=== PATIENT | male | born 1955 | race Caucasian/White ===

== ENCOUNTER 2018-03-02 03:41 | Outpatient (RCR) | payer SELFPAY | END 2018-04-01 03:41 | LOC: CR 03:41 | PROVIDERS: PCP Family Medicine; Visit Provider Family Medicine | DX: Z51.89 Encounter for other specified aftercare (principal) ==

== ENCOUNTER → 2018-03-29 11:00 | Outpatient (CLI) | payer MEDICARE, SELFPAY ==
--- NOTE | 2018-03-29 11:15 | DI.REPORT_ITS ---
SYMPTOMS/DIAGNOSIS: F/U SURGERY LEFT FOOT: Three views. Comparison 02/10/18. There are again seen post surgical changes of arthrodesis of the talonavicular joint, the calcaneocuboid joint and the talocalcaneal joint. The orthopedic hardware appears stable. No acute fracture or dislocation is seen. There is fusion of the PIP joint of the second toe again noted. Hammer toe deformities are present. Mild degenerative changes are seen in the foot. There is generalized soft tissue swelling of the foot. IMPRESSION: Chronic and post surgical changes of the left foot which appear stable.
== END ==
PROVIDERS: PCP Family Medicine; Visit Provider Orthopaedic Surgery
DX: M19.072 Primary osteoarthritis, left ankle and foot (principal); M21.6X2 Other acquired deformities of left foot; M21.072 Valgus deformity, not elsewhere classified, left ankle; M21.42 Flat foot [pes planus] (acquired), left foot; Z98.890 Other specified postprocedural states
CPT/HCPCS: 73630

== ENCOUNTER 2018-04-04 14:42 | Outpatient (RCR) | payer SELFPAY | END 2018-05-01 23:59 | disposition home or self-care (01) | LOC: CR 14:42 | PROVIDERS: PCP Family Medicine; Visit Provider Family Medicine | DX: Z51.89 Encounter for other specified aftercare (principal) ==

== ENCOUNTER 2018-04-07 15:30 | Outpatient (RCR) | payer SELFPAY | END 2018-05-01 23:59 | disposition home or self-care (01) | LOC: CR 15:30 | PROVIDERS: PCP Family Medicine; Visit Provider Family Medicine | DX: Z51.89 Encounter for other specified aftercare (principal) ==

== ENCOUNTER → 2018-05-03 10:45 | Outpatient (BNVA) | payer MEDICARE, SELFPAY | PROVIDERS: Visit Provider Orthopaedic Surgery | DX: Z47.89 Encounter for other orthopedic aftercare (principal); M19.072 Primary osteoarthritis, left ankle and foot; M21.072 Valgus deformity, not elsewhere classified, left ankle; M21.42 Flat foot [pes planus] (acquired), left foot | CPT/HCPCS: 99213 ==

== ENCOUNTER 2018-05-03 11:01 | Outpatient (CLI) | payer MEDICARE, SELFPAY ==
--- NOTE | 2018-05-03 11:12 | DI.RAD_ITS ---
SYMPTOMS/DIAGNOSIS: F/U SURGERY LT FOOT LEFT FOOT: Three views were obtained and show previously noted hindfoot fusion with no gross interval change in alignment of fixation screws in comparison with examination of 03/29/18.
== END 2018-05-03 11:21 ==
PROVIDERS: Visit Provider Orthopaedic Surgery
DX: M21.072 Valgus deformity, not elsewhere classified, left ankle (principal); M19.072 Primary osteoarthritis, left ankle and foot; Z47.89 Encounter for other orthopedic aftercare; Z98.890 Other specified postprocedural states
CPT/HCPCS: 99213; 73630

== ENCOUNTER 2018-05-17 10:39 | Outpatient (CLI) | payer MEDICARE, SELFPAY ==
[2018-05-18 10:30] LABS: PSA, Diagnostic 0.4 ng/ml (0-4.5)
== END 2018-05-17 10:59 ==
PROVIDERS: Nurse Practitioner Gerontology; PCP Family Medicine; Visit Provider Urology
DX: C61 Malignant neoplasm of prostate (principal)
CPT/HCPCS: 36415; 84153

== ENCOUNTER → 2018-05-24 08:51 | Outpatient (BNVA) | payer MEDICARE, SELFPAY | PROVIDERS: PCP Family Medicine; Visit Provider Nurse Practitioner Gerontology | DX: C61 Malignant neoplasm of prostate (principal); N40.1 Benign prostatic hyperplasia with lower urinary tract symptoms; N13.8 Other obstructive and reflux uropathy | CPT/HCPCS: 99213 ==

== ENCOUNTER 2018-05-24 09:00 | Outpatient (RCR) | payer MEDICARE, SELFPAY | END 2018-06-01 23:59 | disposition home or self-care (01) | LOC: CR 09:00 | PROVIDERS: PCP Family Medicine; Visit Provider Family Medicine | DX: Z51.89 Encounter for other specified aftercare (principal) ==

== ENCOUNTER 2018-06-02 10:40 | Outpatient (CLI) | payer MEDICARE, SELFPAY ==
--- NOTE | 2018-06-02 10:37 | DI.RAD_ITS ---
SYMPTOM/DIAGNOSIS: F/U SURGERY LEFT FOOT: Three projections are provided. The images are compared with the prior study of 05/03/18. Again noted is a hind foot fusion with no apparent interval change when compared with the prior images. There is a flat foot deformity. There is no evidence of a fracture or dislocation.
== END 2018-06-02 11:00 ==
PROVIDERS: PCP Family Medicine; Visit Provider Orthopaedic Surgery
DX: M21.42 Flat foot [pes planus] (acquired), left foot (principal); M19.072 Primary osteoarthritis, left ankle and foot; Z47.89 Encounter for other orthopedic aftercare; M21.072 Valgus deformity, not elsewhere classified, left ankle
CPT/HCPCS: 99213; 73630

== ENCOUNTER 2018-06-28 09:00 | Outpatient (RCR) | payer SELFPAY | END 2018-07-01 23:59 | disposition home or self-care (01) | LOC: CR 09:00 | PROVIDERS: PCP Family Medicine; Visit Provider Family Medicine | DX: Z51.89 Encounter for other specified aftercare (principal) ==

== ENCOUNTER 2018-07-12 13:14 | Outpatient (CLI) | payer MEDICARE, SELFPAY ==
--- NOTE | 2018-07-12 11:19 | DI.RAD_ITS ---
SYMPTOM/DIAGNOSIS: F/U SURGERY LEFT FOOT: Comparison is made with 02 Jun 2018. Hardware is again noted related to talonavicular, calcaneal cuboid and talocalcaneal fusions. Previous surgery is noted at the first metatarsal as well as second toe. 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
== END 2018-07-12 13:34 ==
PROVIDERS: PCP Family Medicine; Visit Provider Orthopaedic Surgery
DX: M19.072 Primary osteoarthritis, left ankle and foot (principal); M21.072 Valgus deformity, not elsewhere classified, left ankle; M21.6X2 Other acquired deformities of left foot; Z47.89 Encounter for other orthopedic aftercare
CPT/HCPCS: 99211; 99213; 73630

== ENCOUNTER 2018-07-28 15:04 | Outpatient (RCR) | payer SELFPAY | END 2018-08-01 23:59 | disposition home or self-care (01) | LOC: CR 15:04 | PROVIDERS: PCP Family Medicine; Visit Provider Family Medicine | DX: Z51.89 Encounter for other specified aftercare (principal) ==

== ENCOUNTER 2018-09-01 09:00 | Outpatient (RCR) | payer SELFPAY | END 2018-09-01 23:59 | disposition home or self-care (01) | LOC: CR 09:00 | PROVIDERS: PCP Family Medicine; Visit Provider Family Medicine | DX: Z51.89 Encounter for other specified aftercare (principal) ==

== ENCOUNTER 2018-09-12 07:52 | Outpatient (CLI) | payer MEDICARE, SELFPAY ==
[2018-09-12 11:16] LABS: Abs Immature Grans 0.04 k/cumm (0.0-0.09); Absolute Basophil Count 0.04 k/cumm (0.0-0.2); Absolute Eosinophil Count 0.49 k/cumm (0.0-0.7); Absolute Lymphocyte Count 2.01 k/cumm (1.2-3.4); Absolute Monocyte Count 1.14 k/cumm (0.11-0.7); Absolute Neutrophil Count 5.87 k/cumm (1.2-6.7); Basophils % 0.4; Eosinophils % 5.1; HCT 43.9 % (40.0-50.0); Immature Grans % 0.4; Mean Corp. HGB Concentration 34.2 g/dL (32.0-36.0); Mean Corpuscular Hemoglobin 31.4 pg (27.0-33.0); Mean Corpuscular Volume 91.8 fL (80-95); Mean Platelet Volume 9.3 fL (8.0-11.0); Monocytes % 11.9; Neutrophils % 61.2; Platelet Count 252 x1000/uL (130-400); RBC 4.78 m/cumm (4.50-6.00); RBC Distribution Width 13.1 % (11.8-14.1); White Blood Cell Count 9.59 k/cumm (4.4-10.8)
[2018-09-12 12:19] LABS: ALT 18 U/L (12-78); AST 17 U/L (15-37); Albumin 3.5 g/dL (3.4-5.0); Alkaline Phosphatase 102 U/L (46-116); Anion Gap 8.7 mmol/L (3-11); BUN 29 mg/dL (7-18); CO2 27.3 mmol/L (21.0-32.0); CREATININE 1.16 mg/dL (0.70-1.30); Calcium 9.8 mg/dL (8.5-10.1); Chloride 103 mmol/L (98-107); Cholesterol 125 mg/dL (50-200); Glucose 129 mg/dL (70-100); HDL Cholesterol 46 mg/dL (40-60); LDL CHOLESTEROL 67 mg/dL (<100); Potassium 3.9 mmol/L (3.5-5.1); Sodium 139 mmol/L (136-145); Total Protein 7.3 g/dL (6.4-8.2); Triglyceride 96 mg/dL (30-150)
== END 2018-09-12 08:12 ==
PROVIDERS: PCP Family Medicine; Visit Provider Family Medicine
DX: E78.5 Hyperlipidemia, unspecified (principal); I10 Essential (primary) hypertension; R73.9 Hyperglycemia, unspecified; J44.9 Chronic obstructive pulmonary disease, unspecified
CPT/HCPCS: 36415; 80053; 80061; 83721; 83036; 85025

== ENCOUNTER 2018-09-20 11:21 | Outpatient (CLI) | payer MEDICARE, SELFPAY ==
--- NOTE | 2018-09-20 11:30 | DI.RAD_ITS ---
SYMPTOMS/DIAGNOSIS: RIGHT KNEE PAIN S/P FALL RIGHT KNEE: Two views. Comparison is 10/19/17. There are again seen postsurgical changes of a right total knee replacement. No evidence of hardware failure is seen. There are dystrophic calcifications seen superior and inferior to the patella, which have progressed since the prior examination. The bones do appear to be intact. Soft tissues are unremarkable. IMPRESSION: Right TKR.
== END 2018-09-20 11:41 ==
PROVIDERS: PCP Family Medicine; Referring Provider Family Medicine; Visit Provider Orthopaedic Surgery
DX: M25.561 Pain in right knee (principal); Z96.651 Presence of right artificial knee joint; M21.072 Valgus deformity, not elsewhere classified, left ankle
CPT/HCPCS: 99211; 99213; 73560

== ENCOUNTER 2018-09-22 00:15 | Outpatient (CLI) | payer MEDICARE, SELFPAY ==
--- NOTE | 2018-09-22 11:00 | DI.CTLCSR_ITS ---
SYMPTOMS/DIAGNOSIS: SCREENING, FORMER SMOKER, Z87.891, COPD, PULMONARY NODULE CT SCAN OF THE CHEST: CT scan of the chest was performed according to the lung cancer screening protocol. Comparison examination is 08/19/17. The thoracic aorta is of normal caliber. Heart size is within normal limits. No significant pericardial effusion is seen. No significant thoracic adenopathy is identified on this noncontrast examination. No pleural effusion or pneumothorax is identified. Postsurgical changes of a right shoulder prosthesis are again noted. Moderately severe emphysematous changes are seen in the lungs. The 6 mm nodule in the right lower lobe appears stable. There is scarring in the left lower lobe. No new pulmonary nodules are seen. No consolidating infiltrates are present. The tracheobronchial tree is unremarkable. Upper abdominal images show postsurgical changes of a prior cholecystectomy. Degenerative changes are seen in the spine. IMPRESSION: 1. Stable right lower lobe pulmonary nodule. 2. Moderately severe bullous emphysema. Lung-RAD Category: 2- Benign Appearance/Behavior Lung- RAD Management of Findings: Continue annual LDCT screening in 12 months
== END 2018-09-22 00:35 ==
PROVIDERS: PCP Family Medicine; Visit Provider Family Medicine
DX: Z12.2 Encounter for screening for malignant neoplasm of respiratory organs (principal); J44.9 Chronic obstructive pulmonary disease, unspecified; R91.1 Solitary pulmonary nodule; J43.9 Emphysema, unspecified
CPT/HCPCS: G0297

== ENCOUNTER 2018-09-27 12:58 | Outpatient (RCR) | payer SELFPAY | END 2018-09-29 23:59 | disposition home or self-care (01) | LOC: CR 12:58 | PROVIDERS: PCP Family Medicine; Visit Provider Family Medicine | DX: Z51.89 Encounter for other specified aftercare (principal) ==

== ENCOUNTER 2018-10-11 11:25 | Outpatient (RCR) | payer SELFPAY | END 2018-10-30 23:59 | disposition home or self-care (01) | LOC: CR 11:25 | PROVIDERS: PCP Family Medicine; Visit Provider Family Medicine | DX: Z51.89 Encounter for other specified aftercare (principal) ==

== ENCOUNTER 2018-10-28 10:35 | Outpatient (CLI) | payer MEDICARE, SELFPAY | END 2018-10-28 10:55 | PROVIDERS: PCP Family Medicine; Visit Provider Orthopaedic Surgery | DX: I10 Essential (primary) hypertension (principal); J44.9 Chronic obstructive pulmonary disease, unspecified; Z01.818 Encounter for other preprocedural examination; Z87.891 Personal history of nicotine dependence | CPT/HCPCS: 93005; 93010 ==

== ENCOUNTER 2018-11-01 03:25 | Outpatient (RCR) | payer SELFPAY | END 2018-11-29 23:59 | disposition home or self-care (01) | LOC: CR 03:25 | PROVIDERS: PCP Family Medicine; Visit Provider Family Medicine | DX: Z51.89 Encounter for other specified aftercare (principal) ==

== ENCOUNTER 2018-11-04 10:55 | Observation (INO) | payer MEDICARE, SELFPAY ==
[2018-11-04] VITALS (12 sets, daily range): BP systolic 120–161; BP diastolic 52–98; PULSE 56–72; RESP 14–21; TEMP 36.1–36.8; O2SAT 93–99
[2018-11-04] MEDS: Lactated Ringers 1,000 ML 80 ML IV (07:07)
[2018-11-04] MEDS: ceFAZolin 2 GM/50 ML BAG IVPB (08:00)
--- NOTE | 2018-11-04 10:10 | DI.RAD_ITS ---
SYMPTOMS/DIAGNOSIS: LT ANKLE PAIN C-ARM FLUOROSCOPY: Fluoroscopy Time: 60.2 sec 1.16 mGy C-arm fluoroscopy was utilized by Dr. Mobley. Please see Dr. Mobley's procedure note. Hardcopies show fixation screw placement in the medial and lateral midfoot and hindfoot on AP images.
[2018-11-04] MEDS: POTASSIUM CHLORIDE/0.9% NACL 1,000 ML 100 MEQ IV ×2 (12:15→21:21)
--- NOTE | 2018-11-04 12:38 | ROE_ITS ---
DATE OF PROCEDURE: November 04, 2018 PREOPERATIVE DIAGNOSIS: Status post triple arthrodesis, left foot, with development of malposition o f mid-foot. POSTOPERATIVE DIAGNOSIS: Same. PROCEDURE: Revision triple arthrodesis, left foot. SURGEON: Michael Mobley M.D. QA SOFTWARE TESTER: Caitlin Palacio ANESTHETIC: Popliteal nerve blockade, followed by spinal by Ramirez Lei CRNA PREP: ChloraPrep. 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 This was consistent with end-stage posterior tibial tendon disruption. In December of 2017 he underw ent triple arthrodesis of his left foot. He initially had good correction, but over time developed s ome loss of correction. Although his pain had been significantly improved, he still had a deformity. Radiographs did not show any evidence of a failure of fusion, but I suspect that from the time the fusion was performed initially and the time that it healed, there was some settling at the fusion sit e. It appeared that the talocalcaneal fusion was solid; therefore I only felt that I had to revise t he calcaneal cuboid fusion and the talonavicular fusion. I discussed this in detail with the patient and his and he understood and wished to proceed. The patient was seen in the Day Surgery holding area. He consented to have a popliteal nerve blockad e followed by a spinal. He was taken to the operating suite after the block was done and he had a sp inal anesthetic performed without difficulty. Two grams of Ancef were given as a prophylactic antibi otic. A time-out was instituted, verifying the planned procedure. DESCRIPTION OF PROCEDURE: The entire left lower extremity from the knee joint distalward was preppe d with ChloraPrep. Sterile drapes were applied. The limb was elevated to exsanguinate it. There wa s no evidence of any vascular embarrassment from the nerve block. The tourniquet was inflated to 360 mmHg after waiting approximately three minutes. Previous incisions over the talonavicular joint and the calcaneal cuboid joint were easily identified and utilized. Starting with the talonavicular joint, the skin was incised and deep flaps were creat ed so as to prevent any devascularized soft tissue. There was a solid fusion of the talonavicular celso int. It appeared that the navicular was laterally displaced on the talar head and not in ideal posit ion. The fixation screws, however, were solid and they were identified and removed. I then worked o n mobilizing the talonavicular joint. This was done by using the C-arm image intensifier, verifying the joint location, and then using the original talonavicular joint as a takedown area for the repeat fusion. I used a finely-toothed oscillating saw to remove a portion of the talar head. This allowe d medial displacement of the navicular on the talus after soft tissue mobilization. Following this, I then proceeded to identify the calcaneal cuboid joint. Fixation screws also showed good purchase; one screw had solid purchase, the other was slightly loose, but had not backed out. With the C-arm I was able to identify the calcaneal cuboid joint and I entered that joint. I felt th at the patient needed a lengthening of the lateral column of the foot, and I had obtained a femoral h ead allograft to accomplish this. After mobilizing the soft tissue over the calcaneal cuboid joint a nd allowing for an opening wedge osteotomy, I then fabricated the bone wedge from the femoral head, k eeping the subchondral bone intact so as to prevent collapse. The wedge was shaped using templates a nd the wedge was then tapped into position, correcting the positioning of the valgus forefoot. This also helped maintain the talonavicular joint reduce with the navicular now being medial to the talar head. After confirming satisfactory positioning of the wedge and the bony anatomy, I then fixed the talonavicular joint with two screws that were 4.5 mm. Because they were placed through a different p ortion of the talus, they had good purchase. These were approximately 50 mm in length. They were co nfirmed to be in satisfactory position on the C-arm. The lateral opening wedge fragment along with t he calcaneal cuboid joint, were fixed with two screws, which were 4.5 mm in diameter. These were can nulated screws; the superior screw was 44 mm and the inferior screw was 36 mm. Final image intensifi er radiographs showed correction of the pre-existent deformity. The gaps between any of the bony fra gments were filled with allograft along with demineralized bone matrix. The soft tissues that were e levated off the bone were approximated with sutures of #2-0 Vicryl. The tourniquet was then deflated ; hemostasis was under control; there was excellent return of capillary refill and no evidence of anibal gical vascular embarrassment. The subcutaneous tissues were closed with #3-0 Vicryl and the skin was closed with #4-0 Ethilon in a [id number] retention suture technique. Sterile bandages were applied consisting of Xeroform, gauze 4x4's, a 4-inch conforming gauze bandage, followed by a short-leg cast, which was univalved. Estimated blood loss was minimal because the procedure was done under tourniquet. The patient tolerated the procedure well and will be admitted overnight for observation to make sure that the popliteal blockade provides adequate pain control.
[2018-11-04] MEDS: oxyCODONE 5 MG TAB PO ×2 (14:15→18:02)
[2018-11-04] MEDS: Acetaminophen 325 MG TAB 650 MG PO ×2 (14:16→18:02)
--- NOTE | 2018-11-04 15:12 | NUR.NOTE ---
Nursing Note: Admited from PACU to room 230 via stretcher. Hover mat used for transfer from stretcher to stretcher bed. Oriented to room and call smallwood system. rails up. See VS intervention. HNV post yet. Sips of clear given. LS clear. Enc to take deep breaths. BS +. Denies nausea. Turns well in bed. LE elevated on pillows. LLE split cast w estephania CDI. Ice pack in use to ankle area. SCD and in use. Had a nerve block and has no feeling in foot but is able to lift the LE.
[2018-11-04] MEDS: Bupivacaine 0.25% Pres-Free 10 ML VIAL (17:54)
[2018-11-04] MEDS: Bupivacaine 0.5% Pres-Free 30 ML VIAL (17:55)
[2018-11-04] MEDS: Pravastatin 40 MG TAB PO (19:21)
[2018-11-04] MEDS: Pramipexole 0.5 MG TAB PO (21:21)
[2018-11-04] MEDS: Zolpidem 5 MG TAB PO (21:21)
[2018-11-05] MEDS: oxyCODONE 5 MG TAB PO ×3 (00:01→12:02)
[2018-11-05] MEDS: Acetaminophen 325 MG TAB 650 MG PO ×3 (00:01→12:02)
[2018-11-05 00:13] VITALS: BP 130/69; PULSE 54; RESP 18; TEMP 36.7; O2SAT 94
[2018-11-05 03:26] VITALS: BP 109/57; PULSE 66; RESP 20; TEMP 36.4; O2SAT 93
[2018-11-05 07:05] VITALS: BP 121/59; PULSE 55; RESP 18; TEMP 36.5; O2SAT 94
[2018-11-05] MEDS: Ipratropium/Albuterol 4 GM 120 PUFF INH IH (07:35)
[2018-11-05] MEDS: Venlafaxine 50 MG TAB 100 MG PO (07:37)
[2018-11-05] MEDS: Budesonide/Formoterol 160/4.5 6 GM 60 PUFF INH IH (07:38)
[2018-11-05] MEDS: Pantoprazole 40 MG TABCR PO (07:38)
[2018-11-05] MEDS: Lisinopril 5 MG TAB PO (07:38)
[2018-11-05] MEDS: buPROPion-CR 150 MG TABCR PO (07:38)
[2018-11-05] MEDS: Multivitamin w/Minerals TAB 1 TAB PO (07:38)
[2018-11-05] MEDS: hydroCHLOROthiazide 25 MG TAB PO (07:39)
[2018-11-05] MEDS: Metoprolol CR 100 MG TABCR PO (07:39)
[2018-11-05] MEDS: Aspirin E.C. 81 MG TABEC PO (07:39)
[2018-11-05] MEDS: lamoTRIgine 100 MG TAB 200 MG PO (07:39)
[2018-11-05 07:40] VITALS: O2SAT 96
--- NOTE | 2018-11-05 08:41 | W.PM.PROGNOT ---
Date of Service Date of service: 11/05/18 Time of Service: 08:42 Assessment and Plan (1) Arthritis of left foot: Current visit: Yes Status: Acute Patient doing welll. Wheelchair won't be available until 11/07/18 via [facility] in [place]. Patient thinks he will be able to get into hjis home using his walker and dwith the assistance of his son who is here from [place]. Subjective Interval history since last seen: Patient doing well. Some pain but tolerable with nsaids and tylenol. Toes are still numb. Exam Extrem Other: Patient lying in be with foot elevated. Toes are pink and warm and subjectively numb. No evidence of compartment syndrome. Objective Objective Clinical Data: Vital Signs Temperature 97.7 F 11/05/18 07:05 Temperature Source Tympanic 11/05/18 07:05 Pulse 55 L 11/05/18 07:05 Pulse Rhythm Regular 11/05/18 00:00 Respiratory Rate 18 11/05/18 07:05 Respiratory Effort 11/05/18 00:00 Respiratory Depth Normal 11/05/18 00:00 Respiratory Pattern Normal 11/05/18 00:00 Blood Pressure 121/59 L 11/05/18 07:05 Pulse Oximetry 94 L 11/05/18 07:05 Respiratory End-tidal CO2 33 11/04/18 11:19 Oxygen Delivery Method Room Air 11/05/18 07:05 Oxygen Flow Rate 0 11/05/18 07:05 Pain Level 0 11/05/18 07:40 Comment 11/04/18 12:00 Intake & Output 11/04/18 11/04/18 11/05/18 11:59 23:59 11:59 Intake Total 630 / 2576 1946 / 2576 713.667 / 713.667 Output Total 1050 / 1050 850 / 850 Balance 630 / 1526 896 / 1526 -136.333 / -136.333 Weight 241 lb 10.026 oz Intake: IV / 2015 1465 / 2016 413.667 / 413.667 Oral 80 / 560 480 / 560 300 / 300 Output: Urine 1050 / 1050 850 / 850 Other: Urine Color Yellow Yellow Urine Appearance Clear Clear Urine Odor None Normal Emesis Description None Voiding Methods Urinal Toilet
--- NOTE | 2018-11-05 08:46 | PGE_ITS ---
Date of Service Date of service: 11/05/18 Time of Service: 08:42 Assessment and Plan (1) Arthritis of left foot: Current visit: Yes Status: Acute Patient doing welll. Wheelchair won't be available until 11/07/18 via [facility] in [place]. Patient thinks he will be able to get into hjis home using his walker and dwith the assistance of his son who is here from [place]. Subjective Interval history since last seen: Patient doing well. Some pain but tolerable with nsaids and tylenol. Toes are still numb. Exam Extrem Other: Patient lying in be with foot elevated. Toes are pink and warm and subje ctively numb. No evidence of compartment syndrome. Objective Objective Clinical Data: Vital Signs Temperature 97.7 F 11/05/18 07:05 Temperature Source Tympanic 11/05/18 07:05 Pulse 55 L 11/05/18 07:05 Pulse Rhythm Regular 11/05/18 00:00 Respiratory Rate 18 11/05/18 07:05 Respiratory Effort 11/05/18 00:00 Respiratory Depth Normal 11/05/18 00:00 Respiratory Pattern Normal 11/05/18 00:00 Blood Pressure 121/59 L 11/05/18 07:05 Pulse Oximetry 94 L 11/05/18 07:05 Respiratory End-tidal CO2 33 11/04/18 11:19 Oxygen Delivery Method Room Air 11/05/18 07:05 Oxygen Flow Rate 0 11/05/18 07:05 Pain Level 0 11/05/18 07:40 Comment 11/04/18 12:00 Intake & Output 11/04/18 11/04/18 11/05/18 11:59 23:59 11:59 Intake Total 630 / 2576 1946 / 2576 713.667 / 713.667 Output Total 1050 / 1050 850 / 850 Balance 630 / 1526 896 / 1526 -136.333 / -136.333 Weight 241 lb 10.026 oz Intake: IV / 2015 413.667 / 413.667 Oral 80 / 560 480 / 560 300 / 300 Output: Urine 1050 / 1050 850 / 850 Other: Urine Color Yellow Yellow Urine Appearance Clear Clear Urine Odor None Normal Emesis Description None Voiding Methods Urinal Toilet
--- NOTE | 2018-11-05 08:46 | W.PM.DS.N ---
Discharge Plan Disposition Patient Disposition: HOME Condition: Improving Discharge Details Reason For Visit: TRIPLE ARTHRODESIS LEFT FOOT WITH BONE GRAFTING Admit Date/Time: 11/04/18 10:55 Admit Provider: Michael Mobley Attending Provider: Michael Mobley Primary Care Provider: Fareed Petty [facility] Course Hospital Course: Patient was maintained on prophylactic antibiotcs for 24 hours. Popliteal block has provided excellent pain relief with only nsaids needed along with tylenol. No copd complications or exacerbations. Home Meds and New Rx's Prescriptions: No Action Advair HFA 8 GM HFA aerosol inhaler 2 puff Inhalation BID Qty: 1 RF: 1 Bevespi Aerosphere 10.7 GM HFA aerosol inhaler 2 puff Inhalation BID Qty: 3 RF: 4 venlafaxine 100 MG tablet 100 mg PO BID Qty: 180 RF: 3 pravastatin [Pravachol] 40 MG tablet 40 mg PO DAILY Qty: 90 RF: 4 metoprolol succinate 100 MG tablet extended release 24 hr 100 mg PO DAILY Qty: 90 RF: 3 pramipexole 0.5 MG tablet 0.5 mg PO HS Qty: 90 RF: 3 lamotrigine 100 MG tablet 200 mg PO DAILY Qty: 180 RF: 3 lisinopril 5 mg tablet 5 mg PO DAILY Qty: 90 RF: 4 hydrochlorothiazide 25 mg tablet 25 mg PO DAILY Qty: 100 RF: 4 naproxen 500 mg tablet 500 mg PO DAILY Qty: 90 RF: 3 albuterol sulfate [Ventolin HFA] 90 mcg/actuation HFA aerosol inhaler 2 puff Inhalation Q4H PRN (Reason: shortness of breath or wheezing) Qty: 18 RF: 11 ipratropium-albuterol 0.5 mg-3 mg(2.5 mg base)/3 mL solution for nebulization 3 ml Inhalation Q4H PRN PRN (Reason: shortness of breath or wheezing) Qty: 180 RF: 2 zolpidem 5 mg tablet 5 mg PO QHS PRN (Reason: sleep) Qty: 30 RF: 3 omeprazole 20 mg capsule,delayed release(DR/EC) 20 mg PO DAILY Qty: 90 RF: 3 bupropion HCl (smoking deter) 150 mg tablet extended release 12 hr 150 mg PO BID Qty: 180 RF: 3 aspirin 81 MG tablet,chewable 81 mg PO DAILY RF: 0 acetaminophen [Pain and Fever] 500 MG tablet 500 - 1,000 mg PO PRN PRNRF: 0 calcium polycarbophil [Fiber Laxative (ca polycarbo)] 625 MG tablet 1,250 mg PO DAILY RF: 0 ascorbic acid (vitamin C) 1,000 MG tablet,chewable 1,000 mg PO DAILY RF: 0 calcium carbonate [Calcium 500] 500 MG tablet 500 mg PO DAILY RF: 0 Discharge Instructions Additional Instructions: Keep your left foot elevated above heart level as much as possible for the next several days. Do not step thru on your cast, but you may gently let it rest on the floor while standing still. Use your walker at all times to protect your repair and to prevent falling. Your cast has been split, you may loosen the estephania bandage and spread or wedge your cast open if it feel too tight. Continue to use an ice pack to the top of your left foot to help control pain and swelling. Use a plastic bag with a rubber band about the knee to keep the cast dry during showering. Take your usual medications as before. Take tylenol along with naproxen for pain control. They can be taken together as they are metabolized differently and are not cross toxic. Take oxycodone 5mg 1 every 4 hours for more serious pain; [facility] [place] the amount that can be prescribed to 5 tablets. [facility] should [facility] on Wednesday11/07/18. Follow-up with in 2 weeks for cast change and stitch removal;. Care Plan Goals: Return to independent ambulation Activity:: Elevate foot Equipment/Supplies:: Walker Diet:: As Tolerated Discharge Orders Discharge Orders: Discharge Order (Routine); Ordered 11/05/18 Ordered By: Michael Mobley DS: Data Vitals/I&O Vitals and I&O: Vital Signs Temperature 97.7 F 11/05/18 07:05 Temperature Source Tympanic 11/05/18 07:05 Pulse 55 L 11/05/18 07:05 Pulse Rhythm Regular 11/05/18 00:00 Respiratory Rate 18 11/05/18 07:05 Respiratory Effort 11/05/18 00:00 Respiratory Depth Normal 11/05/18 00:00 Respiratory Pattern Normal 11/05/18 00:00 Blood Pressure 121/59 L 11/05/18 07:05 Pulse Oximetry 94 L 11/05/18 07:05 Respiratory End-tidal CO2 33 11/04/18 11:19 Oxygen Delivery Method Room Air 11/05/18 07:05 Oxygen Flow Rate 0 11/05/18 07:05 Pain Level 0 11/05/18 07:40 Comment 11/04/18 12:00 Intake & Output 11/04/18 11/04/18 11/05/18 11:59 23:59 11:59 Intake Total 630 / 2576 1946 / 2576 713.667 / 713.667 Output Total 1050 / 1050 850 / 850 Balance 630 / 1526 896 / 1526 -136.333 / -136.333 Weight 241 lb 10.026 oz Intake: IV / 2015 1466 / 2016 413.667 / 413.667 Oral 80 / 560 480 / 560 300 / 300 Output: Urine 1050 / 1050 850 / 850 Other: Urine Color Yellow Yellow Urine Appearance Clear Clear Urine Odor None Normal Emesis Description None Voiding Methods Urinal Toilet [facility] Social History Smoking/Tobacco Use Status: Former Tobacco Use Alcohol Intake: never Drug use: Never Do you feel safe at home: Yes Do you feel safe in your relationship?: Yes
--- NOTE | 2018-11-05 08:57 | W.PM.DS.N ---
DS: Diagnosis Discharge Diagnosis (1) Arthritis of left foot: Status: Acute Discharge Plan Disposition Patient Disposition: HOME Condition: Improving Discharge Details Reason For Visit: TRIPLE ARTHRODESIS LEFT FOOT WITH BONE GRAFTING Admit Date/Time: 11/04/18 10:55 Admit Provider: Michael Mobley Attending Provider: Michael Mobley Primary Care Provider: Fareed Petty [facility] Course Hospital Course: Patient was maintained on prophylactic antibiotcs for 24 hours. Popliteal block has provided excellent pain relief with only nsaids needed along with tylenol. No copd complications or exacerbations. Home Meds and New Rx's Prescriptions: No Action Advair HFA 8 GM HFA aerosol inhaler 2 puff Inhalation BID Qty: 1 RF: 1 Bevespi Aerosphere 10.7 GM HFA aerosol inhaler 2 puff Inhalation BID Qty: 3 RF: 4 venlafaxine 100 MG tablet 100 mg PO BID Qty: 180 RF: 3 pravastatin [Pravachol] 40 MG tablet 40 mg PO DAILY Qty: 90 RF: 4 metoprolol succinate 100 MG tablet extended release 24 hr 100 mg PO DAILY Qty: 90 RF: 3 pramipexole 0.5 MG tablet 0.5 mg PO HS Qty: 90 RF: 3 lamotrigine 100 MG tablet 200 mg PO DAILY Qty: 180 RF: 3 lisinopril 5 mg tablet 5 mg PO DAILY Qty: 90 RF: 4 hydrochlorothiazide 25 mg tablet 25 mg PO DAILY Qty: 100 RF: 4 naproxen 500 mg tablet 500 mg PO DAILY Qty: 90 RF: 3 albuterol sulfate [Ventolin HFA] 90 mcg/actuation HFA aerosol inhaler 2 puff Inhalation Q4H PRN (Reason: shortness of breath or wheezing) Qty: 18 RF: 11 ipratropium-albuterol 0.5 mg-3 mg(2.5 mg base)/3 mL solution for nebulization 3 ml Inhalation Q4H PRN PRN (Reason: shortness of breath or wheezing) Qty: 180 RF: 2 zolpidem 5 mg tablet 5 mg PO QHS PRN (Reason: sleep) Qty: 30 RF: 3 omeprazole 20 mg capsule,delayed release(DR/EC) 20 mg PO DAILY Qty: 90 RF: 3 bupropion HCl (smoking deter) 150 mg tablet extended release 12 hr 150 mg PO BID Qty: 180 RF: 3 aspirin 81 MG tablet,chewable 81 mg PO DAILY RF: 0 acetaminophen [Pain and Fever] 500 MG tablet 500 - 1,000 mg PO PRN PRNRF: 0 calcium polycarbophil [Fiber Laxative (ca polycarbo)] 625 MG tablet 1,250 mg PO DAILY RF: 0 ascorbic acid (vitamin C) 1,000 MG tablet,chewable 1,000 mg PO DAILY RF: 0 calcium carbonate [Calcium 500] 500 MG tablet 500 mg PO DAILY RF: 0 Discharge Instructions Instructions: Cast Care (DC), Arthrodesis (DC) Additional Instructions: Keep your left foot elevated above heart level as much as possible for the next several days. Do not step thru on your cast, but you may gently let it rest on the floor while standing still. Use your walker at all times to protect your repair and to prevent falling. Your cast has been split, you may loosen the estephania bandage and spread or wedge your cast open if it feel too tight. Continue to use an ice pack to the top of your left foot to help control pain and swelling. Use a plastic bag with a rubber band about the knee to keep the cast dry during showering. Take your usual medications as before. Take tylenol along with naproxen for pain control. They can be taken together as they are metabolized differently and are not cross toxic. Take oxycodone 5mg 1 every 4 hours for more serious pain; [facility] [place] regulations limit the amount that can be prescribed to 5 tablets. [facility] on Wednesday11/07/18. Follow-up with in 2 weeks for cast change and stitch removal;. Care Plan Goals: Return to independent ambulation Stand Alone Forms: Nursing Discharge Form Referrals: Michael Mobley MD [ [facility] STAFF PHYSICIAN] - (The office will call you to schedule a follow up appointment with Dr. Mobley. If you don't receive a call by wednesday please call the office at [phone].) Activity:: Elevate foot Equipment/Supplies:: Walker Diet:: As Tolerated Discharge Orders Discharge Orders: Discharge Order (Routine); Ordered 11/05/18 Ordered By: Michael Mobley Discharge Data Discharge Date/Time-TO BE ENTERED AT DEPARTURE: 11/05/18 12:20 DS: Data Vitals/I&O Vitals and I&O: Vital Signs Temperature 97.7 F 11/05/18 07:05 Temperature Source Tympanic 11/05/18 07:05 Pulse 55 L 11/05/18 07:05 Pulse Rhythm Regular 11/05/18 00:00 Respiratory Rate 18 11/05/18 07:05 Respiratory Effort 11/05/18 00:00 Respiratory Depth Normal 11/05/18 00:00 Respiratory Pattern Normal 11/05/18 00:00 Blood Pressure 121/59 L 11/05/18 07:05 Pulse Oximetry 94 L 11/05/18 07:05 Respiratory End-tidal CO2 33 11/04/18 11:19 Oxygen Delivery Method Room Air 11/05/18 07:05 Oxygen Flow Rate 0 11/05/18 07:05 Pain Level 0 11/05/18 07:40 Comment 11/04/18 12:00 Intake & Output 11/04/18 11/04/18 11/05/18 11:59 23:59 11:59 Intake Total 630 / 2576 1946 / 2576 713.667 / 713.667 Output Total 1050 / 1050 850 / 850 Balance 630 / 1526 896 / 1526 -136.333 / -136.333 Weight 241 lb 10.026 oz Intake: IV / 2015 1465 / 2016 413.667 / 413.667 Oral 80 / 560 480 / 560 300 / 300 Output: Urine 1050 / 1050 850 / 850 Other: Urine Color Yellow Yellow Urine Appearance Clear Clear Urine Odor None Normal Emesis Description None Voiding Methods Urinal Toilet [facility] Social History Smoking/Tobacco Use Status: Former Tobacco Use Alcohol Intake: never Drug use: Never Do you feel safe at home: Yes Do you feel safe in your relationship?: Yes
--- NOTE | 2018-11-05 19:21 | PDOC.CMPRO ---
Care Management Progress Note PRIYANKA Avilez faxed needed documentation for W/C to [facility] on 11/05/18. PRIYANKA spoke with Dr. Mobley today who reported Javon's family was confident with bringing him home and awaiting completion of W/C coordination with [facility] on Wednesday.
--- NOTE | 2018-11-06 06:48 | DSE_ITS ---
DS: Diagnosis Discharge Diagnosis (1) Arthritis of left foot: Status: Acute Discharge Plan Disposition Patient Disposition: HOME Condition: Improving Discharge Details Reason For Visit: TRIPLE ARTHRODESIS LEFT FOOT WITH BONE GRAFTING Admit Date/Time: 11/04/18 10:55 Admit Provider: Michael Mobley Attending Provider: Michael Mobley Primary Care Provider: Fareed Petty [facility] Course Hospital Course: Patient was maintained on prophylactic antibiotcs for 24 hours. Popliteal block has provided excellent pain relief with only nsaids needed along with tylenol. No copd complications or exacerbations. Home Meds and New Rx's Prescriptions: No Action Advair HFA 8 GM HFA aerosol inhaler 2 puff Inhalation BID Qty: 1 RF: 1 Bevespi Aerosphere 10.7 GM HFA aerosol inhaler 2 puff Inhalation BID Qty: 3 RF: 4 venlafaxine 100 MG tablet 100 mg PO BID Qty: 180 RF: 3 pravastatin [Pravachol] 40 MG tablet 40 mg PO DAILY Qty: 90 RF: 4 metoprolol succinate 100 MG tablet extended release 24 hr 100 mg PO DAILY Qty: 90 RF: 3 pramipexole 0.5 MG tablet 0.5 mg PO HS Qty: 90 RF: 3 lamotrigine 100 MG tablet 200 mg PO DAILY Qty: 180 RF: 3 lisinopril 5 mg tablet 5 mg PO DAILY Qty: 90 RF: 4 hydrochlorothiazide 25 mg tablet 25 mg PO DAILY Qty: 100 RF: 4 naproxen 500 mg tablet 500 mg PO DAILY Qty: 90 RF: 3 albuterol sulfate [Ventolin HFA] 90 mcg/actuation HFA aerosol inhaler 2 puff Inhalation Q4H PRN (Reason: shortness of breath or wheezing) Qty: 18 RF: 11 ipratropium-albuterol 0.5 mg-3 mg(2.5 mg base)/3 mL solution for nebulization 3 ml Inhalation Q4H PRN PRN (Reason: shortness of breath or wheezing) Qty: 180 RF: 2 zolpidem 5 mg tablet 5 mg PO QHS PRN (Reason: sleep) Qty: 30 RF: 3 omeprazole 20 mg capsule,delayed release(DR/EC) 20 mg PO DAILY Qty: 90 RF: 3 bupropion HCl (smoking deter) 150 mg tablet extended release 12 hr 150 mg PO BID Qty: 180 RF: 3 aspirin 81 MG tablet,chewable 81 mg PO DAILY RF: 0 acetaminophen [Pain and Fever] 500 MG tablet 500 - 1,000 mg PO PRN PRNRF: 0 calcium polycarbophil [Fiber Laxative (ca polycarbo)] 625 MG tablet 1,250 mg PO DAILY RF: 0 ascorbic acid (vitamin C) 1,000 MG tablet,chewable 1,000 mg PO DAILY RF: 0 calcium carbonate [Calcium 500] 500 MG tablet 500 mg PO DAILY RF: 0 Discharge Instructions Instructions: Cast Care (DC), Arthrodesis (DC) Additional Instructions: Keep your left foot elevated above heart level as much as possible for the next several days. Do not step thru on your cast, but you may gently let it rest on the floor while standing still. Use your walker at all times to protect your repair and to prevent falling. Your cast has been split, you may loosen the estephania bandage and spread or wedge your cast open if it feel too tight. Continue to use an ice pack to the top of your left foot to help control pain and swelling. Use a plastic bag with a rubber band about the knee to keep the cast dry during sh owering. Take your usual medications as before. Take tylenol along with naproxen for pain control. They can be taken together as they are metabolized differently and are not cross toxic. Take oxycodone 5mg 1 every 4 hours for more serious pain; [facility] regulations limit the amount that can be prescribed to 5 tablets. [facility] should be delivering your wheelchair on Wednesday11/07/18. Follow-up with in 2 weeks for cast change and stitch removal;. Care Plan Goals: Return to independent ambulation Stand Alone Forms: Nursing Discharge Form Referrals: Michael Mobley MD [ [facility] STAFF PHYSICIAN] - (The office will call you to schedule a follow up appointment with Dr. Mobley. If you don't receive a call by wednesday please call the office at [phone].) Activity:: Elevate foot Equipment/Supplies:: Walker Diet:: As Tolerated Discharge Orders Discharge Orders: Discharge Order (Routine); Ordered 11/05/18 Ordered By: Michael Mobley Discharge Data Discharge Date/Time-TO BE ENTERED AT DEPARTURE: 11/05/18 12:20 DS: Data Vitals/I&O Vitals and I&O: Vital Signs Temperature 97.7 F 11/05/18 07:05 Temperature Source Tympanic 11/05/18 07:05 Pulse 55 L 11/05/18 07:05 Pulse Rhythm Regular 11/05/18 00:00 Respiratory Rate 18 11/05/18 07:05 Respiratory Effort 11/05/18 00:00 Respiratory Depth Normal 11/05/18 00:00 Respiratory Pattern Normal 11/05/18 00:00 Blood Pressure 121/59 L 11/05/18 07:05 Pulse Oximetry 94 L 11/05/18 07:05 Respiratory End-tidal CO2 33 11/04/18 11:19 Oxygen Delivery Method Room Air 11/05/18 07:05 Oxygen Flow Rate 0 11/05/18 07:05 Pain Level 0 11/05/18 07:40 Comment 11/04/18 12:00 Intake & Output 11/04/18 11/04/18 11/05/18 11:59 23:59 11:59 Intake Total 630 / 2576 1946 / 2576 713.667 / 713.667 Output Total 1050 / 1050 850 / 850 Balance 630 / 1526 896 / 1526 -136.333 / -136.333 Weight 241 lb 10.026 oz Intake: IV / 2015 1465 / 2016 413.667 / 413.667 Oral 80 / 560 480 / 560 300 / 300 Output: Urine 1050 / 1050 850 / 850 Other: Urine Color Yellow Yellow Urine Appearance Clear Clear Urine Odor None Normal Emesis Description None Voiding Methods Urinal Toilet [facility] Social History Smoking/Tobacco Use Status: Former Tobacco Use Alcohol Intake: never Drug use: Never Do you feel safe at home: Yes Do you feel safe in your relationship?: Yes
== END 2018-11-05 12:20 | disposition home or self-care (01) ==
LOC: MS 15:27
PROVIDERS: Admitting Provider Orthopaedic Surgery; PCP Family Medicine; Visit Provider Orthopaedic Surgery
PROC: 0SGJ04Z Fusion of Left Tarsal Joint with Internal Fixation Device, Open Approach (ICD-10-PCS; CPT 28740; principal; 2018-11-04 07:30)
DX: M96.0 Pseudarthrosis after fusion or arthrodesis (principal); G89.18 Other acute postprocedural pain; M19.072 Primary osteoarthritis, left ankle and foot; J44.9 Chronic obstructive pulmonary disease, unspecified; I10 Essential (primary) hypertension; G47.33 Obstructive sleep apnea (adult) (pediatric)
CPT/HCPCS: 28730; 64450; C1713; 76000; 76942; 94640; NC; 73600; G0378; J0690; J1100; J2250; J2405; J3490

== ENCOUNTER → 2018-11-17 13:52 | Outpatient (BNVA) | payer MEDICARE, SELFPAY | PROVIDERS: PCP Family Medicine; Referring Provider Family Medicine; Visit Provider Orthopaedic Surgery | DX: Z47.89 Encounter for other orthopedic aftercare (principal); M19.072 Primary osteoarthritis, left ankle and foot | CPT/HCPCS: 29405 ==

== ENCOUNTER 2018-11-30 05:28 | Outpatient (RCR) | payer SELFPAY | END 2018-12-30 23:59 | disposition home or self-care (01) | LOC: CR 05:28 | PROVIDERS: PCP Family Medicine; Visit Provider Family Medicine | DX: Z51.89 Encounter for other specified aftercare (principal) ==

== ENCOUNTER 2018-12-15 13:00 | Outpatient (CLI) | payer MEDICARE, SELFPAY ==
--- NOTE | 2018-12-15 12:59 | DI.RAD_ITS ---
SYMPTOMS/DIAGNOSIS: S/P SURGERY LEFT FOOT: Three views were obtained and show hindfoot arthrodesis with multiple fixation screws in place. Alignment appears unchanged in comparison with intraoperative films of 11/04/18.
== END 2018-12-15 13:20 ==
PROVIDERS: PCP Family Medicine; Referring Provider Family Medicine; Visit Provider Orthopaedic Surgery
DX: M19.072 Primary osteoarthritis, left ankle and foot (principal); Z98.890 Other specified postprocedural states; M96.0 Pseudarthrosis after fusion or arthrodesis
CPT/HCPCS: 73630

== ENCOUNTER 2018-12-15 13:43 | Outpatient (CLI) | payer MEDICARE, SELFPAY ==
[2018-12-16 10:59] LABS: PSA, Diagnostic 0.4 ng/ml (0-4.5)
== END 2018-12-15 14:03 ==
PROVIDERS: PCP Family Medicine; Visit Provider Nurse Practitioner Gerontology
DX: N13.8 Other obstructive and reflux uropathy (principal); N40.1 Benign prostatic hyperplasia with lower urinary tract symptoms; R91.1 Solitary pulmonary nodule; Z47.89 Encounter for other orthopedic aftercare; M19.072 Primary osteoarthritis, left ankle and foot
CPT/HCPCS: 29405; 36415; 73630; 84153

== ENCOUNTER → 2018-12-27 14:20 | Outpatient (BNVA) | payer MEDICARE, SELFPAY | PROVIDERS: PCP Family Medicine; Visit Provider Nurse Practitioner Gerontology | DX: N40.1 Benign prostatic hyperplasia with lower urinary tract symptoms (principal); N13.8 Other obstructive and reflux uropathy; Z85.46 Personal history of malignant neoplasm of prostate | CPT/HCPCS: 99213 ==

== ENCOUNTER 2019-01-01 04:44 | Outpatient (RCR) | payer SELFPAY | END 2019-01-29 23:59 | disposition home or self-care (01) | LOC: CR 04:44 | PROVIDERS: PCP Family Medicine; Visit Provider Family Medicine | DX: Z51.89 Encounter for other specified aftercare (principal) ==

== ENCOUNTER 2019-01-17 11:28 | Outpatient (CLI) | payer MEDICARE, SELFPAY ==
--- NOTE | 2019-01-17 11:41 | DI.RAD_ITS ---
SYMPTOMS/DIAGNOSIS: F/U POST OP FOOT SURGERY LEFT FOOT: Comparison is made with [id number]. A screw is again noted through the calcaneus into the talus. Screws are also seen at the medial aspect of the talus and at the calcaneal cuboid joint. Bony densities are again noted lateral to the calcaneal cuboid region. Deformity of the first metatarsal appears stable. The bones appear osteoporotic. IMPRESSION: Stable appearance of post surgery and degenerative changes.
== END 2019-01-17 11:48 ==
PROVIDERS: PCP Family Medicine; Referring Provider Family Medicine; Visit Provider Orthopaedic Surgery
DX: M19.072 Primary osteoarthritis, left ankle and foot (principal); Z47.89 Encounter for other orthopedic aftercare
CPT/HCPCS: 73630; L1902

== ENCOUNTER 2019-01-30 14:13 | Outpatient (RCR) | payer SELFPAY | END 2019-03-01 23:59 | disposition home or self-care (01) | LOC: CR 14:13 | PROVIDERS: PCP Family Medicine; Visit Provider Family Medicine | DX: Z51.89 Encounter for other specified aftercare (principal) ==

== ENCOUNTER → 2019-02-16 10:36 | Outpatient (BNVA) | payer MEDICARE, SELFPAY | PROVIDERS: PCP Family Medicine; Referring Provider Family Medicine; Visit Provider Orthopaedic Surgery | DX: M19.072 Primary osteoarthritis, left ankle and foot (principal); Z98.1 Arthrodesis status | CPT/HCPCS: 99213 ==

== ENCOUNTER 2019-03-08 11:32 | Outpatient (CLI) | payer MEDICARE, SELFPAY ==
[2019-03-08 13:10] LABS: Abs Immature Grans 0.02 k/cumm (0.0-0.09); Absolute Basophil Count 0.04 k/cumm (0.0-0.2); Absolute Eosinophil Count 0.45 k/cumm (0.0-0.7); Absolute Lymphocyte Count 1.72 k/cumm (1.2-3.4); Absolute Neutrophil Count 5.86 k/cumm (1.2-6.7); Basophils % 0.4; HCT 44.8 % (40.0-50.0); HGB 15.2 g/dL (13.5-17.5); Immature Grans % 0.2; Lymphocytes % 19.1; Mean Corp. HGB Concentration 33.9 g/dL (32.0-36.0); Mean Corpuscular Hemoglobin 30.8 pg (27.0-33.0); Mean Corpuscular Volume 90.7 fL (80-95); Mean Platelet Volume 9.2 fL (8.0-11.0); Neutrophils % 65.3; Platelet Count 217 x1000/uL (130-400); RBC 4.94 m/cumm (4.50-6.00); RBC Distribution Width 13.7 % (11.8-14.1); White Blood Cell Count 8.99 k/cumm (4.4-10.8)
[2019-03-08 13:46] LABS: Creatine Kinase 121 U/L (39-308); Glucose 149 mg/dL (70-100)
[2019-03-08 14:48] LABS: ESR 14 mm/hr (1-20)
== END 2019-03-08 11:52 ==
PROVIDERS: PCP Family Medicine; Visit Provider Family Medicine
DX: R73.9 Hyperglycemia, unspecified (principal); R29.898 Other symptoms and signs involving the musculoskeletal system
CPT/HCPCS: 36415; 82550; 82947; 85652; 83036; 85025

== ENCOUNTER 2019-03-30 09:00 | Outpatient (RCR) | payer SELFPAY | END 2019-04-01 23:59 | disposition home or self-care (01) | LOC: CR 09:00 | PROVIDERS: PCP Family Medicine; Visit Provider Family Medicine | DX: Z51.89 Encounter for other specified aftercare (principal) ==

== ENCOUNTER 2019-04-11 09:00 | Outpatient (RCR) | payer SELFPAY | END 2019-05-01 23:59 | disposition home or self-care (01) | LOC: CR 09:00 | PROVIDERS: PCP Family Medicine; Visit Provider Family Medicine | DX: Z51.89 Encounter for other specified aftercare (principal) ==

== ENCOUNTER 2019-05-16 09:00 | Outpatient (RCR) | payer SELFPAY | END 2019-06-01 23:59 | disposition home or self-care (01) | LOC: CR 09:00 | PROVIDERS: PCP Family Medicine; Visit Provider Family Medicine | DX: Z51.89 Encounter for other specified aftercare (principal) ==

== ENCOUNTER 2019-06-08 09:00 | Outpatient (RCR) | payer SELFPAY | END 2019-07-01 23:59 | disposition home or self-care (01) | LOC: CR 09:00 | PROVIDERS: PCP Family Medicine; Visit Provider Family Medicine | DX: Z51.89 Encounter for other specified aftercare (principal) ==

== ENCOUNTER 2019-06-27 10:40 | Outpatient (CLI) | payer MEDICARE, SELFPAY ==
[2019-06-28 10:16] LABS: PSA, Diagnostic 0.4 ng/mL (0.0-4.5)
== END 2019-06-27 11:00 ==
PROVIDERS: PCP Family Medicine; Visit Provider Nurse Practitioner Gerontology
DX: C61 Malignant neoplasm of prostate (principal)
CPT/HCPCS: 36415; 84153

== ENCOUNTER → 2019-07-04 13:24 | Outpatient (BNVA) | payer MEDICARE, SELFPAY | PROVIDERS: PCP Family Medicine; Referring Provider Family Medicine; Visit Provider Nurse Practitioner Gerontology | DX: N40.1 Benign prostatic hyperplasia with lower urinary tract symptoms (principal); N13.8 Other obstructive and reflux uropathy; Z85.46 Personal history of malignant neoplasm of prostate; R06.02 Shortness of breath | CPT/HCPCS: 99213 ==

== ENCOUNTER 2019-07-04 13:50 | Emergency (ER) | payer MEDICARE, SELFPAY ==
[2019-07-04] VITALS (62 sets, daily range): BP systolic 134–177; BP diastolic 67–90; PULSE 86–114; RESP 11–32; TEMP 36.6; O2SAT 90–95
--- NOTE | 2019-07-04 14:28 | ED.GENADUL_ITS ---
Discharge Plan Disposition Patient Disposition: HOME Condition: Fair Discharge Details Chief Complaint: SOB Clinical Impression: COPD exacerbation Primary Care Provider: Fareed Petty ED Provider: Mercedes Gonsalez Home Meds and New Rx's Prescriptions: Continued Advair HFA 8 GM HFA aerosol inhaler 2 puff Inhalation BID Qty: 1 RF: 1 lisinopril 5 mg tablet 5 mg PO DAILY Qty: 90 RF: 4 albuterol sulfate [Ventolin HFA] 90 mcg/actuation HFA aerosol inhaler 2 puff Inhalation Q4H PRN (Reason: shortness of breath or wheezing) Qty: 18 RF: 11 ipratropium-albuterol 0.5 mg-3 mg(2.5 mg base)/3 mL solution for nebulization 3 ml Inhalation Q4H PRN PRN (Reason: shortness of breath or wheezing) Qty: 180 RF: 2 omeprazole 20 mg capsule,delayed release(DR/EC) 20 mg PO DAILY Qty: 90 RF: 3 bupropion HCl (smoking deter) 150 mg tablet extended release 12 hr 150 mg PO BID Qty: 180 RF: 3 venlafaxine 100 mg tablet 100 mg PO BID Qty: 180 RF: 3 metoprolol succinate 100 mg tablet extended release 24 hr 100 mg PO DAILY Qty: 90 RF: 3 pravastatin [Pravachol] 40 mg tablet 40 mg PO DAILY Qty: 90 RF: 4 Bevespi Aerosphere 9-4.8 mcg HFA aerosol inhaler 2 puff Inhalation BID Qty: 3 RF: 4 zolpidem 5 mg tablet 5 mg PO QHS PRN (Reason: sleep) Qty: 30 RF: 5 zolpidem 5 mg tablet 5 mg PO QHS PRN (Reason: sleep) Qty: 30 RF: 5 pramipexole 0.5 mg tablet 0.5 mg PO HS Qty: 90 RF: 3 lamotrigine 100 mg tablet 200 mg PO DAILY Qty: 180 RF: 3 hydrochlorothiazide 25 mg tablet 25 mg PO DAILY Qty: 100 RF: 4 naproxen 500 mg tablet 500 mg PO DAILY Qty: 90 RF: 3 aspirin 81 MG tablet,chewable 81 mg PO DAILY RF: 0 acetaminophen [Pain and Fever] 500 MG tablet 500 - 1,000 mg PO PRN PRNRF: 0 calcium polycarbophil [Fiber Laxative (ca polycarbo)] 625 MG tablet 1,250 mg PO DAILY RF: 0 ascorbic acid (vitamin C) 1,000 MG tablet,chewable 1,000 mg PO DAILY RF: 0 calcium carbonate [Calcium 500] 500 MG tablet 500 mg PO DAILY RF: 0 No Action prednisone 20 mg tablet 40 mg PO DAILY Qty: 10 RF: 0 Discharge Instructions Instructions: COPD (Chronic Obstructive Pulmonary Disease) (ED) Additional Instructions: Your imaging remained stable and shows evidence of your chronic disease as well as the new nodule that is 67 mm. No blood clot is noted seen. Laboratory evaluation is reassuring with no evidence of heart issues. Encourage hydration. Your history and exam is most concerning for COPD exacerbation with infectious source. Please take the prednisone and doxycycline as prescribed. Do not take the calcium while you are taking the doxycycline. If you develop new or worsening symptoms please seek care urgently once again. I was complete follow-up with primary care at the end of the week for reevaluation Referrals: Fareed Petty [Primary Care Provider] - Discharge Data Discharge Date/Time-TO BE ENTERED AT DEPARTURE: 07/04/19 23:30 Medical Decision Making <Wander Akins MD - Last Filed: 07/17/19 13:10> 14:40 --63-year-old male with multiple medical problems including history of hyperlipidemia, hypertension, COPD, here with dyspnea on exertion. Patient is saturating in low 90s which is his baseline. He is hypertensive. ECG reviewed and interpreted by me: Sinus rhythm 98 bpm, right bundle branch block with left axis deviation, QRS duration 157, QTc 483. Concern for CHF. Plan to check BNP and will check troponin. Patient does have tenderness in his left calf. Consider DVT. Will check ul trasound of the left lower extremity. This raises the question of pulmonary embolism. Unfortunately patient has a contrast dye allergy. I will give Solu- Medrol as prep now in case he will require CT of his chest. --Left lower extremity ultrasound interpreted by radiology: Negative. <KEVIN Cheng - Last Filed: 07/04/19 23:37> Care transition to myself from Dr. Akins with repeat troponin and imaging pending. Please see his note for initial presentation and exam. Patient has received Solu-Medrol in preparation for contrast dyes patient has had allergic reaction historically. Orders already placed for patient to receive Pepcid and Benadryl prior to imaging. Patient presented today with chief complaint of shortness of breath that began this afternoon. Shortness of breath is worse with exertion. Patient reports that he often has shortness of breath and never breathes normally. States is particularly worse when he is laying supine. Reports that for the past few years he has been sleeping on the couch in a more upright position and has found that this is been beneficial. Patient was noted to have an elevated d-dimer and there was concern for possible pulmonary embolism. Repeat troponin remains less than 0.05. Patient con EKG was reviewed by tray to feel well although does report shortness of breath when he sits up or moves about. He does report increased from his baseline exertionally but normal amount of shortness of breath when lying supine. Dr. Lyons. Patient is in normal sinus rhythm rate of 90, right bundle branch block is still noted remains unchanged from his initial ECG. Patient requesting pramipexole for restless legs Patient back from CT, no allergy noted. Patient feeling well at this time. CT reviewed by radiologist: Pulmonary arteries: No pulmonary emboli. Aorta: No aortic aneurysm. No aortic dissection. Lungs: Moderate emphysema. Right lower lobe nodule measuring 6-7mm No consolidation. No masses. Mild subsegmental atelectasis versus scarring Pleural space: No pneumothorax. No pleural effusion. Heart: Mild cardiomegaly. No pericardial effusion. Lymph nodes: No enlarged lymph nodes. Bones/joints: Right humeral prosthesis. Dextroscoliosis of the thoracic spine and degenerative changes noted No acute fracture. Soft tissues: Unremarkable. Prior cholecystectomy IMPRESSION: No pulmonary emboli Grossly stable 6-7 mm nodule in the right lower lobe in this patient with emphysema Discussed these findings with the patient. Patient remained stable. No respiratory distress. There is I had discussed disposition options patient feels safe being discharged home at this time. Plan to continue on steroids for COPD exacerbation. Discussed pluses and minuses of antibiotics with the patient. He is now developing slight sore throat and increased sputum production. I feel that following the gold guidelines, patient should be treated with antibiotics only for this and doxycy reed. Patient was given strict return precautions. Has any follow-up with primary care at the end of the week for reevaluation. All his questions concerns were addressed and is agreement this plan. HPI <Wander Akins MD - Last Filed: 07/17/19 13:10> General Mode of arrival: ambulatory . Date/Time Provider Initiated Documentation: 07/04/19 13:51 . Limitations to Documentation: no limitations . Information obtained by: patient . HPI Narrative: 63-year-old male with multiple medical problems including history of COPD, presents with chief complaint of shortness of breath. Patient notes shortness of breath that is worse with exertion today. Symptoms are moderate. He has no associated chest pain. He does note some increased swelling of his legs. He has had some tremors. Denies fever. Related Data Home Medications Medication Instructions Recorded Confirmed acetaminophen [Pain and Fever] 500 - 1,000 mg PO PRN PRN 09/30/12 07/12/19 ascorbic acid (vitamin C) 1,000 mg PO DAILY 09/30/12 07/12/19 aspirin 81 mg PO DAILY 09/30/12 07/12/19 calcium polycarbophil [Fiber 1,250 mg PO DAILY 09/30/12 07/12/19 Laxative (ca polycarbo)] Advair HFA 2 puff INHALATION BID #1 inhaler 12/22/12 07/12/19 calcium carbonate [Calcium 500] 500 mg PO DAILY 01/24/18 07/12/19 lisinopril 5 mg tablet 5 mg PO DAILY #90 tab-cap 06/03/18 07/12/19 albuterol sulfate 90 mcg/actuation 2 puff INHALATION Q4H PRN #18 gm 08/03/18 07/12/19 aerosol inhaler ipratropium-albuterol 0.5 mg-3 3 ml INHALATION Q4H PRN PRN #180 ml 09/13/18 07/12/19 mg(2.5 mg base)/3 mL nebulization soln omeprazole 20 mg capsule,delayed 20 mg PO DAILY #90 tab-cap 10/10/18 07/12/19 release bupropion HCl (smoking deter) 150 150 mg PO BID #180 tab-cap 10/31/18 07/12/19 mg tablet,12 hr sustained-release(smoking deterrent) venlafaxine 100 mg tablet 100 mg PO BID #180 tab-cap 11/07/18 07/12/19 metoprolol succinate 100 mg 100 mg PO DAILY #90 tab-cap 11/30/18 07/12/19 tablet,extended release 24 hr pravastatin 40 mg tablet 40 mg PO DAILY #90 tab-cap 12/12/18 07/12/19 glycopyrrolate 9 mcg-formoterol 2 puff INHALATION BID #3 ea 12/22/18 07/12/19 4.8 mcg HFA aerosol inhaler zolpidem 5 mg tablet 5 mg PO QHS PRN #30 tab 01/30/19 07/12/19 zolpidem 5 mg tablet 5 mg PO QHS PRN #30 tab 01/30/19 07/12/19 pramipexole 0.5 mg tablet 0.5 mg PO HS #90 tab-cap 03/13/19 07/12/19 lamotrigine 100 mg tablet 200 mg PO DAILY #180 tab-cap 05/04/19 07/12/19 hydrochlorothiazide 25 mg tablet 25 mg PO DAILY #100 tab 07/03/19 07/12/19 naproxen 500 mg tablet 500 mg PO DAILY #90 tab 07/03/19 07/12/19 prednisone 20 mg tablet 40 mg PO DAILY #10 tab 07/12/19 07/12/19 Previous Rx's Medication Instructions Recorded lisinopril 5 mg tablet 5 mg PO DAILY #90 tab-cap 06/03/18 albuterol sulfate 90 mcg/actuation 2 puff INHALATION Q4H PRN #18 gm 08/03/18 aerosol inhaler ipratropium-albuterol 0.5 mg-3 3 ml INHALATION Q4H PRN PRN #180 ml 09/13/18 mg(2.5 mg base)/3 mL nebulization soln omeprazole 20 mg capsule,delayed 20 mg PO DAILY #90 tab-cap 10/10/18 release bupropion HCl (smoking deter) 150 150 mg PO BID #180 tab-cap 10/31/18 mg tablet,12 hr sustained-release(smoking deterrent) venlafaxine 100 mg tablet 100 mg PO BID #180 tab-cap 11/07/18 metoprolol succinate 100 mg 100 mg PO DAILY #90 tab-cap 11/30/18 tablet,extended release 24 hr pravastatin 40 mg tablet 40 mg PO DAILY #90 tab-cap 12/12/18 glycopyrrolate 9 mcg-formoterol 2 puff INHALATION BID #3 ea 12/22/18 4.8 mcg HFA aerosol inhaler zolpidem 5 mg tablet 5 mg PO QHS PRN #30 tab 01/30/19 zolpidem 5 mg tablet 5 mg PO QHS PRN #30 tab 01/30/19 pramipexole 0.5 mg tablet 0.5 mg PO HS #90 tab-cap 03/13/19 lamotrigine 100 mg tablet 200 mg PO DAILY #180 tab-cap 05/04/19 hydrochlorothiazide 25 mg tablet 25 mg PO DAILY #100 tab 07/03/19 naproxen 500 mg tablet 500 mg PO DAILY #90 tab 07/03/19 prednisone 20 mg tablet 40 mg PO DAILY #10 tab 07/12/19 Allergies Allergy/AdvReac Type Severity Reaction Status Date / Time house dust [House Dust] Allergy Unknown Verified 07/12/19 10:51 hydrocodone bitartrate AdvReac Intermediate hallucinati Verified 07/12/19 10:51 [From Vicodin] ons zolpidem AdvReac Intermediate Agitation Verified 07/12/19 10:51 Iodinated Contrast Media AdvReac Mild Nausea Verified 07/12/19 10:51 [Iodinated Contrast Media - Oral and] fentanyl AdvReac Unknown Hallucinati Verified 07/12/19 10:51 ons morphine AdvReac Unknown NAUSEA, Verified 07/12/19 10:51 VOMITING General Stated Complaint: SOB BETH: 2 Review of Systems <Wander Akins MD - Last Filed: 07/17/19 13:10> All systems reviewed & are unremarkable except as noted in HPI and below Constitutional Constitutional: Denies fever(s) Cardiovascular Cardiovascular: Denies chest pain, Reports diaphoresis, Reports leg edema and R eports dyspnea Respiratory Respiratory: Reports dyspnea PFSH <Wander Akins MD - Last Filed: 07/17/19 13:10> Medical History (Updated 07/04/19 @ 14:39 by Wander Akins MD) Arthritis of left foot (Chronic) Asthma (Chronic) Bunion of great toe of right foot (Acute) Emphysema of lung (Acute) Surgical History (Updated 07/04/19 @ 14:39 by Wander Akins MD) Arthroplasty of knee 10/28/18 BILAT CARDIAC CATH R/L Cholecystectomy Extraction of cataract 10/31/15; DR. MEDEIROS; LEFT EYE 11/14/15; DR. MEDEIROS; RIGHT EYE H/O ankle fusion (Acute) hernia repair, ventral (01/12/17) Repair of inguinal hernia B/L Replacement of total knee joint (~11/2011) Dr. Zhang RIGHT SHOULDER SURGERY SLEEP APNEA SURGERY TOTAL SHOULDER REPLACEMENT (RIGHT) (~1992) Transurethral prostatectomy (11/29/12) DR. OSWALD UVULECTOMY (10/03/12) DR. SANTO Family History Mother Diabetes Essential hypertension Depression Hyperlipidemia Father COPD (chronic obstructive pulmonary disease) Heart disease Hyperlipidemia Asthma Brother Essential hypertension Hyperlipidemia Grandfather Diabetes Heart disease Neoplasm KIDNEYS Stroke Grandfather Heart disease Neoplasm STOMACH Asthma Grandmother Diabetes Heart disease Stroke Grandmother Diabetes Heart disease Stroke Daughter Depression Asthma Daughter Depression Asthma Social History Smoking/Tobacco Use Status: Former Tobacco Use Alcohol Intake: never Drug use: Never Substance use type: does not use Do you feel safe at home: Yes Do you feel safe in your relationship?: Yes Exam <Wander Akins MD - Last Filed: 07/17/19 13:10> Const General: cooperative and no acute distress HENMT Mouth: moist mucous membranes Eyes Conjunctivae: normal conjunctivae Sclera: normal sclerae Neck Neck: trachea midline and supple Resp Auscultation: clear to auscultation bilaterally Cardio Jugular venous pressure: no JVD Rate: regular rate and not tachycardic Rhythm: regular rhythm GI Palpation: soft, not firm, no guarding, no masses, not rigid and nontender Skin General skin exam: no rashes or lesions noted Neuro General: alert, awake, oriented x3 and tone normal Extrem General: calf tenderness on the left and edema Laterality: bilateral (trace) Psych Appearance: grossly normal Mental Status: mental status grossly normal Speech and Movement: speech and movement normal Course <Wander Akins MD - Last Filed: 07/17/19 13:10> Vital Signs Vital signs: Vital Signs Temperature 36.6 C 07/04/19 13:55 Pulse 99 H 07/04/19 13:55 Respiratory Rate 22 07/04/19 13:55 Blood Pressure 160/85 H 07/04/19 13:55 Pulse Oximetry 93 L 07/04/19 13:55 Temperature 36.6 C 07/04/19 13:55 Temperature Source Skin 07/04/19 13:55 Pulse 95 H 07/04/19 14:01 Pulse 94 H 07/04/19 14:01 Respiratory Rate 16 07/04/19 14:01 Respiratory Effort Non-Labored 07/04/19 14:06 Blood Pressure 177/80 H 07/04/19 14:01 Blood Pressure Mean 99 07/04/19 14:01 Blood Pressure Position Sitting 07/04/19 13:55 Pulse Oximetry 93 L 07/04/19 14:01 Oxygen Delivery Method Room Air 07/04/19 13:55 Oxygen Flow Rate 0 07/04/19 13:55 Pain Level 0 07/04/19 13:55 Sign Out <Wander Akins MD - Last Filed: 07/17/19 13:10> Sign Out Data: Sign Out Comment: Care signed out to KEVIN Gonsalez with plan to follow-up on delta trop, CT of the chest and reassess the patient for disposition. Last updated by Wander Akins MD at 07/04/19 16:11
--- NOTE | 2019-07-04 14:35 | DI.US_ITS ---
EXAM: US LOWER EXTREMITY VENOUS LT CLINICAL HISTORY: tender, swelling TECHNIQUE: Left lower extremity venous ultrasound performed using grayscale, color-flow, and spectra l Doppler analysis. COMPARISON: No exams were available for comparison FINDINGS: The left common femoral, femoral and popliteal veins demonstrate normal compressibility, augmentation , and color Doppler. The posterior tibial veins are patent. The saphenofemoral junction is unremarkab le. IMPRESSION: No DVT.
[2019-07-04 14:42] LABS: Abs Immature Grans 0.03 k/cumm (0.0-0.09); Absolute Basophil Count 0.03 k/cumm (0.0-0.2); Absolute Eosinophil Count 0.54 k/cumm (0.0-0.7); Absolute Lymphocyte Count 1.63 k/cumm (1.2-3.4); Absolute Monocyte Count 1.33 k/cumm (0.11-0.7); Absolute Neutrophil Count 6.81 k/cumm (1.2-6.7); Basophils % 0.3; Eosinophils % 5.2; HCT 46.1 % (40.0-50.0); HGB 15.5 g/dL (13.5-17.5); Immature Grans % 0.3; Lymphocytes % 15.7; Mean Corp. HGB Concentration 33.6 g/dL (32.0-36.0); Mean Corpuscular Hemoglobin 30.6 pg (27.0-33.0); Mean Corpuscular Volume 90.9 fL (80-95); Mean Platelet Volume 8.6 fL (8.0-11.0); Monocytes % 12.8; Neutrophils % 65.7; Platelet Count 248 x1000/uL (130-400); RBC 5.07 m/cumm (4.50-6.00); RBC Distribution Width 13.7 % (11.8-14.1); White Blood Cell Count 10.37 k/cumm (4.4-10.8)
--- NOTE | 2019-07-04 14:54 | DI.RAD_ITS ---
EXAM: XR CHEST 2V PA AND LATERAL INDICATION: shortness of breath. COMPARISON: CHEST 2 VIEWS PA,LAT from 11/01/2015 CHEST 2 VIEWS PA,LAT from 02/21/2016 TECHNIQUE: 2D digital imaging was performed. FINDINGS: The heart size and pulmonary vasculature are stable. No focal consolidating infiltrates are present. There is scarring again seen in the left lung base. No pleural effusion or pneumothorax is identif ied. The lungs are hyperinflated with flattened diaphragms suggesting underlying COPD. Degenerative changes are seen in the spine appropriate for the patient's age. There is again seen a right should er prosthesis. IMPRESSION: No acute pulmonary process. Emphysematous changes are present in the lungs.
[2019-07-04 15:02] LABS: ALT 31 U/L (16-63); AST 24 U/L (15-37); Albumin 3.8 g/dL (3.4-5.0); Alkaline Phosphatase 100 U/L (46-116); Anion Gap 12.5 mmol/L (3-11); BUN 23 mg/dL (7-18); Bilirubin, Total 1.1 mg/dL (0.2-1.0); CO2 24.5 mmol/L (21.0-32.0); CREATININE 1.04 mg/dL (0.70-1.30); Calcium 9.8 mg/dL (8.5-10.1); Chloride 102 mmol/L (98-107); Glucose 103 mg/dL (74-106); NT-proBNP 37 pg/mL (<300); Potassium 3.4 mmol/L (3.5-5.1); Sodium 139 mmol/L (136-145); Total Protein 8.2 g/dL (6.4-8.2); Troponin I < 0.05 ng/Ml (<0.06)
[2019-07-04] MEDS: methylPREDNISolone SUCC 125 MG VIAL IVP (15:04)
[2019-07-04 15:05] LABS: D-Dimer 970 ng/mlFEU (<500)
[2019-07-04] MEDS: Normal Saline Flush 10 ML SYR IVP (15:05)
[2019-07-04] MEDS: Enoxaparin 100 MG/ML SYR SC (16:16)
[2019-07-04] MEDS: Albuterol/Ipratropium 3 ML UPD VIAL UPD (16:17)
[2019-07-04 19:36] LABS: Troponin I < 0.05 ng/Ml (<0.06)
[2019-07-04] MEDS: FAMOTIDINE 20 MG/50 ML BAG 200 MG IVPB (20:16)
[2019-07-04] MEDS: diphenhydrAMINE 50 MG/ML VIAL IVP (20:29)
--- NOTE | 2019-07-04 21:05 | DI.CT_ITS ---
EXAM: CT CHEST PE CTA CLINICAL HISTORY: shortness of breath, elevated ddimer TECHNIQUE: Axial CT angiography was performed with multi-slice acquisition and multi-planar and/or 3 D reconstructions with 98 cc's of Omnipaque 350. COMPARISON: ABD PELVIS WO CONTRAST from 01/21/2017 CHEST - LUNG CANCER SCREENING from 08/19/2017 FINDINGS: There is no evidence of pulmonary emboli or aortic dissection. There is a stable right lower lobe n odule measuring 6 millimeters. No focal infiltrate, effusion or adenopathy is seen. Emphysematous c hanges are noted. Patient is status post cholecystectomy. Right shoulder prosthesis is again noted. There is some respiratory motion on the images of the upper abdomen. Scoliosis and degenerative c hanges are again noted in the spine. IMPRESSION: No evidence of pulmonary emboli or other acute abnormality.
[2019-07-04] MEDS: Omnipaque 350 MG/ML 100 ML BTL IJ (21:07)
[2019-07-04] MEDS: Pramipexole 0.5 MG TAB PO (22:10)
--- NOTE | 2019-07-04 22:10 | DI.[facility]_ITS ---
PROCEDURE INFORMATION: Exam: CT Angiography Chest With Contrast Exam date and time: 07/04/2019 3:54 PM Age: 63 years old Clinical history: Abnormal findings; Other: Elevated d dimer; Shortness of breath; Patient HX: Copd, SOB, elevated d-dimer TECHNIQUE: Imaging protocol: Computed tomographic angiography of the chest with intravenous contrast. 3D rendering: MIP reconstructed images were created and reviewed. Radiation optimization: All CT scans at this facility use at least one of these dose optimization techniques: automated exposure control; mA and/or kV adjustment per patient size (includes targeted exams where dose is matched to clinical indication); or iterative reconstruction. Contrast material: OMNIPAQUE 350; Contrast volume: 98 ml; Contrast route: IV LAC; COMPARISON: CT CHEST LUNG CANCER SCREEN 09/22/2018 10:19 AM FINDINGS: Mild limited due to respiratory motion artifact Pulmonary arteries: No pulmonary emboli. Aorta: No aortic aneurysm. No aortic dissection. Lungs: Moderate emphysema. Right lower lobe nodule measuring 6-7mm No consolidation. No masses. Mild subsegmental atelectasis versus scarring Pleural space: No pneumothorax. No pleural effusion. Heart: Mild cardiomegaly. No pericardial effusion. Lymph nodes: No enlarged lymph nodes. Bones/joints: Right humeral prosthesis. Dextroscoliosis of the thoracic spine and degenerative changes noted No acute fracture. Soft tissues: Unremarkable. Prior cholecystectomy IMPRESSION: No pulmonary emboli Grossly stable 6-7 mm nodule in the right lower lobe in this patient with emphysema Dictated and Authenticated by: Ulises Carpenter MD. Ordering:DEANGELO Viramontes MD
[2019-07-04] MEDS: Doxycycline Hyclate 100 MG CAP PO (23:34)
== END 2019-07-04 23:30 | disposition home or self-care (01) ==
PROVIDERS: Student in an Organized Health Care Education/Training Program; Emergency Provider Physician Assistant; PCP Family Medicine
DX: J44.1 Chronic obstructive pulmonary disease with (acute) exacerbation (principal); R79.1 Abnormal coagulation profile; J45.909 Unspecified asthma, uncomplicated; I10 Essential (primary) hypertension; Z91.041 Radiographic dye allergy status; Z87.891 Personal history of nicotine dependence; N40.1 Benign prostatic hyperplasia with lower urinary tract symptoms; N13.8 Other obstructive and reflux uropathy; R06.02 Shortness of breath; Z85.46 Personal history of malignant neoplasm of prostate
CPT/HCPCS: 36415; 71275; 80053; 93005; 94640; 96372; 96374; 96375; 99213; 99285; 71046; 83880; 84484; 85025; 85379; 93010; 93971; J1200; J1650; J2930; J3490; J7620

== ENCOUNTER 2019-07-27 09:00 | Outpatient (RCR) | payer SELFPAY | END 2019-08-01 23:59 | disposition home or self-care (01) | LOC: CR 09:00 | PROVIDERS: PCP Family Medicine; Visit Provider Family Medicine | DX: Z51.89 Encounter for other specified aftercare (principal) ==

== ENCOUNTER 2019-08-31 09:00 | Outpatient (RCR) | payer SELFPAY | END 2019-09-01 23:59 | disposition home or self-care (01) | LOC: CR 09:00 | PROVIDERS: PCP Family Medicine; Visit Provider Family Medicine | DX: Z51.89 Encounter for other specified aftercare (principal) ==

== ENCOUNTER 2019-09-21 09:00 | Outpatient (RCR) | payer SELFPAY | END 2019-09-30 23:59 | disposition home or self-care (01) | LOC: CR 09:00 | PROVIDERS: PCP Family Medicine; Visit Provider Family Medicine | DX: Z51.89 Encounter for other specified aftercare (principal) ==

== ENCOUNTER 2019-10-01 03:49 | Outpatient (RCR) | payer SELFPAY | END 2019-10-31 23:59 | disposition home or self-care (01) | LOC: CR 03:49 | PROVIDERS: PCP Family Medicine; Visit Provider Family Medicine | DX: Z51.89 Encounter for other specified aftercare (principal) ==

== ENCOUNTER 2019-11-22 13:44 | Outpatient (CLI) | payer MEDICARE, MEDICAID, SELFPAY ==
--- NOTE | 2019-11-22 11:30 | DI.RAD_ITS ---
EXAM: XR ANKLE LT COMPLETE CLINICAL HISTORY: check left foot TECHNIQUE: 2D digital imaging was performed. COMPARISON: LEFT ANKLE 2 VIEW from 06/13/2013 LEFT ANKLE COMPLETE from 09/03/2016 LEFT FOOT COMPLETE from 02/08/2017 XR foot LT complete from 12/15/2018 FINDINGS: Again noted to be deformity the distal shaft of the tibia and fibula with apparent bony bridging acr oss the interosseous membrane. The findings appear stable when compared with exam from 2012. A part ially threaded screw is seen through the talocalcaneal joint posteriorly. Additional screws are note d at the the talonavicular and calcaneal cuboid joints. There is narrowing of the lateral talofibula r joint and medial tibial talar joints. No ankle mortise disruption is seen. There there is no romeo r dome defect. Lateral soft tissue swelling is noted. The bones appear osteoporotic. IMPRESSION: Postsurgical and degenerative changes.
--- NOTE | 2019-11-22 11:30 | DI.RAD_ITS ---
EXAM: XR FOOT LT COMPLETE CLINICAL HISTORY: left foot and ankle pain TECHNIQUE: 2D digital imaging was performed. COMPARISON: XR foot LT complete from 07/12/2018 XR foot LT complete from 01/17/2019 FINDINGS: The bones appear osteoporotic. There is deformity of the 1st metatarsal consistent with previous o steotomy. Screws are seen in the talus and calcaneus. There are 2 screws in seen extending across t he calcaneocuboid joint. One of the screws shows a fracture which was not seen on the previous exam. Severe degenerative changes are again noted at the talonavicular and calcaneocuboid joints. There is an old fusion of the proximal interphalangeal joint of the 2nd toe. Hammertoe deformities are see n of the of the 3rd through 5th toes. IMPRESSION: Disruption of 1 of the screws seen through the calcaneocuboid joint.
== END 2019-11-22 14:04 ==
PROVIDERS: PCP Family Medicine; Visit Provider Student in an Organized Health Care Education/Training Program
DX: M19.072 Primary osteoarthritis, left ankle and foot (principal); M81.0 Age-related osteoporosis without current pathological fracture; M21.6X2 Other acquired deformities of left foot; M79.89 Other specified soft tissue disorders; M79.672 Pain in left foot; M25.572 Pain in left ankle and joints of left foot; M20.42 Other hammer toe(s) (acquired), left foot
CPT/HCPCS: 99215; 73610; 73630

== ENCOUNTER 2020-01-01 14:58 | Emergency (ER) | payer MEDICARE, MEDICAID, SELFPAY ==
[2020-01-01 15:04] VITALS: BP 123/77; PULSE 57; TEMP 36.6; O2SAT 96
--- NOTE | 2020-01-01 15:13 | ED.GENADUL_ITS ---
Discharge Plan Disposition Patient Disposition: HOME Condition: Stable Discharge Details Chief Complaint: Orthopedic Clinical Impression: Pain in right hip Primary Care Provider: Fareed Petty ED Provider: Katherine Akins Home Meds and New Rx's Prescriptions: Continued Advair HFA 8 GM HFA aerosol inhaler 2 puff Inhalation BID Qty: 1 RF: 1 Bevespi Aerosphere 9-4.8 mcg HFA aerosol inhaler 2 puff Inhalation BID Qty: 3 RF: 4 pramipexole 0.5 mg tablet 0.5 mg PO HS Qty: 90 RF: 3 lamotrigine 100 mg tablet 200 mg PO DAILY Qty: 180 RF: 3 hydrochlorothiazide 25 mg tablet 25 mg PO DAILY Qty: 100 RF: 4 naproxen 500 mg tablet 500 mg PO DAILY Qty: 90 RF: 3 lisinopril 5 mg tablet 5 mg PO DAILY Qty: 90 RF: 4 albuterol sulfate [Ventolin HFA] 90 mcg/actuation HFA aerosol inhaler 2 puff Inhalation Q4H PRN (Reason: shortness of breath or wheezing) Qty: 18 RF: 11 zolpidem 5 mg tablet 5 mg PO QHS PRN (Reason: sleep) Qty: 30 RF: 5 ipratropium-albuterol 0.5 mg-3 mg(2.5 mg base)/3 mL solution for nebulization 3 ml Inhalation Q4H PRN PRN (Reason: shortness of breath or wheezing) Qty: 180 RF: 4 venlafaxine 100 mg tablet 100 mg PO BID Qty: 180 RF: 3 omeprazole 20 mg capsule,delayed release(DR/EC) 20 mg PO DAILY Qty: 90 RF: 3 bupropion HCl (smoking deter) 150 mg tablet extended release 12 hr 150 mg PO BID Qty: 180 RF: 3 metoprolol succinate 100 mg tablet extended release 24 hr 100 mg PO DAILY Qty: 90 RF: 3 pravastatin [Pravachol] 40 mg tablet 40 mg PO DAILY Qty: 90 RF: 4 aspirin 81 MG tablet,chewable 81 mg PO DAILY RF: 0 acetaminophen [Pain and Fever] 500 MG tablet 500 - 1,000 mg PO PRN PRNRF: 0 calcium polycarbophil [Fiber Laxative (ca polycarbo)] 625 MG tablet 1,250 mg PO DAILY RF: 0 ascorbic acid (vitamin C) 1,000 MG tablet,chewable 1,000 mg PO DAILY RF: 0 calcium carbonate [Calcium 500] 500 MG tablet 500 mg PO DAILY RF: 0 Discharge Instructions Instructions: Hip Pain (ED) Additional Instructions: Please return immediately to the emergency department if you develop any new or worsening symptoms, if your condition does not improve as expected, or if you become otherwise concerned. It is extremely important that you call soon as possible to make an appointment to be seen in follow-up for this visit by your primary care doctor and orthopedic surgeon as we discussed. Referrals: Fareed Petty [Primary Care Provider] - Doron Slade MD [ [facility] STAFF PHYSICIAN] - Discharge Data Discharge Date/Time-TO BE ENTERED AT DEPARTURE: 01/01/20 18:45 Medical Decision Making Javon Joseph is a 64-year-old man with a history of COPD, hyperlipidemia, hypertension who presented to the emergency department with right-sided hip pain after falling earlier today, was walking at home after the fall. On exam patient is somewhat chronically ill-appearing but acutely nontoxic. He has mild tenderness to palpation of the right lateral hip and right inguinal area without edema or overlying skin changes. Abdomen is benign. Right leg with PT pulses intact and symmetric, sensation lower extremities intact and symmetric, motor lower extremities intact and symmetric. Range of motion right hip somewhat limited secondary to pain. Right knee nontender to palpation. Concern for right hip fracture, pelvic fracture, other. Exam/history is not consistent with septic arthritis, acute vascular pathology, nerve injury, compartment syndrome, significant trauma to the head, spine, thorax, abdomen, other extremities. Plan for x-rays right hip and pelvis. Patient declines pain medication at this time. X-rays negative on my read. No read available from [facility], [facility] contacted but no read yet available. Patient states to me on reassessment that he has been having right hip pain for some time (2-3 months), but now acutely worse after fall. Plan for CT for rule out occult pathology. CT hip negative. On reassessment patient states that he feels comfortable going home. He states that he has a walker at home and will be able to get around as he was prior to presenting to the emergency department without issue. Patient placed on the list for outpatient follow-up for acute on chronic right hip pain. I had a lengthy discussion with Patient regarding return to emergency department precautions, home care, and importance of outpatient follow-up. Pt verbalizes understanding of the plan and is amenable. Patient discharged to home with clear plan for outpatient follow-up. All questions were answered. Disposition decision was made weighing the risks and benefits of hospitalization versus outpatient treatment, the risk for further decompensation, and the patient's wishes. Medical Records Medical records reviewed: Yes I reviewed the patient's medical records. Imaging Data Radiologic Study: Attestation: I personally reviewed and interpreted this imaging study as follows: Radiologist's impression: Exam: CT Right Lower Extremity Without Contrast, Hip Exam date and time: 01/01/2020 4:49 PM Age: 64 years old Clinical indication: Injury or trauma; Fall; Initial encounter; Blunt trauma; Patient HX: Trauma, right hip pain TECHNIQUE: Imaging protocol: CT of the Right lower extremity without contrast was performed. Exam focused on the hip. COMPARISON: CR XR knee RT 2V AP,lat 09/20/2018 11:29 AM FINDINGS: Bones/joints: Normal. No acute fracture or dislocation. Soft tissues: Normal. IMPRESSION: Unremarkable CT. HPI General Mode of arrival: ambulatory . Date/Time Provider Initiated Documentation: 01/01/20 15:11 . Limitations to Documentation: no limitations . Information obtained by: patient, RN notes reviewed and old records reviewed . HPI Narrative: Javon Joseph is a 64-year-old man with history of hypertension, COPD, hypertension, hyperlipidemia presenting to the emergency department with right-sided hip pain. Patient reports that he was at home sitting in his kitchen eating lunch. Patient reports that he went to stand up and after taking few steps felt his right leg give out from under him. Patient reports that he fell, hitting a cabinet and then landing on the floor hitting his right elbow and right hip in the fall. Patient states that he did not hit his head. He denies any loss of consciousness. Patient reports that he got up and finish his lunch after. He has been walking since the fall with a walker. Fall occurred approximately 3 hours ago. Patient reports that he has had right-sided hip pain since the fall that is worse with walking and better when lying down. He denies any other pain, weakness, numbness, vomiting, diarrhea, shortness of breath, cough, fevers. No recent illness, was previously in his usual state of health. He denies having any symptoms just prior to the fall, including vertigo, light headedness, palpitations. Patient states that over the past few years he has been falling frequently, with no known cause. Related Data Home Medications Medication Instructions Recorded Confirmed acetaminophen [Pain and Fever] 500 - 1,000 mg PO PRN PRN 09/30/12 01/01/20 ascorbic acid (vitamin C) 1,000 mg PO DAILY 09/30/12 01/01/20 aspirin 81 mg PO DAILY 09/30/12 01/01/20 calcium polycarbophil [Fiber 1,250 mg PO DAILY 09/30/12 01/01/20 Laxative (ca polycarbo)] Advair HFA 2 puff INHALATION BID #1 inhaler 12/22/12 01/01/20 calcium carbonate [Calcium 500] 500 mg PO DAILY 01/24/18 01/01/20 glycopyrrolate 9 mcg-formoterol 2 puff INHALATION BID #3 ea 12/22/18 01/01/20 4.8 mcg HFA aerosol inhaler pramipexole 0.5 mg tablet 0.5 mg PO HS #90 tab-cap 03/13/19 01/01/20 lamotrigine 100 mg tablet 200 mg PO DAILY #180 tab-cap 05/04/19 01/01/20 hydrochlorothiazide 25 mg tablet 25 mg PO DAILY #100 tab 07/03/19 01/01/20 naproxen 500 mg tablet 500 mg PO DAILY #90 tab 07/03/19 01/01/20 albuterol sulfate 90 mcg/actuation 2 puff INHALATION Q4H PRN #18 gm 08/03/19 01/01/20 aerosol inhaler lisinopril 5 mg tablet 5 mg PO DAILY #90 tab-cap 08/03/19 01/01/20 zolpidem 5 mg tablet 5 mg PO QHS PRN #30 tab 08/14/19 01/01/20 ipratropium 0.5 mg-albuterol 3 mg 3 ml INHALATION Q4H PRN PRN #180 ml 10/09/19 01/01/20 (2.5 mg base)/3 mL nebulization soln bupropion HCl (smoking deter) 150 150 mg PO BID #180 tab-cap 11/01/19 01/01/20 mg tablet,12 hr sustained-release(smoking deterrent) omeprazole 20 mg capsule,delayed 20 mg PO DAILY #90 tab-cap 11/01/19 01/01/20 release venlafaxine 100 mg tablet 100 mg PO BID #180 tab-cap 11/01/19 01/01/20 metoprolol succinate 100 mg 100 mg PO DAILY #90 tab-cap 01/01/20 01/01/20 tablet,extended release 24 hr pravastatin 40 mg tablet 40 mg PO DAILY #90 tab-cap 01/01/20 01/01/20 Previous Rx's Medication Instructions Recorded glycopyrrolate 9 mcg-formoterol 2 puff INHALATION BID #3 ea 12/22/18 4.8 mcg HFA aerosol inhaler pramipexole 0.5 mg tablet 0.5 mg PO HS #90 tab-cap 03/13/19 lamotrigine 100 mg tablet 200 mg PO DAILY #180 tab-cap 05/04/19 hydrochlorothiazide 25 mg tablet 25 mg PO DAILY #100 tab 07/03/19 naproxen 500 mg tablet 500 mg PO DAILY #90 tab 07/03/19 albuterol sulfate 90 mcg/actuation 2 puff INHALATION Q4H PRN #18 gm 08/03/19 aerosol inhaler lisinopril 5 mg tablet 5 mg PO DAILY #90 tab-cap 08/03/19 zolpidem 5 mg tablet 5 mg PO QHS PRN #30 tab 08/14/19 ipratropium 0.5 mg-albuterol 3 mg 3 ml INHALATION Q4H PRN PRN #180 ml 10/09/19 (2.5 mg base)/3 mL nebulization soln bupropion HCl (smoking deter) 150 150 mg PO BID #180 tab-cap 11/01/19 mg tablet,12 hr sustained-release(smoking deterrent) omeprazole 20 mg capsule,delayed 20 mg PO DAILY #90 tab-cap 11/01/19 release venlafaxine 100 mg tablet 100 mg PO BID #180 tab-cap 11/01/19 metoprolol succinate 100 mg 100 mg PO DAILY #90 tab-cap 01/01/20 tablet,extended release 24 hr pravastatin 40 mg tablet 40 mg PO DAILY #90 tab-cap 01/01/20 Allergies Allergy/AdvReac Type Severity Reaction Status Date / Time house dust [House Dust] Allergy Unknown Verified 01/01/20 15:10 hydrocodone bitartrate AdvReac Intermediate hallucinati Verified 01/01/20 15:10 [From Vicodin] ons zolpidem AdvReac Intermediate Agitation Verified 01/01/20 15:10 Iodinated Contrast Media AdvReac Mild Nausea Verified 01/01/20 15:10 [Iodinated Contrast Media - Oral and] fentanyl AdvReac Unknown Hallucinati Verified 01/01/20 15:10 ons morphine AdvReac Unknown NAUSEA, Verified 01/01/20 15:10 VOMITING General Stated Complaint: Orthopedic BETH: 3 Review of Systems Narrative: Constitutional: denies fevers Eyes: denies eye pain ENT: denies ear pain, dental pain, sore throat Cardiovascular: denies chest pain, reports chronic bilateral lower extremity edema worse on the left, unchanged from baseline Respiratory: denies SOB, cough GI: denies abdominal pain, vomiting, diarrhea : denies flank pain MSK: denies back pain, neck pain, myalgias, reports right hip pain and no other arthralgias Skin: denies rash Neuro: denies headaches, numbness, weakness PFS Medical History Arthritis of left foot (Chronic) Asthma (Chronic) Bunion of great toe of right foot (Acute) Emphysema of lung (Acute) Surgical History (Updated 07/04/19 @ 14:39 by Wander Akins MD) Arthroplasty of knee 10/28/18 BILAT CARDIAC CATH R/L Cholecystectomy Extraction of cataract 10/31/15; DR. MEDEIROS; LEFT EYE 11/14/15; DR. MEDEIROS; RIGHT EYE H/O ankle fusion (Acute) hernia repair, ventral (01/12/17) Repair of inguinal hernia B/L Replacement of total knee joint (~11/2011) Dr. Zhang RIGHT SHOULDER SURGERY SLEEP APNEA SURGERY TOTAL SHOULDER REPLACEMENT (RIGHT) (~1992) Transurethral prostatectomy (11/29/12) DR. OSWALD UVULECTOMY (10/03/12) DR. SANTO Social History Smoking/Tobacco Use Status: Former Tobacco Use Alcohol Intake: never Drug use: Never Substance use type: does not use Do you feel safe at home: Yes Do you feel safe in your relationship?: Yes Exam Narrative Exam Narrative: Constitutional: well and [id number], pleasant, conversing normally HENT: head atraumatic/normocephalic/normal inspection, mucous membranes moist Eyes: conjunctiva normal, sclera normal, pupils 3mm b/l Neck: no stridor, normal ROM, trachea midline Chest: normal inspection Resp: normal work of breathing, no respiratory distress Cardio: normal rate, normal rhythm GI: abdomen soft, non-tender, non-distended Skin: warm, dry, normal color, no rash Neuro: alert, not altered, grossly non-focal, normal tone, sensation intact and symmetric bilateral lower extremities, motor 5 out of 5 bilateral lower extremities Ext: 1+ pitting edema left ankle, 1-2+ pitting edema left ankle, PT pulses intact and symmetric, right hip tender to palpation laterally and anteriorly without point tenderness, no lymphadenopathy, no overlying skin changes, no hugh a of the right hip, range of motion right hip somewhat limited secondary to pain, range of motion right knee normal, no tenderness palpation of the right knee, no effusion, right thigh nontender to palpation. Full range of motion left hip. Pelvis stable to anterior lateral compression. Psych: normal mood, normal affect, normal behavior Course Vital Signs Vital signs: Vital Signs Temperature 36.6 C 01/01/20 15:04 Pulse 57 L 01/01/20 15:04 Blood Pressure 123/77 01/01/20 15:04 Pulse Oximetry 96 01/01/20 15:04 Temperature 36.6 C 01/01/20 15:04 Temperature Source Temporal Artery Scan 01/01/20 15:04 Pulse 57 L 01/01/20 15:04 Respiratory Effort Non-Labored 01/01/20 15:08 Blood Pressure 123/77 01/01/20 15:04 Blood Pressure Position Sitting 01/01/20 15:04 Pulse Oximetry 96 01/01/20 15:04 Oxygen Delivery Method Room Air 01/01/20 15:04 Oxygen Flow Rate 0 01/01/20 15:04 Pain Level 6 01/01/20 15:04
--- NOTE | 2020-01-01 15:35 | DI.RAD_ITS ---
EXAM: XR HIP RT COMPLETE AP PELVIS CLINICAL HISTORY: trauma, right hip pain TECHNIQUE: COMPARISON: CR RT HIP COMPLETE AP PELVIS from 06/13/[address] LOWER EXTREMITY RT WO from 01/01/2020 FINDINGS: Three views were obtained. There is evidence of prior bilateral hernia surgery. There is no evidenc e of acute fracture or dislocation. Mild degenerative changes of both hips and SI joints are noted. IMPRESSION:
--- NOTE | 2020-01-01 16:45 | DI.CT_ITS ---
EXAM: CT LOWER EXTREMITY RT WO CLINICAL HISTORY: trauma, right hip pain TECHNIQUE: COMPARISON: No exams were available for comparison FINDINGS: CT examination of the right hip was performed. No intrapelvic abnormality identified. No evidence o f fracture involving the hip or visualized right hemipelvis. IMPRESSION: No evidence of fracture.
--- NOTE | 2020-01-01 17:30 | DI.[facility]_ITS ---
PROCEDURE INFORMATION: Exam: CT Right Lower Extremity Without Contrast, Hip Exam date and time: 01/01/2020 4:49 PM Age: 64 years old Clinical indication: Injury or trauma; Fall; Initial encounter; Blunt trauma; Patient HX: Trauma, right hip pain TECHNIQUE: Imaging protocol: CT of the Right lower extremity without contrast was performed. Exam focused on the hip. COMPARISON: CR XR knee RT 2V AP,lat 09/20/2018 11:29 AM FINDINGS: Bones/joints: Normal. No acute fracture or dislocation. Soft tissues: Normal. IMPRESSION: Unremarkable CT. Dictated and Authenticated by: Ugo Albarado MD. Ordering:СЕРГЕЙ Murphy MD
--- NOTE | 2020-01-01 19:44 | DI.[facility]AD_ITS ---
PROCEDURE INFORMATION: Exam: XR Right Hip with Pelvis when Performed Exam date and time: 01/01/2020 3:51 PM Age: 64 years old Clinical indication: Hip pain; Right hip TECHNIQUE: Imaging protocol: XR Right hip with pelvis when performed. Views: 2 or 3 views. COMPARISON: CR RT HIP COMPLETE AP PELVIS 06/13/2015 7:07 PM FINDINGS: Bones/joints: Degenerative changes in the spine. No fractures. No dislcoation. Soft tissues: Unremarkable. IMPRESSION: No acute finding. Dictated and Authenticated by: Ugo Albarado MD. Ordering:СЕРГЕЙ Murphy MD
== END 2020-01-01 18:45 | disposition home or self-care (01) ==
PROVIDERS: Emergency Provider Student in an Organized Health Care Education/Training Program; PCP Family Medicine
DX: M25.511 Pain in right shoulder (principal); G89.29 Other chronic pain; R29.6 Repeated falls; M25.561 Pain in right knee; J44.9 Chronic obstructive pulmonary disease, unspecified; Z87.891 Personal history of nicotine dependence; I10 Essential (primary) hypertension
CPT/HCPCS: 99284; 73502; 73700; 99285

== ENCOUNTER 2020-03-02 03:29 | Emergency (ER) | payer MEDICARE, MEDICAID, SELFPAY ==
[2020-03-02 03:30] VITALS: BP 137/86; PULSE 72; RESP 18; TEMP 36.7; O2SAT 94
--- NOTE | 2020-03-02 03:45 | W.ED.GENAD ---
Discharge Plan Disposition Patient Disposition: HOME Condition: Good Discharge Details Chief Complaint: Orthopedic Clinical Impression: Acute pain of right hip, Muscle strain Primary Care Provider: Fareed Petty ED Provider: Parminder Reyes Home Meds and New Rx's Prescriptions: New lidocaine [Lidoderm] 1 PATCH patch 1 patch Topical Q24H Qty: 4 RF: 0 Continued Advair HFA 8 GM HFA aerosol inhaler 2 puff Inhalation BID Qty: 1 RF: 1 Bevespi Aerosphere 9-4.8 mcg HFA aerosol inhaler 2 puff Inhalation BID Qty: 3 RF: 4 lamotrigine 100 mg tablet 200 mg PO DAILY Qty: 180 RF: 3 hydrochlorothiazide 25 mg tablet 25 mg PO DAILY Qty: 100 RF: 4 naproxen 500 mg tablet 500 mg PO DAILY Qty: 90 RF: 3 lisinopril 5 mg tablet 5 mg PO DAILY Qty: 90 RF: 4 albuterol sulfate [Ventolin HFA] 90 mcg/actuation HFA aerosol inhaler 2 puff Inhalation Q4H PRN (Reason: shortness of breath or wheezing) Qty: 18 RF: 11 ipratropium-albuterol 0.5 mg-3 mg(2.5 mg base)/3 mL solution for nebulization 3 ml Inhalation Q4H PRN PRN (Reason: shortness of breath or wheezing) Qty: 180 RF: 4 venlafaxine 100 mg tablet 100 mg PO BID Qty: 180 RF: 3 omeprazole 20 mg capsule,delayed release(DR/EC) 20 mg PO DAILY Qty: 90 RF: 3 bupropion HCl (smoking deter) 150 mg tablet extended release 12 hr 150 mg PO BID Qty: 180 RF: 3 metoprolol succinate 100 mg tablet extended release 24 hr 100 mg PO DAILY Qty: 90 RF: 3 pravastatin [Pravachol] 40 mg tablet 40 mg PO DAILY Qty: 90 RF: 4 pramipexole 0.5 mg tablet 0.5 mg PO HS Qty: 90 RF: 3 zolpidem 5 mg tablet 5 mg PO QHS PRN (Reason: sleep) Qty: 30 RF: 5 celecoxib 200 mg capsule 200 mg PO DAILY PRN (Reason: pain) Qty: 30 RF: 0 aspirin 81 MG tablet,chewable 81 mg PO DAILY RF: 0 acetaminophen [Pain and Fever] 500 MG tablet 500 - 1,000 mg PO PRN PRNRF: 0 calcium polycarbophil [Fiber Laxative (ca polycarbo)] 625 MG tablet 1,250 mg PO DAILY RF: 0 ascorbic acid (vitamin C) 1,000 MG tablet,chewable 1,000 mg PO DAILY RF: 0 calcium carbonate [Calcium 500] 500 MG tablet 500 mg PO DAILY RF: 0 Discharge Instructions Instructions: Muscle Strain (ED) Additional Instructions: At this time your x-ray shows no evidence of fracture. I suspect that your pain is secondary to mild strain or mild tear of your quadriceps muscles from the recent increase in use at home. I would continue to recommend using the Lidoderm patches, 1000 mg of Tylenol every 6 hours, and close follow-up with the criminal intelligence specialist. If you notice any worsening of your symptoms, or any new symptoms such as vomiting, diarrhea, fever, chills, shortness of breath, chest pain, numbness, weakness, or fainting , please return immediately to the emergency department for reevaluation. Please follow up with your primary care provider as soon as possible for reassessment and reevaluation. As always, it was a pleasure participating in your medical care today. Referrals: Fareed Petty [Primary Care Provider] - Doron Slade MD [ [facility] STAFF PHYSICIAN] - Medical Decision Making 64-year-old male with a past medical history of COPD, restless leg syndrome, obstructive sleep apnea, subtalar arthritis of the left foot subsequent recent surgery and currently casted, presents today for right hip and thigh pain. Roughly 2 months ago the patient did fall in his right hip, he had mild pains at that time, CAT scan and x-rays were both negative for acute process. He eventually had surgery on his foot, and has been in a cast for the last few weeks. He just got out of rehab 3 days ago and has been living at home. He states that he is continually been in a wheelchair, and has not been ambulating or walking. He is able to pivot well without difficulty. For the last 2 months since the initial fall the patient does complain of pain in his right hip however over the last 24 to 48 hours patient has had increased pain in his right hip and anterior thigh. He describes it as sharp and achy. Definitely worse with movement but can also sometimes occur on its own while he is just sitting. He denies any other particular aggravating or relieving factors. He denies any numbness traveling down the leg. He denies any recent falls. He denies abdominal pain, groin pain, urinary complaint. No other complaints at this. Physical exam demonstrates mild spasm noted over the vastus intermedius, no pain with logroll of the leg, mild to moderate pain with activation of the quadricep muscle, both active and passive flexion at the hip. Suspect muscular versus ligamentous etiology, potential strain or mild tears secondary to chronic decrease in use after his surgery, and now recently being at home having had increased use of this. We will get an x-ray to rule out fracture, there is no current indication for an emergent MRI. He does have a relationship with Dr. white per the patient, will recommend follow-up for this. We will give Tylenol and a Lidoderm patch. 4:32 AM The patient's x-ray is negative for acute process, pain improved with Tylenol and Lidoderm patch. Suspect that his symptoms are likely secondary to a strain of the muscle or mild tear secondary to disuse. Recommend follow-up with his criminal intelligence specialist. Recommend continue using his wheelchair. Discussed red flags for which to return. At this time symptoms are inconsistent with vascular compromise, cauda equina syndrome, significant neuropathic compromise, DVT, abscess or infection. I have extensively reviewed the treatment plan and discharge instructions with the patient. I have addressed all patient concerns at this time. The patient was made aware of what symptoms to monitor for that would warrant a return to the emergency department. Discussed the plan with the patient, they demonstrate verbal understanding and agreement with our assessment and plan at this time. FINDINGS: Bones/joints: Unremarkable. No acute fracture. Soft tissues: Unremarkable. IMPRESSION: No acute findings. Thank you for allowing us to participate in the care of your patient. Dictated and Authenticated by: Harris Beckford MD 03/02/2020 4:27 AM Eastern Time ([place] & [place]) HPI General Date/Time Provider Initiated Documentation: 03/02/20 03:49. HPI Narrative: 64-year-old male with a past medical history of COPD, restless leg syndrome, obstructive sleep apnea, subtalar arthritis of the left foot subsequent recent surgery and currently casted, presents today for right hip and thigh pain. Roughly 2 months ago the patient did fall in his right hip, he had mild pains at that time, CAT scan and x-rays were both negative for acute process. He eventually had surgery on his foot, and has been in a cast for the last few weeks. He just got out of rehab 3 days ago and has been living at home. He states that he is continually been in a wheelchair, and has not been ambulating or walking. He is able to pivot well without difficulty. For the last 2 months since the initial fall the patient does complain of pain in his right hip however over the last 24 to 48 hours patient has had increased pain in his right hip and anterior thigh. He describes it as sharp and achy. Definitely worse with movement but can also sometimes occur on its own while he is just sitting. He denies any other particular aggravating or relieving factors. He denies any numbness traveling down the leg. He denies any recent falls. He denies abdominal pain, groin pain, urinary complaint. No other complaints at this. Related Data Home Medications Medication Instructions Recorded Confirmed acetaminophen [Pain and Fever] 500 - 1,000 mg PO PRN PRN 09/30/12 01/01/20 ascorbic acid (vitamin C) 1,000 mg PO DAILY 09/30/12 01/01/20 aspirin 81 mg PO DAILY 09/30/12 01/01/20 calcium polycarbophil [Fiber 1,250 mg PO DAILY 09/30/12 01/01/20 Laxative (ca polycarbo)] Advair HFA 2 puff INHALATION BID #1 inhaler 12/22/12 01/01/20 calcium carbonate [Calcium 500] 500 mg PO DAILY 01/24/18 01/01/20 glycopyrrolate 9 mcg-formoterol 2 puff INHALATION BID #3 ea 12/22/18 01/01/20 4.8 mcg HFA aerosol inhaler lamotrigine 100 mg tablet 200 mg PO DAILY #180 tab-cap 05/04/19 01/01/20 hydrochlorothiazide 25 mg tablet 25 mg PO DAILY #100 tab 07/03/19 01/01/20 naproxen 500 mg tablet 500 mg PO DAILY #90 tab 07/03/19 01/01/20 albuterol sulfate 90 mcg/actuation 2 puff INHALATION Q4H PRN #18 gm 08/03/19 01/01/20 aerosol inhaler lisinopril 5 mg tablet 5 mg PO DAILY #90 tab-cap 08/03/19 01/01/20 ipratropium 0.5 mg-albuterol 3 mg 3 ml INHALATION Q4H PRN PRN #180 ml 10/09/19 01/01/20 (2.5 mg base)/3 mL nebulization soln bupropion HCl (smoking deter) 150 150 mg PO BID #180 tab-cap 11/01/19 01/01/20 mg tablet,12 hr sustained-release(smoking deterrent) omeprazole 20 mg capsule,delayed 20 mg PO DAILY #90 tab-cap 11/01/19 01/01/20 release venlafaxine 100 mg tablet 100 mg PO BID #180 tab-cap 11/01/19 01/01/20 metoprolol succinate 100 mg 100 mg PO DAILY #90 tab-cap 01/01/20 01/01/20 tablet,extended release 24 hr pravastatin 40 mg tablet 40 mg PO DAILY #90 tab-cap 01/01/20 01/01/20 pramipexole 0.5 mg tablet 0.5 mg PO HS #90 tab-cap 02/06/20 zolpidem 5 mg tablet 5 mg PO QHS PRN #30 tab 02/06/20 celecoxib 200 mg capsule 200 mg PO DAILY PRN #30 cap 02/14/20 lidocaine [Lidoderm] 1 patch TOPICAL Q24H #4 patch 03/02/20 Previous Rx's Medication Instructions Recorded glycopyrrolate 9 mcg-formoterol 2 puff INHALATION BID #3 ea 12/22/18 4.8 mcg HFA aerosol inhaler lamotrigine 100 mg tablet 200 mg PO DAILY #180 tab-cap 05/04/19 hydrochlorothiazide 25 mg tablet 25 mg PO DAILY #100 tab 07/03/19 naproxen 500 mg tablet 500 mg PO DAILY #90 tab 07/03/19 albuterol sulfate 90 mcg/actuation 2 puff INHALATION Q4H PRN #18 gm 08/03/19 aerosol inhaler lisinopril 5 mg tablet 5 mg PO DAILY #90 tab-cap 08/03/19 ipratropium 0.5 mg-albuterol 3 mg 3 ml INHALATION Q4H PRN PRN #180 ml 10/09/19 (2.5 mg base)/3 mL nebulization soln bupropion HCl (smoking deter) 150 150 mg PO BID #180 tab-cap 11/01/19 mg tablet,12 hr sustained-release(smoking deterrent) omeprazole 20 mg capsule,delayed 20 mg PO DAILY #90 tab-cap 11/01/19 release venlafaxine 100 mg tablet 100 mg PO BID #180 tab-cap 11/01/19 metoprolol succinate 100 mg 100 mg PO DAILY #90 tab-cap 01/01/20 tablet,extended release 24 hr pravastatin 40 mg tablet 40 mg PO DAILY #90 tab-cap 01/01/20 pramipexole 0.5 mg tablet 0.5 mg PO HS #90 tab-cap 02/06/20 zolpidem 5 mg tablet 5 mg PO QHS PRN #30 tab 02/06/20 celecoxib 200 mg capsule 200 mg PO DAILY PRN #30 cap 02/14/20 lidocaine [Lidoderm] 1 patch TOPICAL Q24H #4 patch 03/02/20 Allergies Allergy/AdvReac Type Severity Reaction Status Date / Time house dust [House Dust] Allergy Unknown Verified 03/02/20 03:34 hydrocodone bitartrate AdvReac Intermediate hallucinati Verified 03/02/20 03:34 [From Vicodin] ons zolpidem AdvReac Intermediate Agitation Verified 03/02/20 03:34 Iodinated Contrast Media AdvReac Mild Nausea Verified 03/02/20 03:34 [Iodinated Contrast Media - Oral and] fentanyl AdvReac Unknown Hallucinati Verified 03/02/20 03:34 ons morphine AdvReac Unknown NAUSEA, Verified 03/02/20 03:34 VOMITING General Stated Complaint: Orthopedic BETH: 4 Review of Systems All systems reviewed & are unremarkable except as noted in HPI and below PFSH Medical History Arthritis of left foot (Chronic) Asthma (Chronic) Bunion of great toe of right foot (Acute) Emphysema of lung (Acute) Surgical History Arthroplasty of knee 10/28/18 BILAT CARDIAC CATH R/L Cholecystectomy Extraction of cataract 10/31/15; DR. MEDEIROS; LEFT EYE 11/14/15; DR. MALA; RIGHT EYE H/O ankle fusion (Acute) hernia repair, ventral (01/12/17) Repair of inguinal hernia B/L Replacement of total knee joint (~11/2011) Dr. Zhang RIGHT SHOULDER SURGERY SLEEP APNEA SURGERY TOTAL SHOULDER REPLACEMENT (RIGHT) (~1992) Transurethral prostatectomy (11/29/12) DR. OSWALD UVULECTOMY (10/03/12) DR. SANTO Family History Mother Diabetes Essential hypertension Depression Hyperlipidemia Father COPD (chronic obstructive pulmonary disease) Heart disease Hyperlipidemia Asthma Brother Essential hypertension Hyperlipidemia Grandfather Diabetes Heart disease Neoplasm KIDNEYS Stroke Grandfather Heart disease Neoplasm STOMACH Asthma Grandmother Diabetes Heart disease Stroke Grandmother Diabetes Heart disease Stroke Daughter Depression Asthma Daughter Depression Asthma Social History Smoking/Tobacco Use Status: Former Tobacco Use Alcohol Intake: never Drug use: Never Substance use type: does not use Do you feel safe at home: Yes Do you feel safe in your relationship?: Yes Exam Narrative Exam Narrative: 1.Const: Well-nourished, Well-developed, appearing stated age 2.Eyes: PERRL, no conjunctival injection, and symmetrical lids. 3.ENT: Atraumatic external nose and ears. Moist MM. Neck: Symmetric, trachea midline, No thyromegaly. 4.CVS: +S1/S2, No murmurs or gallops. Peripheral pulses 2+ and equal in all extremities. Brisk capillary refill in all extremities. 5.RESP: Unlabored respiratory effort. Clear to auscultation bilaterally. No wheezes rales or rhonchi 6.GI: Soft, Nontender/Nondistended, No hepatosplenomegaly. No guarding or rebound. 7.MSK: Normocephalic/Atraumatic, Extremities w/o deformity or ttp No cyanosis or clubbing, left lower extremity is currently in a cast. Otherwise demonstrates no tenderness or erythema. He demonstrates good strength throughout. Right hip is mildly tender to palpation over the greater trochanter of the femur. No pain with logroll, mild pain with passive and active flexion of the hip. No significant pain with rotational components. There does appear to be a small muscle spasm in the right thigh over the vastus intermedius muscle. No redness warmth or signs of infection though. No redness warmth or signs of infection in general. No other abnormalities on exam. 8.Skin: Warm, Dry. No rashes or lesions. 9.Neuro: commodities broker II-XII grossly intact. Sensation grossly intact, no focal neurologic deficits. 10.Psych: (AAO) x3. Appropriate mood and affect Course Vital Signs Vital signs: Vital Signs Temperature 36.7 C 03/02/20 03:30 Pulse 72 03/02/20 03:30 Respiratory Rate 18 03/02/20 03:30 Blood Pressure 137/86 03/02/20 03:30 Pulse Oximetry 94 L 03/02/20 03:30 Temperature 36.7 C 03/02/20 03:30 Pulse 72 03/02/20 03:30 Respiratory Rate 18 03/02/20 03:30 Respiratory Effort 03/02/20 03:33 Blood Pressure 137/86 03/02/20 03:30 Blood Pressure Position Sitting 03/02/20 03:30 Pulse Oximetry 94 L 03/02/20 03:30 Oxygen Delivery Method Room Air 03/02/20 03:30 Oxygen Flow Rate 0 03/02/20 03:30 Pain Level 9 03/02/20 03:35
[2020-03-02] MEDS: Acetaminophen 500 MG TAB 1000 MG PO (03:49)
[2020-03-02] MEDS: Lidocaine 5% Patch 1 PATCH TP (03:49)
--- NOTE | 2020-03-02 04:13 | DI.RAD_ITS ---
EXAM: XR HIP RT AP LAT ONLY CLINICAL HISTORY: right hip and proximal thigh pain TECHNIQUE: COMPARISON: CR,XR XR HIP RT COMPLETE AP PELVIS from 01/01/2020 FINDINGS: Two views were obtained there are mild degenerative changes of the hip. There is soft tissue calcifi cation adjacent to the lesser trochanter which could represent Brigitte calcific tendinitis, please corre late clinically. There is no evidence of acute fracture or dislocation. IMPRESSION:
--- NOTE | 2020-03-02 04:28 | DI.VRAD_ITS ---
PROCEDURE INFORMATION: Exam: XR Right Hip with Pelvis when Performed Exam date and time: 03/02/2020 4:06 AM Age: 64 years old Clinical indication: Right hip; Patient HX: Hip pain x1 month, fall 2 weeks ago, worsening pain since, no new trauma TECHNIQUE: Imaging protocol: XR Right hip with pelvis when performed. Views: 2 or 3 views. COMPARISON: CR XR HIP RT COMPLETE AP PELVIS 01/01/2020 3:46 PM FINDINGS: Bones/joints: Unremarkable. No acute fracture. Soft tissues: Unremarkable. IMPRESSION: No acute findings. Dictated and Authenticated by: Harris Beckford MD. Ordering:RON Zurita MD
[2020-03-02 04:44] VITALS: BP 125/77; PULSE 69; RESP 16; O2SAT 95
[2020-03-02] MEDS: oxyCODONE 5 mg/Acetaminophen 325 mg TAB 2 TAB PO (05:01)
== END 2020-03-02 05:10 | disposition home or self-care (01) ==
LOC: ER 04:49
PROVIDERS: Emergency Provider Student in an Organized Health Care Education/Training Program; PCP Family Medicine
DX: M25.551 Pain in right hip (principal); S76.111A Strain of right quadriceps muscle, fascia and tendon, initial encounter; X50.9XXA Other and unspecified overexertion or strenuous movements or postures, initial encounter; J44.9 Chronic obstructive pulmonary disease, unspecified; Z87.891 Personal history of nicotine dependence
CPT/HCPCS: 99283; 73502; 99284

== ENCOUNTER → 2020-03-13 14:03 | Outpatient (BNVA) | payer MEDICARE, MEDICAID, SELFPAY | PROVIDERS: PCP Family Medicine; Referring Provider Family Medicine; Visit Provider Student in an Organized Health Care Education/Training Program | DX: S76.011A Strain of muscle, fascia and tendon of right hip, initial encounter (principal); W19.XXXA Unspecified fall, initial encounter; M70.61 Trochanteric bursitis, right hip; M25.551 Pain in right hip; Z98.1 Arthrodesis status | CPT/HCPCS: 99213 ==

== ENCOUNTER 2020-05-08 13:58 | Emergency (ER) | payer MEDICARE, MEDICAID, SELFPAY ==
[2020-05-08 14:01] VITALS: BP 145/86; PULSE 74; RESP 18; TEMP 36.7; O2SAT 94
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
[2020-05-08 14:57] VITALS: BP 116/58; PULSE 67; RESP 18; O2SAT 95
== END 2020-05-08 15:03 | disposition home or self-care (01) ==
LOC: ER 15:46
PROVIDERS: Emergency Provider Registered Nurse Emergency; PCP Family Medicine
DX: T25.211A Burn of second degree of right ankle, initial encounter (principal); X12.XXXA Contact with other hot fluids, initial encounter
CPT/HCPCS: 16020

== ENCOUNTER 2020-06-19 13:06 | Outpatient (REF) | payer MEDICARE, MEDICAID, SELFPAY ==
[2020-06-21 09:33] LABS: PSA, Diagnostic 0.3 ng/ml (0-4.5)
== END 2020-06-19 13:26 ==
LOC: LBN 13:06
PROVIDERS: PCP Family Medicine; Visit Provider Nurse Practitioner Gerontology
DX: C61 Malignant neoplasm of prostate (principal)
CPT/HCPCS: 84153

== ENCOUNTER → 2020-07-02 13:19 | Outpatient (BNVA) | payer MEDICARE, MEDICAID, SELFPAY | PROVIDERS: PCP Family Medicine; Referring Provider Family Medicine; Visit Provider Nurse Practitioner Gerontology | DX: N40.1 Benign prostatic hyperplasia with lower urinary tract symptoms (principal); N13.8 Other obstructive and reflux uropathy; Z85.46 Personal history of malignant neoplasm of prostate | CPT/HCPCS: 99212; 99441 ==

== ENCOUNTER 2020-07-11 14:06 | Outpatient (CLI) | payer MEDICARE, MEDICAID, SELFPAY ==
--- NOTE | 2020-07-11 | DI.CTLCSR_ITS ---
EXAM: CT CHEST LUNG CANCER SCREEN CLINICAL HISTORY: SCREENING FOR LUNG CA, FORMER SMOKER, Z87.891 TECHNIQUE: CT examination of the chest was performed utilizing low-dose lung cancer screening protoc ol. COMPARISON: CT CT CHEST LUNG CANCER SCREEN from 09/22/2018 FINDINGS: The examination is technically limited due to motion artifact and artifact from right shoulder prosth esis. Images obtained through the upper abdomen show unremarkable appearance of visualized portions of the liver and spleen. There is no mediastinal or hilar adenopathy. Mediastinal vascular structures appear intact by noncon trast criteria. There appears to be bronchiectasis of the lower lobes. No pleural effusion or pleural-based mass. There are severe changes of centrilobular and subpleural emphysema with bilateral apical bulla. A st able 6 millimeter in diameter right lower lobe pulmonary nodule is noted, unchanged from prior examin ation of September 22, 2018. No new pulmonary nodule identified. No consolidation. IMPRESSION: .Lung RADS Cat 2 - Benign Appearance / Behavior: Nodules with a very low likelihood of becoming a cli nically active cancer due to size or lack of growth Continue annual screening with LD CT in 12 months. RADIATION DOSE DELIVERED: LINK-TO-SR Total DLP 95.49mGy.cm Total DLP
== END 2020-07-11 14:26 ==
PROVIDERS: PCP Family Medicine; Visit Provider Internal Medicine
DX: Z87.891 Personal history of nicotine dependence (principal); R91.1 Solitary pulmonary nodule; J43.2 Centrilobular emphysema
CPT/HCPCS: G0297

== ENCOUNTER 2021-01-23 14:00 | Outpatient (RCR) | payer OTHER, MEDICAID, SELFPAY ==
[2021-01-16 13:47] VITALS: BP 115/67; PULSE 64
[2021-01-21 14:04] VITALS: BP 137/66; PULSE 70
[2021-01-23 14:30] VITALS: BP 126/60; PULSE 71
== END 2021-01-29 23:59 | disposition home or self-care (01) ==
LOC: CR 14:00
PROVIDERS: PCP Nurse Practitioner Family; Visit Provider Family Medicine

== ENCOUNTER 2021-03-02 04:51 | Outpatient (RCR) | payer SELFPAY ==
[2021-03-02 00:07] VITALS: BP 126/60; PULSE 71
== END 2021-04-01 23:59 | disposition home or self-care (01) ==
LOC: CR 04:51
PROVIDERS: PCP Nurse Practitioner Family; Visit Provider Family Medicine

== ENCOUNTER 2021-07-28 04:23 | Outpatient (CLI) | payer OTHER, MEDICAID, SELFPAY ==
[2021-07-28 22:23] LABS: PSA, Diagnostic 0.4 ng/mL (0.0-4.5)
== END 2021-07-28 04:24 | disposition home or self-care (01) ==
LOC: LBO 04:24
PROVIDERS: PCP Nurse Practitioner Family; Visit Provider Nurse Practitioner Gerontology
DX: C61 Malignant neoplasm of prostate (principal)
CPT/HCPCS: 36415; 84153

== ENCOUNTER → 2021-07-29 14:01 | Outpatient (BNVA) | payer OTHER, MEDICAID, SELFPAY | PROVIDERS: PCP Nurse Practitioner Family; Referring Provider Family Medicine; Visit Provider Nurse Practitioner Gerontology | DX: N40.1 Benign prostatic hyperplasia with lower urinary tract symptoms (principal); N13.8 Other obstructive and reflux uropathy; Z85.46 Personal history of malignant neoplasm of prostate | CPT/HCPCS: 99214 ==

== ENCOUNTER 2021-11-03 21:05 | Inpatient (IN) | payer OTHER, MEDICAID, SELFPAY ==
[2021-11-03] VITALS (23 sets, daily range): BP systolic 123–163; BP diastolic 70–107; PULSE 49–65; RESP 13–24; TEMP 36.3; O2SAT 86–95
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
--- NOTE | 2021-11-03 21:16 | W.ED.GENAD ---
Discharge Plan Disposition Patient Disposition: STILL A PATIENT Condition: Stable Discharge Details Chief Complaint: Abd Prob Clinical Impression: Small bowel obstruction Primary Care Provider: Deandre Galvez ED Provider: Harvey Fowler Home Meds and New Rx's Prescriptions: No Action zolpidem 5 mg tablet 5 mg PO QHS PRN (Reason: sleep) Qty: 30 5RF albuterol sulfate [Ventolin HFA] 90 mcg/actuation HFA aerosol inhaler 2 puff Inhalation Q4H PRN (Reason: shortness of breath or wheezing) Qty: 18 11RF celecoxib 200 mg capsule 200 mg PO DAILY PRN (Reason: pain) Qty: 30 5RF Advair HFA 230-21 mcg/actuation HFA aerosol inhaler 2 puff Inhalation BID Qty: 1 11RF ipratropium bromide 17 mcg/actuation HFA aerosol inhaler 1 puff inhalation QID Qty: 12.9 3RF lamotrigine 100 mg tablet 200 mg PO DAILY Qty: 180 3RF lisinopril 5 mg tablet 5 mg PO DAILY Qty: 90 4RF metoprolol succinate 100 mg tablet extended release 24 hr 100 mg PO DAILY Qty: 90 3RF omeprazole 20 mg capsule,delayed release(DR/EC) 20 mg PO DAILY Qty: 90 3RF pramipexole 0.5 mg tablet 0.5 mg PO HS Qty: 30 3RF pravastatin 40 mg tablet 40 mg PO DAILY Qty: 90 4RF Anoro Ellipta 62.5-25 mcg/actuation blister with device 2 inh INHALATION DAILY Qty: 90 11RF venlafaxine 100 mg tablet 100 mg PO BID Qty: 180 3RF Label Comments: 01/24/18 pt takes 200mg in AM.jw hydrochlorothiazide 25 mg tablet 25 mg PO DAILY Qty: 100 4RF bupropion HCl (smoking deter) 150 mg tablet extended release 12 hr 150 mg PO BID Qty: 180 3RF ipratropium-albuterol 0.5 mg-3 mg(2.5 mg base)/3 mL solution for nebulization 3 ml INHALATION BID PRN (Reason: copd) Qty: 180 3RF aspirin 81 MG tablet,chewable 81 mg PO DAILY 0RF acetaminophen [Pain and Fever] 500 MG tablet 500 - 1,000 mg PO PRN PRN0RF calcium polycarbophil [Fiber Laxative (ca polycarbo)] 625 MG tablet 1,250 mg PO DAILY 0RF ascorbic acid (vitamin C) 1,000 MG tablet,chewable 1,000 mg PO DAILY 0RF calcium carbonate [Calcium 500] 500 MG tablet 500 mg PO DAILY 0RF Medical Decision Making 66-year-old male with a history of bowel obstructions presents with 4 days of feeling constipated, now with 2 days of abdominal bloating and distention, became nauseated and vomited after eating this evening. He felt like the emesis was feculent. Patient's not had a fever. He does arrive to the ER interactive and appropriate. His blood pressure is 123/100 with a pulse of 65. His abdomen is distended and tympanitic, consistent with partial or complete bowel obstruction. IV access established, screening labs obtained. Patient given parenteral fluids and referred for CT images. Laboratories: White blood cell count 16.5, hematocrit 51, platelets 307. Chemistries note sodium 134, potassium 3.7, chloride 90, bicarb 24, BUN 28, creatinine 1.2. AST 20, ALT 29, lipase 40, troponin negative. CT images pending. Patient to be signed out to Dr. Olvin Berry pending reading of CT, which appears to show small bowel obstruction. HPI General Mode of arrival: EMS. Date/Time Provider Initiated Documentation: 11/03/21 21:20. Limitations to Documentation: no limitations. Information obtained by: patient and EMS. History of Present Illness 66 year old M presents to the emergency department with the chief complaint of Abdominal pain and vomiting, described as moderate and similar to prior episodes, Quality is described as aching, and is localized to the abdomen. Patient reports no radiation. Patient started experiencing this day(s) and it has been intermittent. improves with No relieving factors improve symptom(s), No exacerbating factors reported . Patient notes denies chest pain, cough and shortness of breath. Patient did receive the following treatments prior to arrival, none Related Data Home Medications Medication Instructions Recorded Confirmed acetaminophen 500 mg tablet (Pain 500 - 1,000 mg PO PRN PRN 09/30/12 11/03/21 and Fever) ascorbic acid (vitamin C) 1,000 mg 1,000 mg PO DAILY 09/30/12 11/03/21 chewable tablet aspirin 81 mg chewable tablet 81 mg PO DAILY 09/30/12 11/03/21 calcium polycarbophil 625 mg 1,250 mg PO DAILY 09/30/12 11/03/21 tablet (Fiber Laxative (calcium polycarbophil)) calcium carbonate 500 mg calcium 500 mg PO DAILY 01/24/18 11/03/21 (1,250 mg) tablet (Calcium 500) zolpidem 5 mg tablet 5 mg PO QHS PRN #30 tab 07/17/21 11/03/21 albuterol sulfate 90 mcg/actuation 2 puff INHALATION Q4H PRN #18 gm 10/02/21 11/03/21 aerosol inhaler (Ventolin HFA) celecoxib 200 mg capsule 200 mg PO DAILY PRN #30 cap 10/02/21 11/03/21 fluticasone propionate 230 2 puff INHALATION BID #1 inhaler 10/02/21 11/03/21 mcg-salmeterol 21 mcg/actuation HFA inhaler (Advair HFA) ipratropium bromide 17 1 puff INHALATION QID #12.9 g 10/02/21 11/03/21 mcg/actuation HFA aerosol inhaler lamotrigine 100 mg tablet 200 mg PO DAILY #180 tab-cap 10/02/21 11/03/21 lisinopril 5 mg tablet 5 mg PO DAILY #90 tab-cap 10/02/21 11/03/21 metoprolol succinate 100 mg 100 mg PO DAILY #90 tab-cap 10/02/21 11/03/21 tablet,extended release 24 hr omeprazole 20 mg capsule,delayed 20 mg PO DAILY #90 tab-cap 10/02/21 11/03/21 release pramipexole 0.5 mg tablet 0.5 mg PO HS #30 tab-cap 10/02/21 11/03/21 pravastatin 40 mg tablet 40 mg PO DAILY #90 tab-cap 10/02/21 11/03/21 umeclidinium 62.5 mcg-vilanterol 2 inh INHALATION DAILY #90 ea 10/02/21 11/03/21 25 mcg/actuation powdr for inhalation (Anoro Ellipta) venlafaxine 100 mg tablet 100 mg PO BID #180 tab-cap 10/02/21 11/03/21 bupropion HCl (smoking deter) 150 150 mg PO BID #180 tab-cap 10/08/21 11/03/21 mg tablet,12 hr sustained-release(smoking deterrent) hydrochlorothiazide 25 mg tablet 25 mg PO DAILY #100 tab 10/08/21 11/03/21 ipratropium 0.5 mg-albuterol 3 mg 3 ml INHALATION BID PRN #180 ml 10/20/21 11/03/21 (2.5 mg base)/3 mL nebulization soln Previous Rx's Medication Instructions Recorded zolpidem 5 mg tablet 5 mg PO QHS PRN #30 tab 07/17/21 albuterol sulfate 90 mcg/actuation 2 puff INHALATION Q4H PRN #18 gm 10/02/21 aerosol inhaler (Ventolin HFA) celecoxib 200 mg capsule 200 mg PO DAILY PRN #30 cap 10/02/21 fluticasone propionate 230 2 puff INHALATION BID #1 inhaler 10/02/21 mcg-salmeterol 21 mcg/actuation HFA inhaler (Advair HFA) ipratropium bromide 17 1 puff INHALATION QID #12.9 g 10/02/21 mcg/actuation HFA aerosol inhaler lamotrigine 100 mg tablet 200 mg PO DAILY #180 tab-cap 10/02/21 lisinopril 5 mg tablet 5 mg PO DAILY #90 tab-cap 10/02/21 metoprolol succinate 100 mg 100 mg PO DAILY #90 tab-cap 10/02/21 tablet,extended release 24 hr omeprazole 20 mg capsule,delayed 20 mg PO DAILY #90 tab-cap 10/02/21 release pramipexole 0.5 mg tablet 0.5 mg PO HS #30 tab-cap 10/02/21 pravastatin 40 mg tablet 40 mg PO DAILY #90 tab-cap 10/02/21 umeclidinium 62.5 mcg-vilanterol 2 inh INHALATION DAILY #90 ea 10/02/21 25 mcg/actuation powdr for inhalation (Anoro Ellipta) venlafaxine 100 mg tablet 100 mg PO BID #180 tab-cap 10/02/21 bupropion HCl (smoking deter) 150 150 mg PO BID #180 tab-cap 10/08/21 mg tablet,12 hr sustained-release(smoking deterrent) hydrochlorothiazide 25 mg tablet 25 mg PO DAILY #100 tab 10/08/21 ipratropium 0.5 mg-albuterol 3 mg 3 ml INHALATION BID PRN #180 ml 10/20/21 (2.5 mg base)/3 mL nebulization soln Allergies Allergy/AdvReac Type Severity Reaction Status Date / Time house dust [House Dust] Allergy Unknown Verified 11/03/21 21:14 hydrocodone bitartrate AdvReac Intermediate hallucinati Verified 11/03/21 21:14 [From Vicodin] ons zolpidem AdvReac Intermediate Agitation Verified 11/03/21 21:14 Iodinated Contrast Media AdvReac Mild Nausea Verified 11/03/21 21:14 [Iodinated Contrast Media - Oral and] fentanyl AdvReac Unknown Hallucinati Verified 11/03/21 21:14 ons morphine AdvReac Unknown NAUSEA, Verified 11/03/21 21:14 VOMITING General Stated Complaint: Abd Prob BETH: 3 Review of Systems Narrative: Feculent emesis. Mild crampy abdominal pain. Poor appetite. No recent illness. 8 systems were reviewed and otherwise negative PFSH All Active Problems (Updated 11/03/21 @ 22:53 by Harvey Fowler MD) Small bowel obstruction (Acute) Otitis media (Acute) Follow up (Acute) Trochanteric bursitis, right hip (Acute) Strain of flexor muscle of right hip (Acute) Hospital as place of occurrence of accidental injury (Acute) Arthritis of ankle, left (Acute) Arthritis of subtalar joint (Chronic) Arthritis of left foot (Chronic) Benign prostatic hypertrophy with outflow obstruction (Chronic 11/29/12) Urgency/frequency. TURP by Dr. Javon Oswald 11/29/2012 Benign hypertension (Chronic) Hypercholesterolemia (Chronic) Chronic obstructive lung disease (Chronic) a. 60 pack year of smoking, quit 2006 Depressive disorder (Chronic) Obstructive sleep apnea syndrome (Chronic) a. 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 Javon Oswald 11/29/2012 Osteoarthritis of right knee (Chronic 08/08/14) Artificial knee joint present (Chronic 08/08/14) H/O surgical procedure (Chronic) a. left total knee arthroplasty b. TURP c. Inferior turbinate plasty and uvulectomy, along with septoplasty d. left bunionectomy e. right inguinal hernia repair f. right rotator cuff repair g. right total shoulder arthroplasty h. cardiac catheterization Obesity (Chronic) Restless legs syndrome (Chronic) Hypertension (Chronic) Insomnia (Chronic) History of colonic polyps (Chronic) COPD (chronic obstructive pulmonary disease) (Chronic) Acute cholecystitis (Acute) Elevated d-dimer (Acute) Choledocholithiasis with acute cholecystitis with obstruction (Acute) Cataracts, bilateral (Chronic 10/23/15) Chronic obstructive lung disease (Chronic) SEVERE,PFT'S 09/2011 cxr scarring left base DJD (degenerative joint disease) of knee (Chronic) DR. SHERIFF; RIGHT Depressive disorder (Chronic) NEKHS--meds Essential hypertension (Chronic 07/17/13) Hyperlipidemia (Chronic 01/16/13) Increased BMI (Acute) Insomnia, unspecified (Acute 11/07/15) Lung nodule (Chronic 11/07/15) 10/04/15; [facility]; 6mm RLL; 6 MONTH FU from 08/201504/10/16 stable yearly screening Malignant tumor of prostate (Chronic 12/07/12) found incidentally on TURP Obstructive sleep apnea syndrome (Chronic) S/P uvulectomy; C-Pap Polyp of colon (Acute) hyperplastic Restless legs syndrome (Acute) Serum total bilirubin elevated (Acute 05/07/15) elevated conjugated bili Medical History Asthma Bunion of great toe of right foot Emphysema of lung Surgical History Arthroplasty of knee 10/28/18 BILAT CARDIAC CATH R/L Cholecystectomy Extraction of cataract 10/31/15; DR. MEDEIROS; LEFT EYE 11/14/15; DR. MEDEIROS; RIGHT EYE H/O ankle fusion hernia repair, ventral (01/12/17) Repair of inguinal hernia B/L Replacement of total knee joint (~11/2011) Dr. Zhang RIGHT SHOULDER SURGERY SLEEP APNEA SURGERY TOTAL SHOULDER REPLACEMENT (RIGHT) (~1992) Transurethral prostatectomy (11/29/12) DR. OSWALD UVULECTOMY (10/03/12) DR. SANTO Family History Mother Diabetes Essential hypertension Depression Hyperlipidemia Father COPD (chronic obstructive pulmonary disease) Heart disease Hyperlipidemia Asthma Brother Essential hypertension Hyperlipidemia Grandfather Diabetes Heart disease Neoplasm KIDNEYS Stroke Grandfather Heart disease Neoplasm STOMACH Asthma Grandmother Diabetes Heart disease Stroke Grandmother Diabetes Heart disease Stroke Daughter Depression Asthma Daughter Depression Asthma Social History Smoking/Tobacco Use Status: Former Tobacco Use Smoking risk assessment performed?: Yes Alcohol Intake: never Drug use: Never Substance use type: does not use Current gender identity: male Do you feel safe at home: Yes Do you feel safe in your relationship?: Yes Exam Narrative Exam Narrative: GEN: awake, alert, oriented 3. Pleasant, well groomed, interactive. HEAD: Normocephalic, atraumatic ENT: Mucous membranes dry, oropharynx unremarkable, External ear exam unremarkable EYES: PERRL, EOMI NECK: Full ROM, no JOSHUA, no menigismus CHEST/RESP: Nontender, clear to auscultation bilateral, no wheeze/rhonchi/rales CARDIOVASCULAR: RRR, no murmur, rub jean claude. 2+ Rad pulse bilateral ABDOMEN: Soft, distended and tympanic, no mass. Decreased bowel sounds EXT: Full ROM, no edema, no rash Neuro: Grossly normal neurologic exam, conversant, interactive. Psych: Speech fluent, thoughts congruent, affect normal Course Vital Signs Vital signs: Vital Signs Temperature 36.3 C L 11/03/21 21:04 Pulse 65 11/03/21 21:04 Respiratory Rate 16 11/03/21 21:04 Blood Pressure 123/107 H 11/03/21 21:04 Pulse Oximetry 95 11/03/21 21:04 Temperature 36.3 C L 11/03/21 21:04 Temperature Source Skin 11/03/21 21:04 Pulse 65 11/03/21 21:04 Respiratory Rate 16 11/03/21 21:04 Blood Pressure 123/107 H 11/03/21 21:04 Pulse Oximetry 95 11/03/21 21:04 Pain Level 9 11/03/21 21:04
[2021-11-03] MEDS: Normal Saline 1,000 ML 125 ML IV (21:25)
[2021-11-03 21:30] LABS: Lactate 1.4 mmol/L (0.6-1.4)
[2021-11-03 21:33] LABS: Abs Immature Grans 0.09 10^3/uL (0.0-0.06); Absolute Lymphocyte Count 2.26 10^3/uL (1.2-3.4); Absolute Monocyte Count 1.52 10^3/uL (0.1-0.8); Absolute Neutrophil Count 11.94 10^3/uL (1.2-6.7); Basophils % 0.5; Eosinophils % 3.8; HGB 16.7 g/dL (13.5-17.5); Immature Grans % 0.5; Lymphocytes % 13.7; MCH 29.5 pg (27.0-33.0); MCHC 32.7 % (32.0-36.0); MCV 90.1 fL (80-95); MPV 9.3 fL (8.0-11.0); Monocytes % 9.2; Neutrophils % 72.3; Nucleated RBC 0 %; Platelet Count 307 10^3/uL (130-400); RBC 5.66 10^6/uL (4.36-5.78); RDW 13.8 % (11.8-14.1); RDW-SD 45.9 fL; WBC 16.52 10^3/uL (4.4-10.8)
[2021-11-03 21:35] LABS: Absolute Basophil Count 0.08 10^3/uL (0.0-0.2); Absolute Eosinophil Count 0.63 10^3/uL (0.0-0.7)
[2021-11-03] MEDS: ACETAMINOPHEN 1,000 MG/100 ML BTL 400 MG IVPB (21:36)
[2021-11-03 21:40] LABS: Source Nasal/Nares
[2021-11-03 21:59] LABS: Diff Comment Diff Reviewed; RBC Morphology Normal
[2021-11-03] MEDS: Ondansetron 4 MG/2 ML VIAL IVP (22:07)
[2021-11-03 22:45] LABS: ALT 29 U/L (16-63); AST 20 U/L (15-37); Albumin 4.3 g/dL (3.4-5.0); Alkaline Phosphatase 115 U/L (46-116); BUN 28 mg/dL (7-18); Bilirubin, Total 1.4 mg/dL (0.2-1.0); CREATININE 1.2 mg/dL (0.70-1.30); Calcium 10.6 mg/dL (8.5-10.1); Chloride 98 mmol/L (98-107); Glucose 193 mg/dL (74-106); Potassium 3.7 mmol/L (3.5-5.1); Sodium 134 mmol/L (136-145); Total Protein 9.1 g/dL (6.4-8.2)
[2021-11-03 22:46] LABS: Lipase 40 U/L (73-393); Magnesium 2.1 mg/dL (1.8-2.4); Troponin I < 50 ng/L (<or=60)
[2021-11-03 23:05] LABS: COVID-19 PCR Negative (Negative)
--- NOTE | 2021-11-03 23:29 | DI.VRAD_ITS ---
Addendum created by Elvia Willingham MD on 11/03/2021 11:31:32 PM EDT: THIS REPORT CONTAINS FINDINGS THAT MAY BE CRITICAL TO PATIENT CARE. The findings were verbally communicated via telephone conference with DR. EDWARD at 11:30 PM EDT on 11/03/2021. The findings were acknowledged and understood. Initial report created on 11/03/2021 11:29:10 PM EDT: PROCEDURE INFORMATION: Exam: CT Abdomen And Pelvis Without Contrast Exam date and time: 11/03/2021 10:01 PM Age: 66 years old Clinical indication: Nausea and vomiting and other: HX sbo, vommitting, CT contrast allergy; Prior surgery; Surgery date: 6+ months; Surgery type: Cholecystectomy, hernia repair, prostatectomy TECHNIQUE: Imaging protocol: Computed tomography of the abdomen and pelvis without contrast. Radiation optimization: All CT scans at this facility use at least one of these dose optimization techniques: automated exposure control; mA and/or kV adjustment per patient size (includes targeted exams where dose is matched to clinical indication); or iterative reconstruction. COMPARISON: CT ABD PELVIS WO CONTRAST 01/21/2017 2:05 AM FINDINGS: Lungs: Bronchiectasis in bandlike atelectasis or scarring within the lower lobes. Pleural spaces: No pleural effusion. Heart: The heart is upper limits of normal in size. Mediastinal space: The distal esophagus is fluid-filled. Liver: The the liver is normal in size. Gallbladder and bile ducts: The gallbladder is surgically absent. No bile duct dilatation. Pancreas: The pancreas is mildly atrophic. No pancreatic ductal dilatation. Spleen: The spleen is normal in size. Adrenal glands: The bilateral adrenal glands are normal appearance. Kidneys and ureters: The bilateral kidneys have a lobulated appearance suggesting cortical scarring or lobulation. No hydroureteronephrosis. Stomach and bowel: Ingested material is seen within the body of the stomach. The stomach is moderately distended with fluid with an air-fluid level seen within the gastric antrum. The small bowel is mildly dilated, fluid-filled with air-fluid levels. A transition point is seen at the junction of the mid to distal small bowel, located within the right abdomen. This is best seen on axial image 587, series 3. The colon contains a small amount of stool. Diverticula are seen throughout the descending and sigmoid colon without focal diverticulitis. Appendix: No evidence of appendicitis. Intraperitoneal space: No free air, focal fluid collection or abscess. Vasculature: Mild atherosclerotic calcifications throughout the abdominal aorta and iliac vessels without aneurysm. Lymph nodes: No pathologically enlarged lymph nodes within the abdomen and pelvis. Urinary bladder: Minimal circumferential wall thickening within the urinary bladder. Reproductive: The prostate gland is upper limits of normal in size. Bones/joints: [id number] degenerative changes throughout the thoracolumbar spine. No evidence for acute compression fracture. Soft tissues: Postoperative changes of a ventral pelvic abdominal wall hernia repair. Postoperative changes of an umbilical hernia repair. A focal area of fluid is seen within the umbilicus hernia repair measuring 2.8 x 3.2 cm. This is improved from the prior study and could represent granulation tissue or a chronic infectious/inflammatory process. IMPRESSION: 1. High-grade small-bowel obstruction with a transition point seen at the junction of the mid to distal small bowel located within the right abdomen. This may be secondary to an adhesion. 2. Postoperative changes of an umbilical hernia repair, with an ill-defined complex fluid collection seen along the umbilicus, decreased from the prior study. This may represent granulation tissue adjacent to mesh. A chronic infectious or inflammatory process could have this appearance, in the correct clinical context. 3. Colonic diverticulosis without diverticulitis. 4. Cholecystectomy. Dictated and Authenticated by: Elvia Willingham MD. Ordering:ALBERTINA Gabriel MD
--- NOTE | 2021-11-03 23:36 | W.EDPROG ---
Date of service: 11/03/21 Time of Service: 23:36 Medical Decision Making 66-year-old male history of multiple abdominal surgeries including hernia repair, cholecystectomy, prior SBO's, presents with nausea vomiting abdominal distention and constipation for 4 days, large distended abdomen on peritoneal, CT showing high-grade bowel obstruction, NG tube placed at bedside. Discussed case with Dr. Iraheta of general surgery, will admit for continued observation decompression pain control fluid hydration close reassessment. Sign Out Sign Out Data: Sign Out Comment: Followup CT. Prob SBO, NG placed. Last updated by Harvey Fowler MD at 11/03/21 22:56 Discharge Plan Disposition Patient Disposition: [facility] INPATIENT Condition: Stable Discharge Details Clinical Impression: Small bowel obstruction Primary Care Provider: Deandre Galvez ED Provider: Ruben Vegas Home Meds and New Rx's Prescriptions: Continued zolpidem 5 mg tablet 5 mg PO QHS PRN (Reason: sleep) Qty: 30 5RF albuterol sulfate [Ventolin HFA] 90 mcg/actuation HFA aerosol inhaler 2 puff Inhalation Q4H PRN (Reason: shortness of breath or wheezing) Qty: 18 11RF celecoxib 200 mg capsule 200 mg PO DAILY PRN (Reason: pain) Qty: 30 5RF Advair HFA 230-21 mcg/actuation HFA aerosol inhaler 2 puff Inhalation BID Qty: 1 11RF ipratropium bromide 17 mcg/actuation HFA aerosol inhaler 1 puff inhalation QID Qty: 12.9 3RF lamotrigine 100 mg tablet 200 mg PO DAILY Qty: 180 3RF lisinopril 5 mg tablet 5 mg PO DAILY Qty: 90 4RF metoprolol succinate 100 mg tablet extended release 24 hr 100 mg PO DAILY Qty: 90 3RF omeprazole 20 mg capsule,delayed release(DR/EC) 20 mg PO DAILY Qty: 90 3RF pramipexole 0.5 mg tablet 0.5 mg PO HS Qty: 30 3RF pravastatin 40 mg tablet 40 mg PO DAILY Qty: 90 4RF Anoro Ellipta 62.5-25 mcg/actuation blister with device 2 inh INHALATION DAILY Qty: 90 11RF venlafaxine 100 mg tablet 100 mg PO BID Qty: 180 3RF Label Comments: 01/24/18 pt takes 200mg in AM.jw hydrochlorothiazide 25 mg tablet 25 mg PO DAILY Qty: 100 4RF bupropion HCl (smoking deter) 150 mg tablet extended release 12 hr 150 mg PO BID Qty: 180 3RF ipratropium-albuterol 0.5 mg-3 mg(2.5 mg base)/3 mL solution for nebulization 3 ml INHALATION BID PRN (Reason: copd) Qty: 180 3RF aspirin 81 MG tablet,chewable 81 mg PO DAILY 0RF acetaminophen [Pain and Fever] 500 MG tablet 500 - 1,000 mg PO PRN PRN0RF calcium polycarbophil [Fiber Laxative (ca polycarbo)] 625 MG tablet 1,250 mg PO DAILY 0RF ascorbic acid (vitamin C) 1,000 MG tablet,chewable 1,000 mg PO DAILY 0RF calcium carbonate [Calcium 500] 500 MG tablet 500 mg PO DAILY 0RF
[2021-11-04] VITALS (22 sets, daily range): BP systolic 109–176; BP diastolic 60–89; PULSE 46–92; RESP 15–22; TEMP 35.6–37.4; O2SAT 86–94
[2021-11-04 05:34] LABS: Bilirubin Negative (Negative); Blood Negative (Negative); Clarity Clear (Clear); Glucose Negative (Negative); Ketones Negative (Negative); Leukocyte Esterase Negative (Negative); Nitrite Negative (Negative); RBC 0-2 HPF (0-2); Specific Gravity >= 1.030 (1.005-1.025); Urobilinogen 0.2 EU/dL (Up TO 0.2); WBC 0-2 HPF (0-5); pH 5.5 (5-8)
[2021-11-04 05:35] LABS: Bacteria Few HPF (Negative); C & S Indicated? No; Casts 3-5 Hyaline LPF (Negative); Crystals Negative HPF (Negative); Epithelial Cells Rare HPF (Negative); Mucus Negative (Negative)
[2021-11-04 08:08] LABS: Abs Immature Grans 0.05 10^3/uL (0.0-0.06); Absolute Basophil Count 0.06 10^3/uL (0.0-0.2); Absolute Eosinophil Count 0.02 10^3/uL (0.0-0.7); Absolute Lymphocyte Count 0.77 10^3/uL (1.2-3.4); Basophils % 0.4; Eosinophils % 0.1; HCT 49.1 % (40.0-50.0); HGB 16.1 g/dL (13.5-17.5); Immature Grans % 0.3; Lymphocytes % 4.9; MCH 29.7 pg (27.0-33.0); MCHC 32.8 % (32.0-36.0); MCV 90.4 fL (80-95); MPV 8.3 fL (8.0-11.0); Monocytes % 8.1; Neutrophils % 86.2; Nucleated RBC 0 %; Platelet Count 245 10^3/uL (130-400); RBC 5.43 10^6/uL (4.36-5.78); RDW 13.9 % (11.8-14.1); RDW-SD 46.1 fL; WBC 15.77 10^3/uL (4.4-10.8)
[2021-11-04 08:15] LABS: Anion Gap 8.1 mmol/L (3-11); BUN 33 mg/dL (7-18); CO2 26.9 mmol/L (21.0-32.0); CREATININE 1.1 mg/dL (0.70-1.30); Calcium 9.7 mg/dL (8.5-10.1); Chloride 100 mmol/L (98-107); Glucose 197 mg/dL (74-106); Potassium 3.9 mmol/L (3.5-5.1); Sodium 135 mmol/L (136-145)
--- NOTE | 2021-11-04 08:15 | HPE_ITS ---
Date of service: 11/04/21 Time of Service: 08:15 Assessment and Plan Assessment and plan (1) Small bowel obstruction: Status: Acute Assessment and plan: Will proceed with medical management at this time, bowel rest, IV fluids and decompression NG tube in place. NPO, may have ice chips Pain Control. Nsg aware of patient's pain complaints Encouraged ambulation and sitting up right once feeling more comfortable. Continue home inhalers. GI prophylaxsis History of Present Illness Narrative: 66 y/o male with a history of HTN, COPD, depressive disorder, JIMBO, obesity, insomnia and restless leg syndrome presented to the ER with complaints of a 4 day history of constipation and 2 day history of abdominal bloating, distention, nausea and vomiting. Patient has had bowel obstructions in the past. Patient has had numerous abdominal surgeries including ventral hernia repair and cholecystectomy. Patient's nausea improved over night following NG tube placement. He expresses feeling very tired and severe 10/10 abdominal pain. Denies any fevers, chills or night sweats. PFSH All Active Problems (Updated 11/03/21 @ 22:53 by Harvey Fowler MD) Small bowel obstruction (Acute) Otitis media (Acute) Follow up (Acute) Trochanteric bursitis, right hip (Acute) Strain of flexor muscle of right hip (Acute) Hospital as place of occurrence of accidental injury (Acute) Arthritis of ankle, left (Acute) Arthritis of subtalar joint (Chronic) Arthritis of left foot (Chronic) Benign prostatic hypertrophy with outflow obstruction (Chronic 11/29/12) Urgency/frequency. TURP by Dr. Javon Oswald 11/29/2012 Benign hypertension (Chronic) Hypercholesterolemia (Chronic) Chronic obstructive lung disease (Chronic) a. 60 pack year of smoking, quit 2006 Depressive disorder (Chronic) Obstructive sleep apnea syndrome (Chronic) a. 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 Javon Oswald 11/29/2012 Osteoarthritis of right knee (Chronic 08/08/14) Artificial knee joint present (Chronic 08/08/14) H/O surgical procedure (Chronic) a. left total knee arthroplasty b. TURP c. Inferior turbinate plasty and uvulectomy, along with septoplasty d. left bunionectomy e. right inguinal hernia repair f. right rotator cuff repair g. right total shoulder arthroplasty h. cardiac catheterization Obesity (Chronic) Restless legs syndrome (Chronic) Hypertension (Chronic) Insomnia (Chronic) History of colonic polyps (Chronic) COPD (chronic obstructive pulmonary disease) (Chronic) Acute cholecystitis (Acute) Elevated d-dimer (Acute) Choledocholithiasis with acute cholecystitis with obstruction (Acute) Cataracts, bilateral (Chronic 10/23/15) Chronic obstructive lung disease (Chronic) SEVERE,PFT'S 09/2011 cxr scarring left base DJD (degenerative joint disease) of knee (Chronic) DR. SHERIFF; RIGHT Depressive disorder (Chronic) [facility]--meds Essential hypertension (Chronic 07/17/13) Hyperlipidemia (Chronic 01/16/13) Increased BMI (Acute) Insomnia, unspecified (Acute 11/07/15) Lung nodule (Chronic 11/07/15) 10/04/15; [facility]; 6mm RLL; 6 MONTH FU from 08/201504/10/16 stable yearly screening Malignant tumor of prostate (Chronic 12/07/12) found incidentally on TURP Obstructive sleep apnea syndrome (Chronic) S/P uvulectomy; C-Pap Polyp of colon (Acute) hyperplastic Restless legs syndrome (Acute) Serum total bilirubin elevated (Acute 05/07/15) elevated conjugated bili Medical History Asthma Bunion of great toe of right foot Emphysema of lung Surgical History Arthroplasty of knee 10/28/18 BILAT CARDIAC CATH R/L Cholecystectomy Extraction of cataract 10/31/15; DR. MEDEIROS; LEFT EYE 11/14/15; DR. MEDEIROS; RIGHT EYE H/O ankle fusion hernia repair, ventral (01/12/17) Repair of inguinal hernia B/L Replacement of total knee joint (~11/2011) Dr. Zhang RIGHT SHOULDER SURGERY SLEEP APNEA SURGERY TOTAL SHOULDER REPLACEMENT (RIGHT) (~1992) Transurethral prostatectomy (11/29/12) DR. OSWALD UVULECTOMY (10/03/12) DR. SANTO Family History Mother Diabetes Essential hypertension Depression Hyperlipidemia Father COPD (chronic obstructive pulmonary disease) Heart disease Hyperlipidemia Asthma Brother Essential hypertension Hyperlipidemia Grandfather Diabetes Heart disease Neoplasm KIDNEYS Stroke Grandfather Heart disease Neoplasm STOMACH Asthma Grandmother Diabetes Heart disease Stroke Grandmother Diabetes Heart disease Stroke Daughter Depression Asthma Daughter Depression Asthma Social History Smoking/Tobacco Use Status: Former Tobacco Use Smoking risk assessment performed?: Yes Alcohol Intake: never Drug use: Never Substance use type: does not use Current gender identity: male Do you feel safe at home: Yes Do you feel safe in your relationship?: Yes Meds Allergies and Home Medications Allergies Allergy/AdvReac Type Severity Reaction Status Date / Time house dust [House Dust] Allergy Unknown Verified 11/03/21 21:14 hydrocodone bitartrate AdvReac Intermediate hallucinati Verified 11/03/21 21:14 [From Vicodin] ons zolpidem AdvReac Intermediate Agitation Verified 11/03/21 21:14 Iodinated Contrast Media AdvReac Mild Nausea Verified 11/03/21 21:14 [Iodinated Contrast Media - Oral and] fentanyl AdvReac Unknown Hallucinati Verified 11/03/21 21:14 ons morphine AdvReac Unknown NAUSEA, Verified 11/03/21 21:14 VOMITING Home Medications Medication Instructions Recorded Confirmed Type acetaminophen 500 mg tablet (Pain 500 - 1,000 mg PO PRN PRN 09/30/12 11/03/21 History and Fever) ascorbic acid (vitamin C) 1,000 mg 1,000 mg PO DAILY 09/30/12 11/03/21 History chewable tablet aspirin 81 mg chewable tablet 81 mg PO DAILY 09/30/12 11/03/21 History calcium polycarbophil 625 mg 1,250 mg PO DAILY 09/30/12 11/03/21 History tablet (Fiber Laxative (calcium polycarbophil)) calcium carbonate 500 mg calcium 500 mg PO DAILY 01/24/18 11/03/21 History (1,250 mg) tablet (Calcium 500) zolpidem 5 mg tablet 5 mg PO QHS PRN #30 tab 07/17/21 11/03/21 Rx albuterol sulfate 90 mcg/actuation 2 puff INHALATION Q4H PRN #18 gm 10/02/21 11/03/21 Rx aerosol inhaler (Ventolin HFA) celecoxib 200 mg capsule 200 mg PO DAILY PRN #30 cap 10/02/21 11/03/21 Rx fluticasone propionate 230 2 puff INHALATION BID #1 inhaler 10/02/21 11/03/21 Rx mcg-salmeterol 21 mcg/actuation HFA inhaler (Advair HFA) ipratropium bromide 17 1 puff INHALATION QID #12.9 g 10/02/21 11/03/21 Rx mcg/actuation HFA aerosol inhaler lamotrigine 100 mg tablet 200 mg PO DAILY #180 tab-cap 10/02/21 11/03/21 Rx lisinopril 5 mg tablet 5 mg PO DAILY #90 tab-cap 10/02/21 11/03/21 Rx metoprolol succinate 100 mg 100 mg PO DAILY #90 tab-cap 10/02/21 11/03/21 Rx tablet,extended release 24 hr omeprazole 20 mg capsule,delayed 20 mg PO DAILY #90 tab-cap 10/02/21 11/03/21 Rx release pramipexole 0.5 mg tablet 0.5 mg PO HS #30 tab-cap 10/02/21 11/03/21 Rx pravastatin 40 mg tablet 40 mg PO DAILY #90 tab-cap 10/02/21 11/03/21 Rx umeclidinium 62.5 mcg-vilanterol 2 inh INHALATION DAILY #90 ea 10/02/21 11/03/21 Rx 25 mcg/actuation powdr for inhalation (Anoro Ellipta) venlafaxine 100 mg tablet 100 mg PO BID #180 tab-cap 10/02/21 11/03/21 Rx bupropion HCl (smoking deter) 150 150 mg PO BID #180 tab-cap 10/08/21 11/03/21 Rx mg tablet,12 hr sustained-release(smoking deterrent) hydrochlorothiazide 25 mg tablet 25 mg PO DAILY #100 tab 10/08/21 11/03/21 Rx ipratropium 0.5 mg-albuterol 3 mg 3 ml INHALATION BID PRN #180 ml 10/20/21 11/03/21 Rx (2.5 mg base)/3 mL nebulization soln Exam Const General: cooperative, healthy appearing and comfortable Orientation: alert and oriented x3 Resp Effort & Inspection: normal respiratory effort, no audible wheezes and no cough GI Inspection: distended Palpation: soft, guarding and tender Other: NG tube in place 600 ccs in the canister. no flatus Results Labs Result diagrams: 11/03/21 21:15 11/03/21 22:25 Labs: Laboratory Results - last 24 hr 11/03/21 11/03/21 11/03/21 21:15 21:15 21:35 WBC 16.52 H RBC 5.66 Hgb 16.7 Hct 51.0 H MCV 90.1 MCH 29.5 MCHC 32.7 RDW 13.8 Plt Count 307 MPV 9.3 Immature Gran % 0.5 Neutrophils % 72.3 Lymphocytes % 13.7 Monocytes % 9.2 Eosinophils % 3.8 Basophils % 0.5 Nucleated RBC % 0 Absolute Neutrophils 11.94 H Absolute Lymphocytes 2.26 Absolute Monocytes 1.52 H Absolute Eosinophils 0.63 Absolute Basophils 0.08 RBC Morphology Normal VBG Lactate 1.4 Sodium Potassium Chloride Carbon Dioxide Anion Gap BUN Creatinine Estimated GFR/1.73 m2 Glucose Calcium Magnesium Total Bilirubin AST ALT Alkaline Phosphatase Troponin I Total Protein Albumin Lipase Urine Color Urine Clarity Urine pH Ur Specific [place] Urine Protein Urine Ketones Urine Blood Urine Nitrite Urine Bilirubin Urine Urobilinogen Ur Leukocyte Esterase Urine RBC Urine WBC Ur Epithelial Cells Urine Crystals Urine Bacteria Urine Casts Urine Mucus Ur Culture Indicated? Urine Glucose COVID-19 Source Nasal/Nares SARS-CoV-2 (PCR) Negative 11/03/21 11/03/21 11/04/21 22:25 22:25 05:00 WBC RBC Hgb Hct MCV MCH MCHC RDW Plt Count MPV Immature Gran % Neutrophils % Lymphocytes % Monocytes % Eosinophils % Basophils % Nucleated RBC % Absolute Neutrophils Absolute Lymphocytes Absolute Monocytes Absolute Eosinophils Absolute Basophils RBC Morphology VBG Lactate Sodium 134 L Potassium 3.7 Chloride 98 Carbon Dioxide 24.0 Anion Gap 12.0 H BUN 28 H Creatinine 1.2 Estimated GFR/1.73 m2 >= 60.00 Glucose 193 H Calcium 10.6 H Magnesium 2.1 Total Bilirubin 1.4 H AST 20 ALT 29 Alkaline Phosphatase 115 Troponin I < 50 Total Protein 9.1 H Albumin 4.3 Lipase 40 Urine Color Yellow Urine Clarity Clear Urine pH 5.5 Ur Specific [place] >= 1.030 H Urine Protein 30 H Urine Ketones Negative Urine Blood Negative Urine Nitrite Negative Urine Bilirubin Negative Urine Urobilinogen 0.2 Ur Leukocyte Esterase Negative Urine RBC 0-2 Urine WBC 0-2 Ur Epithelial Cells Rare Urine Crystals Negative Urine Bacteria Few Urine Casts 3-5 Hyaline Urine Mucus Negative Ur Culture Indicated? No Urine Glucose Negative COVID-19 Source SARS-CoV-2 (PCR) Last Vital Signs Temp 36.5 C 11/04/21 04:51 Pulse 71 11/04/21 04:51 Resp 18 11/04/21 04:51 BP 109/60 11/04/21 04:51 Pulse Ox 91 L 11/04/21 04:51
[2021-11-04 08:28] LABS: Absolute Monocyte Count 1.28 10^3/uL (0.1-0.8); Absolute Neutrophil Count 13.59 10^3/uL (1.2-6.7)
[2021-11-04] MEDS: DEXTROSE 5%-0.45% SALINE 1,000 ML 100 ML IV ×2 (08:46→19:01)
[2021-11-04] MEDS: Normal Saline Flush 10 ML SYR IVP ×6 (08:50→22:39)
--- NOTE | 2021-11-04 10:07 | PUCON_ITS ---
General Date Of Service Date of service: 11/04/21 Time of Service: 10:09 Reason for Consult: COPD Assessment and Plan Assessment and plan (1) Chronic obstructive lung disease: Status: Chronic (2) Obstructive sleep apnea syndrome: Status: Chronic (3) Bronchiectasis: Status: Acute (4) Lung nodule: Status: Chronic Assessment and plan: This is a 66 yo man whom I was consulted on to help manage his COPD medications. He is not in exacerbation at the moment. He has significant redundancy with anti-cholinergic medications with Anoro, Atrovent and Duonebs. In addition he has redundant LABA coverage with Anoro and Advair. Although the amount of medication absorbed into the systemic circulation from inhalers is minimal, side effects are more likely with higher doses and more of the same medication classes. In his situation specifically, I worry that the redundant antichol inergics could be decreasing his bowel movements and could potentially be worseing his bowel obstruction. I will change his regimen to Advair 230 bid (same home med) but stop Anoro and change this to Spiriva. I do also think we should repeat his overnight oximetry for the purpose of getting him nocturnal oxygen at home on discharge. COPD - recommend continuing home Advair 230 - substitute Symbicort as inpatient - rinse mouth after use - discontinue Anoro - start Spiriva - recommend diacharge on this instead of Anoro - discontinue Atrovent now and on discharge - continue prn albuterol and prn Duonebs - I made the above changes to the MAR - I will set up a 2 month follow up JIMBO - repeat overnight oximetry in order to qualify for home nighttime O2 - I have ordered - last test in 2016, needs up to date report to qualify most likely Bronchiectasis - respiratory meds as above - recommend airway clearance with Acapella - agree with incentive spirometry Lung nodule - stable - 07/2022 will be last LDCT (will be 15 year out of quitting) History of Present Illness Narrative: This is a 66 yo man with COPD and JIMBO who is admitted for a small bowel obstruction. I was consulted due to concerns for redundant therapy in his COPD regimen. He was diagnosed with COPD 15 years ago and has a 40 pack year smoking history. He quit smoking in 2006 and has been undergoing LDCT for lung cancer screening. He has noticed worsening breathing symptoms over time and does have issues with mucus production and clearance. He has seen Dr. Narayanan in the past with his last visit being 09/20/20. It looks like she had planned for the patient to follow up with me as an outpatient, however this has not occurred. His current regimen includes Advair 230, Anoro, Atrovent, albuterol prn and Duonebs prn. He has had PFT's completed in the past, although it has been several years: Spirometry Date FEV1/FVC LLN FEV1 % LLN FVC % LLN Comments 09/24/11 58 63 1.76 46 3.21 3.03 60 4.20 No BD Date TLC % LLN RV % DLCO LLN sGaw % Pressures 09/24/11 5.53 77 5.75 2.37 106 24.65 26.94 0.11 56 He has also had an overnight oximetry performed that found he spent 21 minutes below 88%. He has worked with sleep medicine in the past but did not tolerate CPAP for treatment of his JIMBO. Given the nocturnal hypoxia from 2017, he should be on night time oxygen at home, but he has not been on any therapy since he could not tolerate the CPAP. He is also status post uvulopalatopharyngoplasty (UPPP). He does have emphysema on his scan as well as a stable 6mm nodule in the RLL that has been stable for some time. He does also have some lower lobe bronchiectasis which is mild. He is doing well from a lung perspective today and is not having any further symptoms. He does have abdominal pain and tightness. Review of Systems All systems reviewed & are unremarkable except as noted in HPI and below PFSH All Active Problems (Updated 11/04/21 @ 12:22 by Mary Mcelroy MD) Bronchiectasis (Acute) Small bowel obstruction (Acute) Otitis media (Acute) Follow up (Acute) Trochanteric bursitis, right hip (Acute) Strain of flexor muscle of right hip (Acute) Hospital as place of occurrence of accidental injury (Acute) Arthritis of ankle, left (Acute) Arthritis of subtalar joint (Chronic) Arthritis of left foot (Chronic) Benign prostatic hypertrophy with outflow obstruction (Chronic 11/29/12) Urgency/frequency. TURP by Dr. Javon Oswald 11/29/2012 Benign hypertension (Chronic) Hypercholesterolemia (Chronic) Chronic obstructive lung disease (Chronic) a. 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 Javon Oswald 11/29/2012 Osteoarthritis of right knee (Chronic 08/08/14) Artificial knee joint present (Chronic 08/08/14) H/O surgical procedure (Chronic) a. left total knee arthroplasty b. TURP c. Inferior turbinate plasty and uvulectomy, along with septoplasty d. left bunionectomy e. right inguinal hernia repair f. right rotator cuff repair g. right total shoulder arthroplasty h. cardiac catheterization Obesity (Chronic) Restless legs syndrome (Chronic) Hypertension (Chronic) Insomnia (Chronic) History of colonic polyps (Chronic) COPD (chronic obstructive pulmonary disease) (Chronic) Acute cholecystitis (Acute) Elevated d-dimer (Acute) Choledocholithiasis with acute cholecystitis with obstruction (Acute) Cataracts, bilateral (Chronic 10/23/15) Chronic obstructive lung disease (Chronic) SEVERE,PFT'S 09/2011 cxr scarring left base DJD (degenerative joint disease) of knee (Chronic) DR. SHERIFF; RIGHT Depressive disorder (Chronic) [facility]--meds Essential hypertension (Chronic 07/17/13) Hyperlipidemia (Chronic 01/16/13) Increased BMI (Acute) Insomnia, unspecified (Acute 11/07/15) Lung nodule (Chronic 11/07/15) 10/04/15; REPLACED BY [facility]; 6mm RLL; 6 MONTH FU from 08/201504/10/16 stable yearly screening Malignant tumor of prostate (Chronic 12/07/12) found incidentally on TURP Obstructive sleep apnea syndrome (Chronic) S/P uvulectomy; C-Pap Polyp of colon (Acute) hyperplastic Restless legs syndrome (Acute) Serum total bilirubin elevated (Acute 05/07/15) elevated conjugated bili Medical History Asthma Bunion of great toe of right foot Emphysema of lung Surgical History Arthroplasty of knee 10/28/18 BILAT CARDIAC CATH R/L Cholecystectomy Extraction of cataract 10/31/15; DR. MEDEIROS; LEFT EYE 11/14/15; DR. MEDEIROS; RIGHT EYE H/O ankle fusion hernia repair, ventral (01/12/17) Repair of inguinal hernia B/L Replacement of total knee joint (~11/2011) Dr. Zhang RIGHT SHOULDER SURGERY SLEEP APNEA SURGERY TOTAL SHOULDER REPLACEMENT (RIGHT) (~1992) Transurethral prostatectomy (11/29/12) DR. OSWALD UVULECTOMY (10/03/12) DR. SANTO Family History Mother Diabetes Essential hypertension Depression Hyperlipidemia Father COPD (chronic obstructive pulmonary disease) Heart disease Hyperlipidemia Asthma Brother Essential hypertension Hyperlipidemia Grandfather Diabetes Heart disease Neoplasm KIDNEYS Stroke Grandfather Heart disease Neoplasm STOMACH Asthma Grandmother Diabetes Heart disease Stroke Grandmother Diabetes Heart disease Stroke Daughter Depression Asthma Daughter Depression Asthma Social History Smoking/Tobacco Use Status: Former Tobacco Use Smoking risk assessment performed?: Yes Alcohol Intake: never Drug use: Never Substance use type: does not use Current gender identity: male Do you feel safe at home: Yes Do you feel safe in your relationship?: Yes Visit Medication and Allergies Active Medications Generic Name Dose Route Start Last Admin Trade Name Freq PRN Reason Stop Dose Admin Albuterol Sulfate 2.5 mg 11/04/21 07:09 Albuterol 2.5 Mg/3 Ml Inh Soln Vial UPD Q4H PRN PRN Albuterol Sulfate 2 puff 11/04/21 07:14 Albuterol Hfa 8 Gm 60 Puff Inh IH Q4H PRN PRN shortness of breath or wheezing Albuterol/Ipratropium 3 ml 11/04/21 07:14 Albuterol/Ipratropium 3 Ml Upd Vial IH BID PRN PRN copd Device 1 each 11/04/21 08:00 Inhaler, Assist Device DIRECTED DANNIE Enoxaparin Sodium 40 mg 11/04/21 10:00 Enoxaparin 40 Mg/0.4 Ml Syr SC Q24H DANNIE Sodium Chloride 500 mls @ 0 mls/hr 11/03/21 23:39 Saline 500ml Bag IV PRN PRN As Directed Dextrose/Sodium Chloride 1,000 mls @ 100 mls/hr 11/04/21 07:15 11/04/21 08:46 Dextrose 5%-0.45% Ns IV 100 mls/hr INFUSION DANNIE Administration Acetaminophen 1,000 mg in 100 mls @ 400 mls/hr 11/04/21 07:11 Ofirmev IVPB Q8H PRN PRN IV Miscellaneous Supplies 1 each 11/03/21 23:45 Iv Access IV DIRECTED DANNIE Ipratropium [place] 1 puff 11/04/21 08:30 Ipratropiumi Hfa 12.9 Gm 200 Puff Inh IH QID DANNIE Ketorolac Tromethamine 15 mg 11/03/21 23:39 Ketorolac 15 Mg/Ml Vial IVP 11/08/21 23:38 Q6H PRN PRN Metoprolol Tartrate 5 mg 11/04/21 08:00 Metoprolol 5 Mg/5 Ml Vial IVP Q6H DANNIE Non-Formulary Medication 2 inh 11/04/21 08:30 Umeclidinium-Vilanterol [Anoro Ellipta] IH DAILY [facility] Non-Formulary Medication 2 puff 11/04/21 08:30 Fluticasone Propion-Salmeterol [Advair Hfa] IH BID DANNIE Ondansetron HCl 4 mg 11/03/21 23:39 Ondansetron 4 Mg/2 Ml Vial IVP Q4H PRN PRN Pantoprazole Sodium 40 mg 11/04/21 08:00 Pantoprazole 40 Mg Vial IVP Q24H DANNIE Sodium Chloride 0 ml 11/03/21 23:39 11/04/21 08:50 Normal Saline Flush 10 Ml Syr IVP 10 ml PRN PRN Administration Allergies house dust [House Dust] Allergy (Unknown, Verified 11/03/21 21:14) hydrocodone bitartrate [From Vicodin] Adverse Reaction (Intermediate, Verified 11/03/21 21:14) hallucinations zolpidem Adverse Reaction (Intermediate, Verified 11/03/21 21:14) Agitation Iodinated Contrast Media [Iodinated Contrast Media - Oral and] Adverse Reaction (Mild, Verified 11/03/21 21:14) Nausea fentanyl Adverse Reaction (Unknown, Verified 11/03/21 21:14) Hallucinations morphine Adverse Reaction (Unknown, Verified 11/03/21 21:14) NAUSEA, VOMITING Exam Narrative Exam Narrative: Gen: NAD, normal respiratory effort, obese HENT: PERRL, NG tube present with significant mahmood colored output Chest: No respiratory distress, normal appearance of chest, clear to auscultation bilaterally, some scattered crackles, normal inspiratory effort Heart: regular rate and rhythym, no murmurs, rubs or gallops Abdomen: Distended, hard, tender Extremities: No clubbing, edema, cyanosis, rashes Neuro: AAOx3 , non focal Psych: cooperative, appropriate mental affect Results Last Vital Signs Temp 36.5 C 11/04/21 04:51 Pulse 71 11/04/21 04:51 Resp 18 11/04/21 04:51 BP 109/60 11/04/21 04:51 Pulse Ox 91 L 11/04/21 04:51 Labs Result diagrams: 11/04/21 08:00 11/04/21 08:00 Labs: Laboratory Results - last 24 hr 11/03/21 11/03/21 11/03/21 21:15 21:15 21:35 WBC 16.52 H RBC 5.66 Hgb 16.7 Hct 51.0 H MCV 90.1 MCH 29.5 MCHC 32.7 RDW 13.8 Plt Count 307 MPV 9.3 Immature Gran % 0.5 Neutrophils % 72.3 Lymphocytes % 13.7 Monocytes % 9.2 Eosinophils % 3.8 Basophils % 0.5 Nucleated RBC % 0 Absolute Neutrophils 11.94 H Absolute Lymphocytes 2.26 Absolute Monocytes 1.52 H Absolute Eosinophils 0.63 Absolute Basophils 0.08 RBC Morphology Normal VBG Lactate 1.4 Sodium Potassium Chloride Carbon Dioxide Anion Gap BUN Creatinine Estimated GFR/1.73 m2 Glucose Calcium Magnesium Total Bilirubin AST ALT Alkaline Phosphatase Troponin I Total Protein Albumin Lipase Urine Color Urine Clarity Urine pH Ur Specific [place] Urine Protein Urine Ketones Urine Blood Urine Nitrite Urine Bilirubin Urine Urobilinogen Ur Leukocyte Esterase Urine RBC Urine WBC Ur Epithelial Cells Urine Crystals Urine Bacteria Urine Casts Urine Mucus Ur Culture Indicated? Urine Glucose COVID-19 Source Nasal/Nares SARS-CoV-2 (PCR) Negative 11/03/21 11/03/21 11/04/21 22:25 22:25 05:00 WBC RBC Hgb Hct MCV MCH MCHC RDW Plt Count MPV Immature Gran % Neutrophils % Lymphocytes % Monocytes % Eosinophils % Basophils % Nucleated RBC % Absolute Neutrophils Absolute Lymphocytes Absolute Monocytes Absolute Eosinophils Absolute Basophils RBC Morphology VBG Lactate Sodium 134 L Potassium 3.7 Chloride 98 Carbon Dioxide 24.0 Anion Gap 12.0 H BUN 28 H Creatinine 1.2 Estimated GFR/1.73 m2 >= 60.00 Glucose 193 H Calcium 10.6 H Magnesium 2.1 Total Bilirubin 1.4 H AST 20 ALT 29 Alkaline Phosphatase 115 Troponin I < 50 Total Protein 9.1 H Albumin 4.3 Lipase 40 Urine Color Yellow Urine Clarity Clear Urine pH 5.5 Ur Specific [place] >= 1.030 H Urine Protein 30 H Urine Ketones Negative Urine Blood Negative Urine Nitrite Negative Urine Bilirubin Negative Urine Urobilinogen 0.2 Ur Leukocyte Esterase Negative Urine RBC 0-2 Urine WBC 0-2 Ur Epithelial Cells Rare Urine Crystals Negative Urine Bacteria Few Urine Casts 3-5 Hyaline Urine Mucus Negative Ur Culture Indicated? No Urine Glucose Negative COVID-19 Source SARS-CoV-2 (PCR) 11/04/21 11/04/21 08:00 08:00 WBC 15.77 H RBC 5.43 Hgb 16.1 Hct 49.1 MCV 90.4 MCH 29.7 MCHC 32.8 RDW 13.9 Plt Count 245 MPV 8.3 Immature Gran % 0.3 Neutrophils % 86.2 Lymphocytes % 4.9 Monocytes % 8.1 Eosinophils % 0.1 Basophils % 0.4 Nucleated RBC % 0 Absolute Neutrophils 13.59 H Absolute Lymphocytes 0.77 L Absolute Monocytes 1.28 H Absolute Eosinophils 0.02 Absolute Basophils 0.06 RBC Morphology VBG Lactate Sodium 135 L Potassium 3.9 Chloride 100 Carbon Dioxide 26.9 Anion Gap 8.1 BUN 33 H Creatinine 1.1 Estimated GFR/1.73 m2 >= 60.00 Glucose 197 H Calcium 9.7 Magnesium Total Bilirubin AST ALT Alkaline Phosphatase Troponin I Total Protein Albumin Lipase Urine Color Urine Clarity Urine pH Ur Specific [place] Urine Protein Urine Ketones Urine Blood Urine Nitrite Urine Bilirubin Urine Urobilinogen Ur Leukocyte Esterase Urine RBC Urine WBC Ur Epithelial Cells Urine Crystals Urine Bacteria Urine Casts Urine Mucus Ur Culture Indicated? Urine Glucose COVID-19 Source SARS-CoV-2 (PCR)
[2021-11-04] MEDS: Pantoprazole 40 MG VIAL IVP (10:18)
[2021-11-04] MEDS: Enoxaparin 40 MG/0.4 ML SYR SC (10:21)
[2021-11-04] MEDS: Metoprolol 5 MG/5 ML VIAL IVP ×3 (10:58→20:23)
--- NOTE | 2021-11-04 11:26 | NUR.NOTE ---
Strip pulled on pt. Possible ST changes noted in leads. No EKG done on admission to compare. Strip given to Vaishali KIRBY (med/surg coordinator). Advised she should contact provider and get basline EKG to compare.
--- NOTE | 2021-11-04 11:51 | CHAPLAIN ---
Javon said he came to the ED last night, but knew for a week or so that he wasn't feeling well and missed an appointment with his primary PCP. He received other treatments here, (maybe infusions or cardiac rehab) so is familiar to some staff. I left when he received a phone call from his . I will continue to visit.
--- NOTE | 2021-11-04 12:38 | INITIAL_ITS ---
- If Service Date Differs Date of service: 11/04/21 Time of Service: 12:38 Care Management Initial Assess REASON FOR HOSPITALIZATION:: small bowel obstruction PAST MEDICAL HISTORY/PAST SURGICAL HISTORY:: All Active Problems. Small bowel obstruction (Acute). Otitis media (Acute). Follow up (Acute). Trochanteric bursitis, right hip (Acute). Strain of flexor muscle of right hip (Acute). Hospital as place of occurrence of accidental injury (Acute). Arthritis of ankle, left (Acute). Arthritis of subtalar joint (Chronic). Arthritis of left foot (Chronic). Benign prostatic hypertrophy with outflow obstruction (Chronic 11/29/12). Urgency/frequency. TURP by Dr. Javon Oswald 11/29/2012. Benign hypertension (Chronic). Hypercholesterolemia (Chronic). Chronic obstructive lung disease (Chronic). a. 60 pack year of smoking, quit 2006. Depressive disorder (Chronic). Obstructive sleep apnea syndrome (Chronic). a. uses CPAP on a nightly basis. 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 TURP by Dr. Javon Oswald 11/29/2012. Osteoarthritis of right knee (Chronic 08/08/14). Artificial knee joint present (Chronic 08/08/14). H/O surgical procedure (Chronic). a. left total knee arthroplasty. b. TURP. c. Inferior turbinate plasty and uvulectomy, along with septoplasty. d. left bunionectomy. e. right inguinal hernia repair. f. right rotator cuff repair. g. right total shoulder arthroplasty. h. cardiac catheterization. Obesity (Chronic). Restless legs syndrome (Chronic). Hypertension (Chronic). Insomnia (Chronic). History of colonic polyps (Chronic). COPD (chronic obstructive pulmonary disease) (Chronic). Acute cholecystitis (Acute). Elevated d-dimer (Acute). Choledocholithiasis with acute cholecystitis with obstruction (Acute). Cataracts, bilateral (Chronic 10/23/15). Chronic obstructive lung disease (Chronic). SEVERE,PFT'S 09/2011. cxr scarring left base. DJD (degenerative joint disease) of knee (Chronic). DR. SHERIFF; RIGHT. Depressive disorder (Chronic). [facility]--meds. Essential hypertension (Chronic 07/17/13). Hyperlipidemia (Chronic 01/16/13). Increased BMI (Acute). Insomnia, unspecified (Acute 11/07/15). Lung nodule (Chronic 11/07/15). 10/04/15; [facility]; 6mm RLL; 6 MONTH FU from 08/2015. 04/10/16 stable yearly screening. Malignant tumor of prostate (Chronic 12/07/12). found incidentally on TURP. Obstructive sleep apnea syndrome (Chronic). S/P uvulectomy; C-Pap. Polyp of colon (Acute). hyperplastic. Restless legs syndrome (Acute). Serum total bilirubin elevated (Acute 05/07/15). elevated conjugated bili. Medical History. Asthma. Bunion of great toe of right foot. Emphysema of lung. Surgical History. Arthroplasty of knee. 10/28/18 BILAT. CARDIAC CATH R/L. Cholecystectomy. Extraction of cataract. 10/31/15; DR. MEDEIROS; LEFT EYE. 11/14/15; DR. MEDEIROS; RIGHT EYE. H/O ankle fusion. hernia repair, ventral (01/12/17). Repair of inguinal hernia. B/L. Replacement of total knee joint (~11/2011). Dr. Zhang. RIGHT SHOULDER SURGERY. SLEEP APNEA SURGERY. TOTAL SHOULDER REPLACEMENT (RIGHT) (~1992). Transurethral prostatectomy (11/29/12). DR. OSWALD. UVULECTOMY (10/03/12). DR. SANTO PREVIOUS FUNCTIONAL STATUS/SOCIAL/FAMILY SUPPORTS:: Javon lives in [place] with his , Jayshree, and their 18 year old daughter. He has another daughter and son who are much older, and do not live nearby. He is retired/disabled from working at the [employer]. He is originally from [place], but moved to [place] years ago. He uses a cane when outside of the home, but is otherwise independent at baseline. CURRENT FUNCTIONAL STATUS:: Javon was lying in bed when CM met with him. He has an NG tube inserted, and reported that it is very uncomfortable. He stated that he hopes to be able to discharged home soon. Per MD, he will likely be inpatient for a few days, depending on how well he responds to treatment. He was seen by the [facility] today for COPD/JIMBO/Lung Nodule. CM will continue to follow. ADVANCE DIRECTIVES:: Not on file. Has patient been provided with info about the portal/API?: Yes Did the patient sign up for the portal?: No CODE STATUS:: Full Code INSURANCE COVERAGE / FINANCIAL ISSUES:: [employer] CURRENT HOME/COMMUNITY SERVICES/EQUIPMENT:: No current services. He has a cane that he uses when he is outside of the home. PRIMARY CARE PHYSICIAN:: Deandre Galvez POTENTIAL DISCHARGE NEEDS:: Evaluations for further needs, follow up appointments. PATIENT/FAMILY EDUCATION NEEDS:: Review discharge instructions regarding activity levels and medications, discussion of self care needs including ask me three. ANTICIPATED BARRIERS TO DISCHARGE:: None identified. TRANSPORTATION:: Via private vehicle by family. PLAN:: Anticipate that Javon will return home when medically cleared by MD. He will will be driven home via private vehicle by family. He will follow up with his PCP and discharge plan of care. CM will continue to follow.
[2021-11-04] MEDS: Ketorolac 15 MG/ML VIAL IVP (14:34)
--- NOTE | 2021-11-04 14:42 | PHA.REVIEW ---
Pharmacy Admission Review - Admission Clinical Review (Last Reviewed 11/03/21 @ 21:19 by Harvey Fowler MD) Bronchiectasis (Acute) Small bowel obstruction (Acute) house dust [House Dust] Allergy (Unknown, Verified 11/03/21 21:14) hydrocodone bitartrate [From Vicodin] Adverse Reaction (Intermediate, Verified 11/03/21 21:14) hallucinations zolpidem Adverse Reaction (Intermediate, Verified 11/03/21 21:14) Agitation Iodinated Contrast Media [Iodinated Contrast Media - Oral and] Adverse Reaction (Mild, Verified 11/03/21 21:14) Nausea fentanyl Adverse Reaction (Unknown, Verified 11/03/21 21:14) Hallucinations morphine Adverse Reaction (Unknown, Verified 11/03/21 21:14) NAUSEA, VOMITING Resuscitation Status Full Code Height 6 ft Weight 112.1 kg - Renal Dosing Renal Dosing: BUN 33 mg/dL (7-18) H 11/04/21 08:00 Creatinine 1.1 mg/dL (0.70-1.30) 11/04/21 08:00 Medications needing adjustments: Reviewed (Crcl ~84.2 mL/min using adjusted body weight, current meds okay.) - Anticoagulation Anticoagulation: Hgb 16.1 g/dL (13.5-17.5) 11/04/21 08:00 Hct 49.1 % (40.0-50.0) 11/04/21 08:00 Plt Count 245 10^3/uL (130-400) 11/04/21 08:00 Creatinine 1.1 mg/dL (0.70-1.30) 11/04/21 08:00 DVT Prophylaxis: Reviewed Medications: Enoxaparin Therapeutic Anticoagulation: N/A - Opiate Usage Evaluate Pain Scale/Pains Meds: N/A - Relevant Labs Sodium 135 mmol/L (136-145) L 11/04/21 08:00 Potassium 3.9 mmol/L (3.5-5.1) 11/04/21 08:00 Chloride 100 mmol/L (98-107) 11/04/21 08:00 Magnesium 2.1 mg/dL (1.8-2.4) 11/03/21 22:25 Electrolytes, C-Reactive P, ESR: Reviewed - DM Control DM Control: Glucose 197 mg/dL (74-106) H 11/04/21 08:00 Insulin Dosing: Intervened (BG was elevated this morning (random blood draw per the provider) prior to the start of IVF containing dextrose. No DM noted in pt's medical history. Previous A1c was 6.0 from 2019) - Heart Failure/MS Heart Failure/MS: Troponin I < 50 ng/L (<or=60) 11/03/21 22:25 EF%, NILESH's, B-Blockers, Diuretics: Reviewed - BP Control BP Control: Blood Pressure 176/76 Blood Pressure 146/72 Blood Pressure 146/77 Blood Pressure 133/79 Blood Pressure 109/60 If elevated: Reviewed (BP has been elevated most of admission so far. IV metoprolol ordered Q6H.) - Qtc Review If Elevated: N/A - IV to PO Switch IV Medications: Reviewed - Home Meds Home Med List reviewed: Intervened (I asked provider about ordering a pulmonary consult as there was some redundancy with the inhalers and nebs on his home med list and I was concerned for side effects.) Relevent Home Meds Not ordered & why?: ascorbic acid, aspirin, bupropion, calcium, celecoxib (has ketorolac ordered), advair (has symbicort subbed for this), HCTZ, lamotrigine, lisinopril, omeprazole (has pantoprazole ordered), pramipexole, pravastatin, venlafaxine, zolpidem, pt is currently NPO - Current meds Current Medication Order Review: Reviewed (Discontinued duplicate med orders.) - Comments Comments/Follow Ups: Watch BP, BG, SCr, labs and for med changes (IV to PO once pt no longer NPO).
[2021-11-04] MEDS: Budesonide/Formoterol 160/4.5 6 GM 60 PUFF INH IH (20:24)
[2021-11-04] MEDS: Ondansetron 4 MG/2 ML VIAL IVP (22:39)
[2021-11-05] VITALS (16 sets, daily range): BP systolic 141–169; BP diastolic 68–96; PULSE 66–88; RESP 17–20; TEMP 36.7–37.5; O2SAT 92–94
[2021-11-05] MEDS: Metoprolol 5 MG/5 ML VIAL IVP ×4 (02:41→19:57)
[2021-11-05] MEDS: Normal Saline Flush 10 ML SYR IVP ×3 (02:43→15:04)
[2021-11-05] MEDS: DEXTROSE 5%-0.45% SALINE 1,000 ML 100 ML IV (06:45)
--- NOTE | 2021-11-05 07:00 | DI.RAD_ITS ---
Exam(s) XR ABDOMEN FLAT PLATE EXAM: XR ABDOMEN FLAT PLATE CLINICAL HISTORY: SBO. TECHNIQUE: 2D digital imaging was performed. COMPARISON: CR ABDOMEN 2 VIEW FLAT, UPRIGHT from 01/22/[address] ABDOMEN PELVIS WO from 11/03/2021 FINDINGS: Surgical clips in the right upper quadrant from prior cholecystectomy are noted as is lower pelvic me sh from bilateral inguinal hernia repairs. There is an NG tube in the stomach. Its distal tip is mid aspect of the greater curvature. Stomach is not distended. There are air-filled distended small bowel loops in the central right side of the abdomen. There is air in the rectum. Probable partial small bowel obstruction. IMPRESSION: DATA REPOSITORY: RADIATION DOSE DELIVERED:
[2021-11-05] MEDS: ACETAMINOPHEN 1,000 MG/100 ML BTL 400 MG IVPB (07:26)
[2021-11-05] MEDS: Tiotropium Bromide-Respimat 10 PUFF INH 2 PUFF IH (07:30)
[2021-11-05] MEDS: Budesonide/Formoterol 160/4.5 6 GM 60 PUFF INH IH ×2 (07:31→20:01)
[2021-11-05 07:43] LABS: Anion Gap 7.7 mmol/L (3-11); BUN 29 mg/dL (7-18); C-Reactive Protein 7.01 mg/dL (0.0-0.3); CO2 26.3 mmol/L (21.0-32.0); Calcium 9.2 mg/dL (8.5-10.1); Chloride 101 mmol/L (98-107); Glucose 172 mg/dL (74-106); Magnesium 1.8 mg/dL (1.8-2.4); Potassium 3.4 mmol/L (3.5-5.1); Sodium 135 mmol/L (136-145)
[2021-11-05 08:22] LABS: Abs Immature Grans 0.02 10^3/uL (0.0-0.06); Absolute Basophil Count 0.05 10^3/uL (0.0-0.2); Absolute Eosinophil Count 0.21 10^3/uL (0.0-0.7); Absolute Lymphocyte Count 1.36 10^3/uL (1.2-3.4); Absolute Monocyte Count 1.55 10^3/uL (0.1-0.8); Basophils % 0.5; Eosinophils % 2.1; HCT 46.3 % (40.0-50.0); Immature Grans % 0.2; Lymphocytes % 13.4; MCH 29.7 pg (27.0-33.0); MCHC 32.4 % (32.0-36.0); MCV 91.7 fL (80-95); Monocytes % 15.2; Neutrophils % 68.6; Nucleated RBC 0 %; Platelet Count 246 10^3/uL (130-400); RBC 5.05 10^6/uL (4.36-5.78); RDW 13.8 % (11.8-14.1); RDW-SD 46.8 fL; WBC 10.18 10^3/uL (4.4-10.8)
[2021-11-05 08:47] LABS: Absolute Neutrophil Count 6.98 10^3/uL (1.2-6.7)
--- NOTE | 2021-11-05 09:01 | W.PM.PROGNOT ---
Date of Service Date of service: 11/05/21 Time of Service: 09:01 Assessment and Plan Assessment and plan (1) Small bowel obstruction: Status: Acute Assessment and plan: Will proceed with medical management at this time, bowel rest, IV fluids and decompression NG tube in place. NPO, may have ice chips Pain Control. Patient denies having any pain today Encouraged ambulation and sitting up right once feeling more comfortable. Continue home inhalers. GI prophylaxsis Despite patient's subjective improvement, no BS on exam. Strongly encouraged ambulation and activity OOB. Ordered a rectal suppository to help stimulate BM. Subjective Subjective Interval history since last seen: Arrive with the patient awake and laying in bed. He states that he is feeling significantly better today. He denies having any abdominal pain. He expresses excitement that his stomach is flat today. He denies passing any flatus or stool. Exam Const General: cooperative and comfortable Orientation: alert and oriented x3 Resp Effort & Inspection: normal respiratory effort, no audible wheezes and no cough GI Inspection: normal to inspection Palpation: soft, no guarding and nontender Auscultation: absent bowel sounds Objective Last Vital Signs Temp 37.0 C 11/05/21 06:29 Pulse 66 11/05/21 06:58 Resp 18 11/05/21 06:29 BP 167/82 H 11/05/21 06:29 Pulse Ox 92 11/05/21 06:29 Laboratory Results - last 24 hr 11/05/21 11/05/21 11/05/21 06:40 06:40 06:59 WBC 10.18 D RBC 5.05 Hgb 15.0 Hct 46.3 MCV 91.7 MCH 29.7 MCHC 32.4 RDW 13.8 Plt Count 246 MPV 9.0 Immature Gran % 0.2 Neutrophils % 68.6 Lymphocytes % 13.4 Monocytes % 15.2 Eosinophils % 2.1 Basophils % 0.5 Nucleated RBC % 0 Absolute Neutrophils 6.98 H Absolute Lymphocytes 1.36 Absolute Monocytes 1.55 H Absolute Eosinophils 0.21 Absolute Basophils 0.05 Sodium 135 L Cancelled Potassium 3.4 L Cancelled Chloride 101 Cancelled Carbon Dioxide 26.3 Cancelled Anion Gap 7.7 Cancelled BUN 29 H Cancelled Creatinine 1.0 Cancelled Estimated GFR/1.73 m2 >= 60.00 Cancelled Glucose 172 H Cancelled Calcium 9.2 Cancelled Magnesium 1.8 C-Reactive Protein 7.01 H
[2021-11-05] MEDS: Pantoprazole 40 MG VIAL IVP (09:47)
[2021-11-05] MEDS: Enoxaparin 40 MG/0.4 ML SYR SC (10:01)
[2021-11-05] MEDS: Ketorolac 15 MG/ML VIAL IVP (15:06)
--- NOTE | 2021-11-05 16:13 | PDOC.CMPRO ---
- If Service Date Differs Date of service: 11/05/21 Time of Service: 16:13 Care Management Progress Note S/O: Gregorio was lying in bed, resting when CM attempted to meet with him. Per report, his NG tube will be clamped today for 4 hours, and if he has minimal output, he will be started on clear liquids. Gregorio is hungry and feeling much better. He is being encouraged to ambulate. CM will continue to follow. A: Javon is a 66 year old male admitted to [facility] on 11/03/21 with SBO. P: Anticipate that Javon will return home when medically cleared by . He will will be driven home via private vehicle by family. He will follow up with his PCP and discharge plan of care. CM will continue to follow.
--- NOTE | 2021-11-05 18:07 | RESPIRATORY ---
explained and showed pt how to wear overnight pulse ox.
[2021-11-05] MEDS: DEXTROSE 5%-0.45% SALINE 1,000 ML 80 ML IV (18:46)
[2021-11-06] VITALS (10 sets, daily range): BP systolic 152–162; BP diastolic 68–82; PULSE 66–93; RESP 15–20; TEMP 36.5–37.3; O2SAT 93–94
--- NOTE | 2021-11-06 | DI.RAD_ITS ---
Exam(s) XR ABDOMEN FLAT PLATE EXAM: 2D digital imaging was performed. CLINICAL HISTORY: SBO, no bowel sounds. COMPARISON: CR XR ABDOMEN FLAT PLATE from 11/05/2021 TECHNIQUE: Supine views of the abdomen performed. Three views were obtained. FINDINGS: BOWEL GAS PATTERN: There again seen distended loops of small bowel predominantly in the central and r ight abdomen suspicious for obstruction. CALCIFICATIONS: No radiopaque calcifications. OSSEOUS STRUCTURES: Degenerative changes are seen in the spine consistent with the patient's age. Th ere is a mild left convex scoliotic curvature of the lumbar spine. OTHER FINDINGS: The nasogastric tube is been removed. There are surgical clips in the right upper qu adrant of the abdomen. IMPRESSION: Findings again seen suggestive of a small-bowel obstruction. DATA REPOSITORY: RADIATION DOSE DELIVERED:
[2021-11-06] MEDS: Normal Saline Flush 10 ML SYR IVP ×4 (02:07→14:46)
[2021-11-06] MEDS: ACETAMINOPHEN 1,000 MG/100 ML BTL 400 MG IVPB (02:07)
[2021-11-06] MEDS: Metoprolol 5 MG/5 ML VIAL IVP ×3 (02:28→14:45)
[2021-11-06 07:27] LABS: Anion Gap 7.3 mmol/L (3-11); BUN 19 mg/dL (7-18); C-Reactive Protein 5.59 mg/dL (0.0-0.3); CO2 27.7 mmol/L (21.0-32.0); Calcium 9.3 mg/dL (8.5-10.1); Chloride 101 mmol/L (98-107); Glucose 153 mg/dL (74-106); Magnesium 1.8 mg/dL (1.8-2.4); Potassium 3.4 mmol/L (3.5-5.1); Sodium 136 mmol/L (136-145)
[2021-11-06 07:54] LABS: Hemoglobin A1C 6.7 % (<5.7)
--- NOTE | 2021-11-06 08:33 | PGE_ITS ---
Date of Service Date of service: 11/06/21 Time of Service: 08:33 Assessment and Plan Assessment and plan (1) Small bowel obstruction: Status: Acute Assessment and plan: Patient is tolerating sips of clears. Several BMs since yesterday. No BS noted this morning, will recheck another abd xray. Patient is subjectively feeling much improved. After Xray will consider advanci ng his diet. Pain Control. Patient denies having any pain today Encouraged ambulation and sitting up right Continue home inhalers. GI prophylaxsis Once tolerating a regular diet, will d/c home Patient has been tolerating clears. He had 2 bowel movements today. His NG tube is out. He is passing gas and feeling better. He is not having any abdominal pain. We will advance to a soft diet. Medications adjusted and will stop IV metoprolol Hopefully DC in a.m. Subjective Subjective Interval history since last seen: Patient is feeling much better and is very eager to eat. He denies any nausea, vomiting or pain. He has had several BMs since yesterday and has been passing flatus. Exam Const General: cooperative, healthy appearing and comfortable Orientation: alert and oriented x3 Resp Effort & Inspection: normal respiratory effort, no audible wheezes and no cough GI Inspection: normal to inspection Palpation: soft, no guarding and nontender Auscultation: absent bowel sounds Objective Last Vital Signs Temp 36.7 C 11/06/21 07:35 Pulse 66 11/06/21 07:35 Resp 20 11/06/21 07:35 BP 161/77 H 11/06/21 07:35 Pulse Ox 94 11/06/21 07:35 Laboratory Results - last 24 hr 11/05/21 11/06/21 11/06/21 06:40 06:30 06:30 WBC 10.18 D RBC 5.05 Hgb 15.0 Hct 46.3 MCV 91.7 MCH 29.7 MCHC 32.4 RDW 13.8 Plt Count 246 MPV 9.0 Immature Gran % 0.2 Neutrophils % 68.6 Lymphocytes % 13.4 Monocytes % 15.2 Eosinophils % 2.1 Basophils % 0.5 Nucleated RBC % 0 Absolute Neutrophils 6.98 H Absolute Lymphocytes 1.36 Absolute Monocytes 1.55 H Absolute Eosinophils 0.21 Absolute Basophils 0.05 Sodium 136 Potassium 3.4 L Chloride 101 Carbon Dioxide 27.7 Anion Gap 7.3 BUN 19 H D Creatinine 1.0 Estimated GFR/1.73 m2 >= 60.00 Glucose 153 H Hemoglobin A1c 6.7 H Calcium 9.3 Magnesium 1.8 C-Reactive Protein 5.59 H
[2021-11-06] MEDS: Enoxaparin 40 MG/0.4 ML SYR SC (09:28)
[2021-11-06] MEDS: Pantoprazole 40 MG VIAL IVP (09:28)
[2021-11-06] MEDS: Tiotropium Bromide-Respimat 10 PUFF INH 2 PUFF IH (09:50)
[2021-11-06] MEDS: Budesonide/Formoterol 160/4.5 6 GM 60 PUFF INH IH ×2 (09:50→21:03)
[2021-11-06] MEDS: DEXTROSE 5%-0.45% SALINE 1,000 ML 80 ML IV (09:55)
[2021-11-06] MEDS: Ketorolac 15 MG/ML VIAL IVP (14:50)
--- NOTE | 2021-11-06 16:36 | PDOC.CMPRO ---
- If Service Date Differs Date of service: 11/06/21 Time of Service: 16:36 Care Management Progress Note S/O: Gregorio is hungry and feeling much better and tolerating diet advancements thus far. He is being encouraged to ambulate. No change to overall plan. CM will continue to follow. A: Javon is a 66 year old male admitted to [facility] on 11/03/21 with SBO. P: Anticipate that Javon will return home when medically cleared by MD. He will will be driven home via private vehicle by family. He will follow up with his PCP and discharge plan of care. CM will continue to follow.
[2021-11-06] MEDS: Venlafaxine 50 MG TAB 100 MG PO (21:03)
[2021-11-06] MEDS: Pramipexole 0.5 MG TAB PO (21:03)
[2021-11-07 07:04] LABS: Anion Gap 6.6 mmol/L (3-11); BUN 16 mg/dL (7-18); C-Reactive Protein 3.21 mg/dL (0.0-0.3); CO2 28.4 mmol/L (21.0-32.0); CREATININE 0.9 mg/dL (0.70-1.30); Calcium 9.7 mg/dL (8.5-10.1); Chloride 101 mmol/L (98-107); Glucose 148 mg/dL (74-106); Magnesium 1.8 mg/dL (1.8-2.4); Potassium 3.5 mmol/L (3.5-5.1); Sodium 136 mmol/L (136-145)
[2021-11-07 07:33] VITALS: BP 149/87; PULSE 95; RESP 20; TEMP 36.5; O2SAT 94
[2021-11-07] MEDS: Budesonide/Formoterol 160/4.5 6 GM 60 PUFF INH IH (07:48)
[2021-11-07] MEDS: Venlafaxine 50 MG TAB 100 MG PO (08:10)
[2021-11-07] MEDS: Lisinopril 5 MG TAB PO (08:10)
[2021-11-07] MEDS: Omeprazole 20 MG CAPCR PO (08:10)
[2021-11-07] MEDS: lamoTRIgine 100 MG TAB 200 MG PO (08:10)
[2021-11-07] MEDS: Metoprolol CR 100 MG TABCR PO (08:10)
[2021-11-07] MEDS: Polyethylene Glycol 3350 17 GM PACKET PO (08:11)
[2021-11-07] MEDS: Enoxaparin 40 MG/0.4 ML SYR SC (11:53)
--- NOTE | 2021-11-07 12:12 | DSE_ITS ---
Date of service: 11/07/21 Time of Service: 12:12 DS: Diagnosis Discharge Diagnosis (1) Small bowel obstruction: Status: Acute Discharge Plan Disposition Patient Disposition: HOME Condition: Stable Discharge Details Reason For Visit: Small Bowel Obstruction Admit Date/Time: 11/03/21 23:39 Admit Provider: Bruna Iraheta Attending Provider: Bruna Iraheta Primary Care Provider: Deandre Galvez Hospital Course Hospital Course: see addendum Home Meds and New Rx's Prescriptions: Continued zolpidem 5 mg tablet 5 mg PO QHS PRN (Reason: sleep) Qty: 30 5RF albuterol sulfate [Ventolin HFA] 90 mcg/actuation HFA aerosol inhaler 2 puff Inhalation Q4H PRN (Reason: shortness of breath or wheezing) Qty: 18 11RF celecoxib 200 mg capsule 200 mg PO DAILY PRN (Reason: pain) Qty: 30 5RF Advair HFA 230-21 mcg/actuation HFA aerosol inhaler 2 puff Inhalation BID Qty: 1 11RF lamotrigine 100 mg tablet 200 mg PO DAILY Qty: 180 3RF lisinopril 5 mg tablet 5 mg PO DAILY Qty: 90 4RF metoprolol succinate 100 mg tablet extended release 24 hr 100 mg PO DAILY Qty: 90 3RF omeprazole 20 mg capsule,delayed release(DR/EC) 20 mg PO DAILY Qty: 90 3RF pramipexole 0.5 mg tablet 0.5 mg PO HS Qty: 30 3RF pravastatin 40 mg tablet 40 mg PO DAILY Qty: 90 4RF venlafaxine 100 mg tablet 100 mg PO BID Qty: 180 3RF Label Comments: 01/24/18 pt takes 200mg in AM.jw hydrochlorothiazide 25 mg tablet 25 mg PO DAILY Qty: 100 4RF bupropion HCl (smoking deter) 150 mg tablet extended release 12 hr 150 mg PO BID Qty: 180 3RF ipratropium-albuterol 0.5 mg-3 mg(2.5 mg base)/3 mL solution for nebulization 3 ml INHALATION BID PRN (Reason: copd) Qty: 180 3RF aspirin 81 MG tablet,chewable 81 mg PO DAILY 0RF acetaminophen [Pain and Fever] 500 MG tablet 500 - 1,000 mg PO PRN PRN0RF calcium polycarbophil [Fiber Laxative (ca polycarbo)] 625 MG tablet 1,250 mg PO DAILY 0RF ascorbic acid (vitamin C) 1,000 MG tablet,chewable 1,000 mg PO DAILY 0RF calcium carbonate [Calcium 500] 500 MG tablet 500 mg PO DAILY 0RF Discharge Instructions Additional Instructions: Keep an ice bag on the incision. 20 minutes on and 20 minutes off. Ice keeps the swelling down and swelling causes pain. Make sure you wrap the ice pack in a towel and don't apply directly to the skin. -No driving x24 hrs -Follow-up with PCP in 2 weeks time -soft diet x1 week- see below -no straining to move bowels - if you do not move your bowels daily take a dose of OTC milk of magnesia or Miralax -It is ok to shower. -You may find that your appetite is smaller. Eat 3-6 small meals throughout the day. It is important to drink lots of water after surgery, 6-10 glasses a day. -If you were given an incentive spirometry (breathing intelligence consultant?), continue to do this 10x/hour while awake. -We do want you up walking, at least 5-6 times per day. This is very important to prevent pneumonia and blood clots. You can climb stairs, take them slowly. -You may find that you are very tired after surgery- this is normal. -please do not smoke for a minimum of 72 hours after surgery. Gastrointestinal Soft Diet Overview ? Meats & Meat Substitutes ?? Foods Allowed: Chicken, turkey, fish, tender cuts of beef and pork, ground meats, eggs, creamy nut butters, tofu, skinless hot dogs, sausage patties without whole spices ?? Foods to Avoid : Tough, fibrous meats with gristle, meat with casings (hot dogs, sausage, kielbasa), lunch meats with whole spices, shellfish, beans, chunky peanut butter, nuts Fruits and Juices ?? Foods Allowed: Fruit juices without pulp, banana, avocado, applesauce, canned peaches and pears, cooked fruit without the skin/seeds.? Ground or over- cooked fruits.? Fruits ground finely in a ?smoothie?. ?? Foods to Avoid: Juices with pulp, fresh fruit (except banana and avocado), dried fruits, canned fruit cocktail and pineapple, coconut, frozen/thawed berries Vegetables ?? Foods Allowed: Well-cooked or canned vegetables, potatoes without skin, tomato sauces, vegetable juice ?? Foods to Avoid: Raw vegetables, all corn, all mushrooms, stewed tomatoes, potato skins, stir-cedillo vegetables, sauerkraut, pickles, olives, all dried beans, peas, and legumes ? Cereals and Grains ?? Foods Allowed: Low- fiber dry or cooked cereals (less than 2 grams fiber per serving), white rice, pasta, macaroni, or noodles ?? Foods to Avoid: Cereals with nuts, berries, dried fruits, whole grain cerea ls, bran cereals, granola, brown or wild rice, whole grain pasta Breads and Crackers ?? Foods Allowed: White/refined breads and rolls, plain bagel, toast, plain crackers, eduardo crackers ?? Foods to Avoid: Whole grain breads- including white whole grain; bread/ rolls with raisins, nuts or seeds, multi-grain crackers Dairy ?? Foods Allowed: Milk, cheese, yogurt, milkshakes, pudding, ice cream, cottage cheese, sherbet ;?lactose free or low lactose versions if lactose intolerant ?? Foods to Avoid: Dairy product mixed with fresh fruit (except banana), berries, nuts or seeds Desserts ?? Foods Allowed: Plain cake, pudding, custard, ice cream, sherbet, gelatin, fruit whips ?? Foods to Avoid: Any dessert that contains nuts, dried fruits, coconut, or fruits with seeds Herbs and Spices ?? Foods Allowed: All ground spices or herbs, salt ?? Foods to Avoid: Whole spices such as peppercorns, whole cloves, anise seeds, celery seeds, adolfo, manjeet seeds, and fresh herbs Snacks/Other Foods ?? Foods Allowed: Sugar, honey, jelly, mayonnaise, mustard, soy sauce, oil, butter, margarine, marshmallows, cookies without dried fruits or nuts, snack chips and pretzels using refined flours ?? Foods to Avoid: Carbonated beverages, jams or jellies with seeds, popcorn After several weeks, slowly start to reintroduce the ?Foods to Avoid? back into your diet unless your doctor has told you otherwise. Try a small portion of one of these foods each day. If it does not bother you within 24 hours, it can be added to your diet. Continue to add new foods in this way. Some people may continue to have food sensitivities and may need to continue to avoid certain foods. If you cannot tolerate a food, avoid that food for a few weeks before you try it again. Guidelines when eating 1.? Avoid any food that you cannot tolerate or that causes gas, bloating, or stomach pain. 2.? Make time for your meals. Do not eat while you are in a hurry. Cut your food into small pieces. Chew each bite to a mashed potato consistency. Do not eat when you cannot concentrate on chewing well. 3.? Drink at least 6-8 cups of fluid per day? Fluids include: water, coffee, tea, juice, milk, popsicles, soups, gelatin, pudding, ice cream, sherbet, and yogurt. In addition, choose caffeine-free beverages more often, especially if you are having?diarrhea. 4.? A daily multivitamin may be recommended if diet is limited in amounts or variety of foods. Do not take any herbal supplements without first checking with your doctor. ? Referrals: Mary Mcelroy MD [ [facility] STAFF PHYSICIAN] - 01/27/22 1:30 pm Activity:: see above Equipment/Supplies:: No Equipment Needed Diet:: low fiber/soft Discharge Orders Discharge Orders: Discharge Order (Routine); Ordered 11/07/21 Ordered By: Allyn Will DS: Summary Time Spent with Patient providing and/or coordinating discharge services: Less than 30 minutes Status at Discharge Functional status at discharge: uses cane/walker Overall status at discharge: patient is progressing back to baseline Mental Status: mental status grossly normal Speech and Movement: speech and movement normal Mood: congruent mood Affect: normal affect Exam Psych Mental Status: mental status grossly normal Speech and Movement: speech and movement normal Mood: congruent mood Affect: normal affect DS: Data Vitals/I&O Vitals and I&O: Vital Signs Temperature 36.5 C 11/07/21 07:33 Temperature Source Tympanic 11/07/21 07:33 Pulse 95 H 11/07/21 07:33 Pulse Rhythm Regular 11/07/21 08:55 Pulse 59 L 11/03/21 22:40 Respiratory Rate 20 11/07/21 07:33 Respiratory Effort Non-Labored 11/07/21 08:55 Respiratory Depth Normal 11/07/21 08:55 Respiratory Pattern Normal 11/07/21 08:55 Blood Pressure 149/87 H 11/07/21 07:33 Blood Pressure Mean 102 11/04/21 00:45 Pulse Oximetry 94 11/07/21 07:33 Oxygen Delivery Method Nasal Cannula 11/07/21 07:33 Oxygen Flow Rate 2 11/07/21 07:33 Pain Level 0 11/07/21 07:33 Comment 11/05/21 03:22 Intake & Output 11/06/21 11/07/21 11/07/21 23:59 11:59 23:59 Intake Total 913.333 / 1913.333 Output Total 625 / 1025 Balance 288.333 / 888.333 Intake: IV 413.333 / 1413.333 Oral 500 / 500 Output: Urine 625 / 1025 Other: Urine Color Yellow Urine Appearance Clear Urine Odor None Stool Size Moderate Moderate Stool Characteristics Liquid Data Completed and Pending Labs on day of discharge: Labs from last 24 hours 11/07/21 06:40 Sodium 136 Potassium 3.5 Chloride 101 Carbon Dioxide 28.4 Anion Gap 6.6 BUN 16 Creatinine 0.9 Estimated GFR/1.73 m2 >= 60.00 Glucose 148 H Calcium 9.7 Magnesium 1.8 C-Reactive Protein 3.21 H PFSH All Active Problems (Updated 11/04/21 @ 12:22 by Mary Mcelroy MD) Bronchiectasis (Acute) Small bowel obstruction (Acute) Otitis media (Acute) Follow up (Acute) Trochanteric bursitis, right hip (Acute) Strain of flexor muscle of right hip (Acute) Hospital as place of occurrence of accidental injury (Acute) Arthritis of ankle, left (Acute) Arthritis of subtalar joint (Chronic) Arthritis of left foot (Chronic) Benign prostatic hypertrophy with outflow obstruction (Chronic 11/29/12) Urgency/frequency. TURP by Dr. Javon Oswald 11/29/2012 Benign hypertension (Chronic) Hypercholesterolemia (Chronic) Chronic obstructive lung disease (Chronic) a. 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 Javon Oswald 11/29/2012 Osteoarthritis of right knee (Chronic 08/08/14) Artificial knee joint present (Chronic 08/08/14) H/O surgical procedure (Chronic) a. left total knee arthroplasty b. TURP c. Inferior turbinate plasty and uvulectomy, along with septoplasty d. left bunionectomy e. right inguinal hernia repair f. right rotator cuff repair g. right total shoulder arthroplasty h. cardiac catheterization Obesity (Chronic) Restless legs syndrome (Chronic) Hypertension (Chronic) Insomnia (Chronic) History of colonic polyps (Chronic) COPD (chronic obstructive pulmonary disease) (Chronic) Acute cholecystitis (Acute) Elevated d-dimer (Acute) Choledocholithiasis with acute cholecystitis with obstruction (Acute) Cataracts, bilateral (Chronic 10/23/15) Chronic obstructive lung disease (Chronic) SEVERE,PFT'S 09/2011 cxr scarring left base DJD (degenerative joint disease) of knee (Chronic) DR. SHERIFF; RIGHT Depressive disorder (Chronic) NEK[facility]--meds Essential hypertension (Chronic 07/17/13) Hyperlipidemia (Chronic 01/16/13) Increased BMI (Acute) Insomnia, unspecified (Acute 11/07/15) Lung nodule (Chronic 11/07/15) 10/04/15; [facility]; 6mm RLL; 6 MONTH FU from 08/201504/10/16 stable yearly screening Malignant tumor of prostate (Chronic 12/07/12) found incidentally on TURP Obstructive sleep apnea syndrome (Chronic) S/P uvulectomy; C-Pap Polyp of colon (Acute) hyperplastic Restless legs syndrome (Acute) Serum total bilirubin elevated (Acute 05/07/15) elevated conjugated bili Medical History Asthma Bunion of great toe of right foot Emphysema of lung Surgical History Arthroplasty of knee 10/28/18 BILAT CARDIAC CATH R/L Cholecystectomy Extraction of cataract 10/31/15; DR. MEDEIROS; LEFT EYE 11/14/15; DR. MEDEIROS; RIGHT EYE H/O ankle fusion hernia repair, ventral (01/12/17) Repair of inguinal hernia B/L Replacement of total knee joint (~11/2011) Dr. Zhang RIGHT SHOULDER SURGERY SLEEP APNEA SURGERY TOTAL SHOULDER REPLACEMENT (RIGHT) (~1992) Transurethral prostatectomy (11/29/12) DR. OSWALD UVULECTOMY (10/03/12) DR. SANTO Family History Mother Diabetes Essential hypertension Depression Hyperlipidemia Father COPD (chronic obstructive pulmonary disease) Heart disease Hyperlipidemia Asthma Brother Essential hypertension Hyperlipidemia Grandfather Diabetes Heart disease Neoplasm KIDNEYS Stroke Grandfather Heart disease Neoplasm STOMACH Asthma Grandmother Diabetes Heart disease Stroke Grandmother Diabetes Heart disease Stroke Daughter Depression Asthma Daughter Depression Asthma Social History Smoking/Tobacco Use Status: Former Tobacco Use Smoking risk assessment performed?: Yes Alcohol Intake: never Drug use: Never Substance use type: does not use Current gender identity: male Do you feel safe at home: Yes Do you feel safe in your relationship?: Yes
[2021-11-07] MEDS: Tiotropium Bromide-Respimat 10 PUFF INH 2 PUFF IH (13:05)
--- NOTE | 2021-11-07 15:40 | PDOC.CMDIS ---
- If Service Date Differs Date of service: 11/07/21 Time of Service: 15:40 LACE Index Scoring Tool - Questions: Length of Stay (in days): 4 - 6 Acuity (Admit via E.D.?): Yes E.D. Visits: 1 - Answers: Total Score: 8 Risk of Readmission: Low Risk Care Management Discharge Reason for Hospitalization: small bowel obstruction Discharge Plan: Javon will return home when medically cleared by MD. He will will be driven home via private vehicle by family. He will follow up with his PCP and discharge plan of care. Patient/Family Education Needs: Review discharge instructions, discuss Ask Me Three.
--- NOTE | 2021-11-07 18:31 | W.PM.PROGNOT ---
Date of Service Date of service: 11/07/21 Time of Service: 18:31 Subjective Subjective Interval history since last seen: The patient was discharged home prior to my ability to see him in consultation. He does not have critical hyperglycemia and has an A1C of 6.7. He should be stable for follow up with his PCP as scheduled. Objective Last Vital Signs Temp 36.5 C 11/07/21 07:33 Pulse 95 H 11/07/21 07:33 Resp 20 11/07/21 07:33 BP 149/87 H 11/07/21 07:33 Pulse Ox 94 11/07/21 07:33 Laboratory Results - last 24 hr 11/07/21 06:40 Sodium 136 Potassium 3.5 Chloride 101 Carbon Dioxide 28.4 Anion Gap 6.6 BUN 16 Creatinine 0.9 Estimated GFR/1.73 m2 >= 60.00 Glucose 148 H Calcium 9.7 Magnesium 1.8 C-Reactive Protein 3.21 H
== END 2021-11-07 14:34 | disposition home or self-care (01) | DRG 390 ==
LOC: ER 11-04 00:33 → MS 11-04 01:06
PROVIDERS: Emergency Medicine; Surgery; Admitting Provider Surgery; Emergency Provider Emergency Medicine; PCP Nurse Practitioner Family; Visit Provider Surgery
DX: K56.609 Unspecified intestinal obstruction, unspecified as to partial versus complete obstruction (principal); J44.9 Chronic obstructive pulmonary disease, unspecified; I10 Essential (primary) hypertension; G47.33 Obstructive sleep apnea (adult) (pediatric); E66.9 Obesity, unspecified; G47.00 Insomnia, unspecified; G25.81 Restless legs syndrome; E78.00 Pure hypercholesterolemia, unspecified; F32.9 Major depressive disorder, single episode, unspecified; R91.1 Solitary pulmonary nodule; Z68.33 Body mass index [BMI] 33.0-33.9, adult; Z87.891 Personal history of nicotine dependence; Z85.46 Personal history of malignant neoplasm of prostate
CPT/HCPCS: 36415; 80048; 80053; 83690; 87635; 94640; 96361; 96374; 96375; 96376; 99222; 99232; 99238; 99285; J1650; 74018; 74176; 81003; 81015; 83036; 83605; 83735; 84484; 85025; 86140; 94762; J0131; J1885; J2405

== ENCOUNTER 2021-12-13 00:44 | Emergency (ER) | payer OTHER, MEDICAID, SELFPAY ==
[2021-12-13] VITALS (11 sets, daily range): BP systolic 115–152; BP diastolic 65–83; PULSE 52–71; RESP 15–21; TEMP 36.2; O2SAT 92–95
--- NOTE | 2021-12-13 00:58 | W.ED.GENAD ---
Discharge Plan Disposition Patient Disposition: HOME Condition: Stable Discharge Details Clinical Impression: Laceration of scalp Primary Care Provider: eDandre Galvez ED Provider: Harris Abraham Home Meds and New Rx's Prescriptions: Continued albuterol sulfate [Ventolin HFA] 90 mcg/actuation HFA aerosol inhaler 2 puff Inhalation Q4H PRN (Reason: shortness of breath or wheezing) Qty: 18 11RF celecoxib 200 mg capsule 200 mg PO DAILY PRN (Reason: pain) Qty: 30 5RF Advair HFA 230-21 mcg/actuation HFA aerosol inhaler 2 puff Inhalation BID Qty: 1 11RF lamotrigine 100 mg tablet 200 mg PO DAILY Qty: 180 3RF lisinopril 5 mg tablet 5 mg PO DAILY Qty: 90 4RF metoprolol succinate 100 mg tablet extended release 24 hr 100 mg PO DAILY Qty: 90 3RF omeprazole 20 mg capsule,delayed release(DR/EC) 20 mg PO DAILY Qty: 90 3RF pramipexole 0.5 mg tablet 0.5 mg PO HS Qty: 30 3RF pravastatin 40 mg tablet 40 mg PO DAILY Qty: 90 4RF venlafaxine 100 mg tablet 100 mg PO BID Qty: 180 3RF Label Comments: 01/24/18 pt takes 200mg in AM.jw hydrochlorothiazide 25 mg tablet 25 mg PO DAILY Qty: 100 4RF bupropion HCl (smoking deter) 150 mg tablet extended release 12 hr 150 mg PO BID Qty: 180 3RF ipratropium-albuterol 0.5 mg-3 mg(2.5 mg base)/3 mL solution for nebulization 3 ml INHALATION BID PRN (Reason: copd) Qty: 180 3RF Incruse Ellipta 62.5 mcg/actuation blister with device 1 inh inhalation DAILY Qty: 30 3RF zolpidem 5 mg tablet 5 mg PO QHS PRN (Reason: sleep) Qty: 30 5RF aspirin 81 MG tablet,chewable 81 mg PO DAILY acetaminophen [Pain and Fever] 500 MG tablet 500 - 1,000 mg PO PRN PRN calcium polycarbophil [Fiber Laxative (ca polycarbo)] 625 MG tablet 1,250 mg PO DAILY ascorbic acid (vitamin C) 1,000 MG tablet,chewable 1,000 mg PO DAILY calcium carbonate [Calcium 500] 500 MG tablet 500 mg PO DAILY Discharge Instructions Instructions: Staple Care (ED) Additional Instructions: return in 7-10 days to have the wound evaluated for staple removal if you have severe pain, yellow/white discharge or fevers return to the emergency department Medical Decision Making 66 yo male with multiple medical problems comes in with ems after a fall. HE states he was in a chair that he slid back and stood up and as he was walking tripped. Denies preceding symptoms such as lightheadedness, dizziness, chest pain or dyspnea. He fell backwards and denies loc. He arrives caox4 speaking clearly. He has a 1cm laceraiton on the posterior scalp, no hematomas, no midline c spine tenderness. No midline T or L Spine tenderness. No abdomen or chest tenderness. HAs a 3cm skin tear on lateral elbow, no pain and has full rom of the elbow. Suspect laceration but given his age will obtain ct head a cspine to further evaluate for traumatic injuries. Had no preceding symptoms, states it was purely mechanical fall so do not feel syncope/presyncope workup indicated. shortly after order placed patient declind to have CT, states he has trouble laying flat due to his copd and chronic back issues. He was offered medication to help obtain the CT and he still declined to have them done. HE has capacity to make his own decisions and understands risks of missing a tbi and c spine injury (though low based on mechanism and exam for having these) and is willing to accept risks of potential and permanent disability. I did close his wound with 4 thomas and he will return to have them removed, sooner if issues arise or he has increased pain or signs of infection. Differential Diagnosis Differential Diagnosis: laceration, tbi, cervical strain HPI General Mode of arrival: EMS. Date/Time Provider Initiated Documentation: 12/13/21 00:57. Limitations to Documentation: no limitations. Information obtained by: patient. History of Present Illness 66 year old M presents to the emergency department with the chief complaint of fall, and is localized to the head. Patient reports no radiation. Patient started experiencing this hour(s) (1) and it has been constant. No relieving factors improve symptom(s), No exacerbating factors reported . Patient did receive the following treatments prior to arrival, none Related Data Home Medications Medication Instructions Recorded Confirmed acetaminophen 500 mg tablet (Pain 500 - 1,000 mg PO PRN PRN 09/30/12 11/12/21 and Fever) ascorbic acid (vitamin C) 1,000 mg 1,000 mg PO DAILY 09/30/12 11/12/21 chewable tablet aspirin 81 mg chewable tablet 81 mg PO DAILY 09/30/12 11/12/21 calcium polycarbophil 625 mg 1,250 mg PO DAILY 09/30/12 11/12/21 tablet (Fiber Laxative (calcium polycarbophil)) calcium carbonate 500 mg calcium 500 mg PO DAILY 01/24/18 11/12/21 (1,250 mg) tablet (Calcium 500) albuterol sulfate 90 mcg/actuation 2 puff inhalation Q4H PRN 10/02/21 11/12/21 aerosol inhaler (Ventolin HFA) shortness of breath or wheezing #18 grams celecoxib 200 mg capsule 200 mg PO DAILY PRN pain #30 caps 10/02/21 11/12/21 fluticasone propionate 230 2 puff inhalation BID ##1 10/02/21 11/12/21 mcg-salmeterol 21 mcg/actuation HFA inhaler (Advair HFA) lamotrigine 100 mg tablet 200 mg PO DAILY #180 tab-caps 10/02/21 11/12/21 lisinopril 5 mg tablet 5 mg PO DAILY #90 tab-caps 10/02/21 11/12/21 metoprolol succinate 100 mg 100 mg PO DAILY #90 tab-caps 10/02/21 11/12/21 tablet,extended release 24 hr omeprazole 20 mg capsule,delayed 20 mg PO DAILY #90 tab-caps 10/02/21 11/12/21 release pramipexole 0.5 mg tablet 0.5 mg PO HS #30 tab-caps 10/02/21 11/12/21 pravastatin 40 mg tablet 40 mg PO DAILY #90 tab-caps 10/02/21 11/12/21 venlafaxine 100 mg tablet 100 mg PO BID #180 tab-caps 10/02/21 11/12/21 bupropion HCl (smoking deter) 150 150 mg PO BID #180 tab-caps 10/08/21 11/12/21 mg tablet,12 hr sustained-release(smoking deterrent) hydrochlorothiazide 25 mg tablet 25 mg PO DAILY #100 tabs 10/08/21 11/12/21 ipratropium 0.5 mg-albuterol 3 mg 3 ml inhalation BID PRN copd #180 10/20/21 11/12/21 (2.5 mg base)/3 mL nebulization mL soln umeclidinium 62.5 mcg/actuation 1 inh inhalation DAILY #30 ea 11/26/21 blister powder for inhalation (Incruse Ellipta) zolpidem 5 mg tablet 5 mg PO QHS PRN sleep #30 tabs 12/01/21 Previous Rx's Medication Instructions Recorded albuterol sulfate 90 mcg/actuation 2 puff inhalation Q4H PRN 10/02/21 aerosol inhaler (Ventolin HFA) shortness of breath or wheezing #18 grams celecoxib 200 mg capsule 200 mg PO DAILY PRN pain #30 caps 10/02/21 fluticasone propionate 230 2 puff inhalation BID ##1 10/02/21 mcg-salmeterol 21 mcg/actuation HFA inhaler (Advair HFA) lamotrigine 100 mg tablet 200 mg PO DAILY #180 tab-caps 10/02/21 lisinopril 5 mg tablet 5 mg PO DAILY #90 tab-caps 10/02/21 metoprolol succinate 100 mg 100 mg PO DAILY #90 tab-caps 10/02/21 tablet,extended release 24 hr omeprazole 20 mg capsule,delayed 20 mg PO DAILY #90 tab-caps 10/02/21 release pramipexole 0.5 mg tablet 0.5 mg PO HS #30 tab-caps 10/02/21 pravastatin 40 mg tablet 40 mg PO DAILY #90 tab-caps 10/02/21 venlafaxine 100 mg tablet 100 mg PO BID #180 tab-caps 10/02/21 bupropion HCl (smoking deter) 150 150 mg PO BID #180 tab-caps 10/08/21 mg tablet,12 hr sustained-release(smoking deterrent) hydrochlorothiazide 25 mg tablet 25 mg PO DAILY #100 tabs 10/08/21 ipratropium 0.5 mg-albuterol 3 mg 3 ml inhalation BID PRN copd #180 10/20/21 (2.5 mg base)/3 mL nebulization mL soln umeclidinium 62.5 mcg/actuation 1 inh inhalation DAILY #30 ea 11/26/21 blister powder for inhalation (Incruse Ellipta) zolpidem 5 mg tablet 5 mg PO QHS PRN sleep #30 tabs 12/01/21 Allergies Allergy/AdvReac Type Severity Reaction Status Date / Time house dust [House Dust] Allergy Unknown Verified 12/13/21 00:53 hydrocodone bitartrate AdvReac Intermediate hallucinati Verified 12/13/21 00:53 [From Vicodin] ons zolpidem AdvReac Intermediate Agitation Verified 12/13/21 00:53 Iodinated Contrast Media AdvReac Mild Nausea Verified 12/13/21 00:53 [Iodinated Contrast Media - Oral and] fentanyl AdvReac Unknown Hallucinati Verified 12/13/21 00:53 ons morphine AdvReac Unknown NAUSEA, Verified 12/13/21 00:53 VOMITING General Stated Complaint: HeadInjury BETH: 3 Review of Systems All systems reviewed & are unremarkable except as noted in HPI and below Constitutional Constitutional: Denies chills, Denies fever(s) and Denies weakness Eyes Eyes: Denies loss of vision Cardiovascular Cardiovascular: Denies chest pain and Denies dyspnea Respiratory Respiratory: Denies cough and Denies dyspnea Gastrointestinal Gastrointestinal: Denies abdominal pain, Denies nausea and Denies vomiting Neurologic Neurologic: Denies loss of vision and Denies weakness PFSH All Active Problems (Updated 12/13/21 @ 01:40 by Harris Abraham MD) Laceration of scalp (Acute) Diabetes mellitus (Chronic) Bronchiectasis (Acute) Otitis media (Acute) Follow up (Acute) Trochanteric bursitis, right hip (Acute) Strain of flexor muscle of right hip (Acute) Hospital as place of occurrence of accidental injury (Acute) Arthritis of ankle, left (Acute) Arthritis of subtalar joint (Chronic) Arthritis of left foot (Chronic) Benign prostatic hypertrophy with outflow obstruction (Chronic 11/29/12) Urgency/frequency. TURP by Dr. Javon Oswald 11/29/2012 Benign hypertension (Chronic) Hypercholesterolemia (Chronic) Chronic obstructive lung disease (Chronic) a. 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 Javon Oswald 11/29/2012 Osteoarthritis of right knee (Chronic 01/07/15) Artificial knee joint present (Chronic 08/08/14) H/O surgical procedure (Chronic) a. left total knee arthroplasty b. TURP c. Inferior turbinate plasty and uvulectomy, along with septoplasty d. left bunionectomy e. right inguinal hernia repair f. right rotator cuff repair g. right total shoulder arthroplasty h. cardiac catheterization Obesity (Chronic) Restless legs syndrome (Chronic) Hypertension (Chronic) Insomnia (Chronic) History of colonic polyps (Chronic) COPD (chronic obstructive pulmonary disease) (Chronic) Acute cholecystitis (Acute) Elevated d-dimer (Acute) Choledocholithiasis with acute cholecystitis with obstruction (Acute) Cataracts, bilateral (Chronic 10/23/15) Chronic obstructive lung disease (Chronic) SEVERE,PFT'S 09/2011 cxr scarring left base DJD (degenerative joint disease) of knee (Chronic) DR. SHERIFF; RIGHT Depressive disorder (Chronic) [facility]--meds Essential hypertension (Chronic 07/17/13) Hyperlipidemia (Chronic 01/16/13) Increased BMI (Acute) Insomnia, unspecified (Acute 11/07/15) Lung nodule (Chronic 11/07/15) 10/04/15; [facility]; 6mm RLL; 6 MONTH FU from 08/201504/10/16 stable yearly screening Malignant tumor of prostate (Chronic 12/07/12) found incidentally on TURP Obstructive sleep apnea syndrome (Chronic) S/P uvulectomy; C-Pap Polyp of colon (Acute) hyperplastic Restless legs syndrome (Acute) Serum total bilirubin elevated (Acute 05/07/15) elevated conjugated bili Medical History Asthma Bunion of great toe of right foot Emphysema of lung Surgical History Arthroplasty of knee 10/28/18 BILAT CARDIAC CATH R/L Cholecystectomy Extraction of cataract 10/31/15; DR. MEDEIROS; LEFT EYE 11/14/15; DR. MEDEIROS; RIGHT EYE H/O ankle fusion hernia repair, ventral (01/12/17) Repair of inguinal hernia B/L Replacement of total knee joint (~11/2011) Dr. Zhang RIGHT SHOULDER SURGERY SLEEP APNEA SURGERY TOTAL SHOULDER REPLACEMENT (RIGHT) (~1992) Transurethral prostatectomy (11/29/12) DR. OSWALD UVULECTOMY (10/03/12) DR. SANTO Family History Mother Diabetes Essential hypertension Depression Hyperlipidemia Father COPD (chronic obstructive pulmonary disease) Heart disease Hyperlipidemia Asthma Brother Essential hypertension Hyperlipidemia Grandfather Diabetes Heart disease Neoplasm KIDNEYS Stroke Grandfather Heart disease Neoplasm STOMACH Asthma Grandmother Diabetes Heart disease Stroke Grandmother Diabetes Heart disease Stroke Daughter Depression Asthma Daughter Depression Asthma Social History (Updated 11/15/21 @ 12:31 by Patsy Juarez) Smoking/Tobacco Use Status: Former Tobacco Use Quit Date: 08/02/06 Quit status: quit date established Second Hand Exposure: Yes Smoking risk assessment performed?: Yes Alcohol Intake: former Drug use: Rarely Caregiver/Support person: No Household members: spouse and children Housing: house Communication Needs: Hard of Hearing Do you need help understanding health information?: Rarely Pets and animals: Yes Pets and animals: cat(s) Sexually active: No Do you think of yourself as: straight/heterosexual Current gender identity: male What is your relationship status?: How often do you talk on the phone with friends or family?: never How often do you get together with friends or relatives?: never How often do you attend yarsanism or mu-ism services?: decline to answer Do you belong to any clubs or organized social groups?: no Panel score (0-1 are the most socially isolated patients): 1 What type of physical activity do you participate in: none Azucena/Yazidi: Taoism Special azucena needs: No Seatbelt use: sometimes Helmet use: No Drive intox or ride w/intox racecar driver: No Do you feel safe at home: Yes Do you feel safe in your relationship?: Yes Exam Const General: no acute distress Orientation: alert HENMT Head: no palpable skull fracture Ears: external ears normal General nose exam: external nose normal Mouth: moist mucous membranes Eyes General: appearance normal, both eyes and all related structures Neck Neck: normal visual inspection Resp Effort & Inspection: normal respiratory effort and able to speak in complete sentences Cardio Rate: regular rate Skin General skin exam: no rashes or lesions noted Neuro General: patient alert and patient oriented x3 Extrem General: full ROM and capillary refill normal Psych Mental Status: mental status grossly normal Course Vital Signs Vital signs: Vital Signs Temperature 36.2 C L 12/13/21 00:44 Pulse 69 12/13/21 00:44 Respiratory Rate 21 12/13/21 00:44 Blood Pressure 152/83 H 12/13/21 00:44 Pulse Oximetry 94 12/13/21 00:44 Temperature 36.2 C L 12/13/21 00:44 Temperature Source Skin 12/13/21 00:44 Pulse 69 12/13/21 00:44 Respiratory Rate 21 12/13/21 00:44 Respiratory Effort 12/13/21 00:54 Blood Pressure 152/83 H 12/13/21 00:44 Blood Pressure Position Sitting 12/13/21 00:44 Pulse Oximetry 94 12/13/21 00:44 Pain Level 0 12/13/21 00:44 Procedures Laceration Laceration 1: Site: scalp Size (cm): 1 Description: linear Depth: simple, single layer Local Anesthetic: Lidocaine 1% Amount of anesthesia used (mL): 5 Pre-repair: wound explored and irrigated extensively Skin layer closed with: other (4 thomas)
--- NOTE | 2021-12-13 01:52 | NUR.NOTE ---
this nurse called to CT scan as mapping technician stated that patient was having trouble breathing. this nurse arrived and patient was tri-poding on side of stretcher, with sweat beads on forehead. Pt stated that cannot lay down flat and that he sleeps in a recliner at night. This nurse brought patient back to ED and notified MD. Pt put back on monitor and spo2 95%. Pt able to regulate breathing within minutes of returning to the ED with VSSAzalia maier
== END 2021-12-13 02:19 | disposition home or self-care (01) ==
PROVIDERS: Emergency Provider Emergency Medicine; PCP Nurse Practitioner Family
DX: S01.01XA Laceration without foreign body of scalp, initial encounter (principal); W01.190A Fall on same level from slipping, tripping and stumbling with subsequent striking against furniture, initial encounter
CPT/HCPCS: 12001

== ENCOUNTER → 2022-01-15 17:37 | Outpatient (CLI) | payer OTHER, SELFPAY ==
--- NOTE | 2022-01-15 14:52 | DI.RAD_ITS ---
Exam(s) XR CHEST 2V PA LATERAL EXAM: XR CHEST 2V PA LATERAL CLINICAL HISTORY: R/O pneumonia or acute process. J44.9 OBSTRUCTIVE PULMONARY DISEASE. TECHNIQUE: 2D digital imaging was performed. COMPARISON: CR XR CHEST 2V PA LATERAL from 07/04/2019 FINDINGS: 2 views: Heart size is normal. The mediastinum is not widened. hyperinflation/copd findings again noted. scarring left lung base is unchanged. mild increased castro ings in the right lung base, medially. no pleural effusions. no pulmonary edema. Right shoulder prosthesis again noted. IMPRESSION: COPD. Left lung base scarring. Mild increased markings in right lung base. This may indicate early infiltrate in the medial right lung base. There are no pleural effusions DATA REPOSITORY: RADIATION DOSE DELIVERED:
== END ==
PROVIDERS: PCP Nurse Practitioner Family; Visit Provider Nurse Practitioner Family
DX: J44.9 Chronic obstructive pulmonary disease, unspecified (principal); J98.4 Other disorders of lung; R91.8 Other nonspecific abnormal finding of lung field
CPT/HCPCS: 71046

== ENCOUNTER 2022-01-21 16:15 | Outpatient (REF) | payer OTHER, SELFPAY | END 2022-01-21 16:16 | disposition home or self-care (01) | LOC: LBN 16:15 | PROVIDERS: PCP Nurse Practitioner Family; Visit Provider Family Medicine | DX: R05.8 Other specified cough (principal); R06.02 Shortness of breath; R06.2 Wheezing | CPT/HCPCS: 87070; 87205 ==

== ENCOUNTER 2022-01-29 12:36 | Outpatient (REF) | payer OTHER, SELFPAY | END 2022-01-29 12:37 | disposition home or self-care (01) | LOC: LBN 12:36 | PROVIDERS: PCP Nurse Practitioner Family; Visit Provider Student in an Organized Health Care Education/Training Program | DX: J47.9 Bronchiectasis, uncomplicated (principal) | CPT/HCPCS: 87077; 87070; 87205 ==

== ENCOUNTER 2022-02-09 03:36 | Outpatient (CLI) | payer OTHER, SELFPAY ==
[2022-02-09] MEDS: Albuterol HFA 18 GM 200 PUFF INH IH (14:14)
[2022-02-09] MEDS: Inhaler, Assist Device 1 EACH MC (14:15)
--- NOTE | 2022-02-10 16:30 | W.PFT ---
Date of service: 02/09/22 Time of Service: 13:05 Pulmonary Function Test Result Requesting Provider Navi Indications: ARMSTRONG Interpretation Spirometry: There is moderate airflow limitation. There is a significant bronchodilator response. Lung Volumes: Normal lung volumes Diffusion Capacity: Decreased diffusion Airway Pressure: Normal airways resistance. Impression Moderate airflow limitation with a bronchodilator response and a decreased diffusion. This could represent COPD with emphysema in the correct clinical context. Clinical Correlation therefore is recommended.
== END 2022-02-09 03:37 | disposition home or self-care (01) ==
LOC: RT 03:37
PROVIDERS: PCP Nurse Practitioner Family; Visit Provider Student in an Organized Health Care Education/Training Program
DX: R94.2 Abnormal results of pulmonary function studies; J44.9 Chronic obstructive pulmonary disease, unspecified; R06.09 Other forms of dyspnea; R05.9 Cough, unspecified; Z87.891 Personal history of nicotine dependence
CPT/HCPCS: 94060; 94726; 94729

== ENCOUNTER 2022-02-13 14:10 | Emergency (ER) | payer OTHER, SELFPAY ==
[2022-02-13] VITALS (25 sets, daily range): BP systolic 129–180; BP diastolic 63–152; PULSE 59–75; RESP 13–30; TEMP 37.1; O2SAT 90–96
--- NOTE | 2022-02-13 14:30 | DI.RAD_ITS ---
Exam(s) XR PORTABLE CHEST AP EXAM: XR PORTABLE CHEST AP CLINICAL HISTORY: cough, + covid exposure TECHNIQUE: 2D digital imaging was performed of the chest. One image was obtained. An AP view was ob tained. COMPARISON: CR XR CHEST 2V PA LATERAL from 01/15/2022 FINDINGS: MEDIASTINUM: Normal. HEART: Normal. PULMONARY VASCULATURE: Normal. LUNGS: No focal consolidating infiltrates. Left lung base scarring is again seen. Chronic appearing parenchymal lung changes. PLEURAL SPACE: No pleural effusion or pneumothorax. BONE:Within normal limits for the patient's age. Right convex curvature of the thoracic spine. Old r ight shoulder replacement. OTHER FINDINGS:Normal. IMPRESSION: No definite acute pulmonary process. DATA REPOSITORY: RADIATION DOSE DELIVERED:
--- NOTE | 2022-02-13 14:35 | ED.GENADUL_ITS ---
Discharge Plan Disposition Patient Disposition: HOME Condition: Stable Discharge Details Clinical Impression: COVID-19 Primary Care Provider: Deandre Galvez ED Provider: Viktoria Quintero Home Meds and New Rx's Prescriptions: Continued albuterol sulfate [Ventolin HFA] 90 mcg/actuation HFA aerosol inhaler 2 puff Inhalation Q4H PRN (Reason: shortness of breath or wheezing) Qty: 18 11RF celecoxib 200 mg capsule 200 mg PO DAILY PRN (Reason: pain) Qty: 30 5RF lamotrigine 100 mg tablet 200 mg PO DAILY Qty: 180 3RF lisinopril 5 mg tablet 5 mg PO DAILY Qty: 90 4RF omeprazole 20 mg capsule,delayed release(DR/EC) 20 mg PO DAILY Qty: 90 3RF pramipexole 0.5 mg tablet 0.5 mg PO HS Qty: 30 3RF pravastatin 40 mg tablet 40 mg PO DAILY Qty: 90 4RF venlafaxine 100 mg tablet 100 mg PO BID Qty: 180 3RF Label Comments: 01/24/18 pt takes 200mg in AM.jw bupropion HCl (smoking deter) 150 mg tablet extended release 12 hr 150 mg PO BID Qty: 180 3RF ipratropium-albuterol 0.5 mg-3 mg(2.5 mg base)/3 mL solution for nebulization 3 ml INHALATION BID PRN (Reason: copd) Qty: 180 3RF Incruse Ellipta 62.5 mcg/actuation blister with device 1 inh inhalation DAILY Qty: 30 3RF zolpidem 5 mg tablet 5 mg PO QHS PRN (Reason: sleep) Qty: 30 5RF metoprolol succinate 100 mg tablet extended release 24 hr 100 mg PO DAILY Qty: 90 3RF hydrochlorothiazide 25 mg tablet 25 mg PO DAILY Qty: 90 3RF Advair HFA 230-21 mcg/actuation HFA aerosol inhaler 2 puff Inhalation BID Qty: 1 11RF aspirin 81 MG tablet,chewable 81 mg PO DAILY acetaminophen [Pain and Fever] 500 MG tablet 500 - 1,000 mg PO PRN PRN calcium polycarbophil [Fiber Laxative (ca polycarbo)] 625 MG tablet 1,250 mg PO DAILY ascorbic acid (vitamin C) 1,000 MG tablet,chewable 1,000 mg PO DAILY calcium carbonate [Calcium 500] 500 MG tablet 500 mg PO DAILY Discharge Instructions Additional Instructions: Please follow-up with your primary care physician and let them know you are positive for COVID-19 and you have received monoclonal antibody If you begin to feel more short of breath or develop chest pain he should be reassessed Otherwise continue to isolate as you are contagious while you have fever and symptoms If you are fully vaccinated you should isolate for 5 days and wear a mask for 5 additional days If you continue to have fevers after 5 days you should continue to isolate in your home until you are fever free for 24 hours and your symptoms have improved Stand Alone Forms: COVID-19 Antibody Therapy Referrals: Deandre Galvez, [facility] [Primary Care Provider] - 5 days Discharge Data Discharge Date/Time-TO BE ENTERED AT DEPARTURE: 02/13/22 17:58 Medical Decision Making <KEVIN Chavez - Last Filed: 02/13/22 15:39> 66-year-old gentleman, former smoker, past medical history of diabetes, COPD, hypertension, presents to the ER with body ache, subjective fever, headache, dry cough, recent exposure to COVID. Clinically he appears well, nontoxic, hemodynamically stable. He does have a dry cough. O2 sat is 92% on room air, he is afebrile. Plan is to obtain IV access, routine screening laboratory values, COVID, flu, RSV swab as well as a chest x-ray. Patient is likely a good candidate for antiviral. CBC reveals no evidence of leukocytosis or anemia. Awaiting CMP, chest x-ray, flu, COVID, RSV. Standard discharge and return precautions were provided. Patient understands, is agreeable to this plan, and has no additional questions or concerns upon discharge. This documentation was generated using [employer] system, please disregard any oddities of phrase or misspellings. Medical Records Medical records reviewed: Yes I reviewed the patient's medical records. Lab Data Lab results reviewed: Yes I reviewed the patient's lab results. Labs: Laboratory Tests Range/Units 02/13/22 14:45 WBC (4.4-10.8) 10^3/uL 7.06 RBC (4.36-5.78) 10^6/uL 4.97 Hgb (13.5-17.5) g/dL 15.1 Hct (40.0-50.0) % 43.7 MCV (80-95) fL 88 MCH (27.0-33.0) pg 30.4 MCHC (32.0-36.0) % 34.6 RDW (11.8-14.1) % 13.1 Plt Count (130-400) 10^3/uL 203 MPV (8.0-11.0) fL 8.3 Immature Gran % 0.6 Neutrophils % 70.6 Lymphocytes % 9.9 Monocytes % 16.9 Eosinophils % 1.6 Basophils % 0.4 Nucleated RBC % (0.0-0.3) % 0.0 Absolute Neutrophils (1.2-6.7) 10^3/uL 4.99 Absolute Lymphocytes (1.2-3.4) 10^3/uL 0.70 L Absolute Monocytes (0.1-0.8) 10^3/uL 1.19 H Absolute Eosinophils (0.0-0.7) 10^3/uL 0.11 Absolute Basophils (0.0-0.2) 10^3/uL 0.03 <KEVIN Shea - Last Filed: 02/14/22 15:39> 66-year-old gentleman, former smoker, past medical history of diabetes, COPD, hypertension, presents to the ER with body ache, subjective fever, headache, dry cough, recent exposure to COVID. Clinically he appears well, nontoxic, hemodynamically stable. He does have a dry cough. O2 sat is 92% on room air, he is afebrile. Plan is to obtain IV access, routine screening laboratory values, COVID, flu, RSV swab as well as a chest x-ray. Patient is likely a good candidate for antiviral. CBC reveals no evidence of leukocytosis or anemia. Awaiting CMP, chest x-ray, flu, COVID, RSV. Standard discharge and return precautions were provided. Patient understands, is agreeable to this plan, and has no additional questions or concerns upon discharge. This documentation was generated using [employer] system, please disregard any oddities of phrase or misspellings. LB: Patient accepted and transition from [facility] pending diagnostic labs Patient was found to be COVID-positive Labs are essentially unremarkable and baseline for patient Given his chronic medications, he is not a candidate for oral Paxlovid, patient received IV monoclonal antibody and was discharged home with isolation precautions and return precautions reviewed Vitals remained stable without any hypoxia and patient is in no respiratory distress and fully alert, oriented, of decisional capacity and comfortable discharge home HPI <KEVIN Chavez - Last Filed: 02/13/22 15:39> General Mode of arrival: ambulatory . Date/Time Provider Initiated Documentation: 02/13/22 14:30 . Limitations to Documentation: no limitations . Information obtained by: patient . HPI Narrative: This is a 66-year-old gentleman, former smoker, past medical history of COPD, diabetes, hypertension, and depression, hyperlipidemia, presenting to the ER for evaluation of subjective fever, cough, body aches, headache, positive COVID contacts at home. Patient states that he is fully vaccinated. He also states that he was recently on amoxicillin a couple of weeks ago for a chest cold. He denies any neck pain, shortness of breath, chest pain, abdominal pain, nausea, vomiting with pain or swelling in his extremities. Patient has not taken any [id number] medications for his symptoms Related Data Home Medications Medication Instructions Recorded Confirmed acetaminophen 500 mg tablet (Pain 500 - 1,000 mg PO PRN PRN 09/30/12 02/13/22 and Fever) ascorbic acid (vitamin C) 1,000 mg 1,000 mg PO DAILY 09/30/12 02/13/22 chewable tablet aspirin 81 mg chewable tablet 81 mg PO DAILY 09/30/12 02/13/22 calcium polycarbophil 625 mg 1,250 mg PO DAILY 09/30/12 02/13/22 tablet (Fiber Laxative (calcium polycarbophil)) calcium carbonate 500 mg calcium 500 mg PO DAILY 01/24/18 02/13/22 (1,250 mg) tablet (Calcium 500) albuterol sulfate 90 mcg/actuation 2 puff inhalation Q4H PRN 10/02/21 02/13/22 aerosol inhaler (Ventolin HFA) shortness of breath or wheezing #18 grams celecoxib 200 mg capsule 200 mg PO DAILY PRN pain #30 caps 10/02/21 02/13/22 lamotrigine 100 mg tablet 200 mg PO DAILY #180 tab-caps 10/02/21 02/13/22 lisinopril 5 mg tablet 5 mg PO DAILY #90 tab-caps 10/02/21 02/13/22 omeprazole 20 mg capsule,delayed 20 mg PO DAILY #90 tab-caps 10/02/21 02/13/22 release pramipexole 0.5 mg tablet 0.5 mg PO HS #30 tab-caps 10/02/21 02/13/22 pravastatin 40 mg tablet 40 mg PO DAILY #90 tab-caps 10/02/21 02/13/22 venlafaxine 100 mg tablet 100 mg PO BID #180 tab-caps 10/02/21 02/13/22 bupropion HCl (smoking deter) 150 150 mg PO BID #180 tab-caps 10/08/21 02/13/22 mg tablet,12 hr sustained-release(smoking deterrent) ipratropium 0.5 mg-albuterol 3 mg 3 ml inhalation BID PRN copd #180 10/20/21 02/13/22 (2.5 mg base)/3 mL nebulization mL soln umeclidinium 62.5 mcg/actuation 1 inh inhalation DAILY #30 ea 11/26/21 02/13/22 blister powder for inhalation (Incruse Ellipta) zolpidem 5 mg tablet 5 mg PO QHS PRN sleep #30 tabs 12/01/21 02/13/22 hydrochlorothiazide 25 mg tablet 25 mg PO DAILY #90 tabs 12/24/21 02/13/22 metoprolol succinate 100 mg 100 mg PO DAILY #90 tab-caps 12/24/21 02/13/22 tablet,extended release 24 hr fluticasone propionate 230 2 puff inhalation BID ##1 01/14/22 02/13/22 mcg-salmeterol 21 mcg/actuation HFA inhaler (Advair HFA) Previous Rx's Medication Instructions Recorded albuterol sulfate 90 mcg/actuation 2 puff inhalation Q4H PRN 10/02/21 aerosol inhaler (Ventolin HFA) shortness of breath or wheezing #18 grams celecoxib 200 mg capsule 200 mg PO DAILY PRN pain #30 caps 10/02/21 lamotrigine 100 mg tablet 200 mg PO DAILY #180 tab-caps 10/02/21 lisinopril 5 mg tablet 5 mg PO DAILY #90 tab-caps 10/02/21 omeprazole 20 mg capsule,delayed 20 mg PO DAILY #90 tab-caps 10/02/21 release pramipexole 0.5 mg tablet 0.5 mg PO HS #30 tab-caps 10/02/21 pravastatin 40 mg tablet 40 mg PO DAILY #90 tab-caps 10/02/21 venlafaxine 100 mg tablet 100 mg PO BID #180 tab-caps 10/02/21 bupropion HCl (smoking deter) 150 150 mg PO BID #180 tab-caps 10/08/21 mg tablet,12 hr sustained-release(smoking deterrent) ipratropium 0.5 mg-albuterol 3 mg 3 ml inhalation BID PRN copd #180 10/20/21 (2.5 mg base)/3 mL nebulization mL soln umeclidinium 62.5 mcg/actuation 1 inh inhalation DAILY #30 ea 11/26/21 blister powder for inhalation (Incruse Ellipta) zolpidem 5 mg tablet 5 mg PO QHS PRN sleep #30 tabs 12/01/21 hydrochlorothiazide 25 mg tablet 25 mg PO DAILY #90 tabs 12/24/21 metoprolol succinate 100 mg 100 mg PO DAILY #90 tab-caps 12/24/21 tablet,extended release 24 hr fluticasone propionate 230 2 puff inhalation BID ##1 01/14/22 mcg-salmeterol 21 mcg/actuation HFA inhaler (Advair HFA) Allergies Allergy/AdvReac Type Severity Reaction Status Date / Time house dust [House Dust] Allergy Unknown Verified 02/13/22 14:47 hydrocodone bitartrate AdvReac Intermediate hallucinati Verified 02/13/22 14:47 [From Vicodin] ons zolpidem AdvReac Intermediate Agitation Verified 01/27/22 13:43 morphine AdvReac Unknown NAUSEA, Verified 02/13/22 14:47 VOMITING General Stated Complaint: GenMedical BETH: 3 Review of Systems <KEVIN Chavez - Last Filed: 02/13/22 15:39> Constitutional Constitutional: Reports fever(s) (Subjective), Reports headache(s) and Denies weakness ENT Ears, Nose, Mouth, and Throat: Reports headache(s) and Denies neck pain Cardiovascular Cardiovascular: Denies chest pain and Denies dyspnea Respiratory Respiratory: Reports cough and Denies dyspnea Gastrointestinal Gastrointestinal: Denies abdominal pain, Denies nausea and Denies vomiting Genitourinary Genitourinary: Denies dysuria Musculoskeletal Musculoskeletal: Reports myalgias and Denies neck pain Integumentary/Breasts Skin/Breast: Denies rash Neurologic Neurologic: Reports headache(s) and Denies weakness PFS <KEVIN Chavez - Last Filed: 02/13/22 15:39> All Active Problems (Updated 02/13/22 @ 17:08 by KEVIN Shea) COVID-19 (Acute) JIMBO (obstructive sleep apnea) (Chronic) Abnormal CT lung screening (Acute) Diabetes mellitus (Chronic) Bronchiectasis (Acute) Otitis media (Acute) Follow up (Acute) Trochanteric bursitis, right hip (Acute) Strain of flexor muscle of right hip (Acute) Hospital as place of occurrence of accidental injury (Acute) Arthritis of ankle, left (Acute) Arthritis of subtalar joint (Chronic) Arthritis of left foot (Chronic) Benign prostatic hypertrophy with outflow obstruction (Chronic 11/29/12) Urgency/frequency. TURP by Dr. Javon Oswald 11/29/2012 Benign hypertension (Chronic) Hypercholesterolemia (Chronic) Chronic obstructive lung disease (Chronic) a. 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 Javon Oswald 11/29/2012 Osteoarthritis of right knee (Chronic 08/08/14) Artificial knee joint present (Chronic 08/08/14) H/O surgical procedure (Chronic) a. left total knee arthroplasty b. TURP c. Inferior turbinate plasty and uvulectomy, along with septoplasty d. left bunionectomy e. right inguinal hernia repair f. right rotator cuff repair g. right total shoulder arthroplasty h. cardiac catheterization Obesity (Chronic) Restless legs syndrome (Chronic) Hypertension (Chronic) Insomnia (Chronic) History of colonic polyps (Chronic) Acute cholecystitis (Acute) Elevated d-dimer (Acute) Choledocholithiasis with acute cholecystitis with obstruction (Acute) Cataracts, bilateral (Chronic 10/23/15) DJD (degenerative joint disease) of knee (Chronic) DR. SHERIFF; RIGHT Depressive disorder (Chronic) NEK[facility]--meds Essential hypertension (Chronic 07/17/13) Hyperlipidemia (Chronic 01/16/13) Increased BMI (Acute) Insomnia, unspecified (Acute 11/07/15) Lung nodule (Chronic 11/07/15) 10/04/15; [facility]; 6mm RLL; 6 MONTH FU from 08/201504/10/16 stable yearly screening Malignant tumor of prostate (Chronic 12/07/12) found incidentally on TURP Obstructive sleep apnea syndrome (Chronic) S/P uvulectomy; C-Pap Polyp of colon (Acute) hyperplastic Restless legs syndrome (Acute) Serum total bilirubin elevated (Acute 05/07/15) elevated conjugated bili Medical History Asthma Bunion of great toe of right foot COPD (chronic obstructive pulmonary disease) Emphysema of lung Surgical History Arthroplasty of knee 10/28/18 BILAT CARDIAC CATH R/L Cholecystectomy Extraction of cataract 10/31/15; DR. MEDEIROS; LEFT EYE 11/14/15; DR. MEDEIROS; RIGHT EYE H/O ankle fusion hernia repair, ventral (01/12/17) Repair of inguinal hernia B/L Replacement of total knee joint (~11/2011) Dr. Zhang RIGHT SHOULDER SURGERY SLEEP APNEA SURGERY TOTAL SHOULDER REPLACEMENT (RIGHT) (~1992) Transurethral prostatectomy (11/29/12) DR. OSWALD UVULECTOMY (10/03/12) DR. SANTO Family History Mother Diabetes Essential hypertension Depression Hyperlipidemia Father COPD (chronic obstructive pulmonary disease) Heart disease Hyperlipidemia Asthma Brother Essential hypertension Hyperlipidemia Grandfather Diabetes Heart disease Neoplasm KIDNEYS Stroke Grandfather Heart disease Neoplasm STOMACH Asthma Grandmother Diabetes Heart disease Stroke Grandmother Diabetes Heart disease Stroke Daughter Depression Asthma Daughter Depression Asthma Social History Smoking/Tobacco Use Status: Former Tobacco Use Quit Date: 08/02/06 Quit status: quit date established Second Hand Exposure: Yes Smoking risk assessment performed?: Yes Alcohol Intake: former Drug use: Rarely Caregiver/Support person: No Household members: spouse and children Housing: house Communication Needs: Hard of Hearing Do you need help understanding health information?: Rarely Pets and animals: Yes Pets and animals: cat(s) Sexually active: No Do you think of yourself as: straight/heterosexual Current gender identity: male What is your relationship status?: How often do you talk on the phone with friends or family?: never How often do you get together with friends or relatives?: never How often do you attend scientology or denominational services?: decline to answer Do you belong to any clubs or organized social groups?: no Panel score (0-1 are the most socially isolated patients): 1 What type of physical activity do you participate in: none Azucena/Samaritan: Nondenominational Special azucena needs: No Seatbelt use: sometimes Helmet use: No Drive intox or ride w/intox over the road driver: No Do you feel safe at home: Yes Do you feel safe in your relationship?: Yes Exam <KEVIN Chavez - Last Filed: 02/13/22 15:39> Const General: cooperative, healthy appearing, comfortable and no acute distress Orientation: alert and awake HENMT Head: normal to inspection, normocephalic and atraumatic Face and sinus: normal facial exam Mouth: moist mucous membranes Eyes Conjunctivae: conjunctivae normal Neck Neck: normal visual inspection, full ROM, no meningeal signs, trachea midline and supple Resp Effort & Inspection: normal respiratory effort, able to speak in complete sentences and cough Quality of cough: dry Auscultation: diminished lung sounds bilaterally in the lower lung otero Cardio Rate: regular rate Rhythm: regular rhythm GI Palpation: soft and nontender Back/Spine/Pelvis Back: No back tenderness Skin General skin exam: no rashes or lesions noted Neuro General: patient alert, patient awake, moves all extremities and no focal motor deficits Cognition: normal cognition Speech: speech normal Gait: normal gait Motor: muscle tone normal throughout Sensory Exam: no sensory deficits noted Extrem General: normal to inspection, full ROM, capillary refill normal, no pedal edema and no calf tenderness Psych Appearance: grossly normal Mental Status: mental status grossly normal Course <KEVIN Chavez - Last Filed: 02/13/22 15:39> Vital Signs Vital signs: Vital Signs Temperature 37.1 C 02/13/22 14:18 Pulse 75 02/13/22 14:18 Respiratory Rate 20 02/13/22 14:18 Blood Pressure 156/64 H 02/13/22 14:18 Pulse Oximetry 92 02/13/22 14:18 Temperature 37.1 C 02/13/22 14:18 Temperature Source Skin 02/13/22 14:18 Pulse 75 02/13/22 14:18 Respiratory Rate 20 02/13/22 14:18 Respiratory Effort 02/13/22 14:22 Blood Pressure 156/64 H 02/13/22 14:18 Blood Pressure Position Sitting 02/13/22 14:18 Pulse Oximetry 92 02/13/22 14:18 Oxygen Delivery Method Room Air 02/13/22 14:18 Oxygen Flow Rate 0 02/13/22 14:18 Pain Level 0 02/13/22 14:18 Sign Out <KEVIN Chavez - Last Filed: 02/13/22 15:39> Sign Out Data: Sign Out Comment: History of COPD, former smoker, diabetes, presents with 24- hour history of subjective fever, body aches, dry cough, headache. Positive COVID exposure at home. Awaiting CMP, chest x-ray, COVID, and likely antiviral. He appears well, nontoxic, O2 sat in the low 90s on room air. Last updated by Isaac Lange PA at 02/13/22 15:39
[2022-02-13 15:09] LABS: Abs Immature Grans 0.04 10^3/uL (0.0-0.06); Absolute Basophil Count 0.03 10^3/uL (0.0-0.2); Absolute Eosinophil Count 0.11 10^3/uL (0.0-0.7); Absolute Monocyte Count 1.19 10^3/uL (0.1-0.8); Absolute Neutrophil Count 4.99 10^3/uL (1.2-6.7); Basophils % 0.4; Eosinophils % 1.6; HCT 43.7 % (40.0-50.0); HGB 15.1 g/dL (13.5-17.5); Immature Grans % 0.6; Lymphocytes % 9.9; MCH 30.4 pg (27.0-33.0); MCHC 34.6 % (32.0-36.0); MCV 88 fL (80-95); MPV 8.3 fL (8.0-11.0); Monocytes % 16.9; Neutrophils % 70.6; Platelet Count 203 10^3/uL (130-400); RBC 4.97 10^6/uL (4.36-5.78); RDW 13.1 % (11.8-14.1); WBC 7.06 10^3/uL (4.4-10.8)
[2022-02-13 15:38] LABS: ALT 30 U/L (16-63); AST 20 U/L (15-37); Albumin 3.5 g/dL (3.4-5.0); Alkaline Phosphatase 93 U/L (46-116); Anion Gap 8.2 mmol/L (3-11); BUN 23 mg/dL (7-18); Bilirubin, Total 1.1 mg/dL (0.2-1.0); CO2 25.8 mmol/L (21.0-32.0); Calcium 9.6 mg/dL (8.5-10.1); Chloride 102 mmol/L (98-107); Glucose 115 mg/dL (74-106); Potassium 3.6 mmol/L (3.5-5.1); Sodium 136 mmol/L (136-145)
[2022-02-13 15:47] LABS: Influenza A PCR Negative (Negative); Influenza B PCR Negative (Negative); RSV PCR Negative (Negative)
[2022-02-13 15:55] LABS: COVID-19 PCR Positive (Negative); Source Nasopharynx
[2022-02-13] MEDS: Normal Saline 250 ML 30 ML IV (16:45)
== END 2022-02-13 17:58 | disposition home or self-care (01) ==
PROVIDERS: Physician Assistant; Emergency Provider Physician Assistant; PCP Nurse Practitioner Family
DX: U07.1 COVID-19 (principal); I10 Essential (primary) hypertension; E11.9 Type 2 diabetes mellitus without complications; J43.9 Emphysema, unspecified; J45.909 Unspecified asthma, uncomplicated; Z87.891 Personal history of nicotine dependence; Z79.51 Long term (current) use of inhaled steroids; Z79.82 Long term (current) use of aspirin
CPT/HCPCS: 36415; 80053; 87637; 96361; 96374; 99284; Q0222; 71045; 85025

== ENCOUNTER → 2022-03-02 01:27 | Outpatient (CLI) | payer OTHER, SELFPAY ==
--- NOTE | 2022-03-02 14:55 | DI.CTLCSR_ITS ---
Exam(s) CT CHEST LUNG CANCER SCREEN EXAM: CT CHEST LUNG CANCER SCREEN CLINICAL HISTORY: Screening for lung cancer,former smoker, z87.891 TECHNIQUE: CT examination of the chest was performed utilizing low-dose lung cancer screening protoc . COMPARISON: CT CT CHEST LUNG CANCER SCREEN from 07/11/2020 FINDINGS: Images obtained through the upper abdomen show unremarkable appearance of visualized portions of the liver and spleen. Visualized portions kidneys, pancreas. There is been a prior cholecystectomy. There is no mediastinal or hilar adenopathy. Mediastinal vascular structures appear intact by noncon trast criteria. Tracheobronchial tree appears intact. No pleural effusion or pleural-based mass. There is moderate to severe pulmonary emphysematous change with bullous changes in lung apices bilate rally. There is a 6 millimeter in diameter noncalcified right lower lobe pulmonary nodule. This darryl ears essentially unchanged comparison with prior examination of July 2020. No new nodule identif ied.. IMPRESSION: Lung RADS Cat 2 - Benign Appearance / Behavior: Nodules with a very low likelihood of becoming a cli nically active cancer due to size or lack of growth Continue annual screening with LDCT in 12 months. Lung-RADS 1.0 CATEGORIES: Category 0 - Prior chest CT exam(s) being located for comparison. Category 1 - Annual screening in 12 months. No nodules or definitely benign nodules. Category 2 - Annual screening in 12 months. Benign appearance. Nodules with low likelihood of becomin g active cancer. Category 3 - 6-month follow-up. Probably benign. Short-term follow-up suggested. Nodules with low lik elihood of becoming active cancer. Category 4A - 3-month follow-up and CT/PET if >8 mm in size. Suspicious finding. Findings which requi re additional testing. Category 4B - Findings which require additional testing and tissue sampling. Suspicious finding. Category 4X - Category 3 or 4 nodules with additional features or imaging findings that increases the suspicion of malignancy. Modifier S- Potentially clinically significant finding. (Non lung cancer) RADIATION DOSE DELIVERED: 112.07mGy.cm Total DLP 2.21mGy CTDIvol 112.07mGy.cm Total DLP !Error CTDIvol RADIATION OPTIMIZATION: All CT scans at this facility use at least one of these dose optimization te chniques: automated exposure control; mA and/or kV adjustment per patient size (includes targeted exa ms where dose is matched to clinical indication); or iterative reconstruction.
== END ==
PROVIDERS: PCP Nurse Practitioner Family; Visit Provider Student in an Organized Health Care Education/Training Program
DX: Z87.891 Personal history of nicotine dependence (principal); Z12.2 Encounter for screening for malignant neoplasm of respiratory organs; R91.1 Solitary pulmonary nodule
CPT/HCPCS: 71271

== ENCOUNTER 2022-07-20 03:12 | Outpatient (CLI) | payer OTHER, SELFPAY ==
[2022-07-20 23:13] LABS: PSA, Diagnostic 0.5 ng/mL (<=4.5)
== END 2022-07-20 03:13 | disposition home or self-care (01) ==
LOC: LBO 03:12
PROVIDERS: PCP Nurse Practitioner Family; Visit Provider Nurse Practitioner Gerontology
DX: C61 Malignant neoplasm of prostate (principal)
CPT/HCPCS: 36415; 84153

== ENCOUNTER 2022-07-25 08:37 | Emergency (ER) | payer OTHER, SELFPAY ==
[2022-07-25] VITALS (45 sets, daily range): BP systolic 111–155; BP diastolic 61–124; PULSE 100–156; RESP 2–29; TEMP 37; O2SAT 89–97
--- NOTE | 2022-07-25 08:30 | RT.EKG_ITS ---
APPROVED REPORT Exam: Resting ECG Reason for Exam: sob Patient Location: E HR:110 bpm ECG Measurements Heart Rate 110 AXIS UT 173 P 54 QRSd 157 QRS -67 QT 369 T 11 QTc 500 Conclusion Sinus tachycardia...rate> 99 Right bundle branch block...QRSd>120, terminal axis(90,270) ST elevation secondary to IVCD...Multiple VCG criteria
--- NOTE | 2022-07-25 08:45 | DI.RAD_ITS ---
Exam(s) XR PORTABLE CHEST AP EXAM: XR PORTABLE CHEST AP CLINICAL HISTORY: sob. TECHNIQUE: 2D digital imaging was performed. COMPARISON: CR XR PORTABLE CHEST AP from 02/13/2022 FINDINGS: Single AP portable view. Scoliosis convex right again noted in thoracic spine as well as a right shoulder prosthesis again not ed and resection of the lateral 3rd of the right clavicle again noted. Heart size is upper normal. The mediastinum is not widened. Lungs reveal COPD findings. There is persistent infiltrate in the left lung base and there is also increase infiltrate behind the left side of the heart posterior basal segment left lower lobe. Also mild increased markings in the right lung base. Small nodular infiltrate also evident in the right costophrenic angle, not previou sly present. No pulmonary edema. No pneumothorax. IMPRESSION: COPD. Increasing infiltrate left lower lobe. No obvious pleural effusions. Other findings as above. DATA REPOSITORY: RADIATION DOSE DELIVERED:
[2022-07-25] MEDS: methylPREDNISolone SUCC 125 MG VIAL IVP (09:15)
[2022-07-25 09:21] LABS: Abs Immature Grans 0.05 10^3/uL (0.0-0.06); Absolute Monocyte Count 1.08 10^3/uL (0.1-0.8); Basophils % 0.4; Eosinophils % 2.8; HCT 49.2 % (40.0-50.0); HGB 16.4 g/dL (13.5-17.5); Immature Grans % 0.4; Lymphocytes % 14.2; MCH 30.3 pg (27.0-33.0); MCHC 33.3 % (32.0-36.0); MCV 91 fL (80-95); MPV 8.3 fL (8.0-11.0); Monocytes % 9.6; Neutrophils % 72.6; Platelet Count 241 10^3/uL (130-400); RBC 5.42 10^6/uL (4.36-5.78); RDW-SD 43.4 fL; WBC 11.23 10^3/uL (4.4-10.8)
[2022-07-25 09:22] LABS: Absolute Basophil Count 0.04 10^3/uL (0.0-0.2); Absolute Eosinophil Count 0.31 10^3/uL (0.0-0.7); Absolute Lymphocyte Count 1.59 10^3/uL (1.2-3.4); Absolute Neutrophil Count 8.15 10^3/uL (1.2-6.7)
--- NOTE | 2022-07-25 09:32 | ED.GENADUL_ITS ---
Discharge Plan Disposition Patient Disposition: Home Condition: Stable Discharge Details Clinical Impression: Asthma exacerbation in COPD, Pneumonia, Hypomagnesemia Primary Care Provider: Deandre Galvez ED Provider: Wander Akins Home Meds and New Rx's Prescriptions: New prednisone 20 mg tablet 40 mg PO DAILY Qty: 8 0RF Rx Instructions: start 07/26/22 amoxicillin-pot clavulanate 875-125 mg tablet 1 tab PO BID Qty: 19 0RF Continued albuterol sulfate [Ventolin HFA] 90 mcg/actuation HFA aerosol inhaler 2 puff Inhalation Q4H PRN (Reason: shortness of breath or wheezing) Qty: 18 11RF lamotrigine 100 mg tablet 200 mg PO DAILY Qty: 180 3RF lisinopril 5 mg tablet 5 mg PO DAILY Qty: 90 4RF omeprazole 20 mg capsule,delayed release(DR/EC) 20 mg PO DAILY Qty: 90 3RF pravastatin 40 mg tablet 40 mg PO DAILY Qty: 90 4RF venlafaxine 100 mg tablet 100 mg PO BID Qty: 180 3RF Label Comments: 01/24/18 pt takes 200mg in AM.jw bupropion HCl (smoking deter) 150 mg tablet extended release 12 hr 150 mg PO BID Qty: 180 3RF ipratropium-albuterol 0.5 mg-3 mg(2.5 mg base)/3 mL solution for nebulization 3 ml INHALATION BID PRN (Reason: copd) Qty: 180 3RF metoprolol succinate 100 mg tablet extended release 24 hr 100 mg PO DAILY Qty: 90 3RF hydrochlorothiazide 25 mg tablet 25 mg PO DAILY Qty: 90 3RF Advair HFA 230-21 mcg/actuation HFA aerosol inhaler 2 puff Inhalation BID Qty: 1 11RF metformin 500 mg tablet 500 mg PO BID Qty: 180 3RF celecoxib 200 mg capsule 200 mg PO DAILY PRN (Reason: pain) Qty: 30 5RF pramipexole 0.5 mg tablet 0.5 mg PO HS Qty: 30 3RF zolpidem 5 mg tablet 5 mg PO QHS PRN (Reason: sleep) Qty: 30 5RF Incruse Ellipta 62.5 mcg/actuation blister with device 1 inh inhalation DAILY Qty: 30 3RF aspirin 81 MG tablet,chewable 81 mg PO DAILY acetaminophen [Pain and Fever] 500 MG tablet 500 - 1,000 mg PO PRN PRN calcium polycarbophil [Fiber Laxative (ca polycarbo)] 625 MG tablet 1,250 mg PO DAILY ascorbic acid (vitamin C) 1,000 MG tablet,chewable 1,000 mg PO DAILY calcium carbonate [Calcium 500] 500 MG tablet 500 mg PO DAILY Discharge Instructions Instructions: COPD (Chronic Obstructive Pulmonary Disease) (ED), Hypomagnesemia (ED), Pneumonia (ED) Additional Instructions: Please take antibiotic as prescribed - take the full course. Use albuterol as prescribed. Take prednisone as prescribed (your next dose is 07/26/22). Use home oxygen to maintain oxygen saturation >92%. Return to the ER for any worsening or new concerning symptoms. Call your doctor tomorrow to arrange timely followup. Referrals: Deandre Galvez INSTRUCTIONAL DESIGN CONSULTANT [Primary Care Provider] - Discharge Data Discharge Date/Time-TO BE ENTERED AT DEPARTURE: 07/25/22 13:27 Medical Decision Making -- 67-year-old male with history of COPD, obstructive sleep apnea, on intermittent home oxygen, here with persistent shortness of breath with associated increase in chronic cough over the past 3 days. Patient is afebrile, normotensive and tachycardic. He does take an albuterol neb prior to coming to the emergency department. He has no chest pain or leg swelling. Plan to treat for acute COPD exacerbation with DuoNeb and Solu-Medrol IV. Patient has some rales left lung, consider pneumonia. EKG was reviewed and interpreted by me: Sinus tachycardia 110 bpm, right bundle branch block, please see report. -- cxr reviewed and interpreted by radiology: copd, interstitial disease, chronic granulomatous disease and mild airspace disease. Labs reviewed and leukocytosis noted. COVID and flu neg. Mild hypomagnesemia. Plan to initiate treatment with augmentin. Will give mag ox 800mg. 1315 -- Patient reassessed and breathing more comfortably. Continues to have no respiratory distress or chest pain. Patient able to ambulate on nasal canula oxygen and maintaining sats. Plan for discharge with close outpatient followup with pcp or pulmonology. Plan discussed with patient who is in agreement. HPI General Mode of arrival: EMS . Date/Time Provider Initiated Documentation: 07/25/22 08:47 . Limitations to Documentation: no limitations . Information obtained by: patient and EMS . HPI Narrative: [id number]-year-old male with history of multiple medical problems including here with COPD, obstructive sleep apnea, chief complaint of shortness of breath. Patient notes he has had progressively worsening shortness of breath for the past 3 days. Shortness of breath is moderate to severe and feels like prior exacerbations of COPD. He has associated increase in chronic cough. Cough is nonproductive. Shortness of breath improved with oxygen administration. He has been using his albuterol neb 2-3 times a day. He has no associated fever. No chest pain. No leg swelling. Related Data Home Medications Medication Instructions Recorded Confirmed acetaminophen 500 mg tablet (Pain 500 - 1,000 mg PO PRN PRN 09/30/12 07/25/22 and Fever) ascorbic acid (vitamin C) 1,000 mg 1,000 mg PO DAILY 09/30/12 07/25/22 chewable tablet aspirin 81 mg chewable tablet 81 mg PO DAILY 09/30/12 07/25/22 calcium polycarbophil 625 mg 1,250 mg PO DAILY 09/30/12 07/25/22 tablet (Fiber Laxative (calcium polycarbophil)) calcium carbonate 500 mg calcium 500 mg PO DAILY 01/24/18 07/25/22 (1,250 mg) tablet (Calcium 500) albuterol sulfate 90 mcg/actuation 2 puff inhalation Q4H PRN 10/02/21 07/25/22 aerosol inhaler (Ventolin HFA) shortness of breath or wheezing #18 grams lamotrigine 100 mg tablet 200 mg PO DAILY #180 tab-caps 10/02/21 07/25/22 lisinopril 5 mg tablet 5 mg PO DAILY #90 tab-caps 10/02/21 07/25/22 omeprazole 20 mg capsule,delayed 20 mg PO DAILY #90 tab-caps 10/02/21 07/25/22 release pravastatin 40 mg tablet 40 mg PO DAILY #90 tab-caps 10/02/21 07/25/22 venlafaxine 100 mg tablet 100 mg PO BID #180 tab-caps 10/02/21 07/25/22 bupropion HCl (smoking deter) 150 150 mg PO BID #180 tab-caps 10/08/21 07/25/22 mg tablet,12 hr sustained-release(smoking deterrent) ipratropium 0.5 mg-albuterol 3 mg 3 ml inhalation BID PRN copd #180 10/20/21 07/25/22 (2.5 mg base)/3 mL nebulization mL soln hydrochlorothiazide 25 mg tablet 25 mg PO DAILY #90 tabs 12/24/21 07/25/22 metoprolol succinate 100 mg 100 mg PO DAILY #90 tab-caps 12/24/21 07/25/22 tablet,extended release 24 hr fluticasone propionate 230 2 puff inhalation BID ##1 01/14/22 07/25/22 mcg-salmeterol 21 mcg/actuation HFA inhaler (Advair HFA) metformin 500 mg tablet 500 mg PO BID #180 tabs 04/01/22 07/25/22 celecoxib 200 mg capsule 200 mg PO DAILY PRN pain #30 caps 04/20/22 07/25/22 pramipexole 0.5 mg tablet 0.5 mg PO HS #30 tab-caps 05/21/22 07/25/22 zolpidem 5 mg tablet 5 mg PO QHS PRN sleep #30 tabs 06/10/22 07/25/22 umeclidinium 62.5 mcg/actuation 1 inh inhalation DAILY #30 ea 07/23/22 07/25/22 blister powder for inhalation (Incruse Ellipta) amoxicillin 875 mg-potassium 1 tab PO BID #19 tabs 07/25/22 clavulanate 125 mg tablet prednisone 20 mg tablet 40 mg PO DAILY #8 tabs 07/25/22 Previous Rx's Medication Instructions Recorded albuterol sulfate 90 mcg/actuation 2 puff inhalation Q4H PRN 10/02/21 aerosol inhaler (Ventolin HFA) shortness of breath or wheezing #18 grams lamotrigine 100 mg tablet 200 mg PO DAILY #180 tab-caps 10/02/21 lisinopril 5 mg tablet 5 mg PO DAILY #90 tab-caps 10/02/21 omeprazole 20 mg capsule,delayed 20 mg PO DAILY #90 tab-caps 10/02/21 release pravastatin 40 mg tablet 40 mg PO DAILY #90 tab-caps 10/02/21 venlafaxine 100 mg tablet 100 mg PO BID #180 tab-caps 10/02/21 bupropion HCl (smoking deter) 150 150 mg PO BID #180 tab-caps 10/08/21 mg tablet,12 hr sustained-release(smoking deterrent) ipratropium 0.5 mg-albuterol 3 mg 3 ml inhalation BID PRN copd #180 10/20/21 (2.5 mg base)/3 mL nebulization mL soln hydrochlorothiazide 25 mg tablet 25 mg PO DAILY #90 tabs 12/24/21 metoprolol succinate 100 mg 100 mg PO DAILY #90 tab-caps 12/24/21 tablet,extended release 24 hr fluticasone propionate 230 2 puff inhalation BID ##1 01/14/22 mcg-salmeterol 21 mcg/actuation HFA inhaler (Advair HFA) metformin 500 mg tablet 500 mg PO BID #180 tabs 04/01/22 celecoxib 200 mg capsule 200 mg PO DAILY PRN pain #30 caps 04/20/22 pramipexole 0.5 mg tablet 0.5 mg PO HS #30 tab-caps 05/21/22 zolpidem 5 mg tablet 5 mg PO QHS PRN sleep #30 tabs 06/10/22 umeclidinium 62.5 mcg/actuation 1 inh inhalation DAILY #30 ea 07/23/22 blister powder for inhalation (Incruse Ellipta) amoxicillin 875 mg-potassium 1 tab PO BID #19 tabs 07/25/22 clavulanate 125 mg tablet prednisone 20 mg tablet 40 mg PO DAILY #8 tabs 07/25/22 Allergies Allergy/AdvReac Type Severity Reaction Status Date / Time house dust [House Dust] Allergy Unknown Verified 07/25/22 08:47 hydrocodone bitartrate AdvReac Intermediate hallucinati Verified 07/25/22 08:47 [From Vicodin] ons zolpidem AdvReac Intermediate Agitation Verified 07/25/22 08:47 morphine AdvReac Unknown NAUSEA, Verified 07/25/22 08:47 VOMITING General Stated Complaint: SOB BETH: 2 Review of Systems All systems reviewed & are unremarkable except as noted in HPI and below Cardiovascular Cardiovascular: Denies chest pain and Reports dyspnea Respiratory Respiratory: Reports cough and Reports dyspnea Gastrointestinal Gastrointestinal: Denies abdominal pain PFSH All Active Problems (Updated 07/25/22 @ 13:02 by Wander Akins MD) Asthma exacerbation in COPD (Acute) Pneumonia (Acute) Hypomagnesemia (Acute) Nail dystrophy (Acute) COVID-19 (Acute) JIMBO (obstructive sleep apnea) (Chronic) Abnormal CT lung screening (Acute) Diabetes mellitus (Chronic) Bronchiectasis (Acute) Otitis media (Acute) Follow up (Acute) Trochanteric bursitis, right hip (Acute) Strain of flexor muscle of right hip (Acute) Hospital as place of occurrence of accidental injury (Acute) Arthritis of ankle, left (Acute) Arthritis of subtalar joint (Chronic) Arthritis of left foot (Chronic) Benign prostatic hypertrophy with outflow obstruction (Chronic 11/29/12) Urgency/frequency. TURP by Dr. Javon Oswald 11/29/2012 Benign hypertension (Chronic) Hypercholesterolemia (Chronic) Chronic obstructive lung disease (Chronic) a. 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 Javon Oswald 11/29/2012 Osteoarthritis of right knee (Chronic 08/08/14) Artificial knee joint present (Chronic 08/08/14) H/O surgical procedure (Chronic) a. left total knee arthroplasty b. TURP c. Inferior turbinate plasty and uvulectomy, along with septoplasty d. left bunionectomy e. right inguinal hernia repair f. right rotator cuff repair g. right total shoulder arthroplasty h. cardiac catheterization Obesity (Chronic) Restless legs syndrome (Chronic) Hypertension (Chronic) Insomnia (Chronic) History of colonic polyps (Chronic) Acute cholecystitis (Acute) Elevated d-dimer (Acute) Choledocholithiasis with acute cholecystitis with obstruction (Acute) Cataracts, bilateral (Chronic 10/23/15) DJD (degenerative joint disease) of knee (Chronic) DR. SHERIFF; RIGHT Depressive disorder (Chronic) [facility]--meds Essential hypertension (Chronic 07/17/13) Hyperlipidemia (Chronic 01/16/13) Increased BMI (Acute) Insomnia, unspecified (Acute 11/07/15) Lung nodule (Chronic 11/07/15) 10/04/15; [facility]; 6mm RLL; 6 MONTH FU from 08/201504/10/16 stable yearly screening Malignant tumor of prostate (Chronic 12/07/12) found incidentally on TURP Obstructive sleep apnea syndrome (Chronic) S/P uvulectomy; C-Pap Polyp of colon (Acute) hyperplastic Restless legs syndrome (Acute) Serum total bilirubin elevated (Acute 05/07/15) elevated conjugated bili Medical History Asthma Bunion of great toe of right foot COPD (chronic obstructive pulmonary disease) Emphysema of lung Surgical History Arthroplasty of knee 10/28/18 BILAT CARDIAC CATH R/L Cholecystectomy Extraction of cataract 10/31/15; DR. MEDEIROS; LEFT EYE 11/14/15; DR. MEDEIROS; RIGHT EYE H/O ankle fusion hernia repair, ventral (01/12/17) Repair of inguinal hernia B/L Replacement of total knee joint (~11/2011) Dr. Zhang RIGHT SHOULDER SURGERY SLEEP APNEA SURGERY TOTAL SHOULDER REPLACEMENT (RIGHT) (~1992) Transurethral prostatectomy (11/29/12) DR. OSWALD UVULECTOMY (10/03/12) DR. SANTO Family History Mother Diabetes Essential hypertension Depression Hyperlipidemia Father COPD (chronic obstructive pulmonary disease) Heart disease Hyperlipidemia Asthma Brother Essential hypertension Hyperlipidemia Grandfather Diabetes Heart disease Neoplasm KIDNEYS Stroke Grandfather Heart disease Neoplasm STOMACH Asthma Grandmother Diabetes Heart disease Stroke Grandmother Diabetes Heart disease Stroke Daughter Depression Asthma Daughter Depression Asthma Social History Smoking/Tobacco Use Status: Former Tobacco Use Quit Date: 08/02/06 Quit status: quit date established Second Hand Exposure: Yes Smoking risk assessment performed?: Yes Alcohol Intake: former Drug use: Never Substance use type: does not use Caregiver/Support person: No Household members: spouse and children Housing: house Communication Needs: Hard of Hearing Do you need help understanding health information?: Rarely Pets and animals: Yes Pets and animals: cat(s) Sexually active: No Do you think of yourself as: straight/heterosexual Current gender identity: male What is your relationship status?: How often do you talk on the phone with friends or family?: never How often do you get together with friends or relatives?: never How often do you attend yazdanism or restoration services?: decline to answer Do you belong to any clubs or organized social groups?: no Panel score (0-1 are the most socially isolated patients): 1 What type of physical activity do you participate in: none Azucena/Yazdanism: Amish Special azucena needs: No Seatbelt use: sometimes Helmet use: No Drive 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 Do you feel safe at home: Yes Do you feel safe in your relationship?: Yes Exam Const General: cooperative and no acute distress HENMT Mouth: moist mucous membranes Eyes Conjunctivae: normal conjunctivae Sclera: normal sclerae Neck Neck: trachea midline Resp Effort & Inspection: not labored, no respiratory distress and not tachypneic Auscultation: rales on the left at the base, no rhonchi and no wheezes Cardio Rhythm: regular rhythm GI Palpation: soft, not firm, no guarding, no masses, not rigid and nontender Skin General skin exam: no rashes or lesions noted Neuro General: patient alert, patient awake and tone normal Extrem General: no pedal edema, no calf tenderness and no edema Psych Appearance: grossly normal Mental Status: mental status grossly normal Speech and Movement: speech and movement normal Course Vital Signs Vital signs: Vital Signs Temperature 37.0 C 07/25/22 08:39 Pulse 116 H 07/25/22 08:39 Respiratory Rate 23 07/25/22 08:39 Blood Pressure 140/86 07/25/22 08:39 Pulse Oximetry 95 07/25/22 08:39 Temperature 37.0 C 07/25/22 08:39 Temperature Source Temporal Artery Scan 07/25/22 08:39 Pulse 116 H 07/25/22 08:39 Respiratory Rate 23 07/25/22 08:44 Respiratory Effort Labored 07/25/22 08:44 Respiratory Depth Normal 07/25/22 08:44 Respiratory Pattern Normal 07/25/22 08:44 Blood Pressure 140/86 07/25/22 08:39 Blood Pressure Position Sitting 07/25/22 08:39 Pulse Oximetry 95 07/25/22 08:39 Oxygen Delivery Method Nasal Cannula 07/25/22 08:39 Oxygen Flow Rate 4 07/25/22 08:39 Pain Level 0 07/25/22 08:39 Lab/Test Results Lab/Test Results: Laboratory Tests Range/Units 07/25/22 09:10 WBC (4.4-10.8) 10^3/uL 11.23 H RBC (4.36-5.78) 10^6/uL 5.42 Hgb (13.5-17.5) g/dL 16.4 Hct (40.0-50.0) % 49.2 MCV (80-95) fL 91 MCH (27.0-33.0) pg 30.3 MCHC (32.0-36.0) % 33.3 RDW (11.8-14.1) % 13.0 Plt Count (130-400) 10^3/uL 241 MPV (8.0-11.0) fL 8.3 Immature Gran % 0.4 Neutrophils % 72.6 Lymphocytes % 14.2 Monocytes % 9.6 Eosinophils % 2.8 Basophils % 0.4 Nucleated RBC % (0.0-0.3) % 0.0 Absolute Neutrophils (1.2-6.7) 10^3/uL 8.15 H Absolute Lymphocytes (1.2-3.4) 10^3/uL 1.59 Absolute Monocytes (0.1-0.8) 10^3/uL 1.08 H Absolute Eosinophils (0.0-0.7) 10^3/uL 0.31 Absolute Basophils (0.0-0.2) 10^3/uL 0.04
[2022-07-25 09:47] LABS: ALT 19 U/L (16-63); AST 15 U/L (15-37); Albumin 3.5 g/dL (3.4-5.0); Alkaline Phosphatase 94 U/L (46-116); Anion Gap 6.6 mmol/L (3-11); BUN 18 mg/dL (7-18); Bilirubin, Total 0.7 mg/dL (0.2-1.0); CO2 28.4 mmol/L (21.0-32.0); Calcium 10.1 mg/dL (8.5-10.1); Chloride 103 mmol/L (98-107); Estimated GFR 81.98 (mL/min/1.73m2); Glucose 188 mg/dL (74-106); Magnesium 1.7 mg/dL (1.8-2.4); Potassium 3.5 mmol/L (3.5-5.1); Sodium 138 mmol/L (136-145); Total Protein 7.9 g/dL (6.4-8.2); Troponin I < 50 ng/L (<or=60)
[2022-07-25] MEDS: Albuterol/Ipratropium 3 ML UPD VIAL UPD (09:54)
--- NOTE | 2022-07-25 09:55 | DI.VRAD_ITS ---
PROCEDURE INFORMATION: Exam: XR Chest Exam date and time: 07/25/2022 9:18 AM Age: 67 years old Clinical indication: Other: SOB TECHNIQUE: Imaging protocol: Radiologic exam of the chest. Views: 1 view. COMPARISON: CT CHEST LUNG CANCER SCREEN 03/02/2022 2:51 PM FINDINGS: Lungs: COPD, interstitial disease, chronic granulomatous disease, and mild airspace disease. Pleural spaces: No significant pleural effusion. Heart/Mediastinum: No cardiomegaly. Bones/joints: Scoliosis and degenerative change. Right shoulder arthroplasty with resection of the distal right clavicle. IMPRESSION: COPD, interstitial disease, chronic granulomatous disease, and mild airspace disease. Dictated and Authenticated by: Martínez Garrett MD. Ordering:DEANGELO Viramontes MD
[2022-07-25 09:59] LABS: COVID-19 PCR Negative (Negative); Influenza A PCR Negative (Negative); Influenza B PCR Negative (Negative); RSV PCR Negative (Negative)
[2022-07-25 10:00] LABS: Source Nasopharynx
[2022-07-25] MEDS: Amoxicillin 875/Clav. 125 TAB PO (10:58)
[2022-07-25] MEDS: Magnesium Oxide 400 MG TAB 800 MG PO (10:58)
== END 2022-07-25 13:27 | disposition home or self-care (01) ==
PROVIDERS: Emergency Provider Student in an Organized Health Care Education/Training Program; PCP Nurse Practitioner Family
DX: J44.0 Chronic obstructive pulmonary disease with (acute) lower respiratory infection (principal); J18.9 Pneumonia, unspecified organism; J45.901 Unspecified asthma with (acute) exacerbation; D72.829 Elevated white blood cell count, unspecified; E83.42 Hypomagnesemia; Z79.82 Long term (current) use of aspirin; Z79.52 Long term (current) use of systemic steroids; Z20.822 Contact with and (suspected) exposure to COVID-19
CPT/HCPCS: 36415; 80053; 87637; 93005; 96374; 99284; 99285; 71045; 83735; 84484; 85025; 93010; J2930; J7620

== ENCOUNTER 2022-12-09 02:27 | Outpatient (CLI) | payer OTHER, SELFPAY ==
[2022-12-09 12:57] LABS: Anion Gap 7.8 mmol/L (3-11); BUN 18 mg/dL (7-18); CO2 28.2 mmol/L (21.0-32.0); CREATININE 1.1 mg/dL (0.70-1.30); Calcium 9.9 mg/dL (8.5-10.1); Chloride 104 mmol/L (98-107); Estimated GFR 73.12 (mL/min/1.73m2); Glucose 179 mg/dL (74-106); Potassium 3.8 mmol/L (3.5-5.1); Sodium 140 mmol/L (136-145)
[2022-12-09 13:18] LABS: Hemoglobin A1C 6.3 % (<5.7)
[2022-12-10 10:02] LABS: PSA, Diagnostic 0.4 ng/mL (<=4.5)
== END 2022-12-09 02:28 | disposition home or self-care (01) ==
LOC: LOS 02:27
PROVIDERS: PCP Nurse Practitioner Family; Visit Provider Emergency Medicine
DX: E11.9 Type 2 diabetes mellitus without complications (principal); I10 Essential (primary) hypertension; C61 Malignant neoplasm of prostate
CPT/HCPCS: 36415; 80048; 83036; 84153

== ENCOUNTER 2022-12-22 14:03 | Outpatient (CLI) | payer OTHER, SELFPAY ==
--- NOTE | 2022-12-22 13:30 | DI.RAD_ITS ---
Exam(s) XR SHOULDER RT COMPLETE 2+V EXAM: XR SHOULDER RT COMPLETE 2+V CLINICAL HISTORY: SHOULDER PAIN. TECHNIQUE: 2D digital imaging was performed. Three images were obtained. AP, axillary and Y views w ere obtained. COMPARISON: CR RIGHT HUMERUS from 09/15/2015 CR RIGHT SHOULDER COMPLETE from 09/26/2015 CR,XR XR PORTABLE CHEST AP from 07/25/2022 FINDINGS: BONES: There are stable post operative changes present. No fracture or dislocation. There is an old healed fracture deformity of the proximal humerus. JOINTS: The orthopedic hardware is in good position. No evidence of hardware loosening. There is no change in alignment of the acromioclavicular joint. SOFT TISSUE: Normal. IMPRESSION: 1. Stable postoperative changes. 2. No acute abnormality. DATA REPOSITORY: RADIATION DOSE DELIVERED:
== END 2022-12-22 14:04 | disposition home or self-care (01) ==
LOC: DIORS 14:04
PROVIDERS: PCP Nurse Practitioner Family; Referring Provider Nurse Practitioner Family; Visit Provider Student in an Organized Health Care Education/Training Program
DX: M25.511 Pain in right shoulder (principal); Z98.890 Other specified postprocedural states
CPT/HCPCS: 99214; 73030

== ENCOUNTER 2023-02-18 15:09 | Outpatient (REF) | payer OTHER, SELFPAY ==
--- NOTE | 2023-02-18 13:40 | SKI_PTH ---
PATIENT: Javon Joseph LOC: [facility] U#:[id number] AGE/SX: 67/M ROOM: RE02/18/[address]: Devan Kirk MD : [id number] BED: DIS: 02/18/2023 SPEC #: [id number] RECD: 02/18/23 18:08 STATUS: VAN REHelen #: [id number] ZAK: 02/18/23 13:[address]: Devan Kirk DEPT: Surgical Specimen RECD BY: Viktoria Lara ENTERED: 02/18/23 18:09 SP TYPE: LEW SMITH DR: Deandre Galvez, DORIAN Tissues: 1 - SKIN BIOPSY(SHAVE/PUNCH) Procedures: SKIN LEVEL 4 Comments: [id number]
== END 2023-02-18 15:10 | disposition home or self-care (01) ==
LOC: LBN 15:09
PROVIDERS: PCP Nurse Practitioner Family; Visit Provider Otolaryngology
DX: L98.9 Disorder of the skin and subcutaneous tissue, unspecified (principal)
CPT/HCPCS: 88305

== ENCOUNTER 2023-03-20 04:42 | Emergency (ER) | payer OTHER, SELFPAY ==
[2023-03-20] VITALS (35 sets, daily range): BP systolic 106–132; BP diastolic 51–92; PULSE 70–163; RESP 18; TEMP 36.5–37; O2SAT 91–98
--- NOTE | 2023-03-20 04:30 | RT.EKG_ITS ---
APPROVED REPORT Exam: Resting ECG Reason for Exam: shortness of breath Patient Location: E HR:161 bpm ECG Measurements Heart Rate 161 AXIS CA 117 P 128 QRSd 151 QRS 202 QT 336 T 4 QTc 551 Conclusion Extreme tachycardia with wide complex, no further rhythm analysis attempted narrow complex tachycardia
[2023-03-20 05:00] LABS: Source Nasal/Nares
[2023-03-20 05:01] LABS: BE (Venous) 2 mmol/L (-2-3); HCO3 (Venous) 26 mmol/L (23-28); O2 Sat (Venous) 85 %; TCO2 (Venous) 22 mmol/L (24-29); pCO2 (Venous) 39 mmHg (41-51); pH (Venous) 7.43 (7.31-7.41); pO2 (Venous) 46 mmHg
[2023-03-20 05:04] LABS: Abs Immature Grans 0.04 10^3/uL (0.0-0.06); Absolute Basophil Count 0.07 10^3/uL (0.0-0.2); Absolute Eosinophil Count 0.63 10^3/uL (0.0-0.7); Absolute Monocyte Count 1.13 10^3/uL (0.1-0.8); Absolute Neutrophil Count 6.62 10^3/uL (1.2-6.7); Basophils % 0.7; Eosinophils % 5.9; HCT 50.2 % (40.0-50.0); HGB 17.3 g/dL (13.5-17.5); Immature Grans % 0.4; Lymphocytes % 19.8; MCH 31.3 pg (27.0-33.0); MCHC 34.5 % (32.0-36.0); MCV 91 fL (80-95); MPV 8.4 fL (8.0-11.0); Monocytes % 10.7; Neutrophils % 62.5; Platelet Count 241 10^3/uL (130-400); RBC 5.53 10^6/uL (4.36-5.78); RDW 13.1 % (11.8-14.1); RDW-SD 43.3 fL; WBC 10.59 10^3/uL (4.4-10.8)
[2023-03-20] MEDS: Adenosine 6 MG/2 ML VIAL ×2 (05:06→05:12)
--- NOTE | 2023-03-20 05:13 | ED.GENADUL_ITS ---
Discharge Plan Disposition Patient Disposition: Home Condition: Stable Discharge Details Clinical Impression: SVT (supraventricular tachycardia) Primary Care Provider: Deandre Galvez ED Provider: Ruben Vegas Home Meds and New Rx's Prescriptions: Continued prednisone 20 mg tablet 40 mg PO DAILY Rx Instructions: start 07/26/22 azithromycin 250 mg tablet 250 mg PO DAILY Qty: 90 4RF metformin 500 mg tablet 500 mg PO BID Qty: 180 3RF celecoxib 200 mg capsule 200 mg PO DAILY PRN (Reason: pain) Qty: 30 5RF omeprazole 20 mg capsule,delayed release(DR/EC) 20 mg PO DAILY Qty: 90 3RF bupropion HCl (smoking deter) 150 mg tablet extended release 12 hr 150 mg PO BID Qty: 180 3RF lisinopril 5 mg tablet 5 mg PO DAILY Qty: 90 4RF ipratropium-albuterol 0.5 mg-3 mg(2.5 mg base)/3 mL solution for nebulization 3 ml INHALATION BID PRN (Reason: copd) Qty: 180 3RF metoprolol succinate 100 mg tablet extended release 24 hr 100 mg PO DAILY Qty: 90 3RF lamotrigine 100 mg tablet 200 mg PO DAILY Qty: 180 3RF pravastatin 40 mg tablet 40 mg PO DAILY Qty: 90 4RF venlafaxine 100 mg tablet 100 mg PO BID Qty: 180 3RF Patient Comments: 01/24/18 pt takes 200mg in AM.jw zolpidem 5 mg tablet 5 mg PO QHS PRN (Reason: sleep) Qty: 30 5RF hydrochlorothiazide 25 mg tablet 25 mg PO DAILY Qty: 90 3RF pramipexole 0.5 mg tablet 0.5 mg PO HS Qty: 90 3RF Incruse Ellipta 62.5 mcg/actuation blister with device 1 inh inhalation DAILY Qty: 30 3RF fluticasone propion-salmeterol [Advair HFA] 230-21 mcg/actuation HFA aerosol inhaler 2 puff Inhalation BID Qty: 12 3RF albuterol sulfate [Ventolin HFA] 90 mcg/actuation HFA aerosol inhaler 2 puff Inhalation Q4H PRN (Reason: shortness of breath or wheezing) Qty: 18 3RF aspirin 81 MG tablet,chewable 81 mg PO DAILY acetaminophen [Pain and Fever] 500 MG tablet 500 - 1,000 mg PO PRN PRN calcium polycarbophil [Fiber Laxative (ca polycarbo)] 625 MG tablet 1,250 mg PO DAILY ascorbic acid (vitamin C) 1,000 MG tablet,chewable 1,000 mg PO DAILY calcium carbonate [Calcium 500] 500 MG tablet 500 mg PO DAILY Discharge Instructions Instructions: Supraventricular Tachycardia (ED) Additional Instructions: You were given medication to slow your heart rate down to a normal rhythm your lab work did not show any significant abnormalities follow up with your primary care provider within 1-2 weeks if you feel more ill, have chest pain/pressure or worsening trouble breathing return to the emergency department Medical Decision Making <Harris Abraham MD - Last Filed: 03/20/23 07:31> 67 yo male with hx of jimbo, dm, bronchiectasis, copd, who comes in with ems after he woke up with shortness of breath. HE states he went to bed around 1am feeling well then woke up 1-2 hours ago feeling short of breath. Denies fevers, chills, chest pain. He arrives tachycardic in the 160's otherwise stable vitals, caox4 speaking clearly in no respiratory distress. HE has clear lung sounds, no jvd, no murmurs. He is in a narrow complex tachycardia with rates of the 160's, suspect svt and will trial adenosine and obtain ekg, troponin, cbc, cmp, and monitor. 6mg adenosine did not make any effect, he converted to sinus rhythm after 12mg adenosine for approximately 20 seconds but then returned to his tachycardic narrow complex rhythm at 160. Will trial dilt, pt remains stable throughout this pt converted to sinus after 20mg diltiazem and remains stable, labs pending labs with no significant abnormalities, pt asymptomatic in sinus rhythm rate of 80. Will obtain delta troponin, if he remains asymptomatic with stable vitals plan for d/c with outpatient f/u. Pt will be signed out to oncoming provider Differential Diagnosis Differential Diagnosis: svt, aflutter, electrolyte abnormality Imaging Data Radiologic Study: Attestation: I personally reviewed and interpreted this imaging study as follows: Imaging: X-Ray My impression: Radiologist's impression: no acute findings ECG Data Attestation: I personally reviewed and interpreted this ECG (s) as follows: Prior ECG tracings: available for review Interpretation: narrow complex tachycardia suspicious for svt, rate of 160, no stemi, pr 117 2nd ekg sinus rate of 72 pr 173 no acute ischemic findings <Ruben Vegas MD - Last Filed: 03/20/23 09:13> 67 yo male with hx of jimbo, dm, bronchiectasis, copd, who comes in with ems after he woke up with shortness of breath. HE states he went to bed around 1am feeling well then woke up 1-2 hours ago feeling short of breath. Denies fevers, chills, chest pain. He arrives tachycardic in the 160's otherwise stable vitals, caox4 speaking clearly in no respiratory distress. HE has clear lung sounds, no jvd, no murmurs. He is in a narrow complex tachycardia with rates of the 160's, suspect svt and will trial adenosine and obtain ekg, troponin, cbc, cmp, and monitor. 6mg adenosine did not make any effect, he converted to sinus rhythm after 12mg adenosine for approximately 20 seconds but then returned to his tachycardic narrow complex rhythm at 160. Will trial dilt, pt remains stable throughout this pt converted to sinus after 20mg diltiazem and remains stable, labs pending labs with no significant abnormalities, pt asymptomatic in sinus rhythm rate of 80. Will obtain delta troponin, if he remains asymptomatic with stable vitals plan for d/c with outpatient f/u. Pt will be signed out to oncoming provider 03/20 9: 11 patient rest comfortably asymptomatic 2 troponin negative. Sinus rhythm HPI <Harris Abraham MD - Last Filed: 03/20/23 07:31> General Mode of arrival: EMS . Date/Time Provider Initiated Documentation: 03/20/23 04:42 . Limitations to Documentation: no limitations . Information obtained by: patient . History of Present Illness 67 year old M presents to the emergency department with the chief complaint of shortness of breath, described as moderate, Patient started experiencing this hour(s) (2) and it has been constant. No relieving factors improve symptom(s), No exacerbating factors reported . Patient notes denies chest pain, fever/chills and syncope. Patient did receive the following treatments prior to arrival, none Related Data Home Medications Medication Instructions Recorded Confirmed acetaminophen 500 mg tablet (Pain 500 - 1,000 mg PO PRN PRN 09/30/12 02/18/23 and Fever) ascorbic acid (vitamin C) 1,000 mg 1,000 mg PO DAILY 09/30/12 02/18/23 chewable tablet aspirin 81 mg chewable tablet 81 mg PO DAILY 09/30/12 02/18/23 calcium polycarbophil 625 mg 1,250 mg PO DAILY 09/30/12 02/18/23 tablet (Fiber Laxative (calcium polycarbophil)) calcium carbonate 500 mg calcium 500 mg PO DAILY 01/24/18 02/18/23 (1,250 mg) tablet (Calcium 500) metformin 500 mg tablet 500 mg PO BID #180 tabs 04/01/22 02/18/23 prednisone 20 mg tablet 40 mg PO DAILY 07/31/22 02/18/23 celecoxib 200 mg capsule 200 mg PO DAILY PRN pain #30 caps 10/05/22 02/18/23 bupropion HCl (smoking deter) 150 150 mg PO BID #180 tab-caps 10/14/22 02/18/23 mg tablet,12 hr sustained-release(smoking deterrent) omeprazole 20 mg capsule,delayed 20 mg PO DAILY #90 tab-caps 10/14/22 02/18/23 release azithromycin 250 mg tablet 250 mg PO DAILY COPD #90 tabs 11/03/22 02/18/23 lisinopril 5 mg tablet 5 mg PO DAILY #90 tab-caps 11/04/22 02/18/23 ipratropium 0.5 mg-albuterol 3 mg 3 ml inhalation BID PRN copd #180 11/11/22 02/18/23 (2.5 mg base)/3 mL nebulization mL soln metoprolol succinate 100 mg 100 mg PO DAILY #90 tab-caps 12/02/22 02/18/23 tablet,extended release 24 hr lamotrigine 100 mg tablet 200 mg PO DAILY #180 tab-caps 12/10/22 02/18/23 pravastatin 40 mg tablet 40 mg PO DAILY #90 tab-caps 12/17/22 02/18/23 venlafaxine 100 mg tablet 100 mg PO BID #180 tab-caps 12/17/22 02/18/23 zolpidem 5 mg tablet 5 mg PO QHS PRN sleep #30 tabs 12/17/22 02/18/23 hydrochlorothiazide 25 mg tablet 25 mg PO DAILY #90 tabs 01/04/23 02/18/23 pramipexole 0.5 mg tablet 0.5 mg PO HS #90 tab-caps 01/14/23 02/18/23 umeclidinium 62.5 mcg/actuation 1 inh inhalation DAILY #30 ea 02/01/23 02/18/23 blister powder for inhalation (Incruse Ellipta) fluticasone propionate 230 2 puff inhalation BID #12 grams 02/03/23 02/18/23 mcg-salmeterol 21 mcg/actuation HFA inhaler (Advair HFA) albuterol sulfate 90 mcg/actuation 2 puff inhalation Q4H PRN 02/22/23 aerosol inhaler (Ventolin HFA) shortness of breath or wheezing #18 grams Previous Rx's Medication Instructions Recorded metformin 500 mg tablet 500 mg PO BID #180 tabs 04/01/22 celecoxib 200 mg capsule 200 mg PO DAILY PRN pain #30 caps 10/05/22 bupropion HCl (smoking deter) 150 150 mg PO BID #180 tab-caps 10/14/22 mg tablet,12 hr sustained-release(smoking deterrent) omeprazole 20 mg capsule,delayed 20 mg PO DAILY #90 tab-caps 10/14/22 release azithromycin 250 mg tablet 250 mg PO DAILY COPD #90 tabs 11/03/22 lisinopril 5 mg tablet 5 mg PO DAILY #90 tab-caps 11/04/22 ipratropium 0.5 mg-albuterol 3 mg 3 ml inhalation BID PRN copd #180 11/11/22 (2.5 mg base)/3 mL nebulization mL soln metoprolol succinate 100 mg 100 mg PO DAILY #90 tab-caps 12/02/22 tablet,extended release 24 hr lamotrigine 100 mg tablet 200 mg PO DAILY #180 tab-caps 12/10/22 pravastatin 40 mg tablet 40 mg PO DAILY #90 tab-caps 12/17/22 venlafaxine 100 mg tablet 100 mg PO BID #180 tab-caps 12/17/22 zolpidem 5 mg tablet 5 mg PO QHS PRN sleep #30 tabs 12/17/22 hydrochlorothiazide 25 mg tablet 25 mg PO DAILY #90 tabs 01/04/23 pramipexole 0.5 mg tablet 0.5 mg PO HS #90 tab-caps 01/14/23 umeclidinium 62.5 mcg/actuation 1 inh inhalation DAILY #30 ea 02/01/23 blister powder for inhalation (Incruse Ellipta) fluticasone propionate 230 2 puff inhalation BID #12 grams 02/03/23 mcg-salmeterol 21 mcg/actuation HFA inhaler (Advair HFA) albuterol sulfate 90 mcg/actuation 2 puff inhalation Q4H PRN 02/22/23 aerosol inhaler (Ventolin HFA) shortness of breath or wheezing #18 grams Allergies Allergy/AdvReac Type Severity Reaction Status Date / Time house dust [House Dust] Allergy Unknown Verified 02/18/23 14:24 hydrocodone bitartrate AdvReac Intermediate hallucinati Verified 02/18/23 14:24 [From Vicodin] ons zolpidem AdvReac Intermediate Agitation Verified 02/18/23 14:24 morphine AdvReac Unknown NAUSEA, Verified 02/18/23 14:24 VOMITING fentanyl AdvReac Verified 02/18/23 14:24 General Stated Complaint: SOB BETH: 3 Review of Systems <Harris Abraham MD - Last Filed: 03/20/23 07:31> All systems reviewed & are unremarkable except as noted in HPI and below Constitutional Constitutional: Denies chills, Denies fever(s) and Denies weakness Cardiovascular Cardiovascular: Denies chest pain Respiratory Respiratory: Denies cough Gastrointestinal Gastrointestinal: Denies abdominal pain, Denies nausea and Denies vomiting Genitourinary Genitourinary: Denies dysuria Integumentary/Breasts Skin/Breast: Denies rash Neurologic Neurologic: Denies weakness [facility] <Harris Abraham MD - Last Filed: 03/20/23 07:31> All Active Problems (Updated 03/20/23 @ 06:13 by Harris Abraham MD) SVT (supraventricular tachycardia) (Chronic) Scalp lesion (Acute) History of right shoulder replacement (Acute) Hemiarthroplasty; 1992, [facility] Skin lesion (Acute) Nail dystrophy (Acute) COVID-19 (Acute) JIMBO (obstructive sleep apnea) (Chronic) Abnormal CT lung screening (Acute) Diabetes mellitus (Chronic) Bronchiectasis (Acute) Otitis media (Acute) Follow up (Acute) Trochanteric bursitis, right hip (Acute) Strain of flexor muscle of right hip (Acute) Hospital as place of occurrence of accidental injury (Acute) Arthritis of ankle, left (Acute) Arthritis of subtalar joint (Chronic) Arthritis of left foot (Chronic) Benign prostatic hypertrophy with outflow obstruction (Chronic 11/29/12) Urgency/frequency. TURP by Dr. Javon Oswald 11/29/2012 Benign hypertension (Chronic) Hypercholesterolemia (Chronic) Chronic obstructive lung disease (Chronic) a. 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 Javon Oswald 11/29/2012 Osteoarthritis of right knee (Chronic 08/08/14) Artificial knee joint present (Chronic 08/08/14) H/O surgical procedure (Chronic) a. left total knee arthroplasty b. TURP c. Inferior turbinate plasty and uvulectomy, along with septoplasty d. left bunionectomy e. right inguinal hernia repair f. right rotator cuff repair g. right total shoulder arthroplasty h. cardiac catheterization Obesity (Chronic) Restless legs syndrome (Chronic) Hypertension (Chronic) Insomnia (Chronic) History of colonic polyps (Chronic) Acute cholecystitis (Acute) Elevated d-dimer (Acute) Choledocholithiasis with acute cholecystitis with obstruction (Acute) Cataracts, bilateral (Chronic 10/23/15) DJD (degenerative joint disease) of knee (Chronic) DR. SHERIFF; RIGHT Depressive disorder (Chronic) [facility]--meds Essential hypertension (Chronic 07/17/13) Hyperlipidemia (Chronic 01/16/13) Increased BMI (Acute) Insomnia, unspecified (Acute 11/07/15) Lung nodule (Chronic 11/07/15) 10/04/15; [facility]; 6mm RLL; 6 MONTH FU from 08/201504/10/16 stable yearly screening Malignant tumor of prostate (Chronic 12/07/12) found incidentally on TURP Obstructive sleep apnea syndrome (Chronic) S/P uvulectomy; C-Pap Polyp of colon (Acute) hyperplastic Restless legs syndrome (Acute) Serum total bilirubin elevated (Acute 05/07/15) elevated conjugated bili Medical History Asthma Bunion of great toe of right foot COPD (chronic obstructive pulmonary disease) Emphysema of lung Surgical History Arthroplasty of knee 10/28/18 BILAT CARDIAC CATH R/L Cholecystectomy Extraction of cataract 10/31/15; DR. MEDEIROS; LEFT EYE 11/14/15; DR. MEDEIROS; RIGHT EYE H/O ankle fusion hernia repair, ventral (01/12/17) Repair of inguinal hernia B/L Replacement of total knee joint (~11/2011) Dr. Zhang RIGHT SHOULDER SURGERY SLEEP APNEA SURGERY TOTAL SHOULDER REPLACEMENT (RIGHT) (~1992) Transurethral prostatectomy (11/29/12) DR. OSWALD UVULECTOMY (10/03/12) DR. SANTO Family History Mother Diabetes Essential hypertension Depression Hyperlipidemia Father COPD (chronic obstructive pulmonary disease) Heart disease Hyperlipidemia Asthma Brother Essential hypertension Hyperlipidemia Grandfather Diabetes Heart disease Neoplasm KIDNEYS Stroke Grandfather Heart disease Neoplasm STOMACH Asthma Grandmother Diabetes Heart disease Stroke Grandmother Diabetes Heart disease Stroke Daughter Depression Asthma Daughter Depression Asthma Social History Smoking/Tobacco Use Status: Former Tobacco Use Quit Date: 08/02/06 Quit status: quit date established Second Hand Exposure: Yes Smoking risk assessment performed?: Yes Alcohol Intake: former Drug use: Never Substance use type: does not use Caregiver/Support person: No Household members: spouse and children Housing: house Communication Needs: Hard of Hearing Do you need help understanding health information?: Rarely Pets and animals: Yes Pets and animals: cat(s) Sexually active: No Do you think of yourself as: straight/heterosexual Current gender identity: male What is your relationship status?: How often do you talk on the phone with friends or family?: never How often do you get together with friends or relatives?: never How often do you attend christian or baptist services?: decline to answer Do you belong to any clubs or organized social groups?: no Panel score (0-1 are the most socially isolated patients): 1 What type of physical activity do you participate in: none Azucena/Congregational: [employer] Special azucena needs: No Seatbelt use: sometimes Helmet use: No 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 Do you feel safe at home: Yes Do you feel safe in your relationship?: Yes Exam <Harris Abraham MD - Last Filed: 03/20/23 07:31> Const General: no acute distress Orientation: alert [facility] Head: normal to inspection Ears: external ears normal General nose exam: external nose normal Mouth: moist mucous membranes Eyes General: appearance normal, both eyes and all related structures Neck Neck: normal visual inspection Resp Effort & Inspection: normal respiratory effort and able to speak in complete sentences Auscultation: clear to auscultation bilaterally Cardio Jugular venous pressure: no JVD Rate: tachycardic Heart Sounds: no murmurs Skin General skin exam: no rashes or lesions noted Neuro General: patient alert and patient oriented x3 Extrem General: normal to inspection Psych Mental Status: mental status grossly normal Course <Harris Abraham MD - Last Filed: 03/20/23 07:31> Vital Signs Vital signs: Vital Signs Temperature 36.5 C 03/20/23 04:42 Pulse 162 H 03/20/23 04:42 Respiratory Rate 18 03/20/23 04:42 Blood Pressure 120/85 03/20/23 04:42 Pulse Oximetry 93 03/20/23 04:42 Temperature 36.5 C 03/20/23 04:42 Temperature Source Temporal Artery Scan 03/20/23 04:42 Pulse 162 H 03/20/23 04:42 Respiratory Rate 18 03/20/23 04:42 Respiratory Effort Normal 03/20/23 04:50 Respiratory Depth Normal 03/20/23 04:50 Respiratory Pattern Normal 03/20/23 04:50 Blood Pressure 120/85 03/20/23 04:42 Pulse Oximetry 93 03/20/23 04:42 Oxygen Delivery Method Room Air 03/20/23 04:42 Oxygen Flow Rate 0 03/20/23 04:42 Lab/Test Results Lab/Test Results: Laboratory Tests Range/Units 03/20/23 03/20/23 03/20/23 04:55 04:55 04:55 WBC (4.4-10.8) 10^3/uL 10.59 RBC (4.36-5.78) 10^6/uL 5.53 Hgb (13.5-17.5) g/dL 17.3 Hct (40.0-50.0) % 50.2 H MCV (80-95) fL 91 MCH (27.0-33.0) pg 31.3 MCHC (32.0-36.0) % 34.5 RDW (11.8-14.1) % 13.1 Plt Count (130-400) 10^3/uL 241 MPV (8.0-11.0) fL 8.4 Immature Gran % 0.4 Neutrophils % 62.5 Lymphocytes % 19.8 Monocytes % 10.7 Eosinophils % 5.9 Basophils % 0.7 Nucleated RBC % (0.0-0.3) % 0.0 Absolute Neutrophils (1.2-6.7) 10^3/uL 6.62 Absolute Lymphocytes (1.2-3.4) 10^3/uL 2.10 Absolute Monocytes (0.1-0.8) 10^3/uL 1.13 H Absolute Eosinophils (0.0-0.7) 10^3/uL 0.63 Absolute Basophils (0.0-0.2) 10^3/uL 0.07 VBG pH (7.31-7.41) 7.43 H VBG pCO2 (41-51) mmHg 39 L VBG pO2 mmHg 46 VBG HCO3 (23-28) mmol/L 26 VBG Total CO2 (24-29) mmol/L 22 L VBG O2 Saturation % 85 VBG Base Excess (-2-3) mmol/L 2 COVID-19 Source Nasal/Nares Critical Care Time <Harris Abraham MD - Last Filed: 03/20/23 07:31> Critical Care Time Critical Care Time: Yes Total Critical Care Time: 60 (minutes) Attestation: time spent on lab review, frequent reassessments and hemodynamic monitoring in a patient with a narrow complex tachycardic rhythm requiring iv tyrell blockade and potential to deteriorate at any time Sign Out <Harris Abraham MD - Last Filed: 03/20/23 07:31> Sign Out Data: Sign Out Comment: arrived with acute onset shortness of breath after waking up from sleep, was in svt with rates in the 160's on arrival, given adenosine 6mg then 12mg and converted to sinus for 20 seconds then returned to svt. Was given 20mg dilt and since then has been in sinus rhythm and asymptomatic, stable vitals. If delta troponin negative and remains in sinus plan for d/c and pcp f/u Last updated by Harris Abraham MD at 03/20/23 07:23
[2023-03-20] MEDS: dilTIAZem 25 MG/5 ML VIAL 20 MG IVP (05:15)
--- NOTE | 2023-03-20 05:15 | RT.EKG_ITS ---
APPROVED REPORT Exam: Resting ECG Reason for Exam: SOB Patient Location: E HR:72 bpm ECG Measurements Heart Rate 72 AXIS MA 173 P 45 QRSd 159 QRS -48 QT 405 T 6 QTc 437 Conclusion Sinus rhythm...normal P axis, V-rate 60- 99 Atrial premature complexes...SV complexes w/ short R-R intvls RBBB and LAFB...QRSd >120mS, axis(-40,240)
--- NOTE | 2023-03-20 05:15 | DI.RAD_ITS ---
Exam(s) XR PORTABLE CHEST AP EXAM: XR PORTABLE CHEST AP CLINICAL HISTORY: shortness of breath. TECHNIQUE: 2D digital imaging was performed. COMPARISON: CR,XR XR PORTABLE CHEST AP from 07/25/2022 FINDINGS: Single AP portable view. Heart size is upper normal. The mediastinum is not widened. There is infiltrate in the right lower lobe and right parahilar region. There is platelike atelectas is in the left lung base. No pulmonary edema. No pleural effusions. Chronic fracture deformity lateral aspect of the right clavicle is again noted. Right shoulder prosthesis again noted. IMPRESSION: Right lower lobe and parahilar infiltrates. Platelike atelectasis in the left lower lobe. First read by [facility]. Final report called by myself to ER physician 03/20/2023 DATA REPOSITORY: RADIATION DOSE DELIVERED:
[2023-03-20 05:28] LABS: ALT 25 U/L (16-63); AST 17 U/L (15-37); Albumin 3.5 g/dL (3.4-5.0); Alkaline Phosphatase 94 U/L (46-116); Anion Gap 10.4 mmol/L (3-11); BUN 15 mg/dL (7-18); CO2 26.6 mmol/L (21.0-32.0); Calcium 10.6 mg/dL (8.5-10.1); Chloride 107 mmol/L (98-107); Estimated GFR 81.98 (mL/min/1.73m2); Glucose 179 mg/dL (74-106); Magnesium 1.9 mg/dL (1.8-2.4); NT-proBNP 128 pg/mL (<300); Potassium 3.6 mmol/L (3.5-5.1); Sodium 144 mmol/L (136-145); TSH (W/Ref FT4) 2.39 uIU/mL (0.36-3.74); Total Protein 7.5 g/dL (6.4-8.2); Troponin I < 50 ng/L (<or=60)
[2023-03-20] MEDS: Normal Saline 1,000 ML 1000 ML IV (05:32)
[2023-03-20 05:33] LABS: COVID-19 PCR Negative (Negative)
--- NOTE | 2023-03-20 05:43 | DI.VRAD_ITS ---
PROCEDURE INFORMATION: Exam: XR Chest Exam date and time: 03/20/2023 5:35 AM Age: 67 years old Clinical indication: Shortness of breath; Prior surgery; Surgery date: 6+ months; Surgery type: R shoulder; Patient HX: SOB TECHNIQUE: Imaging protocol: Radiologic exam of the chest. Views: 1 view. COMPARISON: CR XR PORTABLE CHEST AP 07/25/2022 9:18 AM FINDINGS: Lungs: There is platelike atelectasis at the left lung base. No pulmonary consolidation is seen. Pleural spaces: No pleural effusion or pneumothorax is demonstrated. Heart/Mediastinum: The heart appears normal in size. Bones/joints: There is a right shoulder arthroplasty prosthesis in-situ. 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 There is S-shaped scoliotic spinal curvature. IMPRESSION: No active disease is seen in the chest. Dictated and Authenticated by: Pedrito Rojas MD. Ordering:FERNANDO Iglesias MD
[2023-03-20 08:43] LABS: Troponin I < 50 ng/L (<or=60)
== END 2023-03-20 09:49 | disposition home or self-care (01) ==
PROVIDERS: Emergency Medicine; Emergency Provider Emergency Medicine; PCP Nurse Practitioner Family
DX: R06.02 Shortness of breath (principal); I47.1 Supraventricular tachycardia; E11.9 Type 2 diabetes mellitus without complications; J44.9 Chronic obstructive pulmonary disease, unspecified; Z79.82 Long term (current) use of aspirin; Z79.84 Long term (current) use of oral hypoglycemic drugs
CPT/HCPCS: 36415; 80053; 82805; 87635; 93005; 99284; 71045; 83735; 83880; 84443; 84484; 85025; 93010; J0153

== ENCOUNTER 2023-04-08 11:38 | Outpatient (CLI) | payer OTHER, SELFPAY | END 2023-04-08 11:39 | disposition home or self-care (01) | PROVIDERS: PCP Nurse Practitioner Family; Visit Provider Nurse Practitioner Family | DX: I47.1 Supraventricular tachycardia (principal) | CPT/HCPCS: 93246 ==

== ENCOUNTER 2023-04-23 11:03 | Emergency (ER) | payer OTHER, SELFPAY ==
[2023-04-23 11:05] VITALS: BP 134/95; PULSE 63; RESP 18; O2SAT 96
[2023-04-23] MEDS: Acetaminophen 500 MG TAB 1000 MG PO (11:48)
--- NOTE | 2023-04-23 11:56 | ED.GENADUL_ITS ---
Discharge Plan Discharge Details Chief Complaint: Fall/Non TraumaCriteria Clinical Impression: Abrasion of forearm, left, Hx of falling, Homelessness Primary Care Provider: Deandre Galvez ED Provider: Ad [facility] Meds and New Rx's Prescriptions: Continued diltiazem HCl 120 mg capsule,extended release 24hr 120 mg PO DAILY Qty: 90 3RF metformin 500 mg tablet 500 mg PO BID Qty: 180 3RF omeprazole 20 mg capsule,delayed release(DR/EC) 20 mg PO DAILY Qty: 90 3RF bupropion HCl (smoking deter) 150 mg tablet extended release 12 hr 150 mg PO BID Qty: 180 3RF lisinopril 5 mg tablet 5 mg PO DAILY Qty: 90 4RF ipratropium-albuterol 0.5 mg-3 mg(2.5 mg base)/3 mL solution for nebulization 3 ml INHALATION BID PRN (Reason: copd) Qty: 180 3RF metoprolol succinate 100 mg tablet extended release 24 hr 100 mg PO DAILY Qty: 90 3RF lamotrigine 100 mg tablet 200 mg PO DAILY Qty: 180 3RF pravastatin 40 mg tablet 40 mg PO DAILY Qty: 90 4RF venlafaxine 100 mg tablet 100 mg PO BID Qty: 180 3RF Patient Comments: 01/24/18 pt takes 200mg in AM.jw zolpidem 5 mg tablet 5 mg PO QHS PRN (Reason: sleep) Qty: 30 5RF hydrochlorothiazide 25 mg tablet 25 mg PO DAILY Qty: 90 3RF pramipexole 0.5 mg tablet 0.5 mg PO HS Qty: 90 3RF Incruse Ellipta 62.5 mcg/actuation blister with device 1 inh inhalation DAILY Qty: 30 3RF fluticasone propion-salmeterol [Advair HFA] 230-21 mcg/actuation HFA aerosol inhaler 2 puff Inhalation BID Qty: 12 3RF albuterol sulfate [Ventolin HFA] 90 mcg/actuation HFA aerosol inhaler 2 puff Inhalation Q4H PRN (Reason: shortness of breath or wheezing) Qty: 18 3RF celecoxib 200 mg capsule 200 mg PO DAILY PRN (Reason: pain) Qty: 30 5RF aspirin 81 MG tablet,chewable 81 mg PO DAILY acetaminophen [Pain and Fever] 500 MG tablet 500 - 1,000 mg PO PRN PRN calcium polycarbophil [Fiber Laxative (ca polycarbo)] 625 MG tablet 1,250 mg PO DAILY ascorbic acid (vitamin C) 1,000 MG tablet,chewable 1,000 mg PO DAILY calcium carbonate [Calcium 500] 500 MG tablet 500 mg PO DAILY Discharge Instructions Instructions: Abrasion (ED) Additional Instructions: You were seen in the emergency department for your fall. Your CAT scan showed no sign of any bleeding in your head. Please return to the emergency department if you fall again develop any nausea vomiting or any chest pain. Discharge Data Discharge Date/Time-TO BE ENTERED AT DEPARTURE: 04/23/23 17:12 Medical Decision Making HPI This is a [id number] 67-year-old male with history of diabetes hyperlipidemia COPD and hypertension arriving to the emergency department following a fall. Patient reports that he was in a jain parking lot and his right leg felt weak. This caused him to fall backwards and strike his head. He takes aspirin every day. He did not lose consciousness. He denies any preceding syncope chest pain nausea vomiting and abdominal pain. He reports that he uses a walker at baseline. He also reports that he is living in a car. He reports that he injured his left arm last night with trying to lift his walker into his car. He woke in his usual state of health this morning. He took all of his home medications this morning. He reports having access to his meds. Exam General: Well-appearing in no acute distress speaking in complete sentences. Head: Normocephalic, atraumatic. Eye: [Pupils equal, round reactive to light.] Extraocular eye movements intact. No conjunctival injection. No scleral icterus. Ear, nose, mouth, throat: Grossly normal inspection. Normal voice, handling secretions normally. Neck: Trachea midline. Cardiovascular: Well-perfused distal extremities. Regular rate and rhythm. Respiratory: Nonlabored respiration. Clear lungs bilaterally. Gastrointestinal: Nondistended abdomen. Soft nontender. Musculoskeletal: No edema. Moving all 4 extremities spontaneously. No ten derness to bilateral upper or lower extremities. On the anterior side of the patient's forearms there are several superficial abrasions. No lacerations. Skin: Normal for age and race, grossly normal temperature and turgor. No acute rash. Neurologic: Alert and appropriate, no apparent acute deficits. GCS 15. Moving all 4 extremities spontaneously. Psychiatric: Mood and manner are appropriate. Grooming and personal hygiene are appropriate. MDM This is an undomiciled 67-year-old male on aspirin who felt some right leg weakness and fell striking his head. Given age will complete CT head to assess for any intracranial hemorrhage based on Tunisian CT head rule. Tun[place] Head CT Criteria Major Criteria GCS < 15 : [No] Open or depressed skull Fx: [No] Sign of Basilar Skull Fx: [No] > 2 Episodes Vomiting: [No] Anticoagulation: [No] Age > 65: Yes Minor Criteria Retrograde Amnesia >30min: [No] Dangerous Mechanism: [No] Per Tunisian head CT rules, CT head obtained. Per Nexus criteria, cervical CT not obtained. The patient had no c-spine midline tenderness, no evidence of intoxication, was AAOx3, had no focal neurological deficits, and no painful distracting injuries. Patient neurologically intact so I am not susicious for CVA so I do not feel patietn requires an MRI. Legs warm and well perfused so I am not concerning for aortic catastrophre. Furthermore patient lacks chest and abdominal pain. No calf pain to suggest DVT. No pain in legs to suggest critical limb ischemia so I do not feel that patient requires a CTA. Patient does have some left arm abrasions. Given no lacerations and injury with no active bleeding no indication for primary closure. Given superficial nature of abrasions I did not feel that the patient required a tetanus update. No pain out of proportion to suggest necrotizing soft tissue infection. No preceding syncope to suggest benefit from ECG and syncope evaluation. No appreciating shortness of breath and patient is not hypoxic nor tachycardic so doubt pulmonary embolism. Soft nontender abdomen so doubt intra-abdominal infection. Given that the patient is undomiciled we will have case management see the patient to whether or not he may require any ongoing outpatient resources. No tenderness to bilateral upper and lower extremities. No indication for plain films. Will complete ambulatory and p.o. trial. 12:45pm I spoke with Tracy from case management. She reports that that the patient has ongoing housing search in place. Please see separate note for details. Once CT head has been completed will discharge patient given reassuring head CT. The patient has an active case and an apartment to go to. Management. She reports that patient has ongoing support from case managment. Patient reports that he has access to his medications. 04/24 Late charting due to patient care. CT head reassuring. Patient discharged. Chronic conditions affecting the care of the patient: Diabetes History obtained from an outside historian: N/A External record review: [facility] [place] EMR Medications: Acetaminophen Social determinants of health affecting disposition: Undomiciled Management discussed with: Care management Treatment/interventions considered: Labs but deferred Response to therapies provided: N/A HPI General Date/Time Provider Initiated Documentation: 04/23/23 11:27 . Related Data Home Medications Medication Instructions Recorded Confirmed acetaminophen 500 mg tablet (Pain 500 - 1,000 mg PO PRN PRN 09/30/12 04/22/23 and Fever) ascorbic acid (vitamin C) 1,000 mg 1,000 mg PO DAILY 09/30/12 04/22/23 chewable tablet aspirin 81 mg chewable tablet 81 mg PO DAILY 09/30/12 04/22/23 calcium polycarbophil 625 mg 1,250 mg PO DAILY 09/30/12 04/22/23 tablet (Fiber Laxative (calcium polycarbophil)) calcium carbonate 500 mg calcium 500 mg PO DAILY 01/24/18 04/22/23 (1,250 mg) tablet (Calcium 500) metformin 500 mg tablet 500 mg PO BID #180 tabs 04/01/22 04/22/23 bupropion HCl (smoking deter) 150 150 mg PO BID #180 tab-caps 10/14/22 04/22/23 mg tablet,12 hr sustained-release(smoking deterrent) omeprazole 20 mg capsule,delayed 20 mg PO DAILY #90 tab-caps 10/14/22 04/22/23 release lisinopril 5 mg tablet 5 mg PO DAILY #90 tab-caps 11/04/22 04/22/23 ipratropium 0.5 mg-albuterol 3 mg 3 ml inhalation BID PRN copd #180 11/11/22 04/22/23 (2.5 mg base)/3 mL nebulization mL soln metoprolol succinate 100 mg 100 mg PO DAILY #90 tab-caps 12/02/22 04/22/23 tablet,extended release 24 hr lamotrigine 100 mg tablet 200 mg PO DAILY #180 tab-caps 12/10/22 04/22/23 pravastatin 40 mg tablet 40 mg PO DAILY #90 tab-caps 12/17/22 04/22/23 venlafaxine 100 mg tablet 100 mg PO BID #180 tab-caps 12/17/22 04/22/23 zolpidem 5 mg tablet 5 mg PO QHS PRN sleep #30 tabs 12/17/22 04/22/23 hydrochlorothiazide 25 mg tablet 25 mg PO DAILY #90 tabs 01/04/23 04/22/23 pramipexole 0.5 mg tablet 0.5 mg PO HS #90 tab-caps 01/14/23 04/22/23 umeclidinium 62.5 mcg/actuation 1 inh inhalation DAILY #30 ea 02/01/23 04/22/23 blister powder for inhalation (Incruse Ellipta) fluticasone propionate 230 2 puff inhalation BID #12 grams 02/03/23 04/22/23 mcg-salmeterol 21 mcg/actuation HFA inhaler (Advair HFA) albuterol sulfate 90 mcg/actuation 2 puff inhalation Q4H PRN 02/22/23 04/22/23 aerosol inhaler (Ventolin HFA) shortness of breath or wheezing #18 grams diltiazem HCl 120 mg 120 mg PO DAILY #90 caps 03/31/23 04/22/23 capsule,extended release 24 hr celecoxib 200 mg capsule 200 mg PO DAILY PRN pain #30 caps 04/23/23 Previous Rx's Medication Instructions Recorded metformin 500 mg tablet 500 mg PO BID #180 tabs 04/01/22 bupropion HCl (smoking deter) 150 150 mg PO BID #180 tab-caps 10/14/22 mg tablet,12 hr sustained-release(smoking deterrent) omeprazole 20 mg capsule,delayed 20 mg PO DAILY #90 tab-caps 10/14/22 release lisinopril 5 mg tablet 5 mg PO DAILY #90 tab-caps 11/04/22 ipratropium 0.5 mg-albuterol 3 mg 3 ml inhalation BID PRN copd #180 11/11/22 (2.5 mg base)/3 mL nebulization mL soln metoprolol succinate 100 mg 100 mg PO DAILY #90 tab-caps 12/02/22 tablet,extended release 24 hr lamotrigine 100 mg tablet 200 mg PO DAILY #180 tab-caps 12/10/22 pravastatin 40 mg tablet 40 mg PO DAILY #90 tab-caps 12/17/22 venlafaxine 100 mg tablet 100 mg PO BID #180 tab-caps 12/17/22 zolpidem 5 mg tablet 5 mg PO QHS PRN sleep #30 tabs 12/17/22 hydrochlorothiazide 25 mg tablet 25 mg PO DAILY #90 tabs 01/04/23 pramipexole 0.5 mg tablet 0.5 mg PO HS #90 tab-caps 01/14/23 umeclidinium 62.5 mcg/actuation 1 inh inhalation DAILY #30 ea 02/01/23 blister powder for inhalation (Incruse Ellipta) fluticasone propionate 230 2 puff inhalation BID #12 grams 02/03/23 mcg-salmeterol 21 mcg/actuation HFA inhaler (Advair HFA) albuterol sulfate 90 mcg/actuation 2 puff inhalation Q4H PRN 02/22/23 aerosol inhaler (Ventolin HFA) shortness of breath or wheezing #18 grams diltiazem HCl 120 mg 120 mg PO DAILY #90 caps 03/31/23 capsule,extended release 24 hr celecoxib 200 mg capsule 200 mg PO DAILY PRN pain #30 caps 04/23/23 Allergies Allergy/AdvReac Type Severity Reaction Status Date / Time house dust [House Dust] Allergy Unknown Verified 04/22/23 10:38 hydrocodone bitartrate AdvReac Intermediate hallucinati Verified 04/22/23 10:38 [From Vicodin] ons zolpidem AdvReac Intermediate Agitation Verified 04/22/23 10:38 morphine AdvReac Unknown NAUSEA, Verified 04/22/23 10:38 VOMITING fentanyl AdvReac Verified 04/22/23 10:38 General Stated Complaint: Fall/Non TraumaCriteria BETH: 3 PFSH All Active Problems (Updated 04/23/23 @ 11:58 by Ad James MD) Abrasion of forearm, left (Acute) Hx of falling (Acute) Homelessness (Acute) Scalp lesion (Chronic) History of right shoulder replacement (Chronic) Hemiarthroplasty; 1992, [facility] Skin lesion (Chronic) Nail dystrophy (Acute) COVID-19 (Acute) JIMBO (obstructive sleep apnea) (Chronic) Abnormal CT lung screening (Acute) Diabetes mellitus (Chronic) Bronchiectasis (Acute) Otitis media (Chronic) Follow up (Acute) Trochanteric bursitis, right hip (Acute) Strain of flexor muscle of right hip (Acute) Hospital as place of occurrence of accidental injury (Acute) Arthritis of ankle, left (Acute) Arthritis of subtalar joint (Chronic) Arthritis of left foot (Chronic) Benign prostatic hypertrophy with outflow obstruction (Chronic 11/29/12) Urgency/frequency. TURP by Dr. Javon Oswald 11/29/2012 Benign hypertension (Chronic) Hypercholesterolemia (Chronic) Chronic obstructive lung disease (Chronic) a. 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 Javon Oswald 11/29/2012 Osteoarthritis of right knee (Chronic 08/08/14) Artificial knee joint present (Chronic 08/08/14) H/O surgical procedure (Chronic) a. left total knee arthroplasty b. TURP c. Inferior turbinate plasty and uvulectomy, along with septoplasty d. left bunionectomy e. right inguinal hernia repair f. right rotator cuff repair g. right total shoulder arthroplasty h. cardiac catheterization Obesity (Chronic) Restless legs syndrome (Chronic) Hypertension (Chronic) Insomnia (Chronic) History of colonic polyps (Chronic) Acute cholecystitis (Acute) Elevated d-dimer (Acute) Choledocholithiasis with acute cholecystitis with obstruction (Acute) Cataracts, bilateral (Chronic 10/23/15) DJD (degenerative joint disease) of knee (Chronic) DR. SHERIFF; RIGHT Depressive disorder (Chronic) [facility]--meds Essential hypertension (Chronic 07/17/13) Hyperlipidemia (Chronic 01/16/13) Increased BMI (Acute) Insomnia, unspecified (Acute 11/07/15) Lung nodule (Chronic 11/07/15) 10/04/15; [facility]; 6mm RLL; 6 MONTH FU from 08/201504/10/16 stable yearly screening Malignant tumor of prostate (Chronic 12/07/12) found incidentally on TURP Obstructive sleep apnea syndrome (Chronic) S/P uvulectomy; C-Pap Polyp of colon (Acute) hyperplastic Restless legs syndrome (Acute) Serum total bilirubin elevated (Acute 05/07/15) elevated conjugated bili Medical History Asthma Bunion of great toe of right foot COPD (chronic obstructive pulmonary disease) Emphysema of lung Surgical History Arthroplasty of knee 10/28/18 BILAT CARDIAC CATH R/L Cholecystectomy Extraction of cataract 10/31/15; DR. MEDEIROS; LEFT EYE 11/14/15; DR. MEDEIROS; RIGHT EYE H/O ankle fusion hernia repair, ventral (01/12/17) Repair of inguinal hernia B/L Replacement of total knee joint (~11/2011) Dr. Zhang RIGHT SHOULDER SURGERY SLEEP APNEA SURGERY TOTAL SHOULDER REPLACEMENT (RIGHT) (~1992) Transurethral prostatectomy (11/29/12) DR. OSWALD UVULECTOMY (10/03/12) DR. SANTO Family History Mother Diabetes Essential hypertension Depression Hyperlipidemia Father COPD (chronic obstructive pulmonary disease) Heart disease Hyperlipidemia Asthma Brother Essential hypertension Hyperlipidemia Grandfather Diabetes Heart disease Neoplasm KIDNEYS Stroke Grandfather Heart disease Neoplasm STOMACH Asthma Grandmother Diabetes Heart disease Stroke Grandmother Diabetes Heart disease Stroke Daughter Depression Asthma Daughter Depression Asthma Social History Smoking/Tobacco Use Status: Former Tobacco Use Quit Date: 08/02/06 Quit status: quit date established Second Hand Exposure: Yes Smoking risk assessment performed?: Yes Alcohol Intake: former Drug use: Never Substance use type: does not use Caregiver/Support person: No Household members: spouse and children Housing: house Communication Needs: Hard of Hearing Do you need help understanding health information?: Rarely Pets and animals: Yes Pets and animals: cat(s) Sexually active: No Do you think of yourself as: straight/heterosexual Current gender identity: male What is your relationship status?: How often do you talk on the phone with friends or family?: never How often do you get together with friends or relatives?: never How often do you attend jain or congregation services?: decline to answer Do you belong to any clubs or organized social groups?: no Panel score (0-1 are the most socially isolated patients): 1 What type of physical activity do you participate in: none Azucena/Protestant: Mormonism Special azucena needs: No Seatbelt use: sometimes Helmet use: No Drive intox or ride w/intox hazmat cdl a driver: No Do you feel safe at home: Yes Do you feel safe in your relationship?: Yes Course Vital Signs Vital signs: Vital Signs Pulse 63 04/23/23 11:05 Respiratory Rate 18 04/23/23 11:05 Blood Pressure 134/95 H 04/23/23 11:05 Pulse Oximetry 96 04/23/23 11:05 Pulse 63 04/23/23 11:05 Respiratory Rate 18 04/23/23 11:05 Respiratory Effort Normal, Non-Labored 04/23/23 11:21 Blood Pressure 134/95 H 04/23/23 11:05 Blood Pressure Position Sitting 04/23/23 11:05 Pulse Oximetry 96 04/23/23 11:05 Oxygen Delivery Method Room Air 04/23/23 11:05 Oxygen Flow Rate 0 04/23/23 11:05
--- NOTE | 2023-04-23 12:20 | DI.CT_ITS ---
Exam(s) CT HEAD WO EXAM: CT HEAD WO CLINICAL HISTORY: Fall head strike. TECHNIQUE: Imaging Protocol: Axial computed tomography images with coronal and sagittal reformatted images were created and reviewed COMPARISON: CT HEAD WITHOUT CONTRAST from 11/01/2015 CT CERVICAL SPINE WITHOUT CONTRA from 05/28/2016 FINDINGS: Ventricles and Extra axial spaces: Normal in size and morphology for the patient's age. Hemorrhage: None. Cerebral parenchyma: No evidence of acute infarct or mass. Midline shift: None. Brainstem/Cerebellum: Normal. Calvarium: Normal. Visualized Paranasal sinuses/Mastoids: Clear. Soft Tissues: Unremarkable. IMPRESSION: No acute intracranial process. RADIATION DOSE DELIVERED: 720.32mGy.cm Total DLP DATA REPOSITORY: All CT scans at this facility are submitted to the National Radiology Data Registry (NRDR) Dose Index Registry (DIR) with the [employer] (ACR). RADIATION OPTIMIZATION: All CT scans at this facility use at least one of these dose optimization te chniques: automated exposure control; mA and/or kV adjustment per patient size (includes targeted exa ms where dose is matched to clinical indication); or iterative reconstruction.
--- NOTE | 2023-04-23 12:33 | CMPROGNOTE_ITS ---
Date of service: 04/23/23 Time of Service: 12:33 Care Management Progress Note Progress Note Text Progress Note Text: CM consulted by ED as Javon presents after a fall, reporting that he is currently living out of his vehicle. CM reviewed chart, noting current service connection with PCP CCC, CHW/HIPOLITO documentation as recent as 04/20/23 outlining efforts to coordinate housing for Javon. PRIYANKA spoke with HIPOLITO Dumont who offered to connect with Javon to explore any current eligibility for intervention, including ESD housing. PRIYANKA transferred Julia to ED, who was connected to Javon via telephone. Julia called PRIYANKA back with updates; Javon is working with Ginny at [facility] and an apartment for Javon has been identified; [place] [employer] application pending, and as long as Javon is approved, he will be able to attain apartment. ESD Emergency housing was denied, Ginny reportedly appealed denial but appeal was upheld. Julia advised that this leaves no current options for Javon. She reported she would re-connect with Javon in the ED to review this information. PRIYANKA called Isaac Lee; Geographic Analyst at [place] [employer] ([facility]) and left a voicemail asking for any other additional guidance or options that may be available to Javon, besides discharging back to his vehicle in the community.
[2023-04-23 12:49] VITALS: TEMP 37.2
[2023-04-23 12:59] VITALS: TEMP 37.2
== END 2023-04-23 17:12 | disposition home or self-care (01) ==
LOC: ER 11:22
PROVIDERS: Emergency Provider Emergency Medicine; PCP Nurse Practitioner Family
DX: S50.812A Abrasion of left forearm, initial encounter; Z91.81 History of falling; Z59.00 Homelessness unspecified; W01.10XA Fall on same level from slipping, tripping and stumbling with subsequent striking against unspecified object, initial encounter
CPT/HCPCS: 99284; 70450

== ENCOUNTER → 2023-05-03 13:22 | Outpatient (BNVA) | payer OTHER, SELFPAY | PROVIDERS: PCP Nurse Practitioner Family; Referring Provider Nurse Practitioner Family; Visit Provider Physician Assistant Surgical | DX: J44.9 Chronic obstructive pulmonary disease, unspecified (principal); J47.9 Bronchiectasis, uncomplicated; G47.33 Obstructive sleep apnea (adult) (pediatric); R91.1 Solitary pulmonary nodule; Z87.891 Personal history of nicotine dependence | CPT/HCPCS: 99214 ==

== ENCOUNTER 2023-05-31 07:54 | Outpatient (CLI) | payer OTHER, SELFPAY ==
--- NOTE | 2023-05-31 12:37 | W.CARDEVENT ---
Date of service: 05/31/23 Time of Service: 12:37 Cardiac Event Recorder Referring Provider:: Deandre Galvez Indications:: Supraventricular tachycardia Cardiac Event Note: This is a cardiac event monitor ordered for SVT Patient was monitored for 12 days and 6 hours beginning on April 08 Predominant rhythm was sinus with an average heart rate of 55. Minimum was 37, maximum 94 There were rare isolated atrial and ventricular ectopic beats Periods of supraventricular tachycardia occurred. These could last for minutes at a time, fastest heartbeat was 164 There was no atrial fibrillation, no high-grade AV block, no pauses greater than 3 seconds No patient's symptoms were reported
== END 2023-05-31 07:55 | disposition home or self-care (01) ==
LOC: CARDOPNVT 07:54
PROVIDERS: PCP Nurse Practitioner Family; Visit Provider Internal Medicine Cardiovascular Disease
DX: I47.10 Supraventricular tachycardia, unspecified (principal)
CPT/HCPCS: 93248

== ENCOUNTER → 2023-06-14 01:22 | Outpatient (CLI) | payer OTHER, SELFPAY ==
--- NOTE | 2023-06-14 08:00 | DI.US_ITS ---
APPROVED REPORT EXAM: Comprehensive 2D, Doppler, and color-flow Echocardiogram Patient Location: Out-Patient Doping Supervisor: Richi Tovar RDCS (AE) Indications: recent SVT, HTN Other Information Study Quality: Adequate Conclusion Normal left ventricular wall thickness and chamber size. Ejection fraction is 60%. Wall motion is n ormal Normal right ventricular size and systolic function Left atrium is mildly dilated. Right atrial size is normal There is no structural or hemodynamically significant valvular disease Mildly dilated ascending aorta 3.58 cm Wall motion Left Ventricle The left ventricle is normal size. The left ventricular systolic function is normal. The left ventric ular ejection fraction is within the normal range. There is normal left ventricular wall thickness. T here is normal LV segmental wall motion. There is no ventricular septal defect visualized. LVEF is 60 %. Right Ventricle The right ventricle is normal size. Right ventricular systolic function is grossly normal. The RVSP i s 33.7 mmHg. Atria Left atrium is mildly dilated. The right atrium size is normal. The interatrial septum is intact with no evidence for an atrial septal defect. Aortic Valve The aortic valve is normal in structure. Aortic valve is trileaflet. There is no aortic valvular sten osis. No aortic regurgitation is present. Mitral Valve The mitral valve is normal in structure. No evidence of mitral valve stenosis. There is no mitral kathy ve regurgitation noted. Tricuspid Valve The tricuspid valve is normal in structure. There is no tricuspid valve stenosis. Trace tricuspid reg urgitation. Pulmonic Valve The pulmonary valve is normal in structure. There is no pulmonic valvular stenosis. There is no pulmo grace valvular regurgitation. Great Vessels The aortic root is normal in size. The ascending aorta is mildly dilated. Aortic arch is normal in ca liber. IVC is normal in size and collapses >50% with inspiration. Pericardium There is no pericardial effusion. 2D Dimensions IVSD d PLAX 0.86 cm M: 0.6-1.2 Ao Root d 3.30 cm M: 3.1 - 3.7 LVPW d PLAX 0.92 cm M: 0.6 - 1.2 Ao Asc Diam d 3.58 cm M: 2.6 - 3.4 LVID d PLAX 4.88 cm M: 4.2 - 5.8 LVDs 3.32 cm M: 2.5 - 4.0 LV EF Teichholz 60.1 % FS 32.10 % LV EDV (Teich) 111.9 mL LV ESV (Teich) 44.6 mL Stroke Vol Index (Teich) 30.29 M-Mode TAPSE 2.56 cm (M/F) >1.7 Auto EF LV EDV A4C 105.0 mL LV EDV A2C 111.6 mL LV EDV BP 107.9 mL LV ESV A4C 40.9 mL LV ESV A2C 44.7 mL LV ESV BP 43.6 mL LVEF(%) A4C 61.0 % LVEF(%) A2C 60.0 % LVEF(%) BP 59.6 % LV SV A4C 64.1 ml LV SV A2C 66.9 ml LV SV BP 64.3 ml LV CO A4C 3.7 L/min LV CO A2C 4.5 L/min LV CO BP 4.1 L/min HR A4C 58.16 BPM HR A2C 66.67 BPM LV EDV Index (BP) LA Volume LA Length A4C 5.8 cm LA Length A2C LA Area A4C s 17.58 cm2 LA Area A2C s LA Vol A4C A-L 45.12 mL LA Vol A2C A-L LA Vol Biplane A-L LA Vol A4C MOD 44.5 mL LA Vol A2C MOD LA Vol BP MOD RA Volume RA Area A4C 13.5 cm2 RA ESV A4C (A-L) 35.8mL RA Vol/BSA A4C A-L RA Length A4C 4.3 cm RA ESV A4C (MOD) 34.7mL LV Diastology MV E' medial 0.084 (>0.07 m/s) MV E Vmax 0.54 (0.4-1.3 m/s) MV E/E' MED 6.39 (<14) MV A Vmax 0.80 (0.4-1.3 m/s) MV E' lateral 0.077 (>0.1 m/s) E/A Ratio 0.7 MV E/E' LAT 6.99 (<14) MV E' Average 0.080 m/s MV E/E'(average) 6.68 Aortic Valve AoV Vmax 1.45 m/s LVOT Vmax 1.44 m/s AoV Peak Grad 8.4 mmHg LVOT Peak Grad 8.2 mmHg AoV Area (Vmax) 3.28 cm2 LVOT VTI 0.255 m AoV VTI 0.316 m LVOT Mean Grad 3.9 mmHg AoV Mean Fernando. 0.94 m/s LVOT SV 84.34 mL AoV Mean Grad 4.1 mmHg LVOT Diam s 2.05 cm AoV Area (VTI) 2.67 cm2 Velocity Ratio 0.99 Mitral Valve MV DT 334 (160-240 msec) Pulmonary Valve PV Vmax 1.35 (0.5-1.5 m/s) RVOT Vmax 1.12 m/s PV Peak Grad 7.3 mmHg RVOT Peak Gr. 5.0 mmHg PV Mean Fernando 0.94 m/s RVOT VTI 0.242 m PV Mean Grad 4.0 mmHg RVOT Mean Gr. 2.7 mmHg Tricuspid Valve RA Pressure 3.00 mmHg TR Vmax 2.77 m/s TR Peak Grad 30.7 mmHg RVSP (TR) 33.7 mmHg
== END ==
PROVIDERS: PCP Nurse Practitioner Family; Visit Provider Nurse Practitioner Family
DX: I10 Essential (primary) hypertension (principal)
CPT/HCPCS: 93306

== ENCOUNTER → 2023-11-15 04:49 | Outpatient (CLI) | payer OTHER, SELFPAY ==
--- NOTE | 2023-11-15 07:45 | DI.CT_ITS ---
Exam(s) CT ABDOMEN PELVIS WO/W EXAM: CT ABDOMEN PELVIS WO/W CLINICAL HISTORY: gross hematuria,R31.9 TECHNIQUE: Imaging Protocol: Axial computed tomography images with coronal and sagittal reformatted images were created and reviewed. CONTRAST MATERIAL: Intravenous: Omnipaque 350 Contrast volume:100 mL Oral: No COMPARISON: CT ABD PELVIS WO CONTRAST from 01/21/[address] CHEST PE CTA from 07/04/[address] ABDOMEN PELVIS WO from 11/03/2021 FINDINGS: The examination is limited due to patient motion artifact. ABDOMEN: Lung Bases: There is scarring in the lung bases. Liver: Normal density. No measurable mass. Portal, Superior Mesenteric, and Splenic Veins: Unremarkable. Gallbladder and Biliary Tract: Status post cholecystectomy. No biliary ductal dilatation. Pancreas: Normal density, no abnormal calcifications or inflammatory process. Spleen: Normal. Adrenals: No masses seen. Kidneys: Normal size, contour and axis. No radiodense stones or obstructive uropathy. No masses seen. Note is made of a type 1 left retrocaval(circumcaval) ureter. Abdominal Aorta: Abdominal portion non-dilated. Atherosclerotic calcification is present. Bowel: There is diverticulosis of the colon. No evidence of acute diverticulitis. There is a redund ant sigmoid colon. No evidence of bowel obstruction or bowel wall thickening. No evidence of append icitis. Peritoneal Cavity: No ascites, collection or mesenteric inflammatory response. No free air. Lymph Nodes: Within normal limits. Bones: Within normal limits for the patient's age. Soft Tissues: Postsurgical changes of prior anterior abdominal wall repair. PELVIS: Bladder: Symmetric distention, no gross wall thickening. Reproductive Organs: Unremarkable as visualized. Lymph Nodes: Within normal limits. Bones: Within normal limits for the patient's age. IMPRESSION: 1. No evidence of nephrolithiasis or hydronephrosis. No evidence of a bladder mass. 2. Colonic diverticulosis without evidence of acute diverticulitis. RADIATION DOSE DELIVERED: 4,162.44mGy.cm Total DLP 4,162.44mGy.cm Total DLP DATA REPOSITORY: All CT scans at this facility are submitted to the National Radiology Data Registry (NRDR) Dose Index Registry (DIR) with the [employer] (ACR). RADIATION OPTIMIZATION: All CT scans at this facility use at least one of these dose optimization te chniques: automated exposure control; mA and/or kV adjustment per patient size (includes targeted exa ms where dose is matched to clinical indication); or iterative reconstruction.
[2023-11-15 13:21] LABS: CREATININE 1.1 mg/dL (0.70-1.30); Estimated GFR 72.67 (mL/min/1.73m2)
[2023-11-15 13:28] LABS: Bilirubin Negative (Negative); Blood Negative (Negative); Clarity Clear (Clear); Glucose 100 mg/dL (Negative); Ketones Negative (Negative); Leukocyte Esterase Negative (Negative); Nitrite Negative (Negative); Specific Gravity 1.025 (1.005-1.025); pH 5.5 (5-8)
[2023-11-15] MEDS: Omnipaque 350 MG/ML 100 ML BTL IJ (14:01)
[2023-11-15] MEDS: Normal Saline - Diluent 50 ML VIAL IJ (14:02)
== END ==
PROVIDERS: PCP Nurse Practitioner Family; Visit Provider Nurse Practitioner Gerontology
DX: R31.0 Gross hematuria (principal); R31.9 Hematuria, unspecified; K57.30 Diverticulosis of large intestine without perforation or abscess without bleeding
CPT/HCPCS: 74178; 81003; 82565; 87086; J3490

== ENCOUNTER 2024-01-10 08:05 | Observation (INO) | payer OTHER, SELFPAY ==
[2024-01-10] VITALS (20 sets, daily range): BP systolic 118–142; BP diastolic 61–86; PULSE 65–83; RESP 14–25; TEMP 36.6–37.5; O2SAT 91–98; BMI 32.2
[2024-01-10] MEDS: Lactated Ringers 1,000 ML 80 ML IV (06:49)
--- NOTE | 2024-01-10 06:49 | W.PM.HP.N ---
Date of service: 01/10/24 Time of Service: 06:49 Assessment and Plan Assessment and plan (1) Malignant tumor of prostate: Status: Chronic (2) Gross hematuria: Status: Acute Assessment and plan: For cystoscopy. We will be prepared to do a transurethral resection or cauterization of any lesion that we identify. The patient was not able to secure a ride home following the procedure, so he will stay in the hospital overnight and be discharged tomorrow. History of Present Illness History of Present Illness Chief Complaint: Gross hematuria Narrative: This is a 68-year-old gentleman who has a history of lower urinary tract symptoms. Previously, he underwent transurethral resection of the prostate. A small focus of adenocarcinoma was identified in his prostate chips in 2012. Repeat biopsies later that same year showed no additional tumor. He has not had definitive therapy but instead is monitored for changes in his PSA and prostate exam. He recently had gross painless hematuria. He was evaluated with a CT urogram which showed no renal masses or obstructing lesions. He presents now for cystoscopy to complete his workup. He is a previous smoker. Review of Systems Narrative: No fevers or chills No vision change or dysphasia Diabetes. No thyroid dysfunction Sleep apnea. No hemoptysis No chest pain or palpitations No nausea, vomiting, hepatitis, ulcers, jaundice No seizures, strokes or peripheral neuropathy No bleeding disorders or anemia Arthralgia. No gout PFSH All Active Problems (Updated 01/10/24 @ 07:02 by Shiraz Dunn MD) Gross hematuria (Acute) Scalp lesion (Chronic) History of right shoulder replacement (Chronic) Hemiarthroplasty; 1992, [facility] Skin lesion (Chronic) Nail dystrophy (Acute) COVID-19 (Acute) JIMBO (obstructive sleep apnea) (Chronic) Abnormal CT lung screening (Acute) Diabetes mellitus (Chronic) Bronchiectasis (Acute) Otitis media (Chronic) Follow up (Acute) Trochanteric bursitis, right hip (Acute) Strain of flexor muscle of right hip (Acute) Hospital as place of occurrence of accidental injury (Acute) Arthritis of ankle, left (Acute) Arthritis of subtalar joint (Chronic) Arthritis of left foot (Chronic) Serum total bilirubin elevated (Acute 05/07/15) elevated conjugated bili Restless legs syndrome (Acute) Polyp of colon (Acute) hyperplastic Obstructive sleep apnea syndrome (Chronic) S/P uvulectomy; C-Pap Malignant tumor of prostate (Chronic 12/07/12) found incidentally on TURP Lung nodule (Chronic 11/07/15) 10/04/15; [facility]; 6mm RLL; 6 MONTH FU from 08/201504/10/16 stable yearly screening Insomnia, unspecified (Acute 11/07/15) Increased BMI (Acute) Hyperlipidemia (Chronic 01/16/13) Essential hypertension (Chronic 07/17/13) Depressive disorder (Chronic) [facility]--meds DJD (degenerative joint disease) of knee (Chronic) DR. SHERIFF; RIGHT Cataracts, bilateral (Chronic 10/23/15) Choledocholithiasis with acute cholecystitis with obstruction (Acute) Elevated d-dimer (Acute) Acute cholecystitis (Acute) History of colonic polyps (Chronic) Insomnia (Chronic) Restless legs syndrome (Chronic) Obesity (Chronic) H/O surgical procedure (Chronic) a. left total knee arthroplasty b. TURP c. Inferior turbinate plasty and uvulectomy, along with septoplasty d. left bunionectomy e. right inguinal hernia repair f. right rotator cuff repair g. right total shoulder arthroplasty h. 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 Javon Oswald 11/29/2012 Obstructive sleep apnea syndrome (Chronic) does not tolerate CPAP Depressive disorder (Chronic) Chronic obstructive lung disease (Chronic) a. 60 pack year of smoking, quit 2006 Hypercholesterolemia (Chronic) Benign hypertension (Chronic) Benign prostatic hypertrophy with outflow obstruction (Chronic 11/29/12) Urgency/frequency. TURP by Dr. Javon Oswald 11/29/2012 Medical History (Updated 01/10/24 @ 07:02 by Shiraz Dunn MD) Bunion of great toe of right foot Emphysema of lung Asthma COPD (chronic obstructive pulmonary disease) Surgical History (Updated 01/07/24 @ 10:24 by Ant Mejia) H/O ankle fusion hernia repair, ventral (01/12/17) UVULECTOMY (10/03/12) DR. SANTO Replacement of total knee joint (~11/2011) Dr. Zhang Transurethral prostatectomy (11/29/12) DR. OSWALD TOTAL SHOULDER REPLACEMENT (RIGHT) (~1992) SLEEP APNEA SURGERY RIGHT SHOULDER SURGERY Repair of inguinal hernia B/L Cholecystectomy Extraction of cataract 10/31/15; DR. MEDEIROS; LEFT EYE 11/14/15; DR. MEDEIROS; RIGHT EYE CARDIAC CATH R/L 2003 Arthroplasty of knee 10/28/18 BILAT Family History Mother Diabetes Essential hypertension Depression Hyperlipidemia Father COPD (chronic obstructive pulmonary disease) Heart disease Hyperlipidemia Asthma Brother Essential hypertension Hyperlipidemia Grandfather Diabetes Heart disease Neoplasm KIDNEYS Stroke Grandfather Heart disease Neoplasm STOMACH Asthma Grandmother Diabetes Heart disease Stroke Grandmother Diabetes Heart disease Stroke Daughter Depression Asthma Daughter Depression Asthma Social History (Updated 12/13/23 @ 13:05 by Vianey Veronica) Smoking/Tobacco Use Status: Former Tobacco Use Quit Date: 08/02/06 Quit status: quit date established Second Hand Exposure: Yes Smoking risk assessment performed?: Yes Alcohol Intake: former Year quit: 2006 Details: attempted to quit many times, quit in 2006 Drug use: Never Substance use type: does not use Adopted: No Caregiver/Support person: No Household members: spouse and children Housing: apartment Number of Children: 3 Communication Needs: Hard of Hearing and Corrective Lenses Do you need help understanding health information?: Often Pets and animals: Yes Pets and animals: cat(s) Sexually active: No Do you think of yourself as: straight/heterosexual Current gender identity: male What is your relationship status?: How often do you talk on the phone with friends or family?: never How often do you get together with friends or relatives?: never How often do you attend episcopal or cheondoism services?: decline to answer Do you belong to any clubs or organized social groups?: no Panel score (0-1 are the most socially isolated patients): 0 What type of physical activity do you participate in: none and walking Duration: < 15 minutes/day Frequency: 3-4 times per week Azucena/Mormon: Uatsdin Special azucena needs: No Seatbelt use: sometimes Helmet use: No Drive intox or ride w/intox special needs bus driver: No Firearms in home: No Do you feel safe at home: Yes Would you like helpful sources: No Additional Social history: lives alone Meds Allergies and Home Medications Allergies Allergy/AdvReac Type Severity Reaction Status Date / Time house dust [House Dust] Allergy Unknown unknown Verified 01/10/24 06:18 hydrocodone bitartrate AdvReac Intermediate hallucinati Verified 01/10/24 06:18 [From Vicodin] ons zolpidem AdvReac Intermediate Agitation Verified 01/10/24 06:18 morphine AdvReac Unknown NAUSEA, Verified 01/10/24 06:18 VOMITING fentanyl AdvReac unknown Verified 01/10/24 06:18 Home Medications Medication Instructions Recorded Confirmed Type acetaminophen 500 mg tablet (Pain 500 - 1,000 mg PO PRN PRN 09/30/12 01/10/24 History and Fever) ascorbic acid (vitamin C) 1,000 mg 1,000 mg PO DAILY 09/30/12 01/10/24 History chewable tablet aspirin 81 mg chewable tablet 81 mg PO DAILY 09/30/12 01/07/24 History calcium carbonate (Calcium 500) 500 mg PO DAILY 01/24/18 01/10/24 History metoprolol succinate 100 mg 100 mg PO DAILY #90 tab-caps 12/02/22 01/10/24 Rx tablet,extended release 24 hr hydrochlorothiazide 25 mg tablet 25 mg PO DAILY #90 tabs 01/04/23 01/10/24 Rx pramipexole 0.5 mg tablet 0.5 mg PO HS #90 tab-caps 01/14/23 01/10/24 Rx diltiazem HCl 120 mg 120 mg PO DAILY #90 caps 03/31/23 01/10/24 Rx capsule,extended release 24 hr metformin 500 mg tablet 500 mg PO BID #180 tabs 05/06/23 01/10/24 Rx zolpidem 5 mg tablet 5 mg PO QHS PRN sleep #30 tabs 07/08/23 01/10/24 Rx omeprazole 20 mg capsule,delayed 20 mg PO DAILY #90 tab-caps 09/27/23 01/10/24 Rx release ipratropium 0.5 mg-albuterol 3 mg 3 ml inhalation BID PRN copd #180 10/06/23 01/10/24 Rx (2.5 mg base)/3 mL nebulization mL soln albuterol sulfate 90 mcg/actuation 2 puff inhalation Q4H PRN 11/22/23 01/10/24 Rx aerosol inhaler (Ventolin HFA) shortness of breath or wheezing #18 grams fluticasone propionate 230 2 puff inhalation BID #12 grams 11/22/23 01/10/24 Rx mcg-salmeterol 21 mcg/actuation HFA inhaler (Advair HFA) bupropion HCl (smoking deter) 150 150 mg PO BID #180 tab-caps 12/06/23 01/10/24 Rx mg tablet,12 hr sustained-release(smoking deterrent) celecoxib 200 mg capsule 200 mg PO DAILY PRN pain #30 caps 12/06/23 01/07/24 Rx lisinopril 5 mg tablet 5 mg PO DAILY #90 tab-caps 12/06/23 01/10/24 Rx umeclidinium 62.5 mcg/actuation 1 inh inhalation DAILY #30 ea 12/06/23 01/10/24 Rx blister powder for inhalation (Incruse Ellipta) lamotrigine 100 mg tablet 200 mg (2 x 100 mg) PO DAILY #180 01/05/24 01/10/24 Rx tab-caps pravastatin 40 mg tablet 40 mg PO DAILY #90 tab-caps 01/05/24 01/10/24 Rx venlafaxine 100 mg tablet 100 mg PO BID #180 tab-caps 01/05/24 01/10/24 Rx Exam Const General: cooperative Nutritional Appearance: obese HENMT Teeth and gingiva: poor dentition Resp Effort & Inspection: normal respiratory effort Auscultation: diminished lung sounds Cardio Rate: regular rate Rhythm: regular rhythm GI Inspection: normal to inspection Palpation: soft Neuro General: patient alert, patient awake and patient oriented x3 Results Last Vital Signs Temp 37.1 C 01/10/24 06:23 Pulse 67 01/10/24 06:23 Resp 18 01/10/24 06:23 BP 118/84 01/10/24 06:23 Pulse Ox 93 01/10/24 06:23 Time Spent Time spent with Patient: <40 minutes Time was spent: other
--- NOTE | 2024-01-10 06:58 | W.ANESPRE ---
General Info Date of Service Date Performed: 01/10/24 Height: 5 ft 11 in Weight: 104.9 kg Body Mass Index (BMI): 32.2 Surgical Procedure: Operation Date: 01/10/24 07:40 Proposed Procedure Side Surgeon p Cystoscopy Shiraz Dunn MD Meds Allergies and Home Medications Allergies Allergy/AdvReac Type Severity Reaction Status Date / Time house dust [House Dust] Allergy Unknown unknown Verified 01/10/24 06:18 hydrocodone bitartrate AdvReac Intermediate hallucinati Verified 01/10/24 06:18 [From Vicodin] ons zolpidem AdvReac Intermediate Agitation Verified 01/10/24 06:18 morphine AdvReac Unknown NAUSEA, Verified 01/10/24 06:18 VOMITING fentanyl AdvReac unknown Verified 01/10/24 06:18 Home Medication Medication Instructions Recorded acetaminophen 500 mg tablet (Pain 500 - 1,000 mg PO PRN PRN 09/30/12 and Fever) ascorbic acid (vitamin C) 1,000 mg 1,000 mg PO DAILY 09/30/12 chewable tablet aspirin 81 mg chewable tablet 81 mg PO DAILY 09/30/12 calcium carbonate (Calcium 500) 500 mg PO DAILY 01/24/18 metoprolol succinate 100 mg 100 mg PO DAILY #90 tab-caps 12/02/22 tablet,extended release 24 hr hydrochlorothiazide 25 mg tablet 25 mg PO DAILY #90 tabs 01/04/23 pramipexole 0.5 mg tablet 0.5 mg PO HS #90 tab-caps 01/14/23 diltiazem HCl 120 mg 120 mg PO DAILY #90 caps 03/31/23 capsule,extended release 24 hr metformin 500 mg tablet 500 mg PO BID #180 tabs 05/06/23 zolpidem 5 mg tablet 5 mg PO QHS PRN sleep #30 tabs 07/08/23 omeprazole 20 mg capsule,delayed 20 mg PO DAILY #90 tab-caps 09/27/23 release ipratropium 0.5 mg-albuterol 3 mg 3 ml inhalation BID PRN copd #180 10/06/23 (2.5 mg base)/3 mL nebulization mL soln albuterol sulfate 90 mcg/actuation 2 puff inhalation Q4H PRN 11/22/23 aerosol inhaler (Ventolin HFA) shortness of breath or wheezing #18 grams fluticasone propionate 230 2 puff inhalation BID #12 grams 11/22/23 mcg-salmeterol 21 mcg/actuation HFA inhaler (Advair HFA) bupropion HCl (smoking deter) 150 150 mg PO BID #180 tab-caps 12/06/23 mg tablet,12 hr sustained-release(smoking deterrent) celecoxib 200 mg capsule 200 mg PO DAILY PRN pain #30 caps 12/06/23 lisinopril 5 mg tablet 5 mg PO DAILY #90 tab-caps 12/06/23 umeclidinium 62.5 mcg/actuation 1 inh inhalation DAILY #30 ea 12/06/23 blister powder for inhalation (Incruse Ellipta) lamotrigine 100 mg tablet 200 mg (2 x 100 mg) PO DAILY #180 01/05/24 tab-caps pravastatin 40 mg tablet 40 mg PO DAILY #90 tab-caps 01/05/24 venlafaxine 100 mg tablet 100 mg PO BID #180 tab-caps 01/05/24 Current Visit Medications: Current Medications Generic Name Dose Route Start Last Admin Trade Name Freq PRN Reason Stop Dose Admin Ringer's Solution 1,000 mls @ 80 mls/hr 01/10/24 06:00 01/10/24 06:49 IV 01/10/24 23:59 80 mls/hr INFUSION DANNIE Administration Cefazolin Sodium/Dextrose 2 gm in 50 mls @ 100 mls/hr 01/10/24 06:00 Ancef Duplex IVPB 01/10/24 23:59 PREOP DANNIE IV Miscellaneous Supplies 1 each 01/10/24 06:00 Iv Access IV 01/10/24 23:59 DIRECTED DANNIE Sodium Chloride 0 ml 01/10/24 06:00 Normal Saline Flush 10 Ml Syr IV 01/10/24 23:59 PRN PRN Sodium Chloride 0 ml 01/10/24 06:00 Normal Saline 10 Ml Vial IJ 01/10/24 23:59 DIRECTED PRN Sterile Water 0 ml 01/10/24 06:00 Water,Injection,Sterile 10 Ml Vial IJ 01/10/24 23:59 DIRECTED PRN PFSH Active Problems Active Problems: Problem Status Onset Code Scalp lesion L98.9 History of right shoulder replacement Z96.611 Skin lesion L98.9 Nail dystrophy L60.3 COVID-19 U07.1 JIMBO (obstructive sleep apnea) G47.[address] lung screening R91.8 Diabetes mellitus E11.9 Bronchiectasis J47.9 Otitis media H66.90 Follow up Z09 Trochanteric bursitis, right hip M70.61 Strain of flexor muscle of right hip S76.011A Hospital as place of occurrence of accidental injury Y92.239 Arthritis of ankle, left M19.072 Arthritis of subtalar joint M19.079 Arthritis of left foot M19.072 Serum total bilirubin elevated 05/07/15 R17 Restless legs syndrome G25.81 Polyp of colon K63.5 Obstructive sleep apnea syndrome G47.33 Malignant tumor of prostate 12/07/12 C61 Lung nodule 11/07/15 R91.1 Insomnia, unspecified 11/07/15 G47.00 Increased BMI R63.8 Hyperlipidemia 01/16/13 E78.5 Essential hypertension 07/17/13 I10 Depressive disorder F32.9 DJD (degenerative joint disease) of knee M17.10 Cataracts, bilateral 10/23/15 H26.9 Valgus deformity, not elsewhere classified, left ankle M21.072 Other acquired deformities of left foot M21.6X2 Primary osteoarthritis, left ankle and foot M19.072 Choledocholithiasis with acute cholecystitis with obstruction K80.41 Elevated d-dimer R79.1 Acute cholecystitis K81.0 History of colonic polyps Z86.010 Insomnia G47.00 Restless legs syndrome G25.81 Obesity E66.9 H/O surgical procedure Z98.89 Artificial knee joint present 08/08/14 Z96.659 Osteoarthritis of right knee 08/08/14 M17.9 Adenocarcinoma of prostate 11/29/12 C61 Obstructive sleep apnea syndrome G47.33 Depressive disorder F32.9 Chronic obstructive lung disease J44.9 Hypercholesterolemia E78.0 Benign hypertension I10 Benign prostatic hypertrophy with outflow obstruction 11/29/12 N40.1, N13.8 Medical History Medical History Bunion of great toe of right foot Emphysema of lung Asthma COPD (chronic obstructive pulmonary disease) Surgical History Surgical History (Updated 01/07/24 @ 10:24 by Ant Mejia) H/O ankle fusion hernia repair, ventral (01/12/17) UVULECTOMY (10/03/12) DR. SANTO Replacement of total knee joint (~11/2011) Dr. Zhang Transurethral prostatectomy (11/29/12) DR. OSWALD TOTAL SHOULDER REPLACEMENT (RIGHT) (~1992) SLEEP APNEA SURGERY RIGHT SHOULDER SURGERY Repair of inguinal hernia B/L Cholecystectomy Extraction of cataract 10/31/15; DR. MEDEIROS; LEFT EYE 11/14/15; DR. MEDEIROS; RIGHT EYE CARDIAC CATH R/L 2004 Arthroplasty of knee 10/28/18 BILAT Tobacco Smoking/Tobacco Use Status: Former Tobacco Use Passive smoking exposure: Yes Second hand exposure: Yes Alcohol Alcohol Intake: former Year quit: 2006 Details: attempted to quit many times, quit in 2006 Substance Use Substance use: Never Substance use type: does not use Vital Signs and Lab Results Vital Signs Most Recent Vital Signs in EMR: Most Recent Vital Signs Temp Pulse Resp BP Pulse Ox 37.1 C 67 18 118/84 93 01/10/24 06:23 01/10/24 06:23 01/10/24 06:23 01/10/24 06:23 01/10/24 06:23 Point of Care Results Point of Care Results: Finger Stick Blood Glucose 135 01/10/24 06:34 Lab Results Blood Type / Crossmatch: No Data to Display Complete Blood Count: No Data to Display Complete Metabolic Panel: No Data to Display Liver Function Panel: No Data to Display Coagulation Panel: No Data to Display Cardiac Panel: No Data to Display Arterial Blood Gas: No Data to Display Venous Blood Gas: No Data to Display Pancreas Panel: No Data to Display Thyroid Panel: No Data to Display Infectious Disease: No Data to Display Blood Cultures: No Data to Display Toxicology Panel: No Data to Display Anesthesia Assessment and Plan Anesthesia History Personal History: No History of Anesthesia Complications Family History: No Family History of Anesthesia Complications Exercise Tolerance Exercise Tolerance: Metabolic Equivalents>4 Pertinent Negatives Pertinent Negatives: No Symptoms of GERD Cardiac & Pulmonary Exam Cardiac Exam: Normal S1/S2 Heart Sounds Pulmonary Exam: Wheezing Present and Rhonchi Present Implantable Cardiac Device Does patient have a Pacemaker or an ICD?: No Airway Exam Known Difficult Airway: No Mallampati Class: 2 Mouth Opening: Normal (> 3cm) Thyromental Distance: Greater than 3 cm Neck Range of Motion: Limited ROM Neck Circumference: Normal Teeth Condition: Generalized Poor Dentition and Loose or Chipped ASA Classification ASA Score: ASA 3 Emergency Case?: No NPO Status NPO Status: NPO Clears >2 hours, Solids >8 hours Anesthesia Plan Resuscitation Status: Full Code Anesthesia Technique: General Anesthesia Airway Planned: LMA Monitors Used: Standard Monitors
[2024-01-10] MEDS: ceFAZolin 2 GM/50 ML BAG IVPB (07:36)
[2024-01-10] MEDS: Lidocaine 2% Jelly 11 ML SYR (07:47)
--- NOTE | 2024-01-10 07:54 | W.PM.OP ---
Date of service: 01/10/24 Time of Service: 07:54 Operative Note Operative Note DATE OF PROCEDURE: 01/10/24 PRE-OP DIAGNOSIS: Gross hematuria POST-OP DIAGNOSIS: same PROCEDURE: cystoscopy SURGEON: Shiraz Dunn ANESTHESIA TYPE: Local By Surgeon and General LMA/ETT Refer to Anesthesia Record ESTIMATED BLOOD LOSS: 5 PATHOLOGY: none sent COMPLICATIONS: None Patient was transported to: PACU Patient's condition: stable Implants: none Indications: This is a 68-year-old gentleman who has a history of lower urinary tract symptoms. He underwent a transurethral resection of the prostate about 10 years ago. There was a focus of adenocarcinoma identified. He then had repeat ultrasound-guided biopsies of the prostate. No additional adenocarcinoma was identified. He is followed with exams and PSA levels. He recently had an episode of gross painless hematuria. A CT urogram showed no suspicious lesions in the kidneys, ureters or bladder. He presents for cystoscopy to complete his hematuria workup Findings: No bladder tumor Some regrowth of prostate tissue Procedure Description: The patient was brought to the operating room on 01/10/2024. After successful induction of general anesthesia without intubation, he was placed in the dorsal lithotomy position. His genitalia was prepped and draped. He was given preoperative IV antibiotics. 2% Xylocaine jelly was instilled into the urethra to act as a local anesthetic. A 22 Maltese rigid cystoscope was then passed through the urethra into the bladder. The urethra was inspected using a 30 degree lens. The pendulous, bulbar and membranous urethra's appeared normal with no strictures. The prostatic urethra showed some regrowth of prostate tissue especially in the region of his median lobe. No active bleeding was seen from the prostate. There were however prominent blood vessels on the prostatic urethra. The bladder neck was entered and the bladder mucosa was inspected. Both ureteral orifices appeared normal. No papillary or nodular lesions were seen within the bladder. These findings were confirmed on reinspection of the bladder using a 70 degree lens. The bladder was emptied and the cystoscope was withdrawn. The patient tolerated the procedure well with no complications. He was taken to the recovery room in stable condition.
[2024-01-10] MEDS: Phenazopyridine 200 MG TAB PO (08:26)
[2024-01-10] MEDS: Normal Saline Flush 10 ML SYR IV (10:09)
[2024-01-10] MEDS: Metoprolol CR 100 MG TABCR PO (10:49)
[2024-01-10] MEDS: dilTIAZem CD 120 MG CAPCR PO (10:49)
[2024-01-10] MEDS: buPROPion-CR 150 MG TABCR PO (10:50)
[2024-01-10] MEDS: Normal Saline Flush 10 ML SYR (10:50)
[2024-01-10] MEDS: lamoTRIgine 100 MG TAB 200 MG PO (10:51)
[2024-01-10] MEDS: Aspirin 81 MG CHEW PO (10:52)
[2024-01-10] MEDS: Venlafaxine 50 MG TAB PO (10:52)
--- NOTE | 2024-01-10 12:52 | W.ANESPOSTOP ---
Postoperative Evaluation Date, Time and Location Date Performed: 01/10/24 Time Performed: 12:53 Patient Location: Day Surgery Unit Vital Signs Most Recent Imported Vital Signs: Most Recent Vital Signs Temp Pulse Resp BP Pulse Ox 37 C 67 18 127/73 93 01/10/24 11:20 01/10/24 11:20 01/10/24 11:20 01/10/24 11:20 01/10/24 11:20 Pain Score Most Recent Pain Score: Most Recent Pain Score Pain Level 0 01/10/24 11:20 Assessment Mental Status: Awake (Alert & Oriented to Patient Baseline) Airway and Respiratory Function: Patent airway with normal (patient baseline) respiratory exam Cardiovascular Function: Hemodynamically Stable Hydration Status: Adequately Hydrated Nausea & Vomiting: No Nausea or Vomiting Pain: Pt. Denies Any Pain Peripheral Nerve Block: Patient did not receive a nerve block
--- NOTE | 2024-01-10 16:35 | DSE_ITS ---
Date of service: 01/10/24 Time of Service: 16:35 DS: Diagnosis Discharge Diagnosis (1) Malignant tumor of prostate: Status: Chronic (2) Gross hematuria: Status: Acute Discharge Plan Disposition Patient Disposition: Home Condition: Stable Discharge Details Reason For Visit: Hematuria Admit Date/Time: 01/10/24 08:05 Admit Provider: Shiraz Dunn Attending Provider: Shiraz Dunn Primary Care Provider: Deandre Galvez Hospital Course Hospital Course: The patient was brought to the operating room on 01/11/2024 where he underwent a cystoscopy. The procedure showed no evidence of bladder tumors. We suspect that the source of his hematuria is from some degree of his prostate tissue. Initially, the patient was not able to secure a ride home following the procedure, so we admitted him to the medical surgical unit for observation. Once the anesthesia wore off, he felt well. He was able to void with no difficulty. He was able to secure a ride home and he is deemed appropriate for discharge. Home Meds and New Rx's Prescriptions: No Action diltiazem HCl 120 mg capsule,extended release 24hr 120 mg PO DAILY Qty: 90 3RF metoprolol succinate 100 mg tablet extended release 24 hr 100 mg PO DAILY Qty: 90 3RF hydrochlorothiazide 25 mg tablet 25 mg PO DAILY Qty: 90 3RF pramipexole 0.5 mg tablet 0.5 mg PO HS Qty: 90 3RF metformin 500 mg tablet 500 mg PO BID Qty: 180 3RF zolpidem 5 mg tablet 5 mg PO QHS PRN (Reason: sleep) Qty: 30 5RF omeprazole 20 mg capsule,delayed release(DR/EC) 20 mg PO DAILY Qty: 90 3RF ipratropium-albuterol 0.5 mg-3 mg(2.5 mg base)/3 mL solution for nebulization 3 ml INHALATION BID PRN (Reason: copd) Qty: 180 3RF albuterol sulfate [Ventolin HFA] 90 mcg/actuation HFA aerosol inhaler 2 puff Inhalation Q4H PRN (Reason: shortness of breath or wheezing) Qty: 18 3RF fluticasone propion-salmeterol [Advair HFA] 230-21 mcg/actuation HFA aerosol inhaler 2 puff Inhalation BID Qty: 12 3RF bupropion HCl (smoking deter) 150 mg tablet extended release 12 hr 150 mg PO BID Qty: 180 3RF celecoxib 200 mg capsule 200 mg PO DAILY PRN (Reason: pain) Qty: 30 5RF lisinopril 5 mg tablet 5 mg PO DAILY Qty: 90 4RF Incruse Ellipta 62.5 mcg/actuation blister with device 1 inh inhalation DAILY Qty: 30 3RF venlafaxine 100 mg tablet 100 mg PO BID Qty: 180 3RF Patient Comments: 01/24/18 pt takes 200mg in AM.jw lamotrigine 100 mg tablet 200 mg PO DAILY Qty: 180 3RF pravastatin 40 mg tablet 40 mg PO DAILY Qty: 90 4RF aspirin 81 MG tablet,chewable 81 mg PO DAILY acetaminophen [Pain and Fever] 500 MG tablet 500 - 1,000 mg PO PRN PRN ascorbic acid (vitamin C) 1,000 MG tablet,chewable 1,000 mg PO DAILY calcium carbonate [Calcium 500] 500 MG tablet 500 mg PO DAILY Discharge Instructions Additional Instructions: Follow-up appointment in 6 months-call sooner if hematuria returns Activity:: Activity as Tolerated Equipment/Supplies:: No Equipment Needed Diet:: As Tolerated DS: Summary Time Spent with Patient providing and/or coordinating discharge services: Less than 30 minutes Status at Discharge Functional status at discharge: independent ambulation Overall status at discharge: patient is back to baseline Mental Status: mental status grossly normal Speech and Movement: speech and movement normal Mood: congruent mood Affect: normal affect Quality:SDOH Health Related Social Needs: No Data to Display Exam Narrative Exam Narrative: At the time of discharge, he looks comfortable His vital signs are documented elsewhere in the chart His chest wall motion is normal His abdomen is soft with no guarding or rebound tenderness He is awake and alert Psych Mental Status: mental status grossly normal Speech and Movement: speech and movement normal Mood: congruent mood Affect: normal affect DS: Data Vitals/I&O Vitals and I&O: Vital Signs Temperature 37.5 C 01/10/24 15:00 Temperature Source Tympanic 01/10/24 15:00 Pulse 83 01/10/24 15:00 Pulse Rhythm Regular 01/10/24 11:20 Pulse 65 01/10/24 08:31 Respiratory Rate 18 01/10/24 15:00 Respiratory Effort Normal, Non-Labored 01/10/24 11:20 Respiratory Depth Normal 01/10/24 11:20 Respiratory Pattern Normal 01/10/24 11:20 Blood Pressure 137/86 01/10/24 15:00 Blood Pressure Mean 81 01/10/24 08:30 Pulse Oximetry 93 01/10/24 15:00 Respiratory End-tidal CO2 30 01/10/24 08:29 Oxygen Delivery Method Room Air 01/10/24 15:00 Oxygen Flow Rate 0 01/10/24 15:00 Pain Level 6 01/10/24 15:00 Comment 01/09 only when peeing. 01/10/24 15:00 Intake & Output 01/09/24 01/10/24 01/10/24 23:59 11:59 23:59 Intake Total 1039.333 / 1279.333 240 / 1279.333 Output Total 300 / 475 175 / 475 Balance 739.333 / 804.333 65 / 804.333 Weight 104.9 kg Intake: IV 639.333 / 639.333 Oral 400 / 640 240 / 640 Output: Urine 300 / 475 175 / 475 Other: Urine Color Light Teena [place] Urine Appearance Clear Clear Urine Odor Normal Comment minor c/o stinging while voiding, educated on c/o procedure done pT got up to use the bathroom and now sitting back down in chair. Stool Size Moderate Stool Characteristics Soft Formed Emesis Description None Voiding Methods Urinal Toilet PFSH All Active Problems (Updated 01/10/24 @ 07:02 by Shiraz Dunn MD) Gross hematuria (Acute) Scalp lesion (Chronic) History of right shoulder replacement (Chronic) Hemiarthroplasty; 1992, [facility] Skin lesion (Chronic) Nail dystrophy (Acute) COVID-19 (Acute) JIMBO (obstructive sleep apnea) (Chronic) Abnormal CT lung screening (Acute) Diabetes mellitus (Chronic) Bronchiectasis (Acute) Otitis media (Chronic) Follow up (Acute) Trochanteric bursitis, right hip (Acute) Strain of flexor muscle of right hip (Acute) Hospital as place of occurrence of accidental injury (Acute) Arthritis of ankle, left (Acute) Arthritis of subtalar joint (Chronic) Arthritis of left foot (Chronic) Serum total bilirubin elevated (Acute 05/07/15) elevated conjugated bili Restless legs syndrome (Acute) Polyp of colon (Acute) hyperplastic Obstructive sleep apnea syndrome (Chronic) S/P uvulectomy; C-Pap Malignant tumor of prostate (Chronic 12/07/12) found incidentally on TURP Lung nodule (Chronic 11/07/15) 10/04/15; [facility]; 6mm RLL; 6 MONTH FU from 08/201504/10/16 stable yearly screening Insomnia, unspecified (Acute 11/07/15) Increased BMI (Acute) Hyperlipidemia (Chronic 01/16/13) Essential hypertension (Chronic 07/17/13) Depressive disorder (Chronic) [facility]--meds DJD (degenerative joint disease) of knee (Chronic) DR. SHERIFF; RIGHT Cataracts, bilateral (Chronic 10/23/15) Choledocholithiasis with acute cholecystitis with obstruction (Acute) Elevated d-dimer (Acute) Acute cholecystitis (Acute) History of colonic polyps (Chronic) Insomnia (Chronic) Restless legs syndrome (Chronic) Obesity (Chronic) H/O surgical procedure (Chronic) a. left total knee arthroplasty b. TURP c. Inferior turbinate plasty and uvulectomy, along with septoplasty d. left bunionectomy e. right inguinal hernia repair f. right rotator cuff repair g. right total shoulder arthroplasty h. 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 Javon Oswald 11/29/2012 Obstructive sleep apnea syndrome (Chronic) does not tolerate CPAP Depressive disorder (Chronic) Chronic obstructive lung disease (Chronic) a. 60 pack year of smoking, quit 2006 Hypercholesterolemia (Chronic) Benign hypertension (Chronic) Benign prostatic hypertrophy with outflow obstruction (Chronic 11/29/12) Urgency/frequency. TURP by Dr. Javon Oswald 11/29/2012 Medical History (Updated 01/10/24 @ 07:02 by Shiraz Dunn MD) Bunion of great toe of right foot Emphysema of lung Asthma COPD (chronic obstructive pulmonary disease) Surgical History (Updated 01/07/24 @ 10:24 by Ant Mejia) H/O ankle fusion hernia repair, ventral (01/12/17) UVULECTOMY (10/03/12) DR. SANTO Replacement of total knee joint (~11/2011) Dr. Zhang Transurethral prostatectomy (11/29/12) DR. OSWALD TOTAL SHOULDER REPLACEMENT (RIGHT) (~1992) SLEEP APNEA SURGERY RIGHT SHOULDER SURGERY Repair of inguinal hernia B/L Cholecystectomy Extraction of cataract 10/31/15; DR. MEDEIROS; LEFT EYE 11/14/15; DR. MEDEIROS; RIGHT EYE CARDIAC CATH R/L 2003 Arthroplasty of knee 10/28/18 BILAT Family History Mother Diabetes Essential hypertension Depression Hyperlipidemia Father COPD (chronic obstructive pulmonary disease) Heart disease Hyperlipidemia Asthma Brother Essential hypertension Hyperlipidemia Grandfather Diabetes Heart disease Neoplasm KIDNEYS Stroke Grandfather Heart disease Neoplasm STOMACH Asthma Grandmother Diabetes Heart disease Stroke Grandmother Diabetes Heart disease Stroke Daughter Depression Asthma Daughter Depression Asthma Social History (Updated 12/13/23 @ 13:05 by Vianey Veronica) Smoking/Tobacco Use Status: Former Tobacco Use Quit Date: 08/02/06 Quit status: quit date established Second Hand Exposure: Yes Smoking risk assessment performed?: Yes Alcohol Intake: former Year quit: 2006 Details: attempted to quit many times, quit in 2006 Drug use: Never Substance use type: does not use Adopted: No Caregiver/Support person: No Household members: spouse and children Housing: apartment Number of Children: 3 Communication Needs: Hard of Hearing and Corrective Lenses Do you need help understanding health information?: Often Pets and animals: Yes Pets and animals: cat(s) Sexually active: No Do you think of yourself as: straight/heterosexual Current gender identity: male What is your relationship status?: How often do you talk on the phone with friends or family?: never How often do you get together with friends or relatives?: never How often do you attend judaism or cheondoism services?: decline to answer Do you belong to any clubs or organized social groups?: no Panel score (0-1 are the most socially isolated patients): 0 What type of physical activity do you participate in: none and walking Duration: < 15 minutes/day Frequency: 3-4 times per week Azucena/Congregational: Pentecostalism Special azucena needs: No Seatbelt use: sometimes Helmet use: No Drive intox or ride w/intox nascar driver: No Firearms in home: No Do you feel safe at home: Yes Would you like helpful sources: No Additional Social history: lives alone Time Spent with Patient Time Spent with Patient: <45 minutes Time was spent: counseling the patient
--- NOTE | 2024-01-10 16:40 | W.PM.DS.N ---
Date of service: 01/10/24 Time of Service: 16:41 DS: Diagnosis Discharge Diagnosis (1) Malignant tumor of prostate: Status: Chronic (2) Gross hematuria: Status: Acute Discharge Plan Disposition Patient Disposition: Home Condition: Stable Discharge Details Reason For Visit: Hematuria Admit Date/Time: 01/10/24 08:05 Admit Provider: Shiraz Dunn Attending Provider: Shiraz Dunn Primary Care Provider: Deandre Galvez Hospital Course Hospital Course: The patient was brought to the operating room on 01/11/2024 where he underwent a cystoscopy. The procedure showed no evidence of bladder tumors. We suspect that the source of his hematuria is from some degree of his prostate tissue. Initially, the patient was not able to secure a ride home following the procedure, so we admitted him to the medical surgical unit for observation. Once the anesthesia wore off, he felt well. He was able to void with no difficulty. He was able to secure a ride home and he is deemed appropriate for discharge. Home Meds and New Rx's Prescriptions: No Action diltiazem HCl 120 mg capsule,extended release 24hr 120 mg PO DAILY Qty: 90 3RF metoprolol succinate 100 mg tablet extended release 24 hr 100 mg PO DAILY Qty: 90 3RF hydrochlorothiazide 25 mg tablet 25 mg PO DAILY Qty: 90 3RF pramipexole 0.5 mg tablet 0.5 mg PO HS Qty: 90 3RF metformin 500 mg tablet 500 mg PO BID Qty: 180 3RF zolpidem 5 mg tablet 5 mg PO QHS PRN (Reason: sleep) Qty: 30 5RF omeprazole 20 mg capsule,delayed release(DR/EC) 20 mg PO DAILY Qty: 90 3RF ipratropium-albuterol 0.5 mg-3 mg(2.5 mg base)/3 mL solution for nebulization 3 ml INHALATION BID PRN (Reason: copd) Qty: 180 3RF albuterol sulfate [Ventolin HFA] 90 mcg/actuation HFA aerosol inhaler 2 puff Inhalation Q4H PRN (Reason: shortness of breath or wheezing) Qty: 18 3RF fluticasone propion-salmeterol [Advair HFA] 230-21 mcg/actuation HFA aerosol inhaler 2 puff Inhalation BID Qty: 12 3RF bupropion HCl (smoking deter) 150 mg tablet extended release 12 hr 150 mg PO BID Qty: 180 3RF celecoxib 200 mg capsule 200 mg PO DAILY PRN (Reason: pain) Qty: 30 5RF lisinopril 5 mg tablet 5 mg PO DAILY Qty: 90 4RF Incruse Ellipta 62.5 mcg/actuation blister with device 1 inh inhalation DAILY Qty: 30 3RF venlafaxine 100 mg tablet 100 mg PO BID Qty: 180 3RF Patient Comments: 01/24/18 pt takes 200mg in AM.jw lamotrigine 100 mg tablet 200 mg PO DAILY Qty: 180 3RF pravastatin 40 mg tablet 40 mg PO DAILY Qty: 90 4RF aspirin 81 MG tablet,chewable 81 mg PO DAILY acetaminophen [Pain and Fever] 500 MG tablet 500 - 1,000 mg PO PRN PRN ascorbic acid (vitamin C) 1,000 MG tablet,chewable 1,000 mg PO DAILY calcium carbonate [Calcium 500] 500 MG tablet 500 mg PO DAILY Discharge Instructions Additional Instructions: Follow-up appointment in 6 months-call sooner if hematuria returns Activity:: Activity as Tolerated Equipment/Supplies:: No Equipment Needed Diet:: As Tolerated Discharge Orders Discharge Orders: Discharge Order (Routine); Ordered 01/10/24 Ordered By: Shiraz Dunn DS: Summary Time Spent with Patient providing and/or coordinating discharge services: Less than 30 minutes Status at Discharge Functional status at discharge: independent ambulation Overall status at discharge: patient is back to baseline Mental Status: mental status grossly normal Speech and Movement: speech and movement normal Mood: congruent mood Affect: normal affect Quality:SDOH Health Related Social Needs: No Data to Display Exam Psych Mental Status: mental status grossly normal Speech and Movement: speech and movement normal Mood: congruent mood Affect: normal affect DS: Data Vitals/I&O Vitals and I&O: Vital Signs Temperature 37.5 C 01/10/24 15:00 Temperature Source Tympanic 01/10/24 15:00 Pulse 83 01/10/24 15:00 Pulse Rhythm Regular 01/10/24 11:20 Pulse 65 01/10/24 08:31 Respiratory Rate 18 01/10/24 15:00 Respiratory Effort Normal, Non-Labored 01/10/24 11:20 Respiratory Depth Normal 01/10/24 11:20 Respiratory Pattern Normal 01/10/24 11:20 Blood Pressure 137/86 01/10/24 15:00 Blood Pressure Mean 81 01/10/24 08:30 Pulse Oximetry 93 01/10/24 15:00 Respiratory End-tidal CO2 30 01/10/24 08:29 Oxygen Delivery Method Room Air 01/10/24 15:00 Oxygen Flow Rate 0 01/10/24 15:00 Pain Level 6 01/10/24 15:00 Comment 6/10 only when peeing. 01/10/24 15:00 Intake & Output 01/09/24 01/10/24 01/10/24 23:59 11:59 23:59 Intake Total 1039.333 / 1279.333 240 / 1279.333 Output Total 300 / 475 175 / 475 Balance 739.333 / 804.333 65 / 804.333 Weight 104.9 kg Intake: IV 639.333 / 639.333 Oral 400 / 640 240 / 640 Output: Urine 300 / 475 175 / 475 Other: Urine Color Light Teena [place] Urine Appearance Clear Clear Urine Odor Normal Comment minor c/o stinging while voiding, educated on c/o procedure done pT got up to use the bathroom and now sitting back down in chair. Stool Size Moderate Stool Characteristics Soft Formed Emesis Description None Voiding Methods Urinal Toilet PFSH All Active Problems (Updated 01/10/24 @ 07:02 by Shiraz Dunn MD) Gross hematuria (Acute) Scalp lesion (Chronic) History of right shoulder replacement (Chronic) Hemiarthroplasty; 1992, [facility] Skin lesion (Chronic) Nail dystrophy (Acute) COVID-19 (Acute) JIMBO (obstructive sleep apnea) (Chronic) Abnormal CT lung screening (Acute) Diabetes mellitus (Chronic) Bronchiectasis (Acute) Otitis media (Chronic) Follow up (Acute) Trochanteric bursitis, right hip (Acute) Strain of flexor muscle of right hip (Acute) Hospital as place of occurrence of accidental injury (Acute) Arthritis of ankle, left (Acute) Arthritis of subtalar joint (Chronic) Arthritis of left foot (Chronic) Serum total bilirubin elevated (Acute 05/07/15) elevated conjugated bili Restless legs syndrome (Acute) Polyp of colon (Acute) hyperplastic Obstructive sleep apnea syndrome (Chronic) S/P uvulectomy; C-Pap Malignant tumor of prostate (Chronic 12/07/12) found incidentally on TURP Lung nodule (Chronic 11/07/15) 10/04/15; [facility]; 6mm RLL; 6 MONTH FU from 08/201504/10/16 stable yearly screening Insomnia, unspecified (Acute 11/07/15) Increased BMI (Acute) Hyperlipidemia (Chronic 01/16/13) Essential hypertension (Chronic 07/17/13) Depressive disorder (Chronic) [facility]--meds DJD (degenerative joint disease) of knee (Chronic) DR. SHERIFF; RIGHT Cataracts, bilateral (Chronic 10/23/15) Choledocholithiasis with acute cholecystitis with obstruction (Acute) Elevated d-dimer (Acute) Acute cholecystitis (Acute) History of colonic polyps (Chronic) Insomnia (Chronic) Restless legs syndrome (Chronic) Obesity (Chronic) H/O surgical procedure (Chronic) a. left total knee arthroplasty b. TURP c. Inferior turbinate plasty and uvulectomy, along with septoplasty d. left bunionectomy e. right inguinal hernia repair f. right rotator cuff repair g. right total shoulder arthroplasty h. 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 Javon Oswald 11/29/2012 Obstructive sleep apnea syndrome (Chronic) does not tolerate CPAP Depressive disorder (Chronic) Chronic obstructive lung disease (Chronic) a. 60 pack year of smoking, quit 2006 Hypercholesterolemia (Chronic) Benign hypertension (Chronic) Benign prostatic hypertrophy with outflow obstruction (Chronic 11/29/12) Urgency/frequency. TURP by Dr. Javon Oswald 11/29/2012 Medical History (Updated 01/10/24 @ 07:02 by Shiraz Dunn MD) Bunion of great toe of right foot Emphysema of lung Asthma COPD (chronic obstructive pulmonary disease) Surgical History (Updated 01/07/24 @ 10:24 by Ant Mejia) H/O ankle fusion hernia repair, ventral (01/12/17) UVULECTOMY (10/03/12) DR. SANTO Replacement of total knee joint (~11/2011) Dr. Zhang Transurethral prostatectomy (11/29/12) DR. OSWALD TOTAL SHOULDER REPLACEMENT (RIGHT) (~1992) SLEEP APNEA SURGERY RIGHT SHOULDER SURGERY Repair of inguinal hernia B/L Cholecystectomy Extraction of cataract 3/31/16; DR. MEDEIROS; LEFT EYE 11/14/15; DR. MEDEIROS; RIGHT EYE CARDIAC CATH R/L 2003 Arthroplasty of knee 10/28/18 BILAT Family History Mother Diabetes Essential hypertension Depression Hyperlipidemia Father COPD (chronic obstructive pulmonary disease) Heart disease Hyperlipidemia Asthma Brother Essential hypertension Hyperlipidemia Grandfather Diabetes Heart disease Neoplasm KIDNEYS Stroke Grandfather Heart disease Neoplasm STOMACH Asthma Grandmother Diabetes Heart disease Stroke Grandmother Diabetes Heart disease Stroke Daughter Depression Asthma Daughter Depression Asthma Social History (Updated 12/13/23 @ 13:05 by Vianey Veronica) Smoking/Tobacco Use Status: Former Tobacco Use Quit Date: 08/02/06 Quit status: quit date established Second Hand Exposure: Yes Smoking risk assessment performed?: Yes Alcohol Intake: former Year quit: 2006 Details: attempted to quit many times, quit in 2006 Drug use: Never Substance use type: does not use Adopted: No Caregiver/Support person: No Household members: spouse and children Housing: apartment Number of Children: 3 Communication Needs: Hard of Hearing and Corrective Lenses Do you need help understanding health information?: Often Pets and animals: Yes Pets and animals: cat(s) Sexually active: No Do you think of yourself as: straight/heterosexual Current gender identity: male What is your relationship status?: How often do you talk on the phone with friends or family?: never How often do you get together with friends or relatives?: never How often do you attend shinto or bahai services?: decline to answer Do you belong to any clubs or organized social groups?: no Panel score (0-1 are the most socially isolated patients): 0 What type of physical activity do you participate in: none and walking Duration: < 15 minutes/day Frequency: 3-4 times per week Azucena/Judaism: Druze Special azucena needs: No Seatbelt use: sometimes Helmet use: No Drive intox or ride w/intox driver retraining instructor: No Firearms in home: No Do you feel safe at home: Yes Would you like helpful sources: No Additional Social history: lives alone Time Spent with Patient Time Spent with Patient: <45 minutes Time was spent: other
== END 2024-01-10 17:16 | disposition home or self-care (01) ==
LOC: MS 08:42
PROVIDERS: Admitting Provider Urology; PCP Nurse Practitioner Family; Visit Provider Urology
PROC: 0TJB8ZZ Inspection of Bladder, Via Natural or Artificial Opening Endoscopic (ICD-10-PCS; CPT 52000; principal; 2024-01-10 07:30)
DX: R31.0 Gross hematuria; Z85.46 Personal history of malignant neoplasm of prostate; G47.33 Obstructive sleep apnea (adult) (pediatric); E11.9 Type 2 diabetes mellitus without complications; I10 Essential (primary) hypertension; E78.00 Pure hypercholesterolemia, unspecified; J44.9 Chronic obstructive pulmonary disease, unspecified; E66.9 Obesity, unspecified; G47.00 Insomnia, unspecified; G25.81 Restless legs syndrome; R79.1 Abnormal coagulation profile; Z96.652 Presence of left artificial knee joint; Z96.611 Presence of right artificial shoulder joint
CPT/HCPCS: 52000; 99234; J0690; J1100; J2001; J2704

== ENCOUNTER → 2024-04-27 13:27 | Outpatient (BNVA) | payer MEDICARE, SELFPAY | PROVIDERS: PCP Nurse Practitioner Family; Referring Provider Nurse Practitioner Family; Visit Provider Physical Therapy Assistant | DX: Z12.11 Encounter for screening for malignant neoplasm of colon (principal); Z86.010 Personal history of colon polyps; Z80.0 Family history of malignant neoplasm of digestive organs ==

== ENCOUNTER 2024-06-15 15:11 | Emergency (ER) | payer MEDICARE, SELFPAY ==
[2024-06-15 15:14] VITALS: BP 145/90; PULSE 66; RESP 20; TEMP 36.2; O2SAT 95
--- NOTE | 2024-06-15 15:30 | DI.CT_ITS ---
Exam(s) CT HEAD CERVICAL SPINE WO EXAM: CT HEAD CERVICAL SPINE WO CLINICAL HISTORY: fall. TECHNIQUE: Imaging Protocol: Axial computed tomography images with coronal and sagittal reformatted images were created and reviewed COMPARISON: CT CT HEAD WO from 04/23/2023 FINDINGS: CT Head: Ventricles and Extra axial spaces: Normal in size and morphology for the patient's age. Hemorrhage: None. Cerebral parenchyma: Normal. Midline shift: None. Brainstem/Cerebellum: Normal. Calvarium: Normal. Visualized Paranasal sinuses/Mastoids: There is again seen complete opacification of the right maxill michelle sinus. There is thickening of the wall of the left maxillary sinus. The findings are consistent with chronic sinusitis. The remaining visualized paranasal sinuses are clear as are the mastoid air cells. Soft Tissues: Unremarkable. CT Cervical Spine: Bones: No acute fracture or subluxation. There are degenerative changes seen in the cervical spine. There is 5 mm anterolisthesis of C3 on C4. There is 4 mm anterolisthesis of C4 on C5. There is a ri ght convex curvature of the cervical spine. 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 Soft Tissues: Unremarkable. Lung Apices: No focal infiltrates. IMPRESSION: 1. No acute intracranial process. 2. No acute fracture or subluxation in the cervical spine. RADIATION DOSE DELIVERED: 1,335.53mGy.cm Total DLP DATA REPOSITORY: All CT scans at this facility are submitted to the National Radiology Data Registry (NRDR) Dose Index Registry (DIR) with the [employer] (A[employer]). RADIATION OPTIMIZATION: All CT scans at this facility use at least one of these dose optimization te chniques: automated exposure control; mA and/or kV adjustment per patient size (includes targeted exa ms where dose is matched to clinical indication); or iterative reconstruction.
[2024-06-15 15:33] VITALS: BP 129/85; PULSE 62; O2SAT 93
--- NOTE | 2024-06-15 15:39 | W.ED.GENAD ---
Discharge Plan Disposition Patient Disposition: Home Discharge Details Clinical Impression: Fall Primary Care Provider: Deandre Galvez ED Provider: Sonia Biswas Home Meds and New Rx's Prescriptions: No Action polyethylene glycol 3350 17 gram/dose powder 17 g PO ONCE Qty: 238 0RF Rx Instructions: Take per colonoscopy instructions provided by ordering providers office bisacodyl [Dulcolax (bisacodyl)] 5 mg tablet,delayed release (DR/EC) 5 mg PO ONCE Qty: 4 0RF Rx Instructions: Take per colonoscopy instructions provided by ordering providers office metformin 500 mg tablet 1,000 mg PO DAILY Qty: 180 3RF omeprazole 20 mg capsule,delayed release(DR/EC) 20 mg PO DAILY Qty: 90 3RF ipratropium-albuterol 0.5 mg-3 mg(2.5 mg base)/3 mL solution for nebulization 3 ml INHALATION BID PRN (Reason: copd) Qty: 180 3RF albuterol sulfate [Ventolin HFA] 90 mcg/actuation HFA aerosol inhaler 2 puff Inhalation Q4H PRN (Reason: shortness of breath or wheezing) Qty: 18 3RF bupropion HCl (smoking deter) 150 mg tablet extended release 12 hr 150 mg PO BID Qty: 180 3RF lisinopril 5 mg tablet 5 mg PO DAILY Qty: 90 4RF lamotrigine 100 mg tablet 200 mg PO DAILY Qty: 180 3RF hydrochlorothiazide 25 mg tablet 25 mg PO DAILY Qty: 90 3RF pramipexole 0.5 mg tablet 0.5 mg PO HS Qty: 90 3RF pravastatin 40 mg tablet 40 mg PO DAILY Qty: 90 4RF Incruse Ellipta 62.5 mcg/actuation blister with device 1 inh inhalation DAILY Qty: 30 3RF venlafaxine 100 mg tablet 100 mg PO BID Qty: 180 3RF Patient Comments: 01/24/18 pt takes 200mg in AM.jw diltiazem HCl 120 mg capsule,extended release 24hr 120 mg PO DAILY Qty: 90 3RF metoprolol succinate 100 mg tablet extended release 24 hr 100 mg PO DAILY Qty: 90 3RF fluticasone propion-salmeterol [Advair HFA] 230-21 mcg/actuation HFA aerosol inhaler 2 puff Inhalation BID Qty: 12 3RF zolpidem 5 mg tablet 5 mg PO QHS PRN (Reason: sleep) Qty: 30 5RF celecoxib 200 mg capsule 200 mg PO DAILY PRN (Reason: pain) Qty: 30 5RF azithromycin 250 mg tablet 250 mg PO DAILY Qty: 90 4RF aspirin 81 MG tablet,chewable 81 mg PO DAILY acetaminophen [Pain and Fever] 500 MG tablet 500 - 1,000 mg PO PRN PRN ascorbic acid (vitamin C) 1,000 MG tablet,chewable 1,000 mg PO DAILY calcium carbonate [Calcium 500] 500 MG tablet 500 mg PO DAILY Discharge Instructions Additional Instructions: your CT scans do not show an abnormality please follow up with your PCP as needed Discharge Data Discharge Date/Time-TO BE ENTERED AT DEPARTURE: 06/15/24 17:11 HPI General Date/Time Provider Initiated Documentation: 06/15/24 15:27. Limitations to Documentation: no limitations. Information obtained by: patient. HPI Narrative: 68-year-old gentleman with past medical history of prostate cancer , restless leg syndrome, hypertension, JIMBO presents for evaluation after a fall. Patient states that he was in his driveway when he lost his balance. He states his driveway is very sleep steep and he fell backward. He states that he did not lose consciousness, he could not get up on his own. He states that he has significant difficulty with walking and standing at baseline secondary to his feet. He has significant balance issues at baseline. He states that he does take a baby aspirin daily. He denies any other blood thinner use. EMS was dispatched to his home to help get him off the ground and advised that he come to the emergency department for evaluation given his fall. Related Data Home Medications ?Medication ?Instructions ?Recorded ?Confirmed acetaminophen 500 mg tablet (Pain 500 - 1,000 mg PO PRN PRN 09/30/12 06/15/24 and Fever) ascorbic acid (vitamin C) 1,000 mg 1,000 mg PO DAILY 09/30/12 06/15/24 chewable tablet aspirin 81 mg chewable tablet 81 mg PO DAILY 09/30/12 06/15/24 calcium carbonate (Calcium 500) 500 mg PO DAILY 01/24/18 06/15/24 omeprazole 20 mg capsule,delayed 20 mg PO DAILY #90 tab-caps 02/26/24 11/14/24 release ipratropium 0.5 mg-albuterol 3 mg 3 ml inhalation BID PRN copd #180 10/06/23 06/15/24 (2.5 mg base)/3 mL nebulization mL soln albuterol sulfate 90 mcg/actuation 2 puff inhalation Q4H PRN 11/22/23 06/15/24 aerosol inhaler (Ventolin HFA) shortness of breath or wheezing #18 grams bupropion HCl (smoking deter) 150 150 mg PO BID #180 tab-caps 12/06/23 06/15/24 mg tablet,12 hr sustained-release(smoking deterrent) lisinopril 5 mg tablet 5 mg PO DAILY #90 tab-caps 12/06/23 06/15/24 lamotrigine 100 mg tablet 200 mg (2 x 100 mg) PO DAILY #180 01/05/24 06/15/24 tab-caps hydrochlorothiazide 25 mg tablet 25 mg PO DAILY #90 tabs 01/17/24 06/15/24 pramipexole 0.5 mg tablet 0.5 mg PO HS #90 tab-caps 02/02/24 06/15/24 diltiazem HCl 120 mg 120 mg PO DAILY #90 caps 02/14/24 06/15/24 capsule,extended release 24 hr fluticasone propionate 230 2 puff inhalation BID #12 grams 02/14/24 06/15/24 mcg-salmeterol 21 mcg/actuation HFA inhaler (Advair HFA) metoprolol succinate 100 mg 100 mg PO DAILY #90 tab-caps 02/14/24 06/15/24 tablet,extended release 24 hr pravastatin 40 mg tablet 40 mg PO DAILY #90 tab-caps 02/14/24 06/15/24 umeclidinium 62.5 mcg/actuation 1 inh inhalation DAILY #30 ea 02/14/24 06/15/24 blister powder for inhalation (Incruse Ellipta) venlafaxine 100 mg tablet 100 mg PO BID #180 tab-caps 02/14/24 06/15/24 zolpidem 5 mg tablet 5 mg PO QHS PRN sleep #30 tabs 02/25/24 06/15/24 metformin 500 mg tablet 1,000 mg (2 x 500 mg) PO DAILY 03/24/24 06/15/24 #180 tabs bisacodyl 5 mg tablet,delayed 5 mg PO ONCE #4 tabs 04/27/24 06/15/24 release (Dulcolax (bisacodyl)) polyethylene glycol 3350 17 17 g PO ONCE #238 grams 04/27/24 06/15/24 gram/dose oral powder celecoxib 200 mg capsule 200 mg PO DAILY PRN pain #30 caps 05/24/24 06/15/24 azithromycin 250 mg tablet 250 mg PO DAILY COPD, to reduce 06/13/24 06/15/24 exacerbations, do not discontinue #90 tabs Previous Rx's ?Medication ?Instructions ?Recorded omeprazole 20 mg capsule,delayed 20 mg PO DAILY #90 tab-caps 09/27/23 release ipratropium 0.5 mg-albuterol 3 mg 3 ml inhalation BID PRN copd #180 10/06/23 (2.5 mg base)/3 mL nebulization mL soln albuterol sulfate 90 mcg/actuation 2 puff inhalation Q4H PRN 11/22/23 aerosol inhaler (Ventolin HFA) shortness of breath or wheezing #18 grams bupropion HCl (smoking deter) 150 150 mg PO BID #180 tab-caps 12/06/23 mg tablet,12 hr sustained-release(smoking deterrent) lisinopril 5 mg tablet 5 mg PO DAILY #90 tab-caps 12/06/23 lamotrigine 100 mg tablet 200 mg (2 x 100 mg) PO DAILY #180 01/05/24 tab-caps hydrochlorothiazide 25 mg tablet 25 mg PO DAILY #90 tabs 01/17/24 pramipexole 0.5 mg tablet 0.5 mg PO HS #90 tab-caps 02/02/24 diltiazem HCl 120 mg 120 mg PO DAILY #90 caps 02/14/24 capsule,extended release 24 hr fluticasone propionate 230 2 puff inhalation BID #12 grams 02/14/24 mcg-salmeterol 21 mcg/actuation HFA inhaler (Advair HFA) metoprolol succinate 100 mg 100 mg PO DAILY #90 tab-caps 02/14/24 tablet,extended release 24 hr pravastatin 40 mg tablet 40 mg PO DAILY #90 tab-caps 02/14/24 umeclidinium 62.5 mcg/actuation 1 inh inhalation DAILY #30 ea 02/14/24 blister powder for inhalation (Incruse Ellipta) venlafaxine 100 mg tablet 100 mg PO BID #180 tab-caps 02/14/24 zolpidem 5 mg tablet 5 mg PO QHS PRN sleep #30 tabs 02/25/24 metformin 500 mg tablet 1,000 mg (2 x 500 mg) PO DAILY 03/24/24 #180 tabs bisacodyl 5 mg tablet,delayed 5 mg PO ONCE #4 tabs 04/27/24 release (Dulcolax (bisacodyl)) polyethylene glycol 3350 17 17 g PO ONCE #238 grams 04/27/24 gram/dose oral powder celecoxib 200 mg capsule 200 mg PO DAILY PRN pain #30 caps 05/24/24 azithromycin 250 mg tablet 250 mg PO DAILY COPD, to reduce 06/13/24 exacerbations, do not discontinue #90 tabs Allergies Allergy/AdvReac Type Severity Reaction Status Date / Time house dust (House Dust) Allergy Unknown unknown Verified 06/15/24 15:17 hydrocodone bitartrate (From AdvReac Intermediate hallucinati Verified 06/15/24 15:17 Vicodin) ons zolpidem AdvReac Intermediate Agitation Verified 06/15/24 15:17 morphine AdvReac Unknown NAUSEA, Verified 06/15/24 15:17 VOMITING fentanyl AdvReac unknown Verified 06/15/24 15:17 General Stated Complaint: Fall/Non TraumaCriteria BETH: 3 Exam Narrative Exam Narrative: Review of Systems: All systems reviewed & are unremarkable except as noted in HPI and below Well-developed, no acute distress NCAT No midline C-spine tenderness, full range of motion neck RRR Unlabored respiratory effort Nondistended abdomen No hip tenderness, pelvis stable No midline back tenderness, step-off or deformity no focal neurologic deficits Course Vital Signs Vital signs: Vital Signs Temperature 36.2 C L 06/15/24 15:14 Pulse 66 06/15/24 15:14 Respiratory Rate 20 06/15/24 15:14 Blood Pressure 145/90 H 06/15/24 15:14 Pulse Oximetry 95 06/15/24 15:14 Temperature 36.2 C L 06/15/24 15:14 Pulse 62 06/15/24 15:33 Respiratory Rate 20 06/15/24 15:14 Respiratory Effort Normal 06/15/24 15:19 Blood Pressure 129/85 06/15/24 15:33 Blood Pressure Position Sitting 06/15/24 15:14 Pulse Oximetry 93 06/15/24 15:33 Oxygen Delivery Method Room Air 06/15/24 15:33 Oxygen Flow Rate 0 06/15/24 15:33 Medical Decision Making Emergent evaluation after of mechanical fall. Patient has significant gait and balance issues. This does not sound like syncope or cardiogenic etiology of his fall. The patient was not able to get up on his own. He does take an aspirin. There are no signs of laceration or significant head injury on examination. Given his age and comorbidities, will obtain CT imaging of head and C-spine. CT imaging does not reveal an acute traumatic etiology. The patient is at his baseline in terms of ambulation and is discharged in good condition. Follow-up with PCP as needed. Quality:[facility] Health Related Social Needs: No Data to Display [facility] All Active Problems (Updated 06/15/24 @ 16:46 by Sonia Biswas MD) Fall (Acute) Scalp lesion (Chronic) History of right shoulder replacement (Chronic) Hemiarthroplasty; 1992, [facility] Skin lesion (Chronic) Nail dystrophy (Acute) COVID-19 (Acute) JIMBO (obstructive sleep apnea) (Chronic) Abnormal CT lung screening (Acute) Diabetes mellitus (Chronic) Bronchiectasis (Acute) Otitis media (Chronic) Follow up (Acute) Trochanteric bursitis, right hip (Acute) Strain of flexor muscle of right hip (Acute) Hospital as place of occurrence of accidental injury (Acute) Arthritis of ankle, left (Acute) Arthritis of subtalar joint (Chronic) Arthritis of left foot (Chronic) Serum total bilirubin elevated (Acute 05/07/15) elevated conjugated bili Restless legs syndrome (Acute) Polyp of colon (Acute) hyperplastic Obstructive sleep apnea syndrome (Chronic) S/P uvulectomy; C-Pap Malignant tumor of prostate (Chronic 12/07/12) found incidentally on TURP Lung nodule (Chronic 11/07/15) 10/04/15; [facility]; 6mm RLL; 6 MONTH FU from 08/201504/10/16 stable yearly screening Insomnia, unspecified (Acute 11/07/15) Increased BMI (Acute) Hyperlipidemia (Chronic 01/16/13) Essential hypertension (Chronic 07/17/13) Depressive disorder (Chronic) NEKHS--meds DJD (degenerative joint disease) of knee (Chronic) DR. SHERIFF; RIGHT Cataracts, bilateral (Chronic 10/23/15) Choledocholithiasis with acute cholecystitis with obstruction (Acute) Elevated d-dimer (Acute) Acute cholecystitis (Acute) History of colonic polyps (Chronic) Insomnia (Chronic) Restless legs syndrome (Chronic) Obesity (Chronic) H/O surgical procedure (Chronic) a. left total knee arthroplasty b. TURP c. Inferior turbinate plasty and uvulectomy, along with septoplasty d. left bunionectomy e. right inguinal hernia repair f. right rotator cuff repair g. right total shoulder arthroplasty h. 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 Javon Oswald 11/29/2012 Obstructive sleep apnea syndrome (Chronic) does not tolerate CPAP Depressive disorder (Chronic) Chronic obstructive lung disease (Chronic) a. 60 pack year of smoking, quit 2006 Hypercholesterolemia (Chronic) Benign hypertension (Chronic) Benign prostatic hypertrophy with outflow obstruction (Chronic 11/29/12) Urgency/frequency. TURP by Dr. Javon Oswald 11/29/2012 Medical History Gross hematuria Bunion of great toe of right foot Emphysema of lung Asthma COPD (chronic obstructive pulmonary disease) Surgical History H/O ankle fusion hernia repair, ventral (01/12/17) UVULECTOMY (10/03/12) DR. SANTO Replacement of total knee joint (~11/2011) Dr. Zhang Transurethral prostatectomy (11/29/12) DR. OSWALD TOTAL SHOULDER REPLACEMENT (RIGHT) (~1992) SLEEP APNEA SURGERY RIGHT SHOULDER SURGERY Repair of inguinal hernia B/L Cholecystectomy Extraction of cataract 10/31/15; DR. MEDEIROS; LEFT EYE 11/14/15; DR. MEDEIROS; RIGHT EYE CARDIAC CATH R/L 2004 Arthroplasty of knee 10/28/18 BILAT Family History Mother Diabetes Essential hypertension Depression Hyperlipidemia Father COPD (chronic obstructive pulmonary disease) Heart disease Hyperlipidemia Asthma Brother Essential hypertension Hyperlipidemia Grandfather Diabetes Heart disease Neoplasm KIDNEYS Stroke Grandfather Heart disease Neoplasm STOMACH Asthma Grandmother Diabetes Heart disease Stroke Grandmother Diabetes Heart disease Stroke Daughter Depression Asthma Daughter Depression Asthma Social History Smoking/Tobacco Use Status: Former Tobacco Use Quit Date: 08/02/06 Quit status: quit date established Second Hand Exposure: Yes Smoking risk assessment performed?: Yes Alcohol Intake: former Year quit: 2006 Details: attempted to quit many times, quit in 2006 Drug use: Never Substance use type: does not use Adopted: No Caregiver/Support person: No Household members: spouse and children Housing: apartment Number of Children: 3 Communication Needs: Hard of Hearing and Corrective Lenses Do you need help understanding health information?: Often Pets and animals: Yes Pets and animals: cat(s) Sexually active: No Do you think of yourself as: straight/heterosexual Current gender identity: male What is your relationship status?: How often do you talk on the phone with friends or family?: never How often do you get together with friends or relatives?: never How often do you attend protestant or anabaptist services?: decline to answer Do you belong to any clubs or organized social groups?: no Panel score (0-1 are the most socially isolated patients): 0 What type of physical activity do you participate in: none and walking Duration: < 15 minutes/day Frequency: 3-4 times per week Azucena/Rastafarian: Buddhism Special azucena needs: No Seatbelt use: sometimes Helmet use: No Drive intox or ride w/intox rail car driver: No Firearms in home: No Do you feel safe at home: Yes Would you like helpful sources: No Additional Social history: lives alone
[2024-06-15] MEDS: Acetaminophen 325 MG TAB 650 MG PO (16:18)
[2024-06-15] MEDS: Ondansetron O.D.T. 4 MG TABEF PO (16:18)
[2024-06-15 16:51] VITALS: BP 129/75; PULSE 65; RESP 20; O2SAT 98
== END 2024-06-15 17:11 | disposition home or self-care (01) ==
PROVIDERS: Emergency Provider Emergency Medicine; PCP Nurse Practitioner Family
DX: R11.0 Nausea (principal); I10 Essential (primary) hypertension; E11.9 Type 2 diabetes mellitus without complications; Z79.84 Long term (current) use of oral hypoglycemic drugs; Z79.82 Long term (current) use of aspirin; Z87.891 Personal history of nicotine dependence; V58.4XXA Person boarding or alighting a pick-up truck or van injured in noncollision transport accident, initial encounter
CPT/HCPCS: 99284; 70450; 72125

== ENCOUNTER 2024-08-14 15:31 | Outpatient (CLI) | payer MEDICARE, SELFPAY ==
--- NOTE | 2024-08-14 14:15 | DI.RAD_ITS ---
Exam(s) XR KNEE LT 3V AP,LAT,SWATHI EXAM: XR KNEE LT 3V AP,LAT,SWATHI CLINICAL HISTORY: L knee pain. TECHNIQUE: 2D digital imaging was performed. Three images were obtained. Margin, AP and lateral vie ws were obtained. COMPARISON: CR LEFT TIB/FIB from 05/28/2016 CR LEFT KNEE 3 VIEW COMPLETE from 05/28/2016 FINDINGS: BONES: There are stable post operative changes of a left total knee arthroplasty present. No fractur e or dislocation. JOINTS: The orthopedic hardware is in good position. No evidence of hardware loosening. SOFT TISSUE: Normal. IMPRESSION: Stable left total knee arthroplasty. DATA REPOSITORY: RADIATION DOSE DELIVERED:
== END 2024-08-14 15:32 | disposition home or self-care (01) ==
LOC: DIORS 15:32
PROVIDERS: PCP Nurse Practitioner Family; Referring Provider Nurse Practitioner Family; Visit Provider Physician Assistant
DX: S89.92XA Unspecified injury of left lower leg, initial encounter; W01.0XXA Fall on same level from slipping, tripping and stumbling without subsequent striking against object, initial encounter
CPT/HCPCS: 73562; 99213

== ENCOUNTER → 2024-09-05 14:56 | Outpatient (BNVA) | payer MEDICARE, SELFPAY | PROVIDERS: PCP Nurse Practitioner Family; Referring Provider Nurse Practitioner Family; Visit Provider Nurse Practitioner Gerontology | DX: N40.1 Benign prostatic hyperplasia with lower urinary tract symptoms (principal); N13.8 Other obstructive and reflux uropathy; C61 Malignant neoplasm of prostate; R31.0 Gross hematuria | CPT/HCPCS: 99214 ==

== ENCOUNTER → 2024-09-20 13:53 | Outpatient (BNVA) | payer MEDICARE, SELFPAY | PROVIDERS: PCP Nurse Practitioner Family; Referring Provider Nurse Practitioner Family; Visit Provider Physician Assistant Surgical | DX: J47.9 Bronchiectasis, uncomplicated (principal); J44.9 Chronic obstructive pulmonary disease, unspecified; G47.33 Obstructive sleep apnea (adult) (pediatric); R91.1 Solitary pulmonary nodule; Z87.891 Personal history of nicotine dependence | CPT/HCPCS: 99214 ==

== ENCOUNTER 2024-10-16 14:13 | Outpatient (CLI) | payer MEDICARE, SELFPAY ==
--- NOTE | 2024-10-16 13:30 | DI.RAD_ITS ---
Exam(s) XR HAND RT COMPLETE EXAM: XR HAND RT COMPLETE CLINICAL HISTORY: right hand pain. TECHNIQUE: 2D digital imaging was performed. Three views. COMPARISON: No exams were available for comparison FINDINGS: BONES: No acute fracture is present. No bony destructive lesion is seen. JOINTS: There are severe degenerative changes at radial carpal joint, with subchondral cyst formatio n spurring. There is severe degenerative changes at the 1st carpal metacarpal joint with prominent s purring, multiple subchondral cysts and prominent spurring of the trapezium. 1st there is hyperexten donna at the 1st metacarpophalangeal joint. There are also severe degenerative changes at the proxima l interphalangeal joint of the index finger which shows a large subchondral cysts and mild subluxatio n.. Milder degenerative changes are seen elsewhere SOFT TISSUE: Normal. IMPRESSION: Severe degenerative changes at the radiocarpal, 1st carpometacarpal and 2nd proximal interphalangeal joints. DATA REPOSITORY: RADIATION DOSE DELIVERED:
== END 2024-10-16 14:14 | disposition home or self-care (01) ==
LOC: DIORS 14:13
PROVIDERS: PCP Nurse Practitioner Family; Referring Provider Nurse Practitioner Family; Visit Provider Student in an Organized Health Care Education/Training Program
DX: S89.92XA Unspecified injury of left lower leg, initial encounter; X58.XXXA Exposure to other specified factors, initial encounter; M19.041 Primary osteoarthritis, right hand
CPT/HCPCS: 99213; 73130

== ENCOUNTER 2024-10-30 01:54 | Outpatient (CLI) | payer MEDICARE, SELFPAY ==
[2024-10-30 13:19] LABS: HCT 50.1 % (40.0-50.0); HGB 17.3 g/dL (13.5-17.5); MCH 31.4 pg (27.0-33.0); MCHC 34.5 % (32.0-36.0); MCV 91 fL (80-95); MPV 8.7 fL (8.0-11.0); Platelet Count 201 10^3/uL (130-400); RBC 5.51 10^6/uL (4.36-5.78); RDW 13.3 % (11.8-14.1); RDW-SD 44.4 fL
[2024-10-30 13:21] LABS: ESR 12 mm/hr (0-20)
[2024-10-30 13:48] LABS: C-Reactive Protein < 0.50 mg/dL (<or=0.5)
[2024-10-30 21:33] LABS: Rheumatoid Factor 28.8 IU/mL (<12.0)
[2024-10-31 15:32] LABS: ANA Interpretation Positive (Negative); ANA Titer Pattern 1:80 Speckled
[2024-11-01 10:38] LABS: PSA, Ultrasensitive 0.57 ng/mL (<= 6.5)
== END 2024-10-30 01:55 | disposition home or self-care (01) ==
LOC: LBO 01:54
PROVIDERS: Nurse Practitioner Gerontology; PCP Nurse Practitioner Family; Visit Provider Student in an Organized Health Care Education/Training Program
DX: N40.1 Benign prostatic hyperplasia with lower urinary tract symptoms (principal); N13.8 Other obstructive and reflux uropathy; C61 Malignant neoplasm of prostate; M19.041 Primary osteoarthritis, right hand; T84.84XA Pain due to internal orthopedic prosthetic devices, implants and grafts, initial encounter
CPT/HCPCS: 36415; 84153; 85027; 85652; 86038; 86140; 86431

== ENCOUNTER → 2024-12-07 13:35 | Outpatient (BNVA) | payer MEDICARE, SELFPAY | PROVIDERS: PCP Nurse Practitioner Family; Referring Provider Nurse Practitioner Family; Visit Provider Physical Therapy Assistant | DX: Z12.11 Encounter for screening for malignant neoplasm of colon (principal); I10 Essential (primary) hypertension ==

== ENCOUNTER → 2025-05-07 14:31 | Outpatient (BNVA) | payer MEDICARE, SELFPAY | PROVIDERS: PCP Nurse Practitioner Family; Referring Provider Nurse Practitioner Family; Visit Provider Physician Assistant Surgical | DX: J47.9 Bronchiectasis, uncomplicated (principal); J44.9 Chronic obstructive pulmonary disease, unspecified; G47.33 Obstructive sleep apnea (adult) (pediatric); R91.1 Solitary pulmonary nodule; Z87.891 Personal history of nicotine dependence | CPT/HCPCS: 99214 ==

== ENCOUNTER 2025-06-04 14:19 | Observation (INO) | payer MEDICARE, SELFPAY ==
[2025-06-04] VITALS (75 sets, daily range): BP systolic 102–177; BP diastolic 50–155; PULSE 68–144; RESP 10–29; TEMP 37–37.1; O2SAT 92–98
--- NOTE | 2025-06-04 14:15 | RT.EKG_ITS ---
APPROVED REPORT Exam: Resting ECG Reason for Exam: rapid heartrate Patient Location: E HR:127 bpm ECG Measurements Heart Rate 127 AXIS W[place] [id number] P [id number] QRSd 153 QRS -77 QT 358 T 32 QTc 522 Conclusion Multiple ventricular premature complexes...V complexes w/ short R-R intervls Right bundle branch block...QRSd>120, terminal axis(90,270) Inferior infarct, old...Q >35mS, II III aVF no ST segment or T wave abnormalities to suggest occlusive AL
--- NOTE | 2025-06-04 14:27 | W.ED.GENAD ---
Discharge Plan Disposition Patient Disposition: Admit to [facility] Condition: Serious Discharge Details Clinical Impression: Atrial fibrillation with RVR, Acute non-ST elevation myocardial infarction (NSTEMI), Chronic obstructive lung disease, Essential hypertension Primary Care Provider: Deandre Galvez ED Provider: Elvia Antony Home Meds and New Rx's Prescriptions: No Action polyethylene glycol 3350 17 gram/dose powder 17 g PO ONCE Qty: 238 0RF Rx Instructions: Take per colonoscopy instructions provided by ordering providers office fluticasone propion-salmeterol [Advair HFA] 230-21 mcg/actuation HFA aerosol inhaler 2 puff Inhalation BID Qty: 36 12RF albuterol sulfate [Ventolin HFA] 90 mcg/actuation HFA aerosol inhaler 2 puff Inhalation Q4H PRN (Reason: shortness of breath or wheezing) Qty: 18 11RF azithromycin 250 mg tablet 250 mg PO DAILY Qty: 90 4RF bupropion HCl (smoking deter) 150 mg tablet extended release 12 hr 150 mg PO BID Qty: 180 3RF celecoxib 200 mg capsule 200 mg PO DAILY PRN (Reason: pain) Qty: 30 11RF diltiazem HCl 120 mg capsule,extended release 24hr 120 mg PO DAILY Qty: 90 3RF hydrochlorothiazide 25 mg tablet 25 mg PO DAILY Qty: 90 11RF ipratropium-albuterol 0.5 mg-3 mg(2.5 mg base)/3 mL solution for nebulization 3 ml INHALATION BID PRN (Reason: copd) Qty: 180 11RF lamotrigine 100 mg tablet 200 mg PO DAILY Qty: 180 11RF lisinopril 5 mg tablet 5 mg PO DAILY Qty: 90 11RF metformin 500 mg tablet 1,000 mg PO DAILY Qty: 180 3RF metoprolol succinate 100 mg tablet extended release 24 hr 100 mg PO DAILY Qty: 90 11RF omeprazole 20 mg capsule,delayed release(DR/EC) 20 mg PO DAILY Qty: 90 11RF pramipexole 0.5 mg tablet 0.5 mg PO HS Qty: 90 11RF pravastatin 40 mg tablet 40 mg PO DAILY Qty: 90 11RF Incruse Ellipta 62.5 mcg/actuation blister with device 1 inh inhalation DAILY Qty: 30 11RF venlafaxine 100 mg tablet 100 mg PO BID Qty: 180 11RF Patient Comments: 01/24/18 pt takes 200mg in AM.jw zolpidem 5 mg tablet 5 mg PO QHS PRN (Reason: sleep) Qty: 30 2RF aspirin 81 MG tablet,chewable 81 mg PO DAILY acetaminophen [Pain and Fever] 500 MG tablet 500 - 1,000 mg PO PRN PRN ascorbic acid (vitamin C) 1,000 MG tablet,chewable 1,000 mg PO DAILY calcium carbonate [Calcium 500] 500 MG tablet 500 mg PO DAILY HPI General Mode of arrival: EMS. Date/Time Provider Initiated Documentation: 06/04/25 14:24. Limitations to Documentation: no limitations. Information obtained by: patient, EMS and old records reviewed. HPI Narrative: 69yo M with hx HTN, HLD< SVT, DM, COPD, presenting via EMS for SVT. Patient has had dull substernal chest pain and mild shortness of breath since late yesterday evening. [place] worse tonight and so called 911. For EMS, HR in 190's and appeared to be SVT on strip so was given 6mg of adenosine followed by 12mg. No pause, however HR did decrease to 120's. Also given 325 of ASA prior to arrival. Chest pain is dull, substernal, and nonradiating. No alleviating or aggravating factors. Shorntess of breath is mild and started around the same time as the chest pain. He passed out today (unsure for how long); felt unwell prior to losing consciousness. Not sure if he hit his head. Otherwise in his usual state of health with no fevers, chills, rash, nausea, vomiting, abdominal pain, dysuria, hematuria, LE edema, or other concerns. Related Data Home Medications Medication Instructions Recorded Confirmed acetaminophen 500 mg tablet (Pain 500 - 1,000 mg PO PRN PRN 09/30/12 06/04/25 and Fever) ascorbic acid (vitamin C) 1,000 mg 1,000 mg PO DAILY 09/30/12 06/04/25 chewable tablet aspirin 81 mg chewable tablet 81 mg PO DAILY 09/30/12 06/04/25 calcium carbonate (Calcium 500) 500 mg PO DAILY 01/24/18 06/04/25 albuterol sulfate 90 mcg/actuation 2 puff inhalation Q4H PRN 11/24/24 06/04/25 aerosol inhaler (Ventolin HFA) shortness of breath or wheezing #18 grams azithromycin 250 mg tablet 250 mg PO DAILY COPD, to reduce 11/24/24 06/04/25 exacerbations, do not discontinue #90 tabs bupropion HCl (smoking deter) 150 150 mg PO BID #180 tab-caps 11/24/24 06/04/25 mg tablet,12 hr sustained-release(smoking deterrent) celecoxib 200 mg capsule 200 mg PO DAILY PRN pain #30 caps 11/24/24 06/04/25 diltiazem HCl 120 mg 120 mg PO DAILY #90 caps 11/24/24 06/04/25 capsule,extended release 24 hr hydrochlorothiazide 25 mg tablet 25 mg PO DAILY #90 tabs 11/24/24 06/04/25 ipratropium 0.5 mg-albuterol 3 mg 3 ml inhalation BID PRN copd #180 11/24/24 06/04/25 (2.5 mg base)/3 mL nebulization mL soln lamotrigine 100 mg tablet 200 mg (2 x 100 mg) PO DAILY #180 11/24/24 06/04/25 tab-caps lisinopril 5 mg tablet 5 mg PO DAILY #90 tab-caps 11/24/24 06/04/25 metformin 500 mg tablet 1,000 mg (2 x 500 mg) PO DAILY 11/24/24 06/04/25 #180 tabs metoprolol succinate 100 mg 100 mg PO DAILY #90 tab-caps 11/24/24 06/04/25 tablet,extended release 24 hr omeprazole 20 mg capsule,delayed 20 mg PO DAILY #90 tab-caps 11/24/24 06/04/25 release pramipexole 0.5 mg tablet 0.5 mg PO HS #90 tab-caps 11/24/24 06/04/25 pravastatin 40 mg tablet 40 mg PO DAILY #90 tab-caps 11/24/24 06/04/25 umeclidinium 62.5 mcg/actuation 1 inh inhalation DAILY #30 ea 11/24/24 06/04/25 blister powder for inhalation (Incruse Ellipta) venlafaxine 100 mg tablet 100 mg PO BID #180 tab-caps 11/24/24 06/04/25 polyethylene glycol 3350 17 17 g PO ONCE #238 grams 12/07/24 06/04/25 gram/dose oral powder zolpidem 5 mg tablet 5 mg PO QHS PRN sleep #30 tabs 03/21/25 06/04/25 fluticasone propionate 230 2 puff inhalation BID #36 grams 05/07/25 06/04/25 mcg-salmeterol 21 mcg/actuation HFA inhaler (Advair HFA) Previous Rx's Medication Instructions Recorded albuterol sulfate 90 mcg/actuation 2 puff inhalation Q4H PRN 11/24/24 aerosol inhaler (Ventolin HFA) shortness of breath or wheezing #18 grams azithromycin 250 mg tablet 250 mg PO DAILY COPD, to reduce 11/24/24 exacerbations, do not discontinue #90 tabs bupropion HCl (smoking deter) 150 150 mg PO BID #180 tab-caps 11/24/24 mg tablet,12 hr sustained-release(smoking deterrent) celecoxib 200 mg capsule 200 mg PO DAILY PRN pain #30 caps 11/24/24 diltiazem HCl 120 mg 120 mg PO DAILY #90 caps 11/24/24 capsule,extended release 24 hr hydrochlorothiazide 25 mg tablet 25 mg PO DAILY #90 tabs 11/24/24 ipratropium 0.5 mg-albuterol 3 mg 3 ml inhalation BID PRN copd #180 11/24/24 (2.5 mg base)/3 mL nebulization mL soln lamotrigine 100 mg tablet 200 mg (2 x 100 mg) PO DAILY #180 11/24/24 tab-caps lisinopril 5 mg tablet 5 mg PO DAILY #90 tab-caps 11/24/24 metformin 500 mg tablet 1,000 mg (2 x 500 mg) PO DAILY 11/24/24 #180 tabs metoprolol succinate 100 mg 100 mg PO DAILY #90 tab-caps 11/24/24 tablet,extended release 24 hr omeprazole 20 mg capsule,delayed 20 mg PO DAILY #90 tab-caps 11/24/24 release pramipexole 0.5 mg tablet 0.5 mg PO HS #90 tab-caps 11/24/24 pravastatin 40 mg tablet 40 mg PO DAILY #90 tab-caps 11/24/24 umeclidinium 62.5 mcg/actuation 1 inh inhalation DAILY #30 ea 11/24/24 blister powder for inhalation (Incruse Ellipta) venlafaxine 100 mg tablet 100 mg PO BID #180 tab-caps 11/24/24 polyethylene glycol 3350 17 17 g PO ONCE #238 grams 12/07/24 gram/dose oral powder zolpidem 5 mg tablet 5 mg PO QHS PRN sleep #30 tabs 03/21/25 fluticasone propionate 230 2 puff inhalation BID #36 grams 05/07/25 mcg-salmeterol 21 mcg/actuation HFA inhaler (Advair HFA) Allergies Allergy/AdvReac Type Severity Reaction Status Date / Time house dust (House Dust) Allergy Unknown unknown Verified 05/10/25 14:11 hydrocodone bitartrate (From AdvReac Intermediate hallucinati Verified 05/10/25 14:11 Vicodin) ons zolpidem AdvReac Intermediate Agitation Verified 05/10/25 14:11 morphine AdvReac Unknown NAUSEA, Verified 05/10/25 14:11 VOMITING fentanyl AdvReac unknown Verified 05/10/25 14:11 General Stated Complaint: Chest Pain BETH: 2 Review of Systems Narrative: see HPI Exam Narrative Exam Narrative: General: Alert, well appearing, well nourished, in no acute distress. Head: Normocephalic, atraumatic Neck: Trachea midline, Neck supple. ENT: MMM. No oropharygeal lesions or exudate. Cardiac: Tachycardiac, irregular, no murmurs appreciated Resp: No respiratory distress. CTAB. Abd: Soft, non-distended, nontender : No suprapubic tenderness. No CVA tenderness. Extremities: No deformities. No peripheral edema. Neurologic: GCS 15. Moves all extremities freely against gravity Course Vital Signs Vital signs: Vital Signs Pulse 120 H 06/04/25 14:22 Respiratory Rate 23 06/04/25 14:22 Blood Pressure 162/116 H 06/04/25 14:22 Pulse Oximetry 92 06/04/25 14:22 Pulse 120 H 06/04/25 14:22 Respiratory Rate 23 06/04/25 14:22 Blood Pressure 162/116 H 06/04/25 14:22 Pulse Oximetry 92 06/04/25 14:22 Oxygen Delivery Method Nasal Cannula 06/04/25 14:22 Oxygen Flow Rate 1 06/04/25 14:22 Pain Level 5 06/04/25 14:22 Medical Decision Making 69yo M with hx HTN, HLD< SVT, DM, COPD, presenting via EMS for chest pain and shortness of breath, per EMS found to be in SVT with rate 190's which improved to 120's after a total of 18mg of adenosine. Symptoms started late yesterday evening and have been persistent; he did pass out today unsure for how long. Medical records reviewed show diagnose of intermittent SVT, no prior hx of afib or aflutter. Tachycardiac on arrival to 120's, hypertensive with SBP in 160's. Lungs CTAB, HR irregular. Non-toxic appearing. Initial resus: -EKG on arrival afib vs aflutter, rate 120's, no ST segment or T wave abnormalities to suggest occlusive IN. -Shortly after arrival HR began to increase to 130's-140s, remains afib on monitor -With unknown duration of rhythm and not AC, will pursue rate control strategy. Given 10mg IV diltazem followed by additional 10mg with good response; also given home dose PO metoprolol followed by 60mg PO diltazem. Repeat EKG afib, 120's, slightly prolonged QTC at 509, no indication of occlusive IN - HR subsequently ~110's consistently ED course: -Labs reviewed as below; CBC reassuring with no leukocytosis or anemia, CMP with mild hypokalemia at 3.3 (oral replacement ordered), Mg slighly low at 1.6 (oral replacement ordered, considered IV but actively getting BP lowering medications for his HR at this time so hesitant to add another until clear he is tolerating what is already getting), lipase not suggestive of pancreatitis, coags normal, dimer elevated (CT ordered), BNP not suggestive of heart failure, initial troponin 16. Respiratory viral swab negative. -CXR independently reviewed, no focal pneumonia or pneumothorax on my view -CT head independently reviewed, no ICH or bleed on my view, radiology read with no acute findings -CTA chest independently reviewed, no saddle embolus or focal penumonia on my view, radiology read below with no acute PE. -Repeat troponins slightly uptrending, suspect [id number] 2/t demand in setting of elevated HR On reassessment he reports chest pain has resolved. HR consistently in 80's-90's. Feels a little more short of breath however, and now some wheezing on exam. With improved HR, will give duoneb. I reviewed findings with patient including new onset afib and recommendation for admission for further workup and management. He is agreeable to this. Will defer decision regarding anticoagulation to admitting service. Discussed with [facility] hospitalist Dr. Kim; patient accepted to medicine service for further workup and management. Awaiting transfer to the floor. CT head: IMPRESSION: No acute intracranial findings on this noninfused CT scan of the brain. CTA chest: IMPRESSION: 1. No evidence of acute pulmonary emboli. No evidence of pulmonary infarction.No pleural effusions. 2. There is slightly increased markings in the medial aspect of the posterior basal segment of the right lower lobe. No large infiltrates. No pleural effusions. Other findings in the lung otero appear stable when compared to CT scan of March 2022, as described individually above. 3. No new intrathoracic adenopathy. Lab Data Lab results reviewed: Yes I reviewed the patient's lab results. Labs: Laboratory Tests Range/Units 06/04/25 06/04/25 06/04/25 14:35 16:01 16:23 WBC (4.4-10.8) 10^3/uL 7.97 RBC (4.36-5.78) 10^6/uL 5.51 Hgb (13.5-17.5) g/dL 17.1 Hct (40.0-50.0) % 48.5 MCV (80-95) fL 88 MCH (27.0-33.0) pg 31.0 MCHC (32.0-36.0) % 35.3 RDW (11.8-14.1) % 12.6 Plt Count (130-400) 10^3/uL 167 MPV (8.0-11.0) fL 8.6 Immature Gran % % 0.3 Neutrophils % % 71.0 Lymphocytes % % 13.7 Monocytes % % 11.7 Eosinophils % % 2.9 Basophils % % 0.4 Nucleated RBC % (0.0-0.3) % 0.0 Absolute Neutrophils (1.2-6.7) 10^3/uL 5.67 Absolute Lymphocytes (1.2-3.4) 10^3/uL 1.09 L Absolute Monocytes (0.1-0.8) 10^3/uL 0.93 H Absolute Eosinophils (0.0-0.7) 10^3/uL 0.23 Absolute Basophils (0.0-0.2) 10^3/uL 0.03 PT (9.1-11.1) sec 11.1 INR (0.9-1.1) 1.1 APTT (20.6-30.2) sec 26.1 D-Dimer (<500) ng/mlFEU 820 H Sodium (136-145) mmol/L 139 Potassium (3.5-5.1) mmol/L 3.3 L Chloride (98-107) mmol/L 103 Carbon Dioxide (21.0-32.0) mmol/L 24.8 Anion Gap (3-11) mmol/L 11.2 H BUN (7-18) mg/dL 12 Creatinine (0.70-1.30) mg/dL 1.1 Est GFR (CKD-EPI 2020) (mL/min/1.73m2) 72.22 Glucose (74-106) mg/dL 201 H Calcium (8.5-10.1) mg/dL 10.1 Magnesium (1.8-2.4) mg/dL 1.6 L Total Bilirubin (0.2-1.0) mg/dL 1.0 AST (15-37) U/L 14 L ALT (16-63) U/L 22 Alkaline Phosphatase (46-116) U/L 112 Troponin I (<or=76) ng/L 16 27 NT-Pro-B Natriuret Pep (<300) pg/mL 270 Total Protein (6.4-8.2) g/dL 7.9 Albumin (3.4-5.0) g/dL 3.5 Lipase (<78) U/L 17 COVID-19 Source Nasopharynx SARS-CoV-2 (PCR) (Negative) Negative Influenza Type A (PCR) (Negative) Negative Influenza Type B (PCR) (Negative) Negative RSV (PCR) (Negative) Negative Range/Units 06/04/25 19:11 WBC (4.4-10.8) 10^3/uL RBC (4.36-5.78) 10^6/uL Hgb (13.5-17.5) g/dL Hct (40.0-50.0) % MCV (80-95) fL MCH (27.0-33.0) pg MCHC (32.0-36.0) % RDW (11.8-14.1) % Plt Count (130-400) 10^3/uL MPV (8.0-11.0) fL Immature Gran % % Neutrophils % % Lymphocytes % % Monocytes % % Eosinophils % % Basophils % % Nucleated RBC % (0.0-0.3) % Absolute Neutrophils (1.2-6.7) 10^3/uL Absolute Lymphocytes (1.2-3.4) 10^3/uL Absolute Monocytes (0.1-0.8) 10^3/uL Absolute Eosinophils (0.0-0.7) 10^3/uL Absolute Basophils (0.0-0.2) 10^3/uL PT (9.1-11.1) sec INR (0.9-1.1) APTT (20.6-30.2) sec D-Dimer (<500) ng/mlFEU Sodium (136-145) mmol/L Potassium (3.5-5.1) mmol/L Chloride (98-107) mmol/L Carbon Dioxide (21.0-32.0) mmol/L Anion Gap (3-11) mmol/L BUN (7-18) mg/dL Creatinine (0.70-1.30) mg/dL Est GFR (CKD-EPI 2020) (mL/min/1.73m2) Glucose (74-106) mg/dL Calcium (8.5-10.1) mg/dL Magnesium (1.8-2.4) mg/dL Total Bilirubin (0.2-1.0) mg/dL AST (15-37) U/L ALT (16-63) U/L Alkaline Phosphatase (46-116) U/L Troponin I (<or=76) ng/L 32 NT-Pro-B Natriuret Pep (<300) pg/mL Total Protein (6.4-8.2) g/dL Albumin (3.4-5.0) g/dL Lipase (<78) U/L COVID-19 Source SARS-CoV-2 (PCR) (Negative) Influenza Type A (PCR) (Negative) Influenza Type B (PCR) (Negative) RSV (PCR) (Negative) Critical Care Time Critical Care Time Critical Care Time: Yes Total Critical Care Time: 36 Attestation: Due to a high probability of clinically significant, life threatening deterioration, the patient required my highest level of preparedness to intervene emergently and I personally spent this critical care time directly and personally managing the patient. This critical care time included obtaining a history; examining the patient; pulse oximetry; ordering and review of studies; arranging urgent treatment with development of a management plan; evaluation of patient's response to treatment; frequent reassessment; and, discussions with other providers. This critical care time was performed to assess and manage the high probability of imminent, life-threatening deterioration that could result in multi-organ failure. It was exclusive of separately billable procedures and treating other patients PFSH All Active Problems (Updated 06/04/25 @ 21:23 by Elvia Antony MD) Acute non-ST elevation myocardial infarction (NSTEMI) (Acute) Atrial fibrillation with RVR (Acute) Atrial fibrillation (Chronic) Rheumatoid arthritis (Chronic) Arthritis of right hand (Acute) Scalp lesion (Chronic) History of right shoulder replacement (Chronic) Hemiarthroplasty; 1992, [facility] Skin lesion (Chronic) Nail dystrophy (Chronic) Diabetes mellitus (Chronic) Trochanteric bursitis, right hip (Chronic) Arthritis of ankle, left (Acute) Arthritis of subtalar joint (Chronic) Arthritis of left foot (Chronic) Restless legs syndrome (Chronic) Polyp of colon (Chronic) hyperplastic Obstructive sleep apnea syndrome (Chronic) S/P uvulectomy; C-Pap Malignant tumor of prostate (Chronic 12/07/12) found incidentally on TURP Lung nodule (Chronic 11/07/15) 10/04/15; [facility]; 6mm RLL; 6 MONTH FU from 08/201504/10/16 stable yearly screening Insomnia, unspecified (Chronic 11/07/15) Increased BMI (Chronic) Hyperlipidemia (Chronic 01/16/13) Essential hypertension (Chronic 07/17/13) Depressive disorder (Chronic) [facility]--meds DJD (degenerative joint disease) of knee (Chronic) DR. 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 Javon Oswald 11/29/2012 Chronic obstructive lung disease (Chronic) a. 60 pack year of smoking, quit 2006 Benign prostatic hypertrophy with outflow obstruction (Chronic 11/29/12) Urgency/frequency. TURP by Dr. Javon Oswald 11/29/2012 Medical History Acute cholecystitis Elevated d-dimer Choledocholithiasis with acute cholecystitis with obstruction Serum total bilirubin elevated (05/07/15) elevated conjugated bili Strain of flexor muscle of right hip Otitis media Bronchiectasis Abnormal CT lung screening COVID-19 Gross hematuria Bunion of great toe of right foot Emphysema of lung Surgical History H/O surgical procedure a. left total knee arthroplasty b. TURP c. Inferior turbinate plasty and uvulectomy, along with septoplasty d. left bunionectomy e. right inguinal hernia repair f. right rotator cuff repair g. right total shoulder arthroplasty h. cardiac catheterization Primary osteoarthritis, left ankle and foot X-rays are repeated today of the foot. They show that the fixation hardware is intact there is no evidence of any broken screws there appears to be fusion between the talonavicular joint and calcaneocuboid joint. I think the tibiotalar joint has already united nonetheless on the AP view there is suboptimal correction of the planovalgus deformity. Patient initially initially had no pain following his surgery now has some pain which is better than it was a month ago recommend observation as the only other option would be to repeat the fusion by taking down the fusion of the talo navicular joint and bone grafting the calcaneal cuboid joint. Valgus deformity, not elsewhere classified, left ankle H/O ankle fusion hernia repair, ventral (01/12/17) UVULECTOMY (10/03/12) DR. SANTO Replacement of total knee joint (~11/2011) Dr. Zhang Transurethral prostatectomy (11/29/12) DR. OSWALD TOTAL SHOULDER REPLACEMENT (RIGHT) (~1992) SLEEP APNEA SURGERY RIGHT SHOULDER SURGERY Repair of inguinal hernia B/L Cholecystectomy Extraction of cataract 10/31/15; DR. MEDEIROS; LEFT EYE 11/14/15; DR. MEDEIROS; RIGHT EYE CARDIAC CATH R/L 2003 Arthroplasty of knee 10/28/18 BILAT Family History Mother Diabetes Essential hypertension Depression Hyperlipidemia Father COPD (chronic obstructive pulmonary disease) Heart disease Hyperlipidemia Asthma Brother Essential hypertension Hyperlipidemia Grandfather Diabetes Heart disease Neoplasm KIDNEYS Stroke Grandfather Heart disease Neoplasm STOMACH Asthma Grandmother Diabetes Heart disease Stroke Grandmother Diabetes Heart disease Stroke Daughter Depression Asthma Daughter Depression Asthma Social History Smoking/Tobacco Use Status: Former Tobacco Use Quit Date: 08/02/06 Quit status: quit date established Second Hand Exposure: Yes Smoking risk assessment performed?: Yes Alcohol Intake: former Year quit: 2006 Details: attempted to quit many times, quit in 2006 Drug use: Never Substance use type: does not use Adopted: No Caregiver/Support person: No Household members: spouse and children Housing: apartment Number of Children: 3 Communication Needs: Hard of Hearing and Corrective Lenses Do you need help understanding health information?: Often Pets and animals: Yes Pets and animals: cat(s) Sexually active: No Do you think of yourself as: straight/heterosexual Current gender identity: male What is your relationship status?: How often do you talk on the phone with friends or family?: never How often do you get together with friends or relatives?: never How often do you attend oriental orthodox or sabianism services?: decline to answer Do you belong to any clubs or organized social groups?: no Panel score (0-1 are the most socially isolated patients): 0 What type of physical activity do you participate in: none and walking Duration: < 15 minutes/day Frequency: 3-4 times per week Azucena/Yarsanism: Bahai Special azucena needs: No Seatbelt use: sometimes Helmet use: No Drive intox or ride w/intox livery car driver: No Firearms in home: No Do you feel safe at home: Yes Would you like helpful sources: No Additional Social history: lives alone
[2025-06-04 14:45] LABS: Abs Immature Grans 0.02 10^3/uL (0.0-0.06); HCT 48.5 % (40.0-50.0); Immature Grans % 0.3 %; MCH 31.0 pg (27.0-33.0); MCHC 35.3 % (32.0-36.0); MCV 88 fL (80-95); MPV 8.6 fL (8.0-11.0); Platelet Count 167 10^3/uL (130-400); RBC 5.51 10^6/uL (4.36-5.78); RDW 12.6 % (11.8-14.1); RDW-SD 41.0 fL; WBC 7.97 10^3/uL (4.4-10.8)
[2025-06-04 14:49] LABS: HGB 17.1 g/dL (13.5-17.5)
--- NOTE | 2025-06-04 15:00 | RT.EKG_ITS ---
APPROVED REPORT Exam: Resting ECG Reason for Exam: ? afib Patient Location: E HR:123 bpm ECG Measurements Heart Rate 123 AXIS WI [id number] P [id number] QRSd 152 QRS 87 QT 355 T 31 QTc 509 Conclusion Atrial fibrillation...V-rate 89-152, irreg A-activity Ventricular premature complex...V complex w/ short R-R interval Right bundle branch block...QRSd>120, terminal axis(90,270) no ST segment or T wave abnormalities to suggest occlusive OK
--- NOTE | 2025-06-04 15:00 | DI.RAD_ITS ---
Exam(s) XR PORTABLE CHEST AP EXAM: XR PORTABLE CHEST AP CLINICAL HISTORY: chest pain. TECHNIQUE: 2D digital imaging was performed. COMPARISON: CT CT CHEST LUNG CANCER SCREEN from 03/02/2022 CR,XR XR PORTABLE CHEST AP from 07/25/2022 CR,XR XR PORTABLE CHEST AP from 03/20/[address] ABDOMEN PELVIS WO/W from 11/15/2023 FINDINGS: Single AP portable view. Bidirectional thoracolumbar scoliosis is noted. 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 Left clavicle unremarkable. Heart size is normal mediastinum is not widened. There are COPD-emphysematous changes in both lungs. No new right lung infiltrates. There is platelike atelectasis in the left lung base again noted although to appears somewhat thicker than previous and may represent some mild infiltrate. There is a small bulla in the mid right lung measuring approximately 2 cm wide by 1 cm craniocaudal. No confluent inflow plates in the right lung. Mild increased interstitial markings are noted bilaterally, slightly more so on the right. IMPRESSION: COPD emphysematous changes again noted. Increase E density platelike atelectasis in the left lung base. This may indicate developing infiltrate. No pleural effusions. DATA REPOSITORY: RADIATION DOSE DELIVERED:
[2025-06-04 15:05] LABS: INR 1.1 (0.9-1.1); PTT Activated 26.1 sec (20.6-30.2); Prothrombin Time 11.1 sec (9.1-11.1)
--- NOTE | 2025-06-04 15:15 | DI.CT_ITS ---
Exam(s) CT HEAD WO EXAM: CT HEAD WO CLINICAL HISTORY: fall. TECHNIQUE: Imaging Protocol: Axial computed tomography images with coronal and sagittal reformatted images were created and reviewed COMPARISON: CT CT HEAD CERVICAL SPINE WO from 06/15/2024 FINDINGS: There are no skull fractures. There is no fluid in the visualized paranasal sinuses. There is no evidence of intracranial hemorrhage, mass effect, or shift of midline structures. There are no extra-axial fluid collections. The ventricles are not enlarged or shifted and there is no blood within the ventricular system nor within the basal cisterns. IMPRESSION: No acute intracranial findings on this noninfused CT scan of the brain. Called by myself to ER 06/04/2025 at 6:58 p.m. RADIATION DOSE DELIVERED: 915.07mGy.cm Total DLP DATA REPOSITORY: All CT scans at this facility are submitted to the National Radiology Data Registry (NRDR) Dose Index Registry (DIR) with the [employer] (A[employer]). RADIATION OPTIMIZATION: All CT scans at this facility use at least one of these dose optimization techniques: automated exposure control; mA and/or kV adjustment per patient size (includes targeted exams where dose is matched to clinical indication); or iterative reconstruction.
--- NOTE | 2025-06-04 15:15 | DI.CT_ITS ---
Exam(s) CT CHEST PE CTA EXAM: CT CHEST PE CTA CLINICAL HISTORY: tachycardia, SOB, + dimer. TECHNIQUE: Imaging Protocol: CT angiography of the chest was performed using pulmonary embolus protocol. Multi planar reconstructions were performed. CONTRAST MATERIAL: Intravenous: Omnipaque 350 Contrast volume: 65 cc COMPARISON: CT CT CHEST LUNG CANCER SCREEN from 03/02/2022 FINDINGS: CHEST: PULMONARY ARTERIES: There are no intraluminal filling defects to suggest acute pulmonary emboli. LUNGS: Emphysematous changes noted in the lung otero. There is a stable appearing small noncalcified nodule in the right lower lobe which is unchanged from CT scan of 03/02/2022. Also stable appearance of small nodule in the medial aspect of the left upper lobe.. There are no new lung nodules. Some platelike atelectasis in left lower lobe is unchanged. Mild increased markings in the medial aspect of the posterior basal segment of the right lower lobe are noted, more so than previous. There are no pleural effusions. No new findings in the trachea and mainstem bronchi. MEDIASTINUM: There is no hilar nor mediastinal adenopathy. Visualized thyroid unremarkable. CARDIAC: Heart size is upper normal. There is no pericardial effusion.Caliber of the thoracic aorta is within normal limits. No evidence of aortic dissection. There is no significant shift of the interventricular septum. Ventricular ratio is 1:1 PARTIALLY VISUALIZED UPPERMOST ABDOMEN: There is some reflux of intravenous contrast into the IVC and intrahepatic veins there are no adrenal masses and there is no ascites in the upper abdomen. No splenomegaly. OSSEOUS: No significant osseous lesions.No fractures. Scoliosis noted.. IMPRESSION: 1. No evidence of acute pulmonary emboli. No evidence of pulmonary infarction.No pleural effusions. 2. There is slightly increased markings in the medial aspect of the posterior basal segment of the right lower lobe. No large infiltrates. No pleural effusions. Other findings in the lung otero appear stable when compared to CT scan of March 2022, as described individually above. 3. No new intrathoracic adenopathy. Other findings as above Report called by myself to ER provider 06/04/2025 at 7:09 p.m. RADIATION DOSE DELIVERED: 211.03mGy.cm Total DLP DATA REPOSITORY: All CT scans at this facility are submitted to the National Radiology Data Registry (NRDR) Dose Index Registry (DIR) with the [employer] (ACR). RADIATION OPTIMIZATION: All CT scans at this facility use at least one of these dose optimization techniques: automated exposure control; mA and/or kV adjustment per patient size (includes targeted exams where dose is matched to clinical indication); or iterative reconstruction.
[2025-06-04] MEDS: dilTIAZem 25 MG/5 ML VIAL 10 MG IVP ×2 (15:17→15:50)
[2025-06-04 15:18] LABS: D-Dimer 820 ng/mlFEU (<500)
[2025-06-04 15:22] LABS: ALT 22 U/L (16-63); AST 14 U/L (15-37); Albumin 3.5 g/dL (3.4-5.0); Alkaline Phosphatase 112 U/L (46-116); Anion Gap 11.2 mmol/L (3-11); BUN 12 mg/dL (7-18); Bilirubin, Total 1.0 mg/dL (0.2-1.0); CO2 24.8 mmol/L (21.0-32.0); Calcium 10.1 mg/dL (8.5-10.1); Chloride 103 mmol/L (98-107); Glucose 201 mg/dL (74-106); Lipase 17 U/L (<78); Magnesium 1.6 mg/dL (1.8-2.4); Potassium 3.3 mmol/L (3.5-5.1); Sodium 139 mmol/L (136-145); Total Protein 7.9 g/dL (6.4-8.2); Troponin I 16 ng/L (<or=76)
[2025-06-04] MEDS: Metoprolol CR 100 MG TABCR PO (15:30)
[2025-06-04] MEDS: Potassium Chloride 20 MEQ TABCR 40 MEQ PO (15:52)
[2025-06-04] MEDS: dilTIAZem 60 MG TAB PO (16:22)
[2025-06-04 16:44] LABS: COVID-19 PCR Negative (Negative); RSV PCR Negative (Negative)
[2025-06-04 16:57] LABS: Troponin I 27 ng/L (<or=76)
[2025-06-04] MEDS: Normal Saline Flush 10 ML SYR IVP (18:52)
[2025-06-04] MEDS: Normal Saline - Diluent 50 ML VIAL IJ (18:52)
[2025-06-04] MEDS: Omnipaque 350 MG/ML 100 ML BTL IJ (18:52)
[2025-06-04 19:36] LABS: Troponin I 32 ng/L (<or=76)
[2025-06-04] MEDS: Albuterol/Ipratropium 3 ML UPD VIAL UPD (20:22)
--- NOTE | 2025-06-04 20:45 | W.PM.HP.N ---
Date of service: 06/04/25 Time of Service: 20:45 Assessment and Plan Assessment and plan (1) Atrial fibrillation: Status: Chronic Assessment and plan: New onset, or at least this is the first time he has been diagnosed. He is already on rate control medications with h/o PSVT. Will uptitrate diltiazem to 180mg, continue metoprolol, follow [id number] score, he agrees to start apixaban. Continue ASA for now given h/o NSTEMI and troponins that are normal but are slightly dynamic with delta of 15. EKG reassuring. Get echocardiogram, follow troponins in AM Look for other triggers, TSH, UDS (2) Benign prostatic hypertrophy with outflow obstruction: Status: Chronic Assessment and plan: With h/o prostate cancer in 2012 incidental after TURP Continue tamsulosin and finasteride. (3) Essential hypertension: Status: Chronic Assessment and plan: Continue outpatient therapy (4) Diabetes mellitus: Status: Chronic Assessment and plan: Hold metformin, ISS with correction. A1c 6.3% 05/2025, good control. (5) Depressive disorder: Status: Chronic Assessment and plan: Bipolar 2? Continue outpatient therapy incudling SNRI, lamotrigine, and sleeping medication (6) Chronic obstructive lung disease: Status: Chronic Assessment and plan: Not exacerbated. Continue home inhalers and azithro. I would prefer not to use the higher dose nebulizer unless he needs it, will increase stress on heart. (7) Obstructive sleep apnea syndrome: Status: Chronic Assessment and plan: home CPAP (8) Hypomagnesemia: Status: Inactive Assessment and plan: low Mg/K+. Replace both with goal Mg >2 and K 4-5 to stabilize heart (9) Rheumatoid arthritis: Status: Chronic Assessment and plan: Unclear diagnosis. He clearly has severe arthritis, but not clearly inflammatory, may be just bad OA. Per report has rheum consult pending recommended by ortho. I would prefer to hold NSAIDs including celecoxib, but we may resume if pain severe. History of Present Illness History of Present Illness Chief Complaint: syncope, palpitations Narrative: 69 yo M with h/o PSVT, HTN, type 2 DM, JIMBO, and COPD who presented with palpitations and lightheadedness that started this morning. He first felt something was off when he got up at 2:30am to use bathroom, felt SOB. He went back to bed, woke at 7 am and felt SOB and lightheaded. He tried to go into kitchen. He ended up sitting down, then passing out for what he thinks was a few seconds. He came to and was continuously dizzy and with palptations and SOB so he called EMS. He did not have chest pain. He didn't fall and hit head. No focal numbness/weakness, no vertigo, no vision changes. No seizures or abnormal movement. No GI symptoms. His voice is hoarse, which is recent. Per EMS, his rate was around 180 and he got adenosine 6mg that caused a short pause but did not break rhythm. Upon arrival in the ED he was in atrial fibrillation, which he has never had before. Review of Systems All systems reviewed & are unremarkable except as noted in HPI and below Constitutional Constitutional: Reports fatigue, Denies fever(s), Reports frequent falls (chornic, uses wheelchair around the house), Denies weight gain and Denies weight loss Neurologic Neurologic: Reports frequent falls (chornic, uses wheelchair around the house) Endocrine Endocrine: Reports fatigue Hematologic/Lymphatic Hematologic/Lymphatic: Denies easy bleeding PFSH All Active Problems Acute non-ST elevation myocardial infarction (NSTEMI) (Acute) Atrial fibrillation with RVR (Acute) Atrial fibrillation (Chronic) Rheumatoid arthritis (Chronic) Arthritis of right hand (Acute) Scalp lesion (Chronic) History of right shoulder replacement (Chronic) Hemiarthroplasty; 1992, [facility] Skin lesion (Chronic) Nail dystrophy (Chronic) Diabetes mellitus (Chronic) Trochanteric bursitis, right hip (Chronic) Arthritis of ankle, left (Acute) Arthritis of subtalar joint (Chronic) Arthritis of left foot (Chronic) Restless legs syndrome (Chronic) Polyp of colon (Chronic) hyperplastic Obstructive sleep apnea syndrome (Chronic) S/P uvulectomy; C-Pap Malignant tumor of prostate (Chronic 12/07/12) found incidentally on TURP Lung nodule (Chronic 11/07/15) 10/04/15; [facility]; 6mm RLL; 6 MONTH FU from 08/201504/10/16 stable yearly screening Insomnia, unspecified (Chronic 11/07/15) Increased BMI (Chronic) Hyperlipidemia (Chronic 01/16/13) Essential hypertension (Chronic 07/17/13) Depressive disorder (Chronic) [facility]--meds DJD (degenerative joint disease) of knee (Chronic) DR. 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 Javon Oswald 11/29/2012 Chronic obstructive lung disease (Chronic) a. 60 pack year of smoking, quit 2006 Benign prostatic hypertrophy with outflow obstruction (Chronic 11/29/12) Urgency/frequency. TURP by Dr. Javon Oswald 11/29/2012 Medical History Gross hematuria COVID-[address] lung screening Bronchiectasis Otitis media Strain of flexor muscle of right hip Bunion of great toe of right foot Emphysema of lung Serum total bilirubin elevated (05/07/15) elevated conjugated bili Choledocholithiasis with acute cholecystitis with obstruction Elevated d-dimer Acute cholecystitis Surgical History H/O ankle fusion Valgus deformity, not elsewhere classified, left ankle Primary osteoarthritis, left ankle and foot X-rays are repeated today of the foot. They show that the fixation hardware is intact there is no evidence of any broken screws there appears to be fusion between the talonavicular joint and calcaneocuboid joint. I think the tibiotalar joint has already united nonetheless on the AP view there is suboptimal correction of the planovalgus deformity. Patient initially initially had no pain following his surgery now has some pain which is better than it was a month ago recommend observation as the only other option would be to repeat the fusion by taking down the fusion of the talo navicular joint and bone grafting the calcaneal cuboid joint. hernia repair, ventral (01/12/17) UVULECTOMY (10/03/12) DR. SANTO Replacement of total knee joint (~11/2011) Dr. Zhang Transurethral prostatectomy (11/29/12) DR. OSWALD TOTAL SHOULDER REPLACEMENT (RIGHT) (~1992) SLEEP APNEA SURGERY RIGHT SHOULDER SURGERY Repair of inguinal hernia B/L Cholecystectomy Extraction of cataract 10/31/15; DR. MEDEIROS; LEFT EYE 11/14/15; DR. MALA; RIGHT EYE CARDIAC CATH R/L 2003 Arthroplasty of knee 10/28/18 BILAT H/O surgical procedure a. left total knee arthroplasty b. TURP c. Inferior turbinate plasty and uvulectomy, along with septoplasty d. left bunionectomy e. right inguinal hernia repair f. right rotator cuff repair g. right total shoulder arthroplasty h. cardiac catheterization Family History Mother Diabetes Essential hypertension Depression Hyperlipidemia Father COPD (chronic obstructive pulmonary disease) Heart disease Hyperlipidemia Asthma Brother Essential hypertension Hyperlipidemia Grandfather Diabetes Heart disease Neoplasm KIDNEYS Stroke Grandfather Heart disease Neoplasm STOMACH Asthma Grandmother Diabetes Heart disease Stroke Grandmother Diabetes Heart disease Stroke Daughter Depression Asthma Daughter Depression Asthma Social History Smoking/Tobacco Use Status: Former Tobacco Use Quit Date: 08/02/06 Quit status: quit date established Second Hand Exposure: Yes Smoking risk assessment performed?: Yes Alcohol Intake: former Year quit: 2006 Details: attempted to quit many times, quit in 2006 Drug use: Never Substance use type: does not use Adopted: No Caregiver/Support person: No Household members: spouse and children Housing: apartment Number of Children: 3 Communication Needs: Hard of Hearing and Corrective Lenses Do you need help understanding health information?: Often Pets and animals: Yes Pets and animals: cat(s) Sexually active: No Do you think of yourself as: straight/heterosexual Current gender identity: male What is your relationship status?: How often do you talk on the phone with friends or family?: never How often do you get together with friends or relatives?: never How often do you attend pentecostal or pentecostal services?: decline to answer Do you belong to any clubs or organized social groups?: no Panel score (0-1 are the most socially isolated patients): 0 What type of physical activity do you participate in: none and walking Duration: < 15 minutes/day Frequency: 3-4 times per week Azucena/Sikh: Samaritan Special azucena needs: No Seatbelt use: sometimes Helmet use: No Drive intox or ride w/intox driver license reviewing officer: No Firearms in home: No Do you feel safe at home: Yes Would you like helpful sources: No Additional Social history: lives alone Meds Allergies and Home Medications Allergies Allergy/AdvReac Type Severity Reaction Status Date / Time house dust (House Dust) Allergy Unknown unknown Verified 05/10/25 14:11 hydrocodone bitartrate (From AdvReac Intermediate hallucinati Verified 05/10/25 14:11 Vicodin) ons zolpidem AdvReac Intermediate Agitation Verified 05/10/25 14:11 morphine AdvReac Unknown NAUSEA, Verified 05/10/25 14:11 VOMITING fentanyl AdvReac unknown Verified 05/10/25 14:11 Home Medications Medication Instructions Recorded Confirmed Type acetaminophen 500 mg tablet (Pain 500 - 1,000 mg PO PRN PRN 09/30/12 06/04/25 History and Fever) ascorbic acid (vitamin C) 1,000 mg 1,000 mg PO DAILY 09/30/12 06/04/25 History chewable tablet aspirin 81 mg chewable tablet 81 mg PO DAILY 09/30/12 06/04/25 History calcium carbonate (Calcium 500) 500 mg PO DAILY 01/24/18 06/04/25 History albuterol sulfate 90 mcg/actuation 2 puff inhalation Q4H PRN 11/24/24 06/04/25 Rx aerosol inhaler (Ventolin HFA) shortness of breath or wheezing #18 grams azithromycin 250 mg tablet 250 mg PO DAILY COPD, to reduce 11/24/24 06/04/25 Rx exacerbations, do not discontinue #90 tabs bupropion HCl (smoking deter) 150 150 mg PO BID #180 tab-caps 11/24/24 06/04/25 Rx mg tablet,12 hr sustained-release(smoking deterrent) celecoxib 200 mg capsule 200 mg PO DAILY PRN pain #30 caps 11/24/24 06/04/25 Rx diltiazem HCl 120 mg 120 mg PO DAILY #90 caps 11/24/24 06/04/25 Rx capsule,extended release 24 hr hydrochlorothiazide 25 mg tablet 25 mg PO DAILY #90 tabs 11/24/24 06/04/25 Rx ipratropium 0.5 mg-albuterol 3 mg 3 ml inhalation BID PRN copd #180 11/24/24 06/04/25 Rx (2.5 mg base)/3 mL nebulization mL soln lamotrigine 100 mg tablet 200 mg (2 x 100 mg) PO DAILY #180 11/24/24 06/04/25 Rx tab-caps lisinopril 5 mg tablet 5 mg PO DAILY #90 tab-caps 11/24/24 06/04/25 Rx metformin 500 mg tablet 1,000 mg (2 x 500 mg) PO DAILY 11/24/24 06/04/25 Rx #180 tabs metoprolol succinate 100 mg 100 mg PO DAILY #90 tab-caps 11/24/24 06/04/25 Rx tablet,extended release 24 hr omeprazole 20 mg capsule,delayed 20 mg PO DAILY #90 tab-caps 11/24/24 06/04/25 Rx release pramipexole 0.5 mg tablet 0.5 mg PO HS #90 tab-caps 11/24/24 06/04/25 Rx pravastatin 40 mg tablet 40 mg PO DAILY #90 tab-caps 11/24/24 06/04/25 Rx umeclidinium 62.5 mcg/actuation 1 inh inhalation DAILY #30 ea 11/24/24 06/04/25 Rx blister powder for inhalation (Incruse Ellipta) venlafaxine 100 mg tablet 100 mg PO BID #180 tab-caps 11/24/24 06/04/25 Rx polyethylene glycol 3350 17 17 g PO ONCE #238 grams 12/07/24 06/04/25 Rx gram/dose oral powder zolpidem 5 mg tablet 5 mg PO QHS PRN sleep #30 tabs 03/21/25 06/04/25 Rx fluticasone propionate 230 2 puff inhalation BID #36 grams 05/07/25 06/04/25 Rx mcg-salmeterol 21 mcg/actuation HFA inhaler (Advair HFA) Exam Narrative Exam Narrative: GEN: Alert and oriented x 4, pleasant and cooperative, gives linear history. No acute distress at rest. Voice hoarse. HEENT: Head atraumatic. Conjunctiva clear, no icterus. PEERL, EOMI. no rhinorrhea. MMM, OP red but no exudate. Neck is supple with no masses or lymphadenopathy, trachea midline LUNGS: Normal effort at rest, slight expiratory wheeze bilaterally, no rales. CV: irregularly irregular, rate in 80s, with no murmurs, gallops, or rubs. ABD: active bowel sounds, soft, nontender and nondistended. No masses. EXT: no cyanosis, clubbing, or edema MSK: No joint redness or swelling, but signifant deformity and hypertrophy in joints of hands/wrists, ankles bilaterally, and back/shoulders NEURO: CN 2-12 grossly intact. Normal movement of 4 extremities. Salo thenar wasting, thumb weakness. Normal speech and coordination. No tremor SKIN: No rashes or open wounds. Hypopigmented patches. PSYCH: normal mood and affect, normal thought process Results Imaging CT scan - chest: report reviewed EKG: report reviewed (afib rate 123, RBBB, no TN) and image reviewed Imaging Studies: Head CT: negative CT CHest: 1. No evidence of acute pulmonary emboli. No evidence of pulmonary infarction.No pleural effusions. 2. There is slightly increased markings in the medial aspect of the posterior basal segment of the right lower lobe. No large infiltrates. No pleural effusions. Other findings in the lung otero appear stable when compared to CT scan of March 2022, as described individually above. 3. No new intrathoracic adenopathy. Labs 06/04/25 14:35 06/04/25 14:35 Labs: Laboratory Results - last 24 hr 06/04/25 06/04/25 06/04/25 14:35 16:01 16:23 WBC 7.97 RBC 5.51 Hgb 17.1 Hct 48.5 MCV 88 MCH 31.0 MCHC 35.3 RDW 12.6 Plt Count 167 MPV 8.6 Immature Gran % 0.3 Neutrophils % 71.0 Lymphocytes % 13.7 Monocytes % 11.7 Eosinophils % 2.9 Basophils % 0.4 Nucleated RBC % 0.0 Absolute Neutrophils 5.67 Absolute Lymphocytes 1.09 L Absolute Monocytes 0.93 H Absolute Eosinophils 0.23 Absolute Basophils 0.03 PT 11.1 INR 1.1 APTT 26.1 D-Dimer 820 H Sodium 139 Potassium 3.3 L Chloride 103 Carbon Dioxide 24.8 Anion Gap 11.2 H BUN 12 Creatinine 1.1 Est GFR (CKD-EPI 2020) 72.22 Glucose 201 H Calcium 10.1 Magnesium 1.6 L Total Bilirubin 1.0 AST 14 L ALT 22 Alkaline Phosphatase 112 Troponin I 16 27 NT-Pro-B Natriuret Pep 270 Total Protein 7.9 Albumin 3.5 Lipase 17 COVID-19 Source Nasopharynx SARS-CoV-2 (PCR) Negative Influenza Type A (PCR) Negative Influenza Type B (PCR) Negative RSV (PCR) Negative 06/04/25 19:11 WBC RBC Hgb Hct MCV MCH MCHC RDW Plt Count MPV Immature Gran % Neutrophils % Lymphocytes % Monocytes % Eosinophils % Basophils % Nucleated RBC % Absolute Neutrophils Absolute Lymphocytes Absolute Monocytes Absolute Eosinophils Absolute Basophils PT INR APTT D-Dimer Sodium Potassium Chloride Carbon Dioxide Anion Gap BUN Creatinine Est GFR (CKD-EPI 2020) Glucose Calcium Magnesium Total Bilirubin AST ALT Alkaline Phosphatase Troponin I 32 NT-Pro-B Natriuret Pep Total Protein Albumin Lipase COVID-19 Source SARS-CoV-2 (PCR) Influenza Type A (PCR) Influenza Type B (PCR) RSV (PCR) Last Vital Signs Temp 37.1 C 06/04/25 14:22 Pulse 81 06/04/25 20:22 Resp 21 06/04/25 20:22 BP 130/60 06/04/25 19:31 Pulse Ox 93 06/04/25 20:22 Time Spent Time spent with Patient: 40-54 minutes Time was spent: preparing to see the patient(eg.review tests), obtaining and/or reviewing separately otained hiistory, ordering medications,tests, procedures, referring, communicating with other health manager intensive care unit, indepentently interpreting results, counseling the patient and care coordination
[2025-06-04] MEDS: MAGNESIUM SULFATE 2 GM/50 ML BAG IV_INF (23:04)
[2025-06-04] MEDS: Pramipexole 0.5 MG TAB PO (23:04)
[2025-06-04] MEDS: Apixaban 5 MG TAB PO (23:05)
[2025-06-05] MEDS: Acetaminophen 325 MG TAB 650 MG PO (01:19)
--- NOTE | 2025-06-05 05:49 | W.PC.ACHO ---
Registration Status: ADM LYSSA Primary Language: Preferred Language: Yi ED Information & Data Chief Complaint Chest Pain 06/04/25 14:27 Triage Note BIBA for SOB/ CP since 06/04/25 14:22 yesterday- EMS found to be in SVT at 190- given 6 and 12 of adenosine- no pause noted but currently in a low rate at 128- fire gave 324 mg ASA prior to arrival Medical / Surgical History (Last Reviewed 06/04/25 @ 22:37 by Ad Kim) Abnormal CT lung screening Acute cholecystitis Bronchiectasis Bunion of great toe of right foot Choledocholithiasis with acute cholecystitis with obstruction COVID-19 Elevated d-dimer Emphysema of lung Gross hematuria Otitis media Serum total bilirubin elevated (05/07/15) Strain of flexor muscle of right hip (Last Reviewed 06/04/25 @ 22:37 by Ad Kim) Arthroplasty of knee CARDIAC CATH R/L Cholecystectomy Extraction of cataract H/O ankle fusion H/O surgical procedure hernia repair, ventral (01/12/17) Primary osteoarthritis, left ankle and foot Repair of inguinal hernia Replacement of total knee joint (~11/2011) RIGHT SHOULDER SURGERY SLEEP APNEA SURGERY TOTAL SHOULDER REPLACEMENT (RIGHT) (~1992) Transurethral prostatectomy (11/29/12) UVULECTOMY (10/03/12) Valgus deformity, not elsewhere classified, left ankle Most Recent Vital Signs Temperature 37.0 C 06/04/25 22:41 Temperature Source Temporal Artery Scan 06/04/25 22:41 Pulse 91 H 06/04/25 22:41 Pulse Rhythm Irregular 06/04/25 22:13 Pulse 80 06/04/25 21:50 Respiratory Rate 20 06/04/25 22:41 Respiratory Effort Non-Labored 06/04/25 22:13 Respiratory Depth Normal 06/04/25 22:13 Respiratory Pattern Normal 06/04/25 22:13 Blood Pressure 126/56 L 06/04/25 22:41 Blood Pressure Mean 79 06/04/25 22:41 Pulse Oximetry 95 06/04/25 22:41 Oxygen Delivery Method Room Air 06/04/25 22:41 Oxygen Flow Rate 0 06/04/25 22:41 Pain Level 0 06/05/25 04:33 Allergies house dust (House Dust) Allergy (Unknown, Verified 05/10/25 14:11) unknown hydrocodone bitartrate (From Vicodin) Adverse Reaction (Intermediate, Verified 05/10/25 14:11) hallucinations zolpidem Adverse Reaction (Intermediate, Verified 05/10/25 14:11) Agitation PT STATES THE 10MG DOSE HE IS UNABLE TO TAKE. HE TAKES 5 MG HS. morphine Adverse Reaction (Unknown, Verified 05/10/25 14:11) NAUSEA, VOMITING fentanyl Adverse Reaction (Verified 05/10/25 14:11) unknown Pt. states it makes me a little bit off Precautions Isolation Standard precaution 06/04/25 14:25 Active Medications Generic Name Dose Route Start Last Admin Trade Name Freq PRN Reason Stop Dose Admin Acetaminophen 650 mg 06/04/25 20:41 06/05/25 01:19 Acetaminophen 325 Mg Tab PO 650 mg Q4H PRN PRN Administration Iohexol 100 ml 06/04/25 19:00 06/04/25 18:52 Omnipaque 350 Mg/Ml 100 Ml Btl IJ 07/04/25 23:59 65 ml DIRECTED DANNIE Administration Pramipexole Dihydrochloride 0.5 mg 06/04/25 22:30 06/04/25 23:04 Pramipexole 0.5 Mg Tab PO 0.5 mg HS DANNIE Administration Sodium Chloride 0 ml 06/04/25 18:48 06/04/25 18:52 Normal Saline Flush 10 Ml Syr IVP 10 ml PRN PRN Administration Sodium Chloride 50 ml 06/04/25 19:00 06/04/25 18:52 Normal Saline - Diluent 50 Ml Vial IJ 50 ml DIRECTED DANNIE Administration IV IV Catheter Type [Left Saline Lock Antecubital] IV Catheter Gauge [Left 18 Antecubital] Diet Orders Category Date Time Status Diabetes Consistent CHO/Heart Healthy [DIET] Nutrition 06/05/25 Breakfast Active Diagnostics 06/05/25 06/04/25 06/04/25 Range/Units 05:35 19:11 16:23 WBC (4.4-10.8) 10^3/uL RBC (4.36-5.78) 10^6/uL Hgb (13.5-17.5) g/dL Hct (40.0-50.0) % MCV (80-95) fL MCH (27.0-33.0) pg MCHC (32.0-36.0) % RDW (11.8-14.1) % Plt Count (130-400) 10^3/uL MPV (8.0-11.0) fL Immature Gran % % Neutrophils % % Lymphocytes % % Monocytes % % Eosinophils % % Basophils % % Nucleated RBC % (0.0-0.3) % Absolute Neutrophils (1.2-6.7) 10^3/uL Absolute Lymphocytes (1.2-3.4) 10^3/uL Absolute Monocytes (0.1-0.8) 10^3/uL Absolute Eosinophils (0.0-0.7) 10^3/uL Absolute Basophils (0.0-0.2) 10^3/uL PT (9.1-11.1) sec INR (0.9-1.1) APTT (20.6-30.2) sec D-Dimer (<500) ng/mlFEU Sodium Pending (136-145) mmol/L Potassium Pending (3.5-5.1) mmol/L Chloride Pending (98-107) mmol/L Carbon Dioxide Pending (21.0-32.0) mmol/L Anion Gap Pending (3-11) mmol/L BUN Pending (7-18) mg/dL Creatinine Pending (0.70-1.30) mg/dL Est GFR (CKD-EPI 2020) Pending (mL/min/1.73m2) Glucose Pending (74-106) mg/dL Calcium Pending (8.5-10.1) mg/dL Magnesium Pending (1.8-2.4) mg/dL Total Bilirubin (0.2-1.0) mg/dL AST (15-37) U/L ALT (16-63) U/L Alkaline Phosphatase (46-116) U/L Troponin I Pending 32 27 (<or=76) ng/L NT-Pro-B Natriuret Pep (<300) pg/mL Total Protein (6.4-8.2) g/dL Albumin (3.4-5.0) g/dL Lipase (<78) U/L TSH Pending COVID-19 Source SARS-CoV-2 (PCR) (Negative) Influenza Type A (PCR) (Negative) Influenza Type B (PCR) (Negative) RSV (PCR) (Negative) 06/04/25 06/04/25 Range/Units 16:01 14:35 WBC 7.97 (4.4-10.8) 10^3/uL RBC 5.51 (4.36-5.78) 10^6/uL Hgb 17.1 (13.5-17.5) g/dL Hct 48.5 (40.0-50.0) % MCV 88 (80-95) fL MCH 31.0 (27.0-33.0) pg MCHC 35.3 (32.0-36.0) % RDW 12.6 (11.8-14.1) % Plt Count 167 (130-400) 10^3/uL MPV 8.6 (8.0-11.0) fL Immature Gran % 0.3 % Neutrophils % 71.0 % Lymphocytes % 13.7 % Monocytes % 11.7 % Eosinophils % 2.9 % Basophils % 0.4 % Nucleated RBC % 0.0 (0.0-0.3) % Absolute Neutrophils 5.67 (1.2-6.7) 10^3/uL Absolute Lymphocytes 1.09 L (1.2-3.4) 10^3/uL Absolute Monocytes 0.93 H (0.1-0.8) 10^3/uL Absolute Eosinophils 0.23 (0.0-0.7) 10^3/uL Absolute Basophils 0.03 (0.0-0.2) 10^3/uL PT 11.1 (9.1-11.1) sec INR 1.1 (0.9-1.1) APTT 26.1 (20.6-30.2) sec D-Dimer 820 H (<500) ng/mlFEU Sodium 139 (136-145) mmol/L Potassium 3.3 L (3.5-5.1) mmol/L Chloride 103 (98-107) mmol/L Carbon Dioxide 24.8 (21.0-32.0) mmol/L Anion Gap 11.2 H (3-11) mmol/L BUN 12 (7-18) mg/dL Creatinine 1.1 (0.70-1.30) mg/dL Est GFR (CKD-EPI 2020) 72.22 (mL/min/1.73m2) Glucose 201 H (74-106) mg/dL Calcium 10.1 (8.5-10.1) mg/dL Magnesium 1.6 L (1.8-2.4) mg/dL Total Bilirubin 1.0 (0.2-1.0) mg/dL AST 14 L (15-37) U/L ALT 22 (16-63) U/L Alkaline Phosphatase 112 (46-116) U/L Troponin I 16 (<or=76) ng/L NT-Pro-B Natriuret Pep 270 (<300) pg/mL Total Protein 7.9 (6.4-8.2) g/dL Albumin 3.5 (3.4-5.0) g/dL Lipase 17 (<78) U/L TSH COVID-19 Source Nasopharynx SARS-CoV-2 (PCR) Negative (Negative) Influenza Type A (PCR) Negative (Negative) Influenza Type B (PCR) Negative (Negative) RSV (PCR) Negative (Negative) Intake and Output - 24 Hour Total 06/04/25 14:17 thru 06/05/25 05:29 Intake Total 20 Output Total 275 Balance -255 Weight 95 kg Intake: IV 20 Output: Urine 275 Other: Urine Color Light Teena Urine Appearance Clear Urine Odor None Falls Risk Assessment History of Falls Previous History 06/04/25 22:13 Contributing Factors Unstable,Impairments, 06/04/25 22:13 Incontinence Ambulatory Aids Uses ambulatory device 06/04/25 22:13 Tubes/Lines None 06/04/25 22:13 Gait Evaluation W/no contributing factors 06/04/25 22:13 Cognition No cognitive impairment 06/04/25 22:13 Fall Total Score 49 06/04/25 22:13 Level of Risk Moderate Risk 06/04/25 22:13 Problems (Last Reviewed 06/04/25 @ 22:37 by Ad Kim) Atrial fibrillation (Chronic) Benign prostatic hypertrophy with outflow obstruction (Chronic 11/29/12) Chronic obstructive lung disease (Chronic) Depressive disorder (Chronic) Diabetes mellitus (Chronic) Essential hypertension (Chronic 07/17/13) Obstructive sleep apnea syndrome (Chronic) Rheumatoid arthritis (Chronic) v v v v v v v v v Sending and/or Receiving Nurses: Please use comment section below to note any information pertinent to the patient hand-off not included above. Information / Comments: Called for report 21:50. Pt arrived via EMS after experiencing chest pressure and cough beginning around 03:00. Pt reports he passed out, then woke with tachycardia and dizziness around 06:00. HR in 190s for EMS; pt was given adenosine x2 (no pause, but HR reduced to 120s) and aspirin. Pt did not demonstrate SVT in ED but did demonstrate Afib RVR. Pt was given diltiazem x2, then PO metoprolol. Also received Duo-Neb for wheezing. Pt did not take home dilt or metoprolol today. Pt lives alone, so with report of syncope and new onset Afib, hospitalist agreed to admit for observation. No c/o of chest pain at this time. Pt arrived to floor 22:06. Report received from: OLAMIDE Siddiqui RN
--- NOTE | 2025-06-05 07:00 | DI.US_ITS ---
APPROVED REPORT EXAM: Comprehensive 2D, Doppler, and color-flow Echocardiogram Patient Location: In-Patient Room/Bed: [address] Oiler: Kayla Rossi RDCS (AE) Indications: New atrial fibrillation, Syncope, HTN Other Information Study Quality: Adequate Conclusion Normal left ventricular wall thickness and chamber size. Ejection fraction is 50 to 55%. Wall motion is normal Normal right ventricular size and function Mildly dilated left atrium. Top normal right atrial size There is no structural or hemodynamically significant valvular disease Estimated right ventricular systolic pressure is 30 mmHg Wall motion Left Ventricle The left ventricle is normal size. The left ventricular systolic function is normal. The left ventricular ejection fraction is within the normal range. There is normal left ventricular wall thickness. There is normal LV segmental wall motion. There is no ventricular septal defect visualized. LVEF is 50-55%. Right Ventricle The right ventricle is normal size. The right ventricular systolic function is normal. Atria The left atrium is mildly dilated The right atrium size is top normal size The interatrial septum is intact with no evidence for an atrial septal defect. Aortic Valve The aortic valve is normal in structure. Aortic valve is trileaflet. There is no aortic valvular stenosis. No aortic regurgitation is present. Mitral Valve The mitral valve is normal in structure. No evidence of mitral valve stenosis. Trace mitral regurgitation. Tricuspid Valve The tricuspid valve is normal in structure. There is no tricuspid valve stenosis. Trace tricuspid regurgitation. The RVSP is 29.9_ mmHg. Pulmonic Valve The pulmonary valve is normal in structure. There is no pulmonic valvular stenosis. There is no pulmonic valvular regurgitation. Great Vessels The aortic root is normal in size. The ascending aorta is mildly dilated. Aortic arch is normal in caliber. IVC is normal in size and collapses >50% with inspiration. Pericardium There is no pericardial effusion. 2D Dimensions IVSD d PLAX 1.00 cm M: 0.6-1.2 Ao Root d 3.35 cm M: 3.1 - 3.7 LVPW d PLAX 1.00 cm M: 0.6 - 1.2 Ao Asc Diam d 3.62 cm M: 2.6 - 3.4 LVID d PLAX 4.00 cm M: 4.2 - 5.8 LVDs 2.85 cm M: 2.5 - 4.0 LV EF Teichholz 54.9 % FS 28.04 % LV EDV (Teich) 68.1 mL LV ESV (Teich) 30.7 mL M-Mode TAPSE 1.86 cm (M/F) >1.7 Auto EF LV EDV A4C 83.4 mL LV EDV A2C 118.4 mL LV EDV BP 100.6 mL LV ESV A4C 40.9 mL LV ESV A2C 59.0 mL LV ESV BP 49.4 mL LVEF(%) A4C 50.9 % LVEF(%) A2C 50.2 % LVEF(%) BP 50.9 % LV SV A4C 42.4 ml LV SV A2C 59.4 ml LV SV BP 51.3 ml LV CO A4C 2.7 L/min LV CO A2C 4.6 L/min LV CO BP 3.6 L/min HR A4C 63.61 BPM HR A2C 76.60 BPM LV EDV Index (BP) LA Volume LA Length A4C 5.6 cm LA Length A2C 5.6 cm LA Area A4C s 20.82 cm2 LA Area A2C s 17.58 cm2 LA Vol A4C A-L 65.22 mL LA Vol A2C A-L 46.76 mL LA Vol Biplane A-L 55.4 mL LA Vol/BSA A4C A-L LA Vol/BSA A2C A-L LA Vol/BSA BP A-L 25.3 mL/m2 LA Vol A4C MOD 59.5 mL LA Vol A2C MOD 43.5 mL LA Vol BP MOD 50.4 mL RA Volume RA Area A4C 15.3 cm2 RA ESV A4C (A-L) 39.4mL RA Vol/BSA A4C A-L RA Length A4C 5.1 cm RA ESV A4C (MOD) 37.6mL LV Diastology MV E' medial 0.138 (>0.07 m/s) MV E Vmax 0.75 (0.4-1.3 m/s) MV E/E' MED 5.42 (<14) MV A Vmax 0.50 (0.4-1.3 m/s) MV E' lateral 0.094 (>0.1 m/s) E/A Ratio 1.5 MV E/E' LAT 8.00 (<14) MV E' Average 0.116 m/s MV E/E'(average) 6.46 Aortic Valve AoV Vmax 1.00 m/s LVOT Vmax 0.84 m/s AoV Peak Grad 4.0 mmHg LVOT Peak Grad 2.8 mmHg AoV Area (Vmax) 2.72 cm2 LVOT VTI 0.141 m AoV VTI 0.180 m LVOT Mean Grad 1.7 mmHg AoV Mean Fernando. 0.74 m/s LVOT SV 45.96 mL AoV Mean Grad 2.4 mmHg LVOT Diam s 2.00 cm AoV Area (VTI) 2.56 cm2 AV Regurg Peak Gr. 4.03 mmHg Velocity Ratio 0.84 Mitral Valve MV DT 141 (160-240 msec) MV Vmax TIPS 0.69 m/s MV Mean Grad 0.7 (<2mmHg) MV VTI 0.172 m Pulmonary Valve PV Vmax 0.98 (0.5-1.5 m/s) RVOT Vmax 0.77 m/s PV Peak Grad 3.9 mmHg RVOT Peak Gr. 2.4 mmHg PV Mean Fernando 0.68 m/s RVOT VTI 0.107 m PV Mean Grad 2.1 mmHg RVOT Mean Gr. 1.1 mmHg Tricuspid Valve RA Pressure 3.00 mmHg TR Vmax 2.59 m/s TV S' 0.12 m/s TR Peak Grad 26.8 mmHg RVSP (TR) 29.9 mmHg
[2025-06-05 07:35] VITALS: BP 103/67; PULSE 119; RESP 20; TEMP 36.3; O2SAT 96
[2025-06-05 07:53] LABS: Anion Gap 9.5 mmol/L (3-11); BUN 15 mg/dL (7-18); CO2 23.5 mmol/L (21.0-32.0); Calcium 9.9 mg/dL (8.5-10.1); Chloride 105 mmol/L (98-107); Glucose 143 mg/dL (74-106); Magnesium 2.2 mg/dL (1.8-2.4); Potassium 3.9 mmol/L (3.5-5.1); Sodium 138 mmol/L (136-145)
[2025-06-05 08:00] LABS: TSH (W/Ref FT4) 2.10 uIU/mL (0.36-3.74); Troponin I 18 ng/L (<or=76)
--- NOTE | 2025-06-05 08:24 | PDOC.CMIN ---
Date of service: 06/05/25 Time of Service: 08:24 Care Management Initial Assmt Initial Assessment Reason for Hospitalization: Symptomatic Afib Functional Status/Living Situation Patient Presentation: Javon was sitting in a chair eating lunch when CM met with him. He is disabled and lives alone in an apartment in [facility]. He has 2 children that live out of town, daughter Christine in [place] and son Akiko in [place]. He has maintained a good relationship with his ex- Jayshree, and she lives locally and visits nearly everyday. Jayshree often provides transportionation, however when she is unavailable he uses [facility]. He is connected with [facility] and also receives MOW through the [facility], no other services. Town of Residence: [place] Significant Other/Family: Local (ex- Jayshree) Natural Supports: ex- Jayshree Mendoza Son Akiko Joseph, lives in [place] Daughter Christine, [place] Employment Status: Disabled Instrumental Activities of Daily Living (ADLs): Independent Medications Medication Management: No Issues/Barriers identified Advance Directives Advance Directives: Do you have an Advance Directive: Y 11/04/21, 00:04 AD On File at [facility]: Y 11/04/21, 00:04 Date Asked 11/15/21 06/15/24, 15:07 AD Date Reviewed 06/04/25 Today, 03:10 COLST On File at [facility] COLST Date Scanned Code Status Resuscitation Status Full Code Insurance Coverage/Financial Issues Insurance: [facility] Replacement - [id number] Care Team Visit Care Team Role Provider Type Abraham Myles MD MD [facility] STAFF PHYSICIAN Deandre Galvez NP Primary Care Provider NURSE PRACTITIONER Elvia Antony MD Emergency Provider [facility] STAFF PHYSICIAN Ad Kim Admit Provider [facility] STAFF PHYSICIAN Attending Provider Discharge Potential Discharge Needs: PCP F/U Appt Anticipated Barriers to Discharge: None Identified Patient/Family Education Needs: Review discharge instructions, discuss Ask Me Three Transportation: Private vehicle Plan: Anticipate, Javon will return home via private vehicle with family once medically cleared. He will follow up with his PCP and continue per his discharge plan of care. Javon will resume community support through [facility] and [facility]. CM will continue to follow. Social Determinants of Health Screening Social Determinants of health last assessed in clinic: 11/04/25 Will the Patient Participate in the Screening?: Yes Do you worry about having a steady place to live?: no Problems where you live: no known problems In the past 12 months, have you had to go without electric, gas, oil or water in your home?: no 1. Within the past 12 months, we worried whether our food would run out before we got money to buy more.: Never true 2. Within the past 12 months, the food we bought just didn't last and we didn't have money to get more.: Never true Has lack of transportation kept you from medical appointments or from doing things needed for daily living?: yes Has anyone in your life made you feel unsafe or unsupported?: no How hard is it for you to pay for the very basics like food, housing, medical care, and heating? Would you say it is:: Not hard at all Do you want help finding or keeping work or a job?: I do not need or want help If for any reason you need help with day-to-day activities such as bathing, preparing meals, shopping, managing finances, etc., do you get the help you need?: I could use a little more help How often do you feel lonely or isolated from those around you?: Sometimes Do you speak a language other than Surinamese at home?: No Does the patient want assistance with any of the above?: Yes Health Related Social Needs Health related social needs: transportation insecurity (Z59.82), problems with daily activities (Z73.9) and feeling lonely/isolated (Z60.8) Health related social needs details: Pt will need assistance PFSH All Active Problems Acute non-ST elevation myocardial infarction (NSTEMI) (Acute) Atrial fibrillation with RVR (Acute) Atrial fibrillation (Chronic) Rheumatoid arthritis (Chronic) Arthritis of right hand (Acute) Scalp lesion (Chronic) History of right shoulder replacement (Chronic) Hemiarthroplasty; 1992, [facility] Skin lesion (Chronic) Nail dystrophy (Chronic) Diabetes mellitus (Chronic) Trochanteric bursitis, right hip (Chronic) Arthritis of ankle, left (Acute) Arthritis of subtalar joint (Chronic) Arthritis of left foot (Chronic) Restless legs syndrome (Chronic) Polyp of colon (Chronic) hyperplastic Obstructive sleep apnea syndrome (Chronic) S/P uvulectomy; C-Pap Malignant tumor of prostate (Chronic 12/07/12) found incidentally on TURP Lung nodule (Chronic 11/07/15) 10/04/15; [facility]; 6mm RLL; 6 MONTH FU from 08/201504/10/16 stable yearly screening Insomnia, unspecified (Chronic 11/07/15) Increased BMI (Chronic) Hyperlipidemia (Chronic 01/16/13) Essential hypertension (Chronic 07/17/13) Depressive disorder (Chronic) [facility]--meds DJD (degenerative joint disease) of knee (Chronic) DR. 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 Javon Oswald 11/29/2012 Chronic obstructive lung disease (Chronic) a. 60 pack year of smoking, quit 2006 Benign prostatic hypertrophy with outflow obstruction (Chronic 11/29/12) Urgency/frequency. TURP by Dr. Javon Oswald 11/29/2012 Medical History Gross hematuria COVID-[address] lung screening Bronchiectasis Otitis media Strain of flexor muscle of right hip Bunion of great toe of right foot Emphysema of lung Serum total bilirubin elevated (05/07/15) elevated conjugated bili Choledocholithiasis with acute cholecystitis with obstruction Elevated d-dimer Acute cholecystitis Surgical History H/O ankle fusion Valgus deformity, not elsewhere classified, left ankle Primary osteoarthritis, left ankle and foot X-rays are repeated today of the foot. They show that the fixation hardware is intact there is no evidence of any broken screws there appears to be fusion between the talonavicular joint and calcaneocuboid joint. I think the tibiotalar joint has already united nonetheless on the AP view there is suboptimal correction of the planovalgus deformity. Patient initially initially had no pain following his surgery now has some pain which is better than it was a month ago recommend observation as the only other option would be to repeat the fusion by taking down the fusion of the talo navicular joint and bone grafting the calcaneal cuboid joint. hernia repair, ventral (01/12/17) UVULECTOMY (10/03/12) DR. SANTO Replacement of total knee joint (~11/2011) Dr. Zhang Transurethral prostatectomy (11/29/12) DR. OSWALD TOTAL SHOULDER REPLACEMENT (RIGHT) (~1992) SLEEP APNEA SURGERY RIGHT SHOULDER SURGERY Repair of inguinal hernia B/L Cholecystectomy Extraction of cataract 10/31/15; DR. MEDEIROS; LEFT EYE 11/14/15; DR. MEDEIROS; RIGHT EYE CARDIAC CATH R/L 2004 Arthroplasty of knee 10/28/18 BILAT H/O surgical procedure a. left total knee arthroplasty b. TURP c. Inferior turbinate plasty and uvulectomy, along with septoplasty d. left bunionectomy e. right inguinal hernia repair f. right rotator cuff repair g. right total shoulder arthroplasty h. cardiac catheterization Family History Mother Diabetes Essential hypertension Depression Hyperlipidemia Father COPD (chronic obstructive pulmonary disease) Heart disease Hyperlipidemia Asthma Brother Essential hypertension Hyperlipidemia Grandfather Diabetes Heart disease Neoplasm KIDNEYS Stroke Grandfather Heart disease Neoplasm STOMACH Asthma Grandmother Diabetes Heart disease Stroke Grandmother Diabetes Heart disease Stroke Daughter Depression Asthma Daughter Depression Asthma Social History Smoking/Tobacco Use Status: Former Tobacco Use Quit Date: 08/02/06 Quit status: quit date established Second Hand Exposure: Yes Smoking risk assessment performed?: Yes Alcohol Intake: former Year quit: 2006 Details: attempted to quit many times, quit in 2006 Drug use: Never Substance use type: does not use Adopted: No Caregiver/Support person: No Household members: spouse and children Housing: house Number of Children: 3 Communication Needs: Hard of Hearing and Corrective Lenses Do you need help understanding health information?: Often Pets and animals: Yes Pets and animals: cat(s) Sexually active: No Do you think of yourself as: straight/heterosexual Current gender identity: male What is your relationship status?: How often do you talk on the phone with friends or family?: never How often do you get together with friends or relatives?: never How often do you attend lutheran or protestant services?: decline to answer Do you belong to any clubs or organized social groups?: no Panel score (0-1 are the most socially isolated patients): 0 What type of physical activity do you participate in: none and walking Duration: < 15 minutes/day Frequency: 3-4 times per week Azucena/Sabianist: Pentecostal Special azucena needs: No Seatbelt use: sometimes Helmet use: No Drive intox or ride w/intox six horse hitch driver: No Firearms in home: No Do you feel safe at home: Yes Would you like helpful sources: No Additional Social history: lives alone
[2025-06-05] MEDS: Umeclidinium 7 CAP INHALER 1 CAP IH (08:31)
[2025-06-05] MEDS: Azithromycin 250 MG TAB PO (09:08)
[2025-06-05] MEDS: Lisinopril 5 MG TAB PO (09:08)
[2025-06-05] MEDS: Apixaban 5 MG TAB PO (09:08)
[2025-06-05] MEDS: hydroCHLOROthiazide 25 MG TAB PO (09:09)
[2025-06-05] MEDS: lamoTRIgine 100 MG TAB 200 MG PO (09:09)
[2025-06-05] MEDS: Aspirin 81 MG CHEW PO (09:09)
[2025-06-05] MEDS: Metoprolol CR 100 MG TABCR PO (09:09)
[2025-06-05] MEDS: dilTIAZem CD 180 MG CAPCR PO (09:09)
[2025-06-05] MEDS: Magnesium Gluconate 500 MG TAB 1000 MG PO (09:09)
[2025-06-05] MEDS: Omeprazole 20 MG CAPCR PO (09:09)
[2025-06-05] MEDS: Venlafaxine 50 MG TAB 100 MG PO (09:09)
[2025-06-05] MEDS: Albuterol HFA 8 GM 60 PUFF INH IH (10:11)
[2025-06-05 11:01] LABS: Cannabinoids THC Negative (Negative)
[2025-06-05 11:32] VITALS: BP 135/74; PULSE 71; RESP 16; TEMP 36.5; O2SAT 97
--- NOTE | 2025-06-05 14:51 | DSE_ITS ---
Date of service: 06/05/25 Time of Service: 14:52 DS: Diagnosis Discharge Diagnosis (1) Atrial fibrillation: Status: Chronic (2) Benign prostatic hypertrophy with outflow obstruction: Status: Chronic (3) Essential hypertension: Status: Chronic (4) Diabetes mellitus: Status: Chronic (5) Depressive disorder: Status: Chronic (6) Chronic obstructive lung disease: Status: Chronic (7) Obstructive sleep apnea syndrome: Status: Chronic (8) Hypomagnesemia: Status: Inactive (9) Rheumatoid arthritis: Status: Chronic Discharge Plan Disposition Patient Disposition: Home Condition: Good Discharge Details Reason For Visit: New Symptomatic Atrial Fibrillation Admit Date/Time: 06/04/25 20:41 Admit Provider: Ad Kim Attending Provider: Ad Kim Primary Care Provider: Deandre Galvez Hospital Course Hospital Course: Patient initially presented with lightheadedness and dizziness and was ultimately found to have a new diagnosis of atrial fibrillation with RVR. He received adenosine via EMS which improved his heart rate to the 120s,. Patient is already on long-acting diltiazem and his dosage was increased which resulted in steady heart rate in the 70s both at rest and with ambulation. Patient also had echocardiogram that did not show any acute findings. At which time it was determined the patient was stable for discharge home with an increase in his diltiazem dose and to be started on Eliquis. Home Meds and New Rx's Prescriptions: New diltiazem HCl 180 mg Capsule,Extended Release 24hr 180 mg PO DAILY Qty: 90 0RF Eliquis 5 mg tablet 5 mg PO BID Qty: 90 0RF Continued polyethylene glycol 3350 17 gram/dose powder 17 g PO ONCE Qty: 238 0RF Rx Instructions: Take per colonoscopy instructions provided by ordering providers office fluticasone propion-salmeterol [Advair HFA] 230-21 mcg/actuation HFA aerosol inhaler 2 puff Inhalation BID Qty: 36 12RF albuterol sulfate [Ventolin HFA] 90 mcg/actuation HFA aerosol inhaler 2 puff Inhalation Q4H PRN (Reason: shortness of breath or wheezing) Qty: 18 11RF azithromycin 250 mg tablet 250 mg PO DAILY Qty: 90 4RF bupropion HCl (smoking deter) 150 mg tablet extended release 12 hr 150 mg PO BID Qty: 180 3RF celecoxib 200 mg capsule 200 mg PO DAILY PRN (Reason: pain) Qty: 30 11RF hydrochlorothiazide 25 mg tablet 25 mg PO DAILY Qty: 90 11RF ipratropium-albuterol 0.5 mg-3 mg(2.5 mg base)/3 mL solution for nebulization 3 ml INHALATION BID PRN (Reason: copd) Qty: 180 11RF lamotrigine 100 mg tablet 200 mg PO DAILY Qty: 180 11RF lisinopril 5 mg tablet 5 mg PO DAILY Qty: 90 11RF metformin 500 mg tablet 1,000 mg PO DAILY Qty: 180 3RF metoprolol succinate 100 mg tablet extended release 24 hr 100 mg PO DAILY Qty: 90 11RF omeprazole 20 mg capsule,delayed release(DR/EC) 20 mg PO DAILY Qty: 90 11RF pramipexole 0.5 mg tablet 0.5 mg PO HS Qty: 90 11RF pravastatin 40 mg tablet 40 mg PO DAILY Qty: 90 11RF Incruse Ellipta 62.5 mcg/actuation blister with device 1 inh inhalation DAILY Qty: 30 11RF venlafaxine 100 mg tablet 100 mg PO BID Qty: 180 11RF Patient Comments: 01/24/18 pt takes 200mg in AM.jw zolpidem 5 mg tablet 5 mg PO QHS PRN (Reason: sleep) Qty: 30 2RF aspirin 81 MG tablet,chewable 81 mg PO DAILY acetaminophen [Pain and Fever] 500 MG tablet 500 - 1,000 mg PO PRN PRN ascorbic acid (vitamin C) 1,000 MG tablet,chewable 1,000 mg PO DAILY calcium carbonate [Calcium 500] 500 MG tablet 500 mg PO DAILY Discontinued diltiazem HCl 120 mg capsule,extended release 24hr 120 mg PO DAILY Qty: 90 3RF Discharge Instructions Stand Alone Forms: Portal Information Activity:: Activity as Tolerated Equipment/Supplies:: No Equipment Needed Diet:: As Tolerated Discharge Orders Discharge Orders: Discharge Order (Routine); Ordered 06/05/25 Ordered By: Abraham Myles DS: Summary Time Spent with Patient providing and/or coordinating discharge services: Greater than 30 minutes Status at Discharge Functional status at discharge: independent ambulation Overall status at discharge: patient is back to baseline Mental Status: mental status grossly normal Speech and Movement: speech and movement normal Mood: congruent mood Affect: normal affect Quality:SDOH Health Related Social Needs: Health related social needs transpo insecurity daily a ctivities lonely/isolated Health related social needs details Pt will need piotr franklin Health related social needs details: Pt will need assistance Exam Narrative Exam Narrative: well appearing gentleman sitting up in the chair in no acute distress, AOx4, heart irregularly irregular, rate ~80bpm, lungs CTAB, abdomen soft, non-tender, non-distended Psych Mental Status: mental status grossly normal Speech and Movement: speech and movement normal Mood: congruent mood Affect: normal affect DS: Data Vitals/I&O Vitals and I&O: Vital Signs Temperature 97.7 F 06/05/25 11:32 Temperature Source Temporal Artery Scan 06/05/25 11:32 Pulse 71 06/05/25 11:32 Pulse Rhythm Irregular 06/04/25 22:13 Pulse 80 06/04/25 21:50 Respiratory Rate 16 06/05/25 11:32 Respiratory Effort Non-Labored 06/04/25 22:13 Respiratory Depth Normal 06/04/25 22:13 Respiratory Pattern Normal 06/04/25 22:13 Blood Pressure 135/74 06/05/25 11:32 Blood Pressure Mean 94 06/05/25 11:32 Pulse Oximetry 97 06/05/25 11:32 Oxygen Delivery Method Room Air 06/05/25 11:32 Oxygen Flow Rate 0 06/05/25 11:32 Pain Level 0 06/05/25 07:35 Intake & Output 06/04/25 06/05/25 06/05/25 17:59 05:59 17:59 Intake Total 460 / 460 Output Total 275 / 275 Balance -215 / -205 460 / 460 Weight 150 lb 209 lb 7.026 oz Intake: IV Oral 460 / 460 Output: Urine 275 / 275 Other: Urine Color Light Teena Urine Appearance Clear Urine Odor None Data Completed and Pending Pending Labs at Discharge: 06/04/25 06/04/25 06/04/25 14:35 16:01 16:23 WBC 7.97 RBC 5.51 Hgb 17.1 Hct 48.5 MCV 88 MCH 31.0 MCHC 35.3 RDW 12.6 Plt Count 167 MPV 8.6 Immature Gran % 0.3 Neutrophils % 71.0 Lymphocytes % 13.7 Monocytes % 11.7 Eosinophils % 2.9 Basophils % 0.4 Nucleated RBC % 0.0 Absolute Neutrophils 5.67 Absolute Lymphocytes 1.09 L Absolute Monocytes 0.93 H Absolute Eosinophils 0.23 Absolute Basophils 0.03 PT 11.1 INR 1.1 APTT 26.1 D-Dimer 820 H Sodium 139 Potassium 3.3 L Chloride 103 Carbon Dioxide 24.8 Anion Gap 11.2 H BUN 12 Creatinine 1.1 Est GFR (CKD-EPI 2020) 72.22 Glucose 201 H Calcium 10.1 Magnesium 1.6 L Total Bilirubin 1.0 AST 14 L ALT 22 Alkaline Phosphatase 112 Troponin I 16 27 NT-Pro-B Natriuret Pep 270 Total Protein 7.9 Albumin 3.5 Lipase 17 TSH Urine Opiates Screen Urine Methadone Screen Ur Barbiturates Screen Ur Tricyclics Screen Ur Amphetamines Screen U Benzodiazepines Scrn Urine Cocaine Screen Ur THC Screen COVID-19 Source Nasopharynx SARS-CoV-2 (PCR) Negative Influenza Type A (PCR) Negative Influenza Type B (PCR) Negative RSV (PCR) Negative 06/04/25 06/05/25 06/05/25 19:11 06:55 09:45 WBC RBC Hgb Hct MCV MCH MCHC RDW Plt Count MPV Immature Gran % Neutrophils % Lymphocytes % Monocytes % Eosinophils % Basophils % Nucleated RBC % Absolute Neutrophils Absolute Lymphocytes Absolute Monocytes Absolute Eosinophils Absolute Basophils PT INR APTT D-Dimer Sodium 138 Potassium 3.9 Chloride 105 Carbon Dioxide 23.5 Anion Gap 9.5 BUN 15 Creatinine 1.0 Est GFR (CKD-EPI 2020) 80.97 Glucose 143 H Calcium 9.9 Magnesium 2.2 Total Bilirubin AST ALT Alkaline Phosphatase Troponin I 32 18 NT-Pro-B Natriuret Pep Total Protein Albumin Lipase TSH 2.10 Urine Opiates Screen Negative Urine Methadone Screen Negative Ur Barbiturates Screen Negative Ur Tricyclics Screen Negative Ur Amphetamines Screen Negative U Benzodiazepines Scrn Negative Urine Cocaine Screen Negative Ur THC Screen Negative COVID-19 Source SARS-CoV-2 (PCR) Influenza Type A (PCR) Influenza Type B (PCR) RSV (PCR) PFSH All Active Problems Acute non-ST elevation myocardial infarction (NSTEMI) (Acute) Atrial fibrillation with RVR (Acute) Atrial fibrillation (Chronic) Rheumatoid arthritis (Chronic) Arthritis of right hand (Acute) Scalp lesion (Chronic) History of right shoulder replacement (Chronic) Hemiarthroplasty; 1992, Skin lesion (Chronic) Nail dystrophy (Chronic) Diabetes mellitus (Chronic) Trochanteric bursitis, right hip (Chronic) Arthritis of ankle, left (Acute) Arthritis of subtalar joint (Chronic) Arthritis of left foot (Chronic) Restless legs syndrome (Chronic) Polyp of colon (Chronic) hyperplastic Obstructive sleep apnea syndrome (Chronic) S/P uvulectomy; C-Pap Malignant tumor of prostate (Chronic 12/07/12) found incidentally on TURP Lung nodule (Chronic 11/07/15) 10/04/15; [facility]; 6mm RLL; 6 MONTH FU from 08/201504/10/16 stable yearly screening Insomnia, unspecified (Chronic 11/07/15) Increased BMI (Chronic) Hyperlipidemia (Chronic 01/16/13) Essential hypertension (Chronic 07/17/13) Depressive disorder (Chronic) [facility]--meds DJD (degenerative joint disease) of knee (Chronic) DR. 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 Javon Oswald 11/29/2012 Chronic obstructive lung disease (Chronic) a. 60 pack year of smoking, quit 2006 Benign prostatic hypertrophy with outflow obstruction (Chronic 11/29/12) Urgency/frequency. TURP by Dr. Javon Oswald 11/29/2012 Medical History Gross hematuria COVID-[address] lung screening Bronchiectasis Otitis media Strain of flexor muscle of right hip Bunion of great toe of right foot Emphysema of lung Serum total bilirubin elevated (05/07/15) elevated conjugated bili Choledocholithiasis with acute cholecystitis with obstruction Elevated d-dimer Acute cholecystitis Surgical History H/O ankle fusion Valgus deformity, not elsewhere classified, left ankle Primary osteoarthritis, left ankle and foot X-rays are repeated today of the foot. They show that the fixation hardware is intact there is no evidence of any broken screws there appears to be fusion between the talonavicular joint and calcaneocuboid joint. I think the tibiotalar joint has already united nonetheless on the AP view there is suboptimal correction of the planovalgus deformity. Patient initially initially had no pain following his surgery now has some pain which is better than it was a month ago recommend observation as the only other option would be to repeat the fusion by taking down the fusion of the talo navicular joint and bone grafting the calcaneal cuboid joint. hernia repair, ventral (01/12/17) UVULECTOMY (10/03/12) DR. SANTO Replacement of total knee joint (~11/2011) Dr. Zhang Transurethral prostatectomy (11/29/12) DR. OSWALD TOTAL SHOULDER REPLACEMENT (RIGHT) (~1992) SLEEP APNEA SURGERY RIGHT SHOULDER SURGERY Repair of inguinal hernia B/L Cholecystectomy Extraction of cataract 10/31/15; DR. MEDEIROS; LEFT EYE 11/14/15; DR. MEDEIROS; RIGHT EYE CARDIAC CATH R/L 2004 Arthroplasty of knee 10/28/18 BILAT H/O surgical procedure a. left total knee arthroplasty b. TURP c. Inferior turbinate plasty and uvulectomy, along with septoplasty d. left bunionectomy e. right inguinal hernia repair f. right rotator cuff repair g. right total shoulder arthroplasty h. cardiac catheterization Family History Mother Diabetes Essential hypertension Depression Hyperlipidemia Father COPD (chronic obstructive pulmonary disease) Heart disease Hyperlipidemia Asthma Brother Essential hypertension Hyperlipidemia Grandfather Diabetes Heart disease Neoplasm KIDNEYS Stroke Grandfather Heart disease Neoplasm STOMACH Asthma Grandmother Diabetes Heart disease Stroke Grandmother Diabetes Heart disease Stroke Daughter Depression Asthma Daughter Depression Asthma Social History Smoking/Tobacco Use Status: Former Tobacco Use Quit Date: 08/02/06 Quit status: quit date established Second Hand Exposure: Yes Smoking risk assessment performed?: Yes Alcohol Intake: former Year quit: 2006 Details: attempted to quit many times, quit in 2006 Drug use: Never Substance use type: does not use Adopted: No Caregiver/Support person: No Household members: spouse and children Housing: house Number of Children: 3 Communication Needs: Hard of Hearing and Corrective Lenses Do you need help understanding health information?: Often Pets and animals: Yes Pets and animals: cat(s) Sexually active: No Do you think of yourself as: straight/heterosexual Current gender identity: male What is your relationship status?: How often do you talk on the phone with friends or family?: never How often do you get together with friends or relatives?: never How often do you attend worship or yarsanism services?: decline to answer Do you belong to any clubs or organized social groups?: no Panel score (0-1 are the most socially isolated patients): 0 What type of physical activity do you participate in: none and walking Duration: < 15 minutes/day Frequency: 3-4 times per week Azucena/Holiness: L[employer] Special azucena needs: No Seatbelt use: sometimes Helmet use: No Drive intox or ride w/intox tank driver: No Firearms in home: No Do you feel safe at home: Yes Would you like helpful sources: No Additional Social history: lives alone Time Spent with Patient Time Spent with Patient: <45 minutes Time was spent: preparing to see the patient(eg.review tests), obtaining and/or reviewing separately otained hiistory, ordering medications,tests, procedures, referring, communicating with other health hospice care transitions coordinator, indepentently interpreting results, counseling the patient and care coordination
--- NOTE | 2025-06-05 14:52 | PHA.REVIEW2 ---
Pharmacy Admission Review Admission Clinical Review Admission Pharmacy Review: house dust (House Dust) Allergy (Unknown, Verified 05/10/25 14:11) unknown hydrocodone bitartrate (From Vicodin) Adverse Reaction (Intermediate, Verified 05/10/25 14:11) hallucinations zolpidem Adverse Reaction (Intermediate, Verified 05/10/25 14:11) Agitation morphine Adverse Reaction (Unknown, Verified 05/10/25 14:11) NAUSEA, VOMITING fentanyl Adverse Reaction (Verified 05/10/25 14:11) unknown Resuscitation Status Full Code Height 6 ft Weight 95 kg Pharmacy Admission Review Renal Dosing Renal Dosing: BUN 15 mg/dL (7-18) 06/05/25 06:55 Creatinine 1.0 mg/dL (0.70-1.30) 06/05/25 06:55 Medications needing adjustments: Reviewed (CrCl 82.2 mL/min) List of meds needing interventions: Current medications are okay Anticoagulation Anticoagulation: Hgb 17.1 g/dL (13.5-17.5) 06/04/25 14:35 Hct 48.5 % (40.0-50.0) 06/04/25 14:35 Plt Count 167 10^3/uL (130-400) 06/04/25 14:35 INR 1.1 (0.9-1.1) 06/04/25 14:35 Creatinine 1.0 mg/dL (0.70-1.30) 06/05/25 06:55 DVT Prophylaxis: Reviewed Medications: Apixaban (5mg BID) Relevant Labs Relevant Labs: Sodium 138 mmol/L (136-145) 06/05/25 06:55 Potassium 3.9 mmol/L (3.5-5.1) 06/05/25 06:55 Chloride 105 mmol/L (98-107) 06/05/25 06:55 Magnesium 2.2 mg/dL (1.8-2.4) 06/05/25 06:55 Electrolytes, C-Reactive P, ESR: Reviewed DM Control DM Control: Glucose 143 mg/dL (74-106) H 06/05/25 06:55 DM Control: Reviewed Insulin Dosing, Diabetic Medication: No meds ordered at this time - takes metformin at home but provider holding for now Cardiac Review Cardiac Review: Troponin I 18 ng/L (<or=76) 06/05/25 06:55 NT-Pro-B Natriuret Pep 270 pg/mL (<300) 06/04/25 14:35 BP, HR, EF%: Reviewed (BP and HR WNL) List meds needing interventions: Has orders for diltiazem CD 180mg daily, HCTZ 25mg daily, lisinopril 5mg daily and metoprolol XL 100mg daily QTc Review QTc: Reviewed IV to PO Switch IV Medications: Reviewed Home Meds Home Med List reviewed: Reviewed Relevent Home Meds Not ordered & why?: metformin (on hold per H+P), ascorbic acid, bupropion (was ordered and then canceled by provider), calcium carbonate, celecoxib (PRN), Advair (was ordered and then canceled by provider) and Duenebs (PRN) Current Meds Current Medication Order Review: Reviewed
[2025-06-05 15:06] VITALS: BP 107/68; PULSE 65; RESP 16; TEMP 35.7; O2SAT 96
--- NOTE | 2025-06-05 17:37 | CMDISCH_ITS ---
Date of service: 06/05/25 Time of Service: 17:37 LACE Index Scoring Tool Questions: Length of Stay (in days): 1 Was the patient admitted via the E.D.?: Yes Comorbidities: Previous M.I., Chronic Pulmonary Disease and Metastatic Solid Tumor (HX Prostate tumor) E.D. Visits: 1 Answers: Total Score: 10 Risk of Readmission: High Risk Care Management Discharge Plan Reason for Hospitalization: Afib Discharge Plan: Javon is discharged home via private vehicle with family. He will follow up with community providers and continue per his discharge plan of care. No new services were ordered before discharge. Patient will follow up with [facility] and [facility]. Patient/Family Education Needs: Review discharge instructions and plan follow-up after discharge. Discuss ask me three. SDOH Health Related Social Needs: Health related social needs transpo insecurity daily a ctivities lonely/isolated Health related social needs details Pt will need piotr franklin Health related social needs details: Pt will need assistance
== END 2025-06-05 16:54 | disposition home or self-care (01) ==
LOC: ER 21:23 → MS 22:06
PROVIDERS: Admitting Provider Family Medicine; Emergency Provider Student in an Organized Health Care Education/Training Program; PCP Nurse Practitioner Family; Responsible Provider Family Medicine; Visit Provider Family Medicine
DX: I48.91 Unspecified atrial fibrillation (principal); N13.8 Other obstructive and reflux uropathy; N40.1 Benign prostatic hyperplasia with lower urinary tract symptoms; I10 Essential (primary) hypertension; E11.65 Type 2 diabetes mellitus with hyperglycemia; F32.9 Major depressive disorder, single episode, unspecified; J44.9 Chronic obstructive pulmonary disease, unspecified; G47.33 Obstructive sleep apnea (adult) (pediatric); E83.42 Hypomagnesemia; M06.9 Rheumatoid arthritis, unspecified; Z79.899 Other long term (current) drug therapy; I47.10 Supraventricular tachycardia, unspecified; R42 Dizziness and giddiness; I25.2 Old myocardial infarction; Z96.611 Presence of right artificial shoulder joint; E11.9 Type 2 diabetes mellitus without complications; G25.81 Restless legs syndrome; R91.1 Solitary pulmonary nodule; G47.00 Insomnia, unspecified; E78.5 Hyperlipidemia, unspecified; Z87.891 Personal history of nicotine dependence; Z96.652 Presence of left artificial knee joint; Z79.84 Long term (current) use of oral hypoglycemic drugs
CPT/HCPCS: 00123; 36415; 71275; 80048; 80053; 80307; 83690; 87637; 93005; 93306; 94640; 96374; 96376; 99291; 70450; 71045; 83735; 83880; 84443; 84484; 85025; 85379; 85610; 85730; 93010; 94664; 99222; 99238; G0378; J3475; J3490; J7620